=== PATIENT | female | born 1950 | race Caucasian/White ===

== ENCOUNTER → 2020-06-29 13:30 | Outpatient (BNVA) | payer MEDICARE, OTHER, SELFPAY | PROVIDERS: PCP Internal Medicine; Referring Provider Internal Medicine; Visit Provider Internal Medicine Cardiovascular Disease | DX: I10 Essential (primary) hypertension (principal); Z79.899 Other long term (current) drug therapy | CPT/HCPCS: 99213 ==

== ENCOUNTER 2020-07-06 11:24 | Outpatient (REF) | payer MEDICARE, OTHER, SELFPAY ==
--- NOTE | 2020-07-06 11:30 | XR_ITS ---
EXAMINATION: BILATERAL KNEES STANDING. LEFT KNEE 2 VIEWS CLINICAL INFORMATION: Left knee pain. COMPARISON: None TECHNIQUE: AP bilateral knee standing one view. Left knee 2 views FINDINGS: AP bilateral knee: There is a total left knee arthroplasty in satisfactory position. There is moderate to severe loss of medial and mild lateral compartment joint space right knee no bony erosive changes seen. No loose body seen. 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 Left knee: There is a total left knee arthroplasty with prosthetic components in satisfactory alignment. No visible fracture or bony abnormality seen. The soft tissues are normal. XR/XR knee standing BI IMPRESSION: Degenerative arthritic changes medial and lateral compartment right knee. Total left knee arthroplasty with prosthetic components in satisfactory position.
--- NOTE | 2020-07-06 11:30 | XR_ITS ---
EXAMINATION: BILATERAL KNEES STANDING. LEFT KNEE 2 VIEWS CLINICAL INFORMATION: Left knee pain. COMPARISON: None TECHNIQUE: AP bilateral knee standing one view. Left knee 2 views FINDINGS: AP bilateral knee: There is a total left knee arthroplasty in satisfactory position. There is moderate to severe loss of medial and mild lateral compartment joint space right knee no bony erosive changes seen. No loose body seen. 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 Left knee: There is a total left knee arthroplasty with prosthetic components in satisfactory alignment. No visible fracture or bony abnormality seen. The soft tissues are normal. XR/XR knee LT 2V IMPRESSION: Degenerative arthritic changes medial and lateral compartment right knee. Total left knee arthroplasty with prosthetic components in satisfactory position.
== END 2020-07-06 11:25 | disposition home or self-care (01) ==
LOC: HO.XRAY 11:24
PROVIDERS: PCP Internal Medicine; Referring Provider Internal Medicine; Visit Provider Orthopaedic Surgery
DX: Z47.1 Aftercare following joint replacement surgery (principal); Z96.652 Presence of left artificial knee joint
CPT/HCPCS: 73560; 73565; 99214

== ENCOUNTER → 2021-07-01 13:08 | Outpatient (BNVA) | payer MEDICARE, OTHER, SELFPAY | PROVIDERS: PCP Internal Medicine; Visit Provider Internal Medicine Cardiovascular Disease | DX: I10 Essential (primary) hypertension (principal); M17.0 Bilateral primary osteoarthritis of knee; Z96.652 Presence of left artificial knee joint; T78.49XA Other allergy, initial encounter; Z88.2 Allergy status to sulfonamides; Z79.899 Other long term (current) drug therapy | CPT/HCPCS: 93005; 99212 ==

== ENCOUNTER → 2022-07-04 12:57 | Outpatient (BNVA) | payer MEDICARE, OTHER, SELFPAY | PROVIDERS: PCP Internal Medicine; Referring Provider Internal Medicine; Visit Provider Internal Medicine Cardiovascular Disease | DX: I10 Essential (primary) hypertension (principal) | CPT/HCPCS: 93005; 99212 ==

== ENCOUNTER 2022-07-04 21:26 | Emergency (ER) | payer MEDICARE, OTHER, SELFPAY ==
--- NOTE | 2022-07-04 | ECG_ITS ---
Test Reason : DIZZINESS Blood Pressure : / mmHG Vent. Rate : 077 BPM Atrial Rate : 077 BPM P-R Int : 174 ms QRS Dur : 096 ms QT Int : 414 ms P-R-T Axes : 066 015 031 degrees QTc Int : 468 ms Sinus rhythm with marked sinus arrhythmia with occasional Premature atrial complexes Nonspecific ST abnormality Abnormal ECG No previous ECGs available Referred By: Generic ED Physician Electronically Signed By:TRISTEN CASEY MD
--- NOTE | ~2022-07-04 | XR_ITS ---
EXAMINATION: RIGHT SHOULDER, LEFT WRIST CLINICAL INFORMATION: Fall with right shoulder and left wrist pain COMPARISON: None TECHNIQUE: 3 views right shoulder, 4 views left wrist FINDINGS: Shoulder: Some minimal degenerative changes are present sclerotic changes in the region of the greater tubercle. On the AP view, there is a 5 mm rounded calcific density seen at the superior aspect of the glenohumeral joint which most likely represents a free intra-articular body. Degenerative changes noted at the AC joint. No acute fractures or dislocations. Left wrist: Generalized osteopenia is present. Degenerative changes are present at the radiocarpal joint. No fractures or dislocations are seen. Degenerative changes seen at the triscaphe joint as well as the first SNF joint. XR/XR wrist LT min 3V IMPRESSION: Degenerative changes in the right shoulder and left wrist as described above. Probable right intra-articular glenohumeral ossific density. No evidence of an acute osseous injury
--- NOTE | ~2022-07-04 | XR_ITS ---
EXAMINATION: RIGHT SHOULDER, LEFT WRIST CLINICAL INFORMATION: Fall with right shoulder and left wrist pain COMPARISON: None TECHNIQUE: 3 views right shoulder, 4 views left wrist FINDINGS: Shoulder: Some minimal degenerative changes are present sclerotic changes in the region of the greater tubercle. On the AP view, there is a 5 mm rounded calcific density seen at the superior aspect of the glenohumeral joint which most likely represents a free intra-articular body. Degenerative changes noted at the AC joint. No acute fractures or dislocations. Left wrist: Generalized osteopenia is present. Degenerative changes are present at the radiocarpal joint. No fractures or dislocations are seen. Degenerative changes seen at the triscaphe joint as well as the first USP joint. XR/XR shoulder RT min 2V IMPRESSION: Degenerative changes in the right shoulder and left wrist as described above. Probable right intra-articular glenohumeral ossific density. No evidence of an acute osseous injury
[2022-07-04 21:43] VITALS: BP 148/84; PULSE 73; O2SAT 99
[2022-07-04 22:27] VITALS: BP 133/71; PULSE 75; RESP 18; TEMP 36.5; O2SAT 99; BMI 29.9
[2022-07-04 22:57] LABS: Hematocrit 43.7 % (37.0-47.0); Hemoglobin 15.2 g/dl (12.0-16.0); Mean Corpuscular HGB Conc 34.8 g/dl (31.0-35.0); Mean Corpuscular Hemoglobin 30.8 pg (27.0-33.0); Mean Corpuscular Volume 88.5 fL (80.0-98.0); Mean Platelet Volume 9.5 fL (9.4-12.3); Platelet Count 324 X10*3/uL (160-400); Red Blood Count 4.94 X10*6/uL (4.20-5.50); White Blood Count 9.4 X10*3/uL (4.8-10.8)
[2022-07-04 23:16] LABS: Alanine Aminotransferase 24 U/L (0-31); Albumin Level 4.5 g/dL (3.5-5.0); Alkaline Phosphatase 78 U/L (39-117); Anion Gap 20 (12-20); Aspartate Amino Transferase 24 U/L (5-31); Bilirubin Total 0.3 mg/dL (0.0-1.0); Blood Urea Nitrogen 11 mg/dL (9-16); Calcium 9.5 mg/dL (8.4-10.2); Carbon Dioxide 25 mmol/L (22-29); Chloride 100 mmol/L (96-108); Creatinine Clr Calc Pharmacy 95.9; Estimated Glomerular Filt Rate > 60; Glucose Random 118 mg/dL (60-115); Potassium 3.6 mmol/L (3.3-5.1); Sodium 141 mmol/L (135-145); Total Protein 7.6 g/dL (6.5-8.0)
--- NOTE | 2022-07-05 00:53 | ED.FALL ---
HPI - Fall General Chief Complaint: Fall Stated Complaint: fall Time Seen by Provider: 07/05/22 00:52 Source: patient Mode of arrival: ambulatory Limitations: no limitations History of Present Illness HPI Narrative: Pain came on after mechanical fall after having 2 glasses of wine with dinner patient was walking foot got caught in footing door patient ended on left side hitting her shoulder to the sethi and then the ground complaining of pain in the right shoulder and the left wrist no head injury no loss of consciousness no neck pain patient had small amount of blood from the nose patient is not on any anticoagulants patient had small amount of bleeding from the nose Related Data Home Medications Medication Instructions Recorded Confirmed amlodipine 5 mg tablet 5 mg PO DAILY 06/29/20 07/04/22 hydrochlorothiazide 25 mg tablet 25 mg PO DAILY 06/29/20 07/04/22 simvastatin 20 mg tablet 20 mg PO BEDTIME 06/29/20 07/04/22 Previous Rx's Medication Instructions Recorded amoxicillin 500 mg tablet 500 mg PO ONCE 1 day #4 tabs 03/15/22 ibuprofen 600 mg tablet 600 mg PO Q6H PRN Pain (Scale 07/05/22 Score 4-6) #30 tabs Allergies Allergy/AdvReac Type Severity Reaction Status Date / Time Sulfa (Sulfonamide Allergy Severe HIVES Verified 07/04/22 13:17 Antibiotics) [SULFA (SULFONAMIDE ANTIBIOTICS)] red dye [RED DYE] Allergy Unknown HIVES Verified 07/04/22 13:17 Review of Systems Review of Systems: Yes all other systems are reviewed and are negative PMFSH Past Medical History Medical History Hypertension Primary osteoarthritis of knees, bilateral Surgical History History of elbow surgery History of total left knee replacement (TKR) (~03/19/19) Hx of knee surgery Hx of tonsillectomy Family History Family History Father No problems noted. Mother No problems noted. Social History Social History Alcohol intake: current Alcohol intake frequency: 0-2 drinks per day Patient Tobacco Use Status: Never used Tobacco Advance Directives: No Physical Exam Vital Signs: Vital Signs: Last Vital Signs Temp 97.9 F 07/05/22 01:24 Pulse 88 07/05/22 01:24 Resp 18 07/05/22 01:24 BP 143/66 H 07/05/22 01:24 Pulse Ox 98 07/05/22 01:24 O2 Del Method 07/05/22 01:24 BMI result Body Mass Index 29.9 Appearance: Alert. Oriented X3. No acute distress. Eyes: PERRLA, No Nystagmus ENT: Pharynx normal. Oral Mucosa moist no active bleeding from the nose slight swelling of the nose Neck: Normal inspection. Neck supple. CVS: Normal heart rate and rhythm. Pulses normal. Respiratory: No respiratory distress. Equal air entry bilateral, no wheezing/rales/rhonchi Abdomen: Soft and nontender. Bowel sounds are present, no mass palpable, no CVA tenderness Skin: Skin warm and dry. Normal skin color. Normal skin turgor. Extremities: No lower extremity edema. No calf tenderness Neuro: Oriented X 3. No motor deficit. No sensory deficit.No cerebellar signs , cranial nerves II-XII intact Extrem: Shoulder/upper arm images: 1. Diffuse soft tissue tenderness good range of left shoulder movement no deformity neurovascular intact Hand/finger images: 1. Soft tissue swelling good range of movement no deformity neurovascular intact MDM - Fall MDM Narrative Medical decision making narrative: Patient status post mechanical fall x-ray shoulder and negative sling was given to the patient for support labs are stable Lab Data Result diagrams: 07/04/22 22:49 07/04/22 22:49 Labs: Lab Results 07/04/22 07/04/22 Range/Units 22:49 22:49 WBC 9.4 (4.8-10.8) X10*3/uL RBC 4.94 (4.20-5.50) X10*6/uL Hgb 15.2 (12.0-16.0) g/dl Hct 43.7 (37.0-47.0) % MCV 88.5 (80.0-98.0) fL MCH 30.8 (27.0-33.0) pg MCHC 34.8 (31.0-35.0) g/dl RDW 13.0 (11.0-16.0) % Plt Count 324 (160-400) X10*3/uL MPV 9.5 (9.4-12.3) fL Absolute Nucleated RBC 0.000 (0.0-0.012) X10*3/uL Nucleated RBC % (auto) 0.0 (0.0-0.2) /100WBC Sodium 141 (135-145) mmol/L Potassium 3.6 (3.3-5.1) mmol/L Chloride 100 (96-108) mmol/L Carbon Dioxide 25 (22-29) mmol/L Anion Gap 20 (12-20) BUN 11 (9-16) mg/dL Creatinine 0.62 (0.5-1.4) mg/dL Estim Creat Clear Calc 95.9 Estimated GFR > 60 Random Glucose 118 H (60-115) mg/dL Calcium 9.5 (8.4-10.2) mg/dL Total Bilirubin 0.3 (0.0-1.0) mg/dL AST 24 (5-31) U/L ALT 24 (0-31) U/L Alkaline Phosphatase 78 (39-117) U/L Total Protein 7.6 (6.5-8.0) g/dL Albumin 4.5 (3.5-5.0) g/dL Discharge Plan Discharge Clinical Impression: Contusion of right shoulder Patient Disposition: Home, Self-Care Instructions: Shoulder Pain (ED) Additional Instructions: Care and cautions as advised Apply ice pack and wear sling Ibuprofen for pain Follow-up with PCP if not better Prescriptions: New ibuprofen 600 mg tablet 600 mg PO Q6H PRN (Reason: Pain (Scale Score 4-6)) Qty: 30 0RF No Action amoxicillin 500 mg tablet 500 mg PO ONCE 1 Days Qty: 4 4RF Rx Instructions: take 4 tabs 1 hour prior to dental procedure hydrochlorothiazide 25 mg tablet 25 mg PO DAILY amlodipine 5 mg tablet 5 mg PO DAILY simvastatin 20 mg tablet 20 mg PO BEDTIME Interventions: ED Discharge Assessment Last Done: 07/05/22 01:49 Discharge Date/Time: 07/05/22 01:49
[2022-07-05] MEDS: Ibuprofen 600 MG TABLET PO (01:22)
[2022-07-05 01:24] VITALS: BP 143/66; PULSE 88; RESP 18; TEMP 36.6; O2SAT 98
== END 2022-07-05 01:49 | disposition home or self-care (01) ==
PROVIDERS: Emergency Provider Internal Medicine; PCP Internal Medicine
DX: S40.011A Contusion of right shoulder, initial encounter (principal); M79.601 Pain in right arm; W01.0XXA Fall on same level from slipping, tripping and stumbling without subsequent striking against object, initial encounter; Y93.9 Activity, unspecified; Y92.9 Unspecified place or not applicable; Y99.9 Unspecified external cause status; Z79.899 Other long term (current) drug therapy
CPT/HCPCS: 36415; 73030; 73110; 80053; 85027; 93005; 99283; 99284

== ENCOUNTER 2023-07-03 10:40 | Outpatient (REF) | payer MEDICARE, OTHER, SELFPAY ==
--- NOTE | ~2023-07-03 | XR_ITS ---
EXAMINATION: XR KNEE, RIGHT XR KNEE AP STANDING CLINICAL INFORMATION: Pain. COMPARISON: Prior radiographs, most recently 07/06/2020. TECHNIQUE: Lateral and axial views of the right knee were obtained. AP bilateral standing view of the knees was obtained. FINDINGS: There is marked narrowing of the medial and patellofemoral joint space compartments of the right knee. This is secondary mild varus configuration. There is tricompartment peripheral osteophyte formation. No right knee fracture or dislocation is seen. There is a small joint effusion. No foreign body is seen. There is an intact left knee total arthroplasty. XR/XR knee standing BI IMPRESSION: 1. There is tricompartment osteoarthritic change of the right knee, most pronounced of the medial and patellofemoral compartments. There is a secondary mild right knee varus configuration. 2. There is an intact left knee total arthroplasty.
--- NOTE | ~2023-07-03 | XR_ITS ---
EXAMINATION: XR KNEE, RIGHT XR KNEE AP STANDING CLINICAL INFORMATION: Pain. COMPARISON: Prior radiographs, most recently 07/06/2020. TECHNIQUE: Lateral and axial views of the right knee were obtained. AP bilateral standing view of the knees was obtained. FINDINGS: There is marked narrowing of the medial and patellofemoral joint space compartments of the right knee. This is secondary mild varus configuration. There is tricompartment peripheral osteophyte formation. No right knee fracture or dislocation is seen. There is a small joint effusion. No foreign body is seen. There is an intact left knee total arthroplasty. XR/XR knee RT 2V IMPRESSION: 1. There is tricompartment osteoarthritic change of the right knee, most pronounced of the medial and patellofemoral compartments. There is a secondary mild right knee varus configuration. 2. There is an intact left knee total arthroplasty.
== END 2023-07-03 10:41 | disposition home or self-care (01) ==
LOC: HO.HOSX 10:40
PROVIDERS: Visit Provider Orthopaedic Surgery
DX: M17.11 Unilateral primary osteoarthritis, right knee (principal); Z96.652 Presence of left artificial knee joint
CPT/HCPCS: 73560; 73565; 99212

== ENCOUNTER 2023-07-03 11:06 | Outpatient (AMB) | payer MEDICARE, OTHER, SELFPAY ==
--- NOTE | 2023-07-03 11:12 | MHC.OFFVIS ---
Intake Vital Signs 07/03/23 11:13 Height 5 ft 8 in Weight 197 lb BMI 30.0 Intake Visit Reasons: Newprob-Right knee pain Intake Note: Danna is a 73 year old female who presents today for a follow up of her right knee pain. She was last seen on 07/03/23, note states that at some point intervention may be warranted. Pateint reports that she is having increased pain, she is looking to talk about surgery. She has surgeries upcoming with her eyes that need to be done prior to the knee but she would like to discuss TKA at this time. Hx of Left TKA 05/30/19 Allergies Sulfa (Sulfonamide Antibiotics) [SULFA (SULFONAMIDE ANTIBIOTICS)] Allergy (Severe, Verified 07/05/23 11:26) HIVES red dye [RED DYE] Allergy (Unknown, Verified 07/05/23 11:) HIVES HPI Newprob-Right knee pain HPI Details Danna is a 73 year old woman who returns with complaints of right knee OA pain. She complain of pain with daily activity, which is worse with inclimate weather. She reports having vision trouble which is affecting her depth perception. She says this has caused her to walk into objects and fall multiple times and hurt her knees. She is concerned if she has worsened her knees with these falls. She is having surgery for this sometime in August. She would like to discuss surgery. She has a hx of left TKA by me, DOS: 03/19/19. She says this went well and she denies any left knee issues. [facility] Medical History Hypertension Primary osteoarthritis of knees, bilateral Surgical History History of total left knee replacement (TKR) (~03/19/19) Hx of tonsillectomy Hx of knee surgery History of elbow surgery Family History Father No problems noted. Mother No problems noted. Social History Alcohol intake: current Alcohol intake frequency: 0-2 drinks per day Patient Tobacco Use Status: Never used Tobacco Review of Systems Const All systems reviewed & are unremarkable except as noted in HPI and below Physical Exam Vital Signs: BMI result Body Mass Index 30.0 Const General: no acute distress, alert and awake Orientation/consciousness: patient oriented x3 HEENT Head: Yes normocephalic and Yes atraumatic Eyes EOM: EOMs intact bilaterally Resp Effort & Inspection: normal respiratory effort and able to speak in complete sentences Cardio Jugular venous distension: no JVD Skin General skin exam: turgor normal Rashes: no rashes Neuro General: patient oriented x3 Extrem Other: Right Knee: TTP medial compartment 5-125 degrees ROM Stable to V/V stress antalgic gait Psych Appearance: grossly normal Affect: normal affect Attitude: cooperative Results Reviewed Results Reviewed: I personally reviewed relevant radiographs. Left total knee arthroplasty in expected post operative position with no hardware complications or evidence of loosening Severe tricompartmental osteoarthritis affecting mostly the medial compartment. Assessment & Plan Assessment & Plan (1) Osteoarthritis of right knee: Code(s): M17.11 - Unilateral primary osteoarthritis, right knee Plan: This is a 73 year old woman with right knee OA. She has pain with daily activity, worse with inclimate weather or when sitting down. She has fallen multiple times due to vision issues and says this worsened her pain. I discussed her diagnosis and treatment options. She would like to have surgery but she is planning to have eye surgery in August. I explained it is recommended to wait ~6 months after surgery to proceed with another. She declined injections today, she will follow up prn. (2) History of total left knee replacement (TKR): Onset Date: ~03/19/19 Code(s): Z96.652 - Presence of left artificial knee joint Plan Scribed for Ivan Ledezma MD by Gus Blanco, medical assistant internal medicine, on 07/03/23 at 11:35 AM, EST. Orders: Orders XR knee RT 2V 07/03/23 M25.569 - Pain in unspecified knee XR knee standing BI 07/03/23 M25.569 - Pain in unspecified knee Coding Level of Care Code Est Pt Level 4 (52150) Diagnoses Osteoarthritis of right knee M17.11 History of total left knee replacement (TKR) Z96.652
== END 2023-07-03 12:03 | disposition home or self-care (01) ==
PROVIDERS: PCP Internal Medicine; Visit Provider Orthopaedic Surgery
DX: M17.11 Unilateral primary osteoarthritis, right knee (principal); Z96.652 Presence of left artificial knee joint
CPT/HCPCS: 99213

== ENCOUNTER 2023-07-05 11:14 | Outpatient (AMB) | payer MEDICARE, OTHER, SELFPAY ==
--- NOTE | 2023-07-05 11:23 | MHC.OFFVIS ---
Intake Vital Signs 07/05/23 11:25 Height 5 ft 8 in Weight 196 lb 3.382 oz BMI 29.8 BP 140/72 H Blood Pressure Location Lt brachial Position Sitting Pulse 63 Intake Visit Reasons: 1 year follow up Intake Note: 1 year follow up w/ EKG Runway Model Required: No Accompanied by: Self / Same As Patient Allergies Sulfa (Sulfonamide Antibiotics) [SULFA (SULFONAMIDE ANTIBIOTICS)] Allergy (Severe, Verified 07/05/23 11:26) HIVES red dye [RED DYE] Allergy (Unknown, Verified 07/05/23 11:26) HIVES Medication List - Last Reconciled 07/05/23 by Tr Izaguirre MD amlodipine 5 mg PO DAILY amoxicillin 500 mg PO ONCE 1 day hydrochlorothiazide 25 mg PO DAILY simvastatin 20 mg PO BEDTIME HPI HPI Comments History of Present Illness Details Pleasant 73-year-old female here for follow-up. She has background history of hypertension. Blood pressure control has been good. She underwent left knee surgery. She is not exercising regularly. I have advised her to become more active. Denying any chest pain or shortness of breath. 07/05/2023: She returns for follow-up. She is undergoing our surgery for cataract as well as corneal disease in [place]. 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 Blood pressure is mildly elevated. She is currently taking amlodipine 5 mg and hydrochlorothiazide 25 mg daily [facility] Medical History Hypertension Primary osteoarthritis of knees, bilateral Surgical History History of total left knee replacement (TKR) (~03/19/19) Hx of tonsillectomy Hx of knee surgery History of elbow surgery Family History Father No problems noted. Mother No problems noted. Social History Alcohol intake: current Alcohol intake frequency: 0-2 drinks per day Patient Tobacco Use Status: Never used Tobacco Review of Systems Const Denies weakness ENT Denies dizziness Card Denies chest pain, Denies chest pain with activity, Denies syncope, Denies rapid heart rate, Denies pedal edema, Denies edema, Denies leg edema, Denies lightheadedness, Denies palpitations, Denies dyspnea, Denies dyspnea on exertion and Denies orthopnea Resp Denies cough, Denies dyspnea and Denies dyspnea on exertion GI Denies hematochezia and Denies change in stool character Musc Denies abnormal gait, Denies muscle cramps, Denies muscle weakness, Denies numbness, Denies radiating pain into limb and Denies tingling Neuro Denies abnormal gait, Denies dizziness, Denies syncope, Denies numbness, Denies tingling and Denies weakness Endo Denies palpitations Physical Exam Vital Signs: Last Vital Signs Pulse 63 07/05/23 11:25 BP 140/72 H 07/05/23 11:25 BMI result Body Mass Index 29.8 GENERAL APPEARANCE: in no acute distress, pleasant. NECK: no carotid bruit, no jugular venous distention. SKIN: no suspicious lesions, warm and dry. HEART: no murmurs, regular rate and rhythm. LUNGS: clear to auscultation bilaterally. ABDOMEN: soft, nontender. EXTREMITIES: no edema. PERIPHERAL PULSES: equal. NEUROLOGIC: No gross deficits, AAO X 3 Office Procedures EKG Details: Normal sinus rhythm 63 beats per minute, normal ECG, QTC 435 milliseconds. [id number], Complete Assessment & Plan Assessment & Plan (1) Hypertension: Code(s): I10 - Essential (primary) hypertension Plan Pleasant 73-year-old female who is here for follow-up. She has history of hypertension. Blood pressure is mildly elevated. I have advised her to increase amlodipine to 10 mg once a day. I have explained to her that sometime higher dose of amlodipine can lead to peripheral edema and if she gets any distressing symptoms then we may have to cut back the dose to 5 mg and had a different agent. She is planning to undergo right knee surgery in springtime. She is intermediate risk for perioperative cardiovascular complications. She will see us back in 1 year. Thank you for allowing me to participate in the care of your patient. Please feel free to contact me if you have any questions. Medications: New amlodipine 10 mg PO DAILY 90 tabs 3RF Coding Level of Care Code Est Pt Level 3 (21549) Diagnoses Hypertension I10 CPT Codes EKG - CPT: 17776-[id number], Complete ([id number])
[2023-07-05 11:25] VITALS: BP 140/72; PULSE 63; BMI 29.8
== END 2023-07-05 11:51 | disposition home or self-care (01) ==
PROVIDERS: PCP Internal Medicine; Visit Provider Internal Medicine Cardiovascular Disease
DX: I10 Essential (primary) hypertension (principal)
CPT/HCPCS: 93010; 99213

== ENCOUNTER → 2023-07-05 11:14 | Outpatient (BNVA) | payer MEDICARE, OTHER, SELFPAY | PROVIDERS: PCP Internal Medicine; Visit Provider Internal Medicine Cardiovascular Disease | DX: I10 Essential (primary) hypertension (principal) | CPT/HCPCS: 93005; 99212 ==

== ENCOUNTER 2024-06-13 13:57 | Outpatient (AMB) | payer MEDICARE, OTHER, SELFPAY ==
--- NOTE | 2024-06-13 14:02 | A.OFFVIS_ITS ---
Intake Visit Reasons: Discuss Surgery- ? R TKA for Sep 2024 Intake Note: Danna is a 74 year old female who presents today for a follow up of her right knee OA, She was last seen in 2022 where Right TKA was discussed but at the time she needed to have eye Surgery in August of 2023, it was recommended that she wait at least 6 months a/p Eye surgery to proceed with surgery for her knee. Today she would like to move forward with surgical planning for Right TKA. Allergies Sulfa (Sulfonamide Antibiotics) [SULFA (SULFONAMIDE ANTIBIOTICS)] Allergy (Severe, Verified 07/05/23 11:26) HIVES red dye [RED DYE] Allergy (Unknown, Verified 07/05/23 11:) HIVES HPI HPI Discuss Surgery- ? R TKA for Sep 2024: Details: Danna is a 74 year old female who presents today for a follow up of her right knee OA, She was last seen in 2022 where Right TKA was discussed but at the time she needed to have eye Surgery in August of 2023, it was recommended that she wait at least 6 months a/p Eye surgery to proceed with surgery for her knee. Today she would like to move forward with surgical planning for Right TKA. She had a left knee replacement in 2019. This did well and she has no complaints. She feels like her only paid now is in her right knee. She has pain with ambulation and daily activities. She has had injections in the past and would like a curative treatment so that she can be active and out of pain. [facility] Medical History Hypertension Primary osteoarthritis of knees, bilateral Surgical History History of total left knee replacement (TKR) (~03/19/19) Hx of tonsillectomy Hx of knee surgery History of elbow surgery Family History Father No problems noted. Mother No problems noted. Social History Alcohol intake: current Alcohol intake frequency: 0-2 drinks per day Patient Tobacco Use Status: Never used Tobacco Physical Exam Const General: no acute distress, alert and awake Orientation/consciousness: patient oriented x3 HEENT Head: Yes normocephalic and Yes atraumatic Eyes EOM: EOMs intact bilaterally Resp Effort & Inspection: normal respiratory effort and able to speak in complete sentences Cardio Jugular venous distension: no JVD Skin General skin exam: turgor normal Rashes: no rashes Neuro General: patient oriented x3 Extrem Other: Right Knee: TTP medial compartment 5-125 degrees ROM Stable to V/V stress antalgic gait Psych Appearance: grossly normal Affect: normal affect Attitude: cooperative Results Reviewed Results Reviewed: I personally reviewed relevant radiographs. Left total knee arthroplasty in expected post operative position with no hardwar e complications or evidence of loosening Right knee with severe varus pattern osteoarthritis with loss of medial joint space Assessment & Plan Assessment & Plan (1) Osteoarthritis of right knee: Code(s): M17.11 - Unilateral primary osteoarthritis, right knee Category: Medical Plan: This is a 74-year-old woman with right knee OA. She had a successful left knee arthroplasty. I recommend knee arthroplasty. She has fa in she had to get a I surgery prior. That has been done and she feels ready to proceed forward with surgery. We have tried injections, activity modification, strengthening and NSAIDs. Her quality of life is diminished. Her ambulatory capacity is severely limited. I discussed this with her and reviewed her radiographs. I explained her diagnosis and the treatment options. I reviewed the procedure and explained the expected post op course and my expectations of her post op recovery. I discussed the risks, benefits and alternatives including but not limited to the risk of pain, infection, stiffness, need for further surgery as well as potential medical complications such as blood clots, pulmonary embolism and cardiac complications. Coding Level of Care Code Est Pt Level 4 (54045) Diagnoses Osteoarthritis of right knee M17.11
== END 2024-06-13 14:26 | disposition home or self-care (01) ==
PROVIDERS: PCP Internal Medicine; Visit Provider Orthopaedic Surgery
DX: M17.11 Unilateral primary osteoarthritis, right knee (principal); Z96.652 Presence of left artificial knee joint
CPT/HCPCS: 99214

== ENCOUNTER → 2024-06-13 13:57 | Outpatient (BNVA) | payer MEDICARE, OTHER, SELFPAY | PROVIDERS: PCP Internal Medicine; Visit Provider Orthopaedic Surgery | DX: M17.11 Unilateral primary osteoarthritis, right knee (principal); Z98.890 Other specified postprocedural states | CPT/HCPCS: 99212 ==

== ENCOUNTER 2024-07-19 09:45 | Outpatient (AMB) | payer MEDICARE, OTHER, SELFPAY ==
[2024-07-19 10:01] VITALS: BP 134/62; PULSE 82; BMI 29.0
--- NOTE | 2024-07-19 10:01 | MHC.OFFVIS ---
Vital Signs 07/19/24 10:01 Height 5 ft 8 in Weight 190 lb 7.67 oz BMI 29.0 BP 134/62 Blood Pressure Location Rt brachial Position Sitting Pulse 82 Pulse Source Monitor Intake Visit Reasons: 1 yr/R TKA w/ 10/29/24 Intake Note: 1 yr f/up/ clearance Embryology Teacher Required: No Accompanied by: Self / Same As Patient Allergies Sulfa (Sulfonamide Antibiotics) [SULFA (SULFONAMIDE ANTIBIOTICS)] Allergy (Severe, Verified 07/05/23 11:26) HIVES red dye [RED DYE] Allergy (Unknown, Verified 07/05/23 11:26) HIVES Medication List - Last Reconciled 07/19/24 by Tr Izaguirre MD amlodipine 10 mg PO DAILY amoxicillin 500 mg PO ONCE 1 day hydrochlorothiazide 25 mg PO DAILY prednisolone acetate 1% 1 drp ophthalmic-Right QID simvastatin 20 mg PO BEDTIME HPI Comments Details: Pleasant 74-year-old female here for follow-up. She has background history of hypertension. Blood pressure control has been good. She underwent left knee surgery. She is not exercising regularly. I have advised her to become more active. Denying any chest pain or shortness of breath. 07/05/2023: She returns for follow-up. She is undergoing our surgery for cataract as well as corneal disease in [place]. 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 Blood pressure is mildly elevated. She is currently taking amlodipine 5 mg and hydrochlorothiazide 25 mg daily 07/19/2024: She is here for follow-up. She is doing well and has no new symptoms to report. Her EKGs showing atrial fibrillation. He is a new diagnosis for her. No chest pain or shortness of breath. No fatigue or any new complaints otherwise. [facility] Medical History Hypertension Primary osteoarthritis of knees, bilateral Surgical History History of total left knee replacement (TKR) (~03/19/19) Hx of tonsillectomy Hx of knee surgery History of elbow surgery Family History Father No problems noted. Mother No problems noted. Social History Alcohol intake: current Alcohol intake frequency: 0-2 drinks per day Patient Tobacco Use Status: Never used Tobacco Review of Systems Const Denies chills, Denies fatigue, Denies fever(s), Denies frequent falls, Denies weakness, Denies weight gain and Denies weight loss ENT Denies dizziness Card Denies chest pain, Denies leg edema, Denies lightheadedness, Denies palpitations, Denies dyspnea and Denies dyspnea on exertion Resp Denies cough, Denies dyspnea and Denies dyspnea on exertion GI Denies hematochezia Musc Denies abnormal gait, Denies muscle weakness, Denies numbness, Denies radiating pain into limb and Denies tingling Neuro Denies abnormal gait, Denies dizziness, Denies frequent falls, Denies numbness, Denies tingling and Denies weakness Endo Denies fatigue and Denies palpitations Physical Exam Vital Signs: Last Vital Signs Pulse 82 07/19/24 10:01 BP 134/62 07/19/24 10:01 BMI result Body Mass Index 29.0 GENERAL APPEARANCE: in no acute distress, pleasant. NECK: no carotid bruit, no jugular venous distention. SKIN: no suspicious lesions, warm and dry. HEART: no murmurs, irregular rate and rhythm. LUNGS: clear to auscultation bilaterally. ABDOMEN: soft, nontender. EXTREMITIES: no edema. PERIPHERAL PULSES: equal. NEUROLOGIC: No gross deficits, AAO X 3 Office Procedures EKG Details: Atrial fibrillation 82 beats per minute, normal axis, nonspecific ST segments, QTC 434 milliseconds. [id number], Complete Assessment & Plan Assessment & Plan (1) Hypertension: Code(s): I10 - Essential (primary) hypertension Category: Medical (2) PAF (paroxysmal atrial fibrillation): Code(s): I48.0 - Paroxysmal atrial fibrillation Category: Medical Plan Pleasant 74 year female who is here for follow-up. She has background history of hypertension which is well controlled with amlodipine and hydrochlorothiazide. Her EKGs showing atrial fibrillation. She said she had surgery in [place] few months ago where they were concerned that she may have had episode of atrial fibrillation. Although it was a short episode by her report. In any case she is currently in atrial fibrillation and denying any symptoms. We will check echocardiogram to rule out any LV dysfunction. If there is LV dysfunction then she will need cardioversion soon. Otherwise we will continue apixaban 5 mg twice a day for 4 weeks and then arrange cardioversion for her. I will decide this once the echocardiogram is performed. Heart rate is well controlled and she does not need any beta-traci or Cardizem currently. Thank you for allowing me to participate in the care of your patient. Please feel free to contact me if you have any questions. Orders: Orders CA echo transthoracic complete Today I48.0 - Paroxysmal atrial fibrillation Medications: New apixaban 5 mg PO BID 120 tabs 3RF I48.0 - Paroxysmal atrial fibrillation Coding Level of Care Code Est Pt Level 4 (30721) Diagnoses Hypertension I10 PAF (paroxysmal atrial fibrillation) I48.0 CPT Codes EKG - CPT: 32104-[id number], Complete ([id number])
== END 2024-07-19 10:39 | disposition home or self-care (01) ==
PROVIDERS: PCP Internal Medicine; Visit Provider Internal Medicine Cardiovascular Disease
DX: I10 Essential (primary) hypertension (principal); I48.0 Paroxysmal atrial fibrillation
CPT/HCPCS: 93010; 99214

== ENCOUNTER → 2024-07-19 09:45 | Outpatient (BNVA) | payer MEDICARE, OTHER, SELFPAY | PROVIDERS: PCP Internal Medicine; Visit Provider Internal Medicine Cardiovascular Disease | DX: I10 Essential (primary) hypertension (principal); I48.0 Paroxysmal atrial fibrillation | CPT/HCPCS: 93005; 99212 ==

== ENCOUNTER → 2024-08-13 12:47 | Outpatient (REF) | payer MEDICARE, OTHER, SELFPAY ==
--- NOTE | 2024-08-13 12:51 | CA_ITS ---
Transthoracic Echocardiogram Patient (Last, First, Middle): Danna Sood, Gender: Female Date of : 1950 Age: 74 Procedure Date: 08/13/2024 Procedure Type: Transthoracic Echocardiogram Location: OP Height: 172.72 cm Weight: 86.18 kg BSA: 2.00 m2 Heart Rate: bpm BP: 132 / 84 mmHg Steel Layer: ELLIOTT Referring MD: Tr Izaguirre MD Symptoms: I48.0 - Paroxysmal atrial fibrillation Study Quality: Fair Conclusions: - Normal left ventricular size, thickness, systolic function, and wall motion. The visually estimated ejection fraction is between 55-60%. - Normal right ventricular cavity size. There is low normal right ventricular systolic function. - The left atrium is moderately dilated. The right atrium is moderately dilated. Findings Left Ventricle Normal left ventricular size, thickness, systolic function, and wall motion. The visually estimated ejection fraction is between 55-60%. Diastolic function is indeterminate on the basis of available data. Right Ventricle Normal right ventricular cavity size. There is low normal right ventricular systolic function. Atria The left atrium is moderately dilated. The right atrium is moderately dilated. Aortic Valve Normal aortic valve structure and function. There is no aortic valve stenosis. There is no aortic valve regurgitation. Mitral Valve The mitral valve appears normal. There is trace mitral valve regurgitation. There is no mitral valve stenosis. Pulmonic Valve The pulmonic valve is likely normal. Tricuspid Valve Normal tricuspid valve structure. There is trace tricuspid valve regurgitation. Tricuspid regurgitation envelope is inadequate for calculation of right ventricular systolic pressure. Normal right atrial pressure. Great Vessels The visualized portions of the pulmonary artery and branches are normal. Ascending aorta is upper limit of normal for age 3.5 cm. Venous The inferior vena cava is normal in size and collapses greater than 50% with inspiration. Pericardium/Pleural There is no evidence of pericardial effusion. Measurements 2D Linear Measurements IVSd: 0.80 0.6-0.9/0.6-1.0 cm LVIDd: 5.39 3.9-5.3/4.2-5.9 cm LVIDd Index: 2.70 2.4-3.2/2.2-3.1 cm/m2 LVIDs: 4.08 2.0-3.6 cm LVPWd: 0.82 0.7-1.1 cm LA Diam: 4.50 2.7-3.8/3.0-4.0 cm LAIDs Index: 2.25 1.5-2.3 cm/m2 LV Mass: 195.70 67-162/88-224 g LV Mass Index: 97.85 43-95/49-115 g/m2 LVOT Diam: 2.00 3.0+(-)1.3 cm 2D Systolic Function EF 4C: 54.50 >55% EF 2C: 64.60 >55% EF BiP: 60.00 >55% Mitral Valve MV Pk E: 0.89 MV Decel Time: 215.00 E'Lateral: 9.52 E'Medial: 7.18 E/E' Med: 12.40 E/E' Lat: 9.30 PHT: 63.00 MVA PHT: 3.49 Decel Taliaferro: 4.15 Aortic Valve AoV Pk Terrell: 1.35 AoV Mn Terrell: 0.96 AoV VTI: 0.28 AoV Pk Grad: 7.00 Aov Mn Grad: 4.00 KIRBY Cont.VTI: 2.09 LVOT LVOT Pk Terrell: 0.87 LVOT Mn Terrell: 0.51 LVOT VTI: 0.19 LVOT Pk Grad: 3.00 LVOT Mn Grad: 1.00 LVOT Diam: 2.00 LVOT Area: 3.14 Diastolic Function MV Pk E: 0.89 E'Medial: 7.18 E/E' Med: 12.40 E' Laterial: 9.52 E/E' Lat: 9.30 Right Ventricle TAPSE (mm): 17.00 TVS' Terrell: 10.50 Tricuspid Valve TR Pk Terrell: 2.26 TR Pk Grad: 20.00 Great Vessels Aorta Sinus of Valsalva: 3.14 2.0-3.[address] Ridge: 2.41 1.7-3.4 cm Ao Asc: 3.50 2.1-3.4 cm Updated in Other Vendor System with Status of Final Tr Izaguirre MD electronically signed on 08/14/2024 7:20:49 PM with status of Final
== END ==
LOC: HO.CARD 12:47
PROVIDERS: PCP Internal Medicine; Visit Provider Internal Medicine Cardiovascular Disease
DX: I48.0 Paroxysmal atrial fibrillation (principal)
CPT/HCPCS: 93306

== ENCOUNTER → 2024-08-13 12:51 | Outpatient (BNV) | payer MEDICARE, OTHER, SELFPAY | PROVIDERS: PCP Internal Medicine; Visit Provider Internal Medicine Cardiovascular Disease | DX: I51.7 Cardiomegaly (principal) | CPT/HCPCS: 93306 ==

== ENCOUNTER 2024-09-02 09:52 | Day surgery (SDC) | payer MEDICARE, OTHER, SELFPAY ==
--- NOTE | 2024-08-29 09:44 | HO.ANESPROP2 ---
HPI - Anesthesia Eval Consult details Narrative: 74yo F for Cardioversion Eliquis for afib PMFSH Active Problems Active Problems: All Active Problems PAF (paroxysmal atrial fibrillation) (Acute) Osteoarthritis of right knee (Acute) History of total left knee replacement (TKR) (Acute ~03/19/19) Hypertension (Acute) Past Medical History Medical History Hypertension Primary osteoarthritis of knees, bilateral Family History Family History Father No problems noted. Mother No problems noted. Surgical History Surgical History History of total left knee replacement (TKR) (~03/19/19) Hx of tonsillectomy Hx of knee surgery History of elbow surgery Social History Social History Alcohol intake: current Alcohol intake frequency: 0-2 drinks per day Patient Tobacco Use Status: Never used Tobacco Meds Allergies Allergy/AdvReac Type Severity Reaction Status Date / Time Sulfa (Sulfonamide Allergy Severe HIVES Verified 07/05/23 11:26 Antibiotics) [SULFA (SULFONAMIDE ANTIBIOTICS)] red dye [RED DYE] Allergy Unknown HIVES Verified 07/05/23 11:26 Home Medications ?Medication ?Instructions ?Recorded ?Confirmed ?Last Taken ?Type hydrochlorothiazide 25 mg tablet 25 mg PO DAILY 06/29/20 07/19/24 Unknown History simvastatin 20 mg tablet 20 mg PO BEDTIME 06/29/20 07/05/23 Unknown History prednisolone acetate 1 % eye 1 drp ophthalmic-Right QID 07/19/24 07/19/24 Unknown History drops,suspension Exam Narrative Narrative: ECHO 08/2024 Conclusions: - Normal left ventricular size, thickness, systolic function, and wall motion. The visually estimated ejection fraction is between 55-60%. - Normal right ventricular cavity size. There is low normal right ventricular systolic function. - The left atrium is moderately dilated. The right atrium is moderately dilated. Assessment and Plan Assessment Anesthesia Assessment: Chart Reviewed
[2024-08-29 13:52] VITALS: BMI 28.9
--- NOTE | 2024-09-02 | ECG_ITS ---
Test Reason : cardioversion Blood Pressure : / mmHG Vent. Rate : 077 BPM Atrial Rate : 077 BPM P-R Int : 226 ms QRS Dur : 092 ms QT Int : 432 ms P-R-T Axes : 081 013 044 degrees QTc Int : 488 ms Sinus rhythm with marked sinus arrhythmia with 1st degree A-V block Otherwise normal ECG When compared with ECG of 04-JUL-2022 22:41, Premature atrial complexes are no longer Present [place] interval has increased Referred By: Tr Izaguirre Electronically Signed By:Tr Izaguirre
[2024-09-02 10:18] VITALS: BMI 28.9
[2024-09-02 10:44] VITALS: BP 146/81; PULSE 95; RESP 16; TEMP 36.6; O2SAT 99
[2024-09-02] MEDS: Lactated Ringers 1,000 ML 100 ML IVCONT (10:45)
--- NOTE | 2024-09-02 11:17 | MHC.SHP ---
Pre-Procedural Eval Section A - 24 Hr Update-Section A only Date of Service: 09/02/24 The patient is an INPATIENT: No Changes since office visit: No Cold of Flu in the past 2 weeks, No New Medical Problems, No Changes in Medication and No Patient answered all questions The patient has been examined within 24 hours of the surgical procedure. The History & Physical has been completed within 30 days and I have reviewed it.: Yes Section B - Complete if H&P > 30 days Chief Complaint: Paroxysmal atrial fibrillation Allergies: Allergies Allergy/AdvReac Type Severity Reaction Status Date / Time Sulfa (Sulfonamide Allergy Severe HIVES Verified 07/05/23 11:26 Antibiotics) [SULFA (SULFONAMIDE ANTIBIOTICS)] red dye [RED DYE] Allergy Unknown HIVES Verified 07/05/23 11:26 Plan Diagnosis/Plan: Unchanged I have reviewed the history and physical and performed a pertinent physical examination on my patient. No changes have occurred unless specified. For cardioversion for PAF. Time Spent With Patient Time: Total time managing care of this patient today ____ minutes.
--- NOTE | 2024-09-02 11:47 | HO.CARDIVERS ---
Cardioversion Procedure Note Cardioversion Date of Procedure: 09/02/24 Ordering Provider: Tr Izaguirre Performing Provider: Tr Izaguirre Indication for Procedure: PAF Performed with Transesophageal Echo: No History: 74 female with PAF (new onset) and low normal LVEF. Consent: Verbal and Written consent was obtained from the patient before starting. The patient was made aware of the risk of stroke, skin irritation, arrhythmia and failure. Procedure: After consent obtained, defib pads were attached and the patient was sedated by the anesthesia team. Once adequate sedation achieved, single synchronized shock of 200 J was given to the patient. The rhythm converted to sinus rhythm. Complications: No acute complications Recommendations: Adding Multaq 400 mg BID. c/w Apixaban uninterrupted.
[2024-09-02 11:51] VITALS: BP 122/70; PULSE 66; RESP 16; TEMP 36.3; O2SAT 96
[2024-09-02 12:06] VITALS: BP 128/73; PULSE 90; RESP 16; TEMP 36.3; O2SAT 100
[2024-09-02 12:21] VITALS: BP 129/75; PULSE 66; RESP 16; TEMP 36.3; O2SAT 98
== END 2024-09-02 12:44 | disposition home or self-care (01) ==
PROVIDERS: PCP Internal Medicine; Visit Provider Internal Medicine Cardiovascular Disease
PROC: 5A2204Z Restoration of Cardiac Rhythm, Single (ICD-10-PCS; principal; 2024-09-02 11:30)
DX: I48.0 Paroxysmal atrial fibrillation (principal); I10 Essential (primary) hypertension; M17.0 Bilateral primary osteoarthritis of knee; Z79.899 Other long term (current) drug therapy; Z88.2 Allergy status to sulfonamides; Z96.652 Presence of left artificial knee joint; Z98.890 Other specified postprocedural states
CPT/HCPCS: 92960; 93005; J2704

== ENCOUNTER → 2024-09-02 09:52 | Outpatient (BNV) | payer MEDICARE, OTHER, SELFPAY | PROVIDERS: PCP Internal Medicine; Visit Provider Internal Medicine Cardiovascular Disease | DX: I48.0 Paroxysmal atrial fibrillation (principal); R94.31 Abnormal electrocardiogram [ECG] [EKG] | CPT/HCPCS: 92960; 93010 ==

== ENCOUNTER 2024-09-20 09:36 | Outpatient (AMB) | payer MEDICARE, OTHER, SELFPAY ==
[2024-09-20 09:38] VITALS: BP 120/72; PULSE 78; BMI 29.2
--- NOTE | 2024-09-20 09:38 | A.OFFVIS_ITS ---
Vital Signs 09/20/24 09:38 Height 5 ft 8 in Weight 191 lb 12.835 oz BMI 29.2 BP 120/72 Blood Pressure Location Rt brachial Position Sitting Pulse 78 Pulse Source Monitor Intake Visit Reasons: f/up-afib post cardioversion Silk Screen Processor Required: No Allergies Sulfa (Sulfonamide Antibiotics) [SULFA (SULFONAMIDE ANTIBIOTICS)] Allergy (Severe, Verified 09/20/24 09:41) HIVES red dye [RED DYE] Allergy (Unknown, Verified 09/20/24 09:41) HIVES Medication List - Last Reconciled 09/20/24 by Charline Jarquin, ERLIN-C amlodipine 10 mg PO BEDTIME apixaban 5 mg PO BID atorvastatin 20 mg PO BEDTIME dronedarone 400 mg PO BID hydrochlorothiazide 25 mg PO DAILY prednisolone acetate 1% 1 drp ophthalmic-Right QID walker Folding Front wheeled walker duration 99 days HPI HPI f/up-afib post cardioversion: Details: Danna is a 74-year-old female with past medical history of hypertension who was noted to have finding of atrial fibrillation on last visit. She was started on anticoagulation, had echocardiogram and underwent a cardioversion and now presents for follow-up. Today she reports that she has been feeling very well in the last few weeks. She has no heart palpitations. She did not feel heart palpitations prior to the cardioversion. She has no chest discomfort at rest or with activity. No shortness of breath, PND, orthopnea or edema. No lightheadedness, presyncope, syncope, falls. She reports good activity tolerance. Takes meds as directed. No bleeding issues reported. [facility] Medical History Cataract, right eye PAF (paroxysmal atrial fibrillation) Primary osteoarthritis of knees, bilateral Hypertension Surgical History History of total left knee replacement (TKR) (~03/19/19) Hx of tonsillectomy Hx of knee surgery History of elbow surgery Family History Father No problems noted. Mother No problems noted. Social History Alcohol intake: current Alcohol intake frequency: 0-2 drinks per day Patient Tobacco Use Status: Never used Tobacco Review of Systems Const All systems reviewed & are unremarkable except as noted in HPI and below ENT Denies dizziness Card Denies chest pain, Denies chest pain at rest, Denies chest pain with activity, Denies rapid heart rate, Denies pedal edema, Denies edema, Denies leg edema, Denies lightheadedness, Denies palpitations, Denies dyspnea, Denies dyspnea on exertion and Denies orthopnea Resp Denies cough, Denies dyspnea and Denies dyspnea on exertion GI Denies hematochezia and Denies change in stool character Musc Denies abnormal gait, Denies limited range of motion, Denies muscle cramps, Denies muscle weakness, Denies numbness, Denies radiating pain into limb, Denies stiffness and Denies tingling Neuro Denies abnormal gait, Denies dizziness, Denies numbness and Denies tingling Endo Denies palpitations Physical Exam Vital Signs: Last Vital Signs Pulse 78 09/20/24 09:38 BP 120/72 09/20/24 09:38 BMI result Body Mass Index 29.2 Const General: cooperative, healthy appearing, comfortable and no acute distress Orientation/consciousness: patient oriented x3 Neck Neck: Yes normal visual inspection Resp Effort & Inspection: normal respiratory effort Auscultation: clear to auscultation bilaterally, no rales, no rhonchi and no wheezes Cardio Jugular venous distension: no JVD Rate: regular rate Rhythm: abnormal rhythm Heart sounds: S1 normal heart sound present, S2 normal heart sound present, no gallops, no murmurs and no rubs Neuro General: patient oriented x3 Extrem General: Yes normal to inspection, No no pedal edema and No calf tenderness Psych Appearance: grossly normal Mental Status: mental status grossly normal Speech and movement: Normal speech and movement present Office Procedures EKG Details: Today, read by me, Atrial fibrillation, nonspecific ST/ T wave abn, rate 78 [id number], Complete Assessment & Plan Assessment & Plan (1) Atrial fibrillation: Code(s): I48.91 - Unspecified atrial fibrillation Category: Medical Plan: Newer finding of atrial fibrillation, asymptomatic. She was put on Eliquis for anticoagulation. An echocardiogram was done 08/13/2024 showing EF 55-60%, moderate dilation in the left and right atriums, low normal RV systolic function. She underwent a cardioversion with on 09/02/2024 with successful conversion to sinus rhythm. She was started on Multaq 400 mg b.i.d. to help maintain rhythm control. Today she reports she has been feeling very well since that time with no concerning symptoms. She has good activity tolera nce. EKG done today shows atrial fibrillation, rate 78. Reviewed with Dr. Izaguirre. At this time will treat with rate control. She is planning to have total knee replacement next month. Will have her stop Multaq. Will start on metoprolol XL 25 mg daily. Continue Eliquis. Will check a Holter monitor to assess rate control. Cardiology follow-up 3-4 months, sooner if needed. Following knee surgery options for rhythm control can be further discussed. (2) Hypertension: Code(s): I10 - Essential (primary) hypertension Category: Medical Plan: Well controlled at this time. She is on amlodipine, hydrochlorothiazide. I will be adding low-dose metoprolol. If blood pressures do become low then amlodipine dose can be reduced. (3) Preop cardiovascular exam: Code(s): Z01.810 - Encounter for preprocedural cardiovascular examination Category: Medical Plan: Preop for a right total knee replacement on 11/06/[address] Ledezma. Recent echo shows normal EF. She has no reports of anginal sounding symptoms. Recent finding of atrial fibrillation, asymptomatic. She can proceed with surgery with low to intermediate cardiac risk. Continue metoprolol. Eliquis can be held 2-3 days prior to the procedure and restart as soon as cleared by surgeon to do so. Call/consult Cardiology if needed. Plan Time spent on chart review, documentation, interview and assessment Orders: Orders ECG 3 day holter monitor Today I48.91 - Unspecified atrial fibrillation Medications: New metoprolol succinate ER Stop Multaq Start Metoprolol 25 mg PO DAILY 30 tabs 5RF Discontinued dronedarone must administer with a meal/food Discontinued Reason: Doctor's Order 400 mg PO BID 60 tabs 4RF I48.0 - Paroxysmal atrial fibrillation Coding Level of Care Code Est Pt Level 4 (67810) Complex EM visit Add On G2211 Diagnoses Atrial fibrillation I48.91 Hypertension I10 Preop cardiovascular exam Z01.810 CPT Codes EKG - CPT: 88898-Iviegbhtxvilaviay, Complete ([id number]) Time Spent (min) 28
== END 2024-09-20 10:16 | disposition home or self-care (01) ==
PROVIDERS: PCP Internal Medicine; Visit Provider Nurse Practitioner Family
DX: I48.91 Unspecified atrial fibrillation (principal); I10 Essential (primary) hypertension; Z01.810 Encounter for preprocedural cardiovascular examination
CPT/HCPCS: 93010; 99214; G2211

== ENCOUNTER → 2024-09-20 09:36 | Outpatient (BNVA) | payer MEDICARE, OTHER, SELFPAY | PROVIDERS: PCP Internal Medicine; Visit Provider Nurse Practitioner Family | DX: Z01.810 Encounter for preprocedural cardiovascular examination (principal); I48.91 Unspecified atrial fibrillation; I10 Essential (primary) hypertension | CPT/HCPCS: 93005; 99212 ==

== ENCOUNTER → 2024-09-24 11:25 | Outpatient (REF) | payer MEDICARE, OTHER, SELFPAY | LOC: HO.CARD 11:25 | PROVIDERS: PCP Internal Medicine; Visit Provider Nurse Practitioner Family | DX: I48.91 Unspecified atrial fibrillation (principal) | CPT/HCPCS: 93242 ==

== ENCOUNTER → 2024-09-24 11:28 | Outpatient (BNV) | payer MEDICARE, OTHER, SELFPAY | PROVIDERS: PCP Internal Medicine; Visit Provider Internal Medicine Cardiovascular Disease | DX: I48.91 Unspecified atrial fibrillation (principal) | CPT/HCPCS: 93244 ==

== ENCOUNTER → 2024-09-27 10:45 | Outpatient (BNVA) | payer MEDICARE, OTHER, SELFPAY | PROVIDERS: PCP Internal Medicine | DX: Z01.818 Encounter for other preprocedural examination (principal) ==

== ENCOUNTER 2024-10-07 08:45 | Outpatient (AMB) | payer MEDICARE, OTHER, SELFPAY ==
--- NOTE | 2024-10-07 08:48 | A.OFFVIS_ITS ---
Vital Signs 10/07/24 08:49 Height 5 ft 8 in Weight 191 lb BMI 29.0 Intake Visit Reasons: OV - Left Knee Swelling - Lt TKA 2019 Intake Note: Danna is a 74 year old female who presents today for a follow up of her Left knee. Hx of Left TKA in 2019 & is booked for Right TKA 11/06/24. Patient reports that she is having increased swelling & pain of the left knee. Patient reports that she has been having increased pain for about 1 month now, the pain is felt all the time and is described as an ache R TKA w/NE 11/06/24 Allergies Sulfa (Sulfonamide Antibiotics) [SULFA (SULFONAMIDE ANTIBIOTICS)] Allergy (Severe, Verified 09/27/24 11:07) HIVES red dye [RED DYE] Allergy (Intermediate, Verified 10/03/24 09:20) HIVES HPI HPI OV - Left Knee Swelling - Lt TKA 2019: Details: Danna is a 74 year old female who presents today for a follow up of her Left knee. Hx of Left TKA in 2019 & is booked for Right TKA 11/06/24. Patient reports that she is having increased swelling & pain of the left knee. Patient reports that she has been having increased pain for about 1 month now, the pain is felt all the time and is described as an ache . She also has some lateral hip pain. She feels like she is walking abnormally. R TKA w/NE 11/06/24 PENDING SALE TO [facility] Medical History (Updated 10/07/24 @ 09:34 by Ivan Ledezma MD) Basal cell carcinoma Arthritis Elevated cholesterol Osteopenia Hepatic cyst Fuchs' corneal dystrophy of right eye Diverticulosis Schatzki's ring History of cardioversion PAF (paroxysmal atrial fibrillation) Primary osteoarthritis of knees, bilateral Hypertension Surgical History (Updated 10/04/24 @ 10:14 by Nguyen Pierre RN) H/O colonoscopy History of basal cell carcinoma (BCC) excision History of esophagogastroduodenoscopy (EGD) Hx of right cataract extraction History of total left knee replacement (TKR) (~03/19/19) Hx of tonsillectomy History of elbow surgery Family History Father No problems noted. Mother No problems noted. Social History Are you a primary companion caregiver to a significant other at home: No Do you presently have visiting nurse or other home services: No Alcohol intake: current Alcohol intake frequency: 0-2 drinks per day Comment: advised to remove due to trip hazard Patient Tobacco Use Status: Never used Tobacco Physical Exam Vital Signs: BMI result Body Mass Index 29.0 Extrem Other: On exam her left knee has full range of motion. Well-healed incision. No effusion. She has minimal internal rotation of her left hip while flexed with tenderness over the greater trochanter. No groin pain with impingement but discomfort laterally. Results Reviewed Results Reviewed: I personally reviewed relevant radiographs. [id number] left hip osteoarthritis Assessment & Plan Assessment & Plan (1) Osteoarthritis of right knee: Code(s): M17.11 - Unilateral primary osteoarthritis, right knee Category: Medical Plan: Arthritis of the right knee. She has upcoming knee replacement surgery scheduled. This continues to be the plan. There is no indication for postpone Joanie cancellation at this point. I did write her a prescription for some physical therapy for her gait mechanics and her left knee and hip pain. (2) History of total left knee replacement (TKR): Onset Date: ~03/19/19 Code(s): Z96.652 - Presence of left artificial knee joint Category: Surgical Plan: No evidence of complication related to her left knee replacement. Her left knee exam is benign. (3) Arthritis of left hip: Code(s): M16.12 - Unilateral primary osteoarthritis, left hip Category: Medical Plan: She does have limited motion of her left hip but minimal groin pain. Radiographically she has [id number] OA and clinically she has some mild symptoms. I recommend physical therapy. Orders: Orders XR pelvis 1-2V Today M25.559 - Pain in unspecified hip PT Evaluation and Treatment Today M17.11 - Unilateral primary osteoarthritis, right knee, Z96.652 - Presence of left artificial knee joint Coding Level of Care Code Est Pt Level 3 (47433) Complex EM visit Add On G2211 Diagnoses Osteoarthritis of right knee M17.11 History of total left knee replacement (TKR) Z96.652 Arthritis of left hip M16.12
[2024-10-07 08:49] VITALS: BMI 29.0
--- OUTSIDE RECORDS SUMMARY | 2024-10-07 12:55 | XMS_ITS | Clinical Summary ---
Author Organization [facility] [address] [place] [address] [place] [phone] Phone Care Team Providers [employer] Worker Name Role Phone Nicole Caro MD Primary Care Provider [phone] Allergies Active Allergy Reactions Criticality Noted Date Comments Iodinated Contrast Media 09/02/2005 Sulfa (Sulfonamide Antibiotics) 08/12 Medications Medication Sig Dispensed Refills Start Date End Date Status amoxicillin (AMOXIL) 500 mg capsule Take 4 Capsules by mouth once as needed. 1 hr prior to Dental exams Active prednisoLONE acetate (PRED FORTE) 1 % ophthalmic suspension Place 1 Drop into the right eye daily. 05/29/2024 Active hydroCHLOROthiazide (HYDRODIURIL) 25 mg tablet TAKE 1 TABLET BY MOUTH DAILY 90 tablet 1 08/16/2024 Active amLODIPine (NORVASC) 10 mg tablet TAKE 1 TABLET BY MOUTH DAILY 90 tablet 1 08/16/2024 Active apixaban (ELIQUIS) 5 mg tablet Take 1 tablet (5 mg total) by mouth 2 (two) times a day. Active atorvastatin (LIPITOR) 20 mg tablet Take 1 tablet (20 mg total) by mouth at bedtime. Active dronedarone (MULTAQ) 400 mg tablet Take 1 tablet (400 mg total) by mouth 2 (two) times a day with meals. Active Active Problems Problem Noted Date Diagnosed Date Atrial fibrillation 09/03/2024 Overview (09/03/2024): Cardioversion 09/03 At high risk for breast cancer 09/03/2024 Obesity (BMI 30.0-34.9) 10/08/2021 Esophageal stenosis 09/14/2020 Overview (09/03/2024): S/p dilation, schatzki ring Osteopenia 09/13/2006 Overview (07/28/2024): Oct 2022: T-score lumbar (-1.3); hip (-0.7); FRAX 29% Arthritis, degenerative Elbow fracture Overview (08/31/2024): DX:Elbow fracture Diverticulosis of colon Overview (08/31/2024): DX:Diverticulosis of colon; COMMENT: noted on colonoscopy 2005 Essential hypertension, benign Fuchs' corneal dystrophy Hepatic cyst Overview (08/31/2024): : On outside [facility] 09/2020 Primary osteoarthritis of both knees Overview (08/31/2024): S/p left TKR 2018 Dr. Ledezma Pure hypercholesterolemia Encounters Date Type Department Care Team Description 09/03/2024 10:00 AM EST Consult Adult Medicine [address] [phone] Nicole Caro MD Preop cardiovascular exam (Primary Dx); Essential hypertension, benign; Pure hypercholesterolemia; Esophageal stenosis; Osteopenia, unspecified location; Chronic atrial fibrillation (CMS/HCC); Primary osteoarthritis of both knees from Last 3 Months Immunizations Name Administration Dates Next Due Moderna (age 6mo & older) Bi valent, COVID-19, 0.5 mL or 0.25 mL dosage 06/29/2022 Moderna SARS-CoV-2 COVID-19, mRNA, LNP-S, preservative free 08/27/2021 Pfizer (ages 12 & older) Bivalent, COVID-19 06/11 Td Tetanus diptheria (Tdvax) 7yo and older 03/28 Td, Unspecified 05/24/2002 Tdap Tetanus diptheria acell ular pertussis (Boostrix; Adacel) 7yo and older 09/17/2012 Surgical History Surgery Date Site/Laterality Comments OTHER SURGICAL HISTORY broken elbow OTHER SURGICAL HISTORY 11/2013 Left breast biopsy of cyst - benign COLONOSCOPY W/ BIOPSIES 07/31/2006 [facility], Dr. Desilets - 1 hyperplastic polyp. rpt 10 yrs OTHER SURGICAL HISTORY 07/17/2017 tics; repeat in ten years, if healthy (optional) TONSILLECTOMY SCREENING MAMMOGRAM 05/03/2024 Bilateral Medical History Medical History Date Comments Diverticulosis of colon DX:Diver ticulosis of colon; COMMENT: noted on colonoscopy 2005 Arthritis, degenerative 04/07/2015 Hepatic cyst 09/14/2020 : On outside [facility] 09/2020 Elbow fracture 04/18/2016 DX:Elbow fractur e Essential hypertension, benign 03/21/2006 Primary osteoarthritis of both knees 10/08/2015 S/p left TKR 2018 Dr. Ledezma Pure hypercholesterolemia 03/21/2006 Fuchs' corneal dystrophy 03/28/2023 Osteopenia 09/13/2006: T-scor e lumbar (-1.3); hip (-0.7); FRAX 29% Esophageal stenosis 09/14/2020 Atrial fibrillation (CMS/HCC) 09/03/2024 Ca rdioversion 09/03 At high risk for breast cancer 09/03/2024 Family History Medical History Relation Name Comments bladder cancer Brother Hypertension Father leukemia, glauc iqra, prostate cancer Heart attack Maternal Grandfather in thei r 80s Hypertension Mother stroke, arthrit is Heart attack Paternal Grandfather in 80s Heart attack Paternal Grandmother in 80s Breast cancer Sister 1 50 second sister age 49 Elaine tamoxifen Breast cancer Sister 2 50 Shira age 49 B RCA neg on tamoxifen Breast cancer Sister 3 50 Nay age 49 BRC A neg 2006 On tamoxifen (double mastect) Hypertension Sister 4 50 breast cancer Hypertension Sister 5 Relation Name Status Comments Brother Alive Father Maternal Grandfather Mother Paternal Grandfather Paternal Grandmother Sister 1 50 Alive Sister 2 50 Sister 3 50 Alive Sister 4 50 Alive Sister 5 Alive Social History Tobacco Use Types Packs/Day Years Used Date Smoking Tobacco: Never Smokeless Tobacco: Never Tobacco Cessation:Counseling Given: Not Answered Alcohol Use Standard Drinks/Week Comments Yes 0 (1 standard drink = 0.6 oz pur e alcohol) Housing Instability Answer Date Recorde d Are you worried that in the next 2 months you may not have stable housing? No 09/02/2024 Food Access & Nutrition Answer Date Rec orded Do you have access to a vari ety of food including fruits and vegetables? Yes 09/02/2024 Access to Healthcare Answer Date Record ed Within the last 3 months, ho w many times did you visit the emergency department for your medical care? 0 09/02/2024 Health Literacy Answer Date Recorded How often do you need to hav e someone help you when you read instructions, pamphlets, or other written material from your doctor or pharmacy? Never 09/02/2024 Caregiver: How often do you need to have someone help you when you read instructions, pamphlets, or other written material from your doctor or pharmacy? Not on file 09/02/2024 Financial Risk Answer Date Recorded How hard is it for you to pa y for the very basics like food, housing, medical care, and air conditioning / heating? Not very hard 09/02/2024 Transportation Answer Date Recorded Has the lack of transportati on kept you from meetings, work, or from getting things needed for daily living? No Has the lack of transportati on kept you from medical appointments or from getting medications? No 09/02/2024 Social Isolation Answer Date Recorded How often do you feel lonely or isolated from th ose around you? Rarely 09/02/2024 Food Risk Answer Date Recorded Within the past 12 months we worried whether our food would run out before we got money to buy more. Never true 09/02/2024 Within the past 12 months th e food we bought just didn't last and we didn't have money to get more. Never true 09/02/2024 Dependent Care Answer Date Recorded Do you need help finding or paying for care for your loved ones. For example, children's service supervisor or elderly care for an older adult? No 09/02/2024 Education Answer Date Recorded Do you think completing more education or training, like finishing a GED, going to college, or learning a trade, would be helpful for you? No 09/02/2024 Employment and Income Answer Date Recor ded During the last four weeks, have you been actively looking for work? No 09/02/2024 Living Situation Answer Date Recorded What is your living situation? 1 11/03/2023 Sex and Gender Information Value Date Recorded Sex Assigned at Female 08/16/2024 2:33 PM EST Gender Identity Female 08/16/2024 2:33 PM EST Sexual Orientation Straight 08/16/2024 2: 33 PM EST Job Start Date Occupation Industry Not on file Not on file Not on file Obstetrics History Last Filed Vital Signs Vital Sign Reading Time Taken Comments Blood Pressure 110/64 09/03/2024 10:05 AM EST Pulse 87 09/03/2024 10:05 AM EST Temperature 36.3 ??C (97.3 ??F) 09/03/2024 10:[address] Respiratory Rate 16 09/03/2024 10:05 AM EST Oxygen Saturation 99% 09/03/2024 10:05 AM EST Inhaled Oxygen Concentration - - Weight 86 kg (189 lb 8 oz) 09/03/2024 10:[address] Height 172.7 cm (5' 8 ) 09/03/2024 10:05 AM EST Body Mass Index 28.81 09/03/2024 10:05 AM EST Plan of Treatment Upcoming Encounters Date Type Department Care Team (Late st Contact Info) Description 11/26/2024 9:45 AM EDT Office Visit Adult Medicine [facility] - [address] [phone] Kayleen Srinivasan PA [address] [place], [place] 05/09/2025 9:50 AM EDT Appointment Radiology Department - [address] [phone] Health Maintenance Due Date Last Done Comments Pneumococcal Vaccine: 65+ Years (1 of 2 - PCV) 1956 Zoster Vaccines (1 of 2) 2000 RSV Immunization Patients 60+ Years Old (1 - Risk 60-74 years 1-dose series) 2010 Falls Risk Assessment 08/20/2022 COVID-19 Vaccine ( season) 2024 06/29/2022, 06/29/2022, 08/27/2021, Additional history exists Hypertension/CHF/CAD Annual BMP Blood Test 09/15/2024 09/15/2023 Influenza Vaccine (#1) 2025 Postp oned from 05/12/2024 (Patient Refused) Breast Cancer Screening 05/03/2025 05/03/20 24, 05/03/2024, 04/26/2023, Additional history exists Medicare Annual Wellness Visit 05/29/2025 05/29/2024 Depression Screening 09/02/2025 09/02/2024, 05/29/20 24 Social Influencers of Health Screening 09/02/2025 09/02/2024 Colorectal Cancer Screening: Colonoscopy 07/17/2027 07/17/2017 Cholesterol Screening (Lipid Panel) 09/15/2028 09/15/2023 Osteoporosis Screening (Bone Density Screening) 11/21/2032 11/21/2022, 04/27/2020, 12/14/2017 DTaP,Tdap,and Td Vaccines (4 - Td or Tdap) 03/28/2033 03/28/2023, 09/17/2012, 05/24/2002 Hepatitis C Screening Completed 10/01/2013 HIB Vaccines Aged Out No longer eligi ble based on patient's age to complete this topic HPV Vaccines Aged Out No longer eligi ble based on patient's age to complete this topic Hepatitis A Vaccines Aged Out No long er eligible based on patient's age to complete this topic Hepatitis B Vaccines Aged Out No long er eligible based on patient's age to complete this topic IPV Vaccines Aged Out No longer eligi ble based on patient's age to complete this topic MMR Vaccines Aged Out No longer eligi ble based on patient's age to complete this topic Meningococcal ACWY Vaccine Aged Out N o longer eligible based on patient's age to complete this topic RSV Immunization Patients Under 20 months Aged Out No longer eligible based on patient's age to complete this topic Varicella Vaccines Aged Out No longer eligible based on patient's age to complete this topic Procedures Procedure Name Priority Date/Time Associated Diagnosis Comments CBC WITH AUTO DIFFERENTIAL Routine 10/07/2024 10:09 AM EST Preoperative examination CBC AND DIFFERENTIAL Routine 10/07/2024 10:09 AM EST Preoperative examination DEPRESSION SCREENING Routine 05/29/2024 SCREENING MAMMOGRAPHY BI 2-VIEW BREAST INC CAD Routine 05/03/2024 9:44 AM EDT Encounter for screening mammogram for malignant neoplasm of breast ANNUAL BMP BLOOD TEST Routine 09/15/2023 LIPID PANEL Routine 09/15/2023 DXA BONE DENSITY STUDY 1+ SITS AXIAL SKEL Routine 11/21/2022 9:29 AM EDT Disorder of bone, unspecified Disorder of cartilage, unspecified COLONOSCOPY Routine 07/17/2017 HEPATITIS C SCREENING Routine 10/01/2013 from Last 3 Months or Most Recently Relevant to Health Maintenance Results * (ABNORMAL) CBC auto differential (10/07/2024 10:09 AM EST) WBC 8.2 4.8 - 10.8 K/mcL LAB HEMETOLOGY METHOD 10/07/2024 12:23 PM [facility] RBC 5.10(H) 3.80 - 4.80 M/mcL LAB HEMETOLOGY METHOD 10/07/2024 12:23 PM [facility] Hemoglobin 15.1 11.5 - 16.0 g/dL LAB HEMETOLOGY METHOD 10/07/2024 12:23 PM [facility] Hematocrit 45.3 35.0 - 47.0 % LAB HEMETOLOGY METHOD 10/07/2024 12:23 PM [facility] MCV 88.1 79.0 - 98.0 FL LAB HEMETOLOGY METHOD 10/07/2024 12:23 PM [facility] MCH 29.4 27.0 - 32.0 pcg LAB HEMETOLOGY METHOD 10/07/2024 12:23 PM [facility] MCHC 33.3 32.0 - 37.0 g/dL LAB HEMETOLOGY METHOD 10/07/2024 12:23 PM [facility] RDW 12.5 11.0 - 15.0 % LAB HEMETOLOGY METHOD 10/07/2024 12:23 PM [facility] Platelets 392 130 - 400 K/mcL LAB HEMETOLOGY METHOD 10/07/2024 12:23 PM [facility] MPV 10.1 7.0 - 11.0 FL LAB HEMETOLOGY METHOD 10/07/2024 12:23 PM [facility] NRBC 0.0 <1.0 % LAB HEMETOLOGY METHOD 10/07/2024 12:23 PM [facility] NRBC Absolute 0.00 <0.10 K/mcL LAB HEMETOLOGY METHOD 10/07/2024 12:23 PM [facility] Neutrophils Relative 64.8 % LAB HEMETOLOGY METHOD 10/07/2024 12:23 PM [facility] Lymphocytes Relative 22.3 % LAB HEMETOLOGY METHOD 10/07/2024 12:23 PM [facility] Monocytes Relative 9.9 % LAB HEMETOLOGY METHOD 10/07/2024 12:23 PM [facility] Eosinophils Relative 2.2 % LAB HEMETOLOGY METHOD 10/07/2024 12:23 PM [facility] Basophils Relative 0.6 % LAB HEMETOLOGY METHOD 10/07/2024 12:23 PM [facility] Immature Granulocytes Relative 0.2 % LAB HEMETOLOGY METHOD 10/07/2024 12:23 PM [facility] Neutrophils Absolute 5.33 1.50 - 7.00 K/mcL LAB HEMETOLOGY METHOD 10/07/2024 12:23 PM [facility] Lymphocytes Absolute 1.83 1.00 - 5.00 K/mcL LAB HEMETOLOGY METHOD 10/07/2024 12:23 PM [facility] Monocytes Absolute 0.81 0.20 - 1.00 K/mcL LAB HEMETOLOGY METHOD 10/07/2024 12:23 PM [facility] Eosinophils Absolute 0.18 0.00 - 0.50 K/mcL LAB HEMETOLOGY METHOD 10/07/2024 12:23 PM EST [facility] Basophils Absolute 0.05 0.00 - 0.20 K/[facility] LAB HEMETOLOGY METHOD 10/07/2024 12:23 PM EST [facility] Immature Granulocytes Absolute 0.02 0.00 - 0.03 K/[facility] LAB HEMETOLOGY METHOD 10/07/2024 12:23 PM EST [facility] Blood Venous blood specimen / Unknown Venipuncture / Unknown 10/07/2024 10:09 AM EST 10/07/2024 10:09 AM EST Nicole Caro MD LAB BLOOD ORDERABLES [facility] [address] [place] [address], * Depression Screening (05/29/2024) Depression Screening abstracted Historical Provider [facility] E * SCREENING MAMMOGRAPHY BI 2-VIEW BREAST INC CAD (05/03/2024 9:44 AM EDT) Anatomical Region Laterality Modality Radiographic Rody ging 04/26/2023 10:2 2 AM EDT Narrative 05/03/2024 4:13 PM EDT This is a summary report. The complete report is available in the patient's medical record. If you cannot access the medical record, please contact the sending organization for a detailed fax or copy. Full field digital screening 2D C views and 3D tomosynthesis tomosynthesis mammography, reviewed with CAD and compared to previous. The breasts are composed of fatty and fibroglandular tissue. ??No suspicious mass, architectural distortion or suspicious calcifications are identified. IMPRESSION: : No mammographic evidence of malignancy. BIRADS 1-Negative; N. 5 year breast cancer risk assessment 7.0 % Lifetime breast cancer risk assessment 16.4 % Breast cancer risk category Moderate (15% - 20%) Procedure Note Nilda Trammell MD - 06/26/2024 This is a summary report. The complete report is available in thepatient's medical record. If you cannot access the medical record, pleasecontact the sending organization for a detailed fax or copy. Full field digital screening 2D C views and 3D tomosynthesis tomosynthesismammography, reviewed with CAD and compared to previous. The breasts arecomposed of fatty and fibroglandular tissue. No suspicious mass,architectural distortion or suspicious calcifications are identified. IMPRESSION: : No mammographic evidence of malignancy. BIRADS 1-Negative; N. 5 year breast cancer risk assessment 7.0 % Lifetime breast cancer risk assessment 16.4 % Breast cancer risk category Moderate (15% - 20%) Nicole Caro MD IMG XR PROCEDURES * Annual BMP Blood Test (09/15/2023) Pathologist [facility] Annual BMP Blood Test abstracted Historical Provider [facility] MAINTENANC E * (ABNORMAL) Lipid panel (09/15/2023) LDL/HDL Ratio 2 0 - 4 Triglycerides 90 0 - 150 mg/dL Cholesterol 208(A) 0 - 200 mg/dL HDL 98 40 mg/dL LDL Cholesterol 92 0 - 100 mg/dL Blood Venous blood specimen / Unknown Historical Provider LAB BLOOD ORDERAB LES * DXA BONE DENSITY STUDY 1+ SITS AXIAL SKEL (11/21/2022 9:29 AM EDT) Anatomical Region Laterality Modality Bone Densitometr y 10/06/2022 12:1 0 PM EST Narrative 11/22/2022 2:01 PM EDT Clinical history: menopausal/postmenopausal disorder Scans of the lumbar spine and hips were performed on a [employer] fan beam bone densitometer. ? Bone mineral density measurements and associated T and Z scores respectively are as follows: Lumbar Spine: L1-L4 BMD: 0.899 g/cm2 ? T-Score: -1.3 ? Z-Score: -0.9 Compared with the prior study dated 04/27/2020, the BMD reading has increased which is not statistically significant Left Proximal Femur: Neck BMD: 0.771 g/cm2 ? T-Score: -0.7 ?? Z-Score: 1.2 Total BMD: 0.907 g/cm2 ? T-Score: -0.3 ?Z-Score: 1.4 Compared with standards for the young adult, lowest measured bone density places the patient in the W.H.O. osteopenic range. FRAX 10 year probability of major osteoporotic fracture: 29% FRAX 10 year probability of hip fracture: 6.9% Population: [place] () IMPRESSION: IMPRESSION: Osteopenia. The NOF guidelines recommend that FDA approved medical therapies be considered in postmenopausal women and men age >50 years with a: i. Hip or vertebral (clinical or morphometric) fracture ii. T score of < -2.5 at the spine or hip iii. 10 year fracture probability by FRAX of >3% for hip fracture, or >20% for major osteoporotic fracture PLEASE NOTE: ?? W.H.O. classification is based on lowest measured density at the spine, femoral neck, or total hip.This classification has prognostic significance when applied to post menopausal women and older men. 1) ??The World Health Organization defines low BMD as follows: ?T-score ? Normal ? at or > -1 Osteopenia ? < -1 and ??> - 2.5 Osteoporosis ? at or < -2.5 without fractures Established osteoporosis ? < -2.5 with fractures Procedure Note Omer Britt MD - 10/17/2023 Clinical history: menopausal/postmenopausal disorder Scans of the lumbar spine and hips were performed on a [employer] beam bone densitometer. Bone mineral density measurements and associated T and Z scoresrespectively are as follows: Lumbar Spine: L1-L4 BMD: 0.899 g/cm2 T-Score: -1.3 Z-Score: -0.9 Compared with the prior study dated 04/27/2020, the BMD reading hasincreased which is not statistically significant Left Proximal Femur: Neck BMD: 0.771 g/cm2 T-Score: -0.7 Z-Score: 1.2 Total BMD: 0.907 g/cm2 T-Score: -0.3 Z-Score: 1.4 Compared with standards for the young adult, lowest measured bone densityplaces the patient in the W.H.O. osteopenic range. FRAX 10 year probability of major osteoporotic fracture: 29% FRAX 10 year probability of hip fracture: 6.9% Population: [place] () IMPRESSION: IMPRESSION: Osteopenia. The NOF guidelines recommend that FDA approved medical therapies beconsidered in postmenopausal women and men age >50 years with a: i. Hip or vertebral (clinical or morphometric) fracture ii. T score of < -2.5 at the spine or hip iii. 10 year fracture probability by FRAX of >3% for hip fracture, or >20%for major osteoporotic fracture PLEASE NOTE: W.H.O. classification is based on lowest measured density at the spine,femoral neck, or total hip.This classification has prognostic significance when applied to postmenopausal women and older men. 1) The World Health Organization defines low BMD as follows: T-score Normal at or > -1 Osteopenia < -1 and > -2.5 Osteoporosis at or < -2.5 withoutfractures Established osteoporosis < -2.5 with fractures Kayleen APPLE DXA PROCEDURES * Colonoscopy (07/17/2017) Colonoscopy abstracted, no interpretation Anatomical Region Laterality Modality Other Historical Provider MD MONSTER Osei * Hepatitis C Screening (10/01/2013) Hepatitis C Screening abstracted Historical Provider MD MONSTER Osei from Last 3 Months or Most Recently Relevant to Health Maintenance Care Teams [employer] Worker Relationship Specialty Start Date End Date Nicole Caro MD [address] [place] [id number] PCP - General Internal Medicine 02/09/21
== END 2024-10-07 09:30 | disposition home or self-care (01) ==
PROVIDERS: PCP Internal Medicine; Visit Provider Orthopaedic Surgery
DX: M17.11 Unilateral primary osteoarthritis, right knee (principal); Z96.652 Presence of left artificial knee joint; M16.12 Unilateral primary osteoarthritis, left hip
CPT/HCPCS: 99213; G2211

== ENCOUNTER 2024-10-07 08:45 | Outpatient (REF) | payer MEDICARE, OTHER, SELFPAY ==
--- NOTE | ~2024-10-07 | XR_ITS ---
CLINICAL HISTORY: M25.559 - Pain in unspecified hip 1 view pelvis Comparison: None Findings: No acute fracture or dislocation. Degenerative changes of the lower lumbar spine. Mild degenerative changes of the bilateral hip joints. Soft tissues are unremarkable. IMPRESSION: 1. No acute findings. This document has been electronically signed by: Neo Burciaga MD on 10/07/2024 17:33:32
== END 2024-10-07 08:46 | disposition home or self-care (01) ==
LOC: HO.HOSX 08:45
PROVIDERS: PCP Internal Medicine; Visit Provider Orthopaedic Surgery
DX: M25.559 Pain in unspecified hip (principal); M17.11 Unilateral primary osteoarthritis, right knee; M16.12 Unilateral primary osteoarthritis, left hip; Z96.652 Presence of left artificial knee joint
CPT/HCPCS: 72170; 99212

== ENCOUNTER → 2024-10-07 08:57 | Outpatient (BNV) | payer MEDICARE, OTHER, SELFPAY | PROVIDERS: PCP Internal Medicine; Visit Provider Nuclear Medicine | DX: M25.559 Pain in unspecified hip (principal) | CPT/HCPCS: 72170 ==

== ENCOUNTER 2024-10-31 09:27 | Outpatient (AMB) | payer MEDICARE, OTHER, SELFPAY ==
[2024-10-31 09:35] VITALS: BMI 29.0
--- NOTE | 2024-10-31 09:35 | A.OFFVIS_ITS ---
Vital Signs 10/31/24 09:35 Height 5 ft 8 in Weight 191 lb BMI 29.0 Intake Visit Reasons: Pre Op - right TKA 11/06/24 NE Intake Note: Danna is a 74 year old female who presents today for a pre op appointment for her right total hip arthroplasty 11/06/24 NE. Patient was given a pain management consent form. Allergies Sulfa (Sulfonamide Antibiotics) [SULFA (SULFONAMIDE ANTIBIOTICS)] Allergy (Severe, Verified 10/31/24 09:35) HIVES red dye [RED DYE] Allergy (Intermediate, Verified 10/31/24 09:35) HIVES HPI HPI Pre Op - right TKA 11/06/24 NE: Details: Ms. Sood is a 74-year-old female who presents to the office today for her preoperative history and phyiscal. She has a past medical history significant for A. Fib on Eliquis, she has been seen and cleared by Charline Jarquin NP with instruction to stop Eliquis 2-3 days prior to surgery. REPLACED BY [facility] Medical History (Updated 10/31/24 @ 10:34 by Melinda Sanchez PA-C) Basal cell carcinoma Arthritis Elevated cholesterol Osteopenia Hepatic cyst Fuchs' corneal dystrophy of right eye Diverticulosis Schatzki's ring History of cardioversion PAF (paroxysmal atrial fibrillation) Primary osteoarthritis of knees, bilateral Hypertension Surgical History H/O colonoscopy History of basal cell carcinoma (BCC) excision History of esophagogastroduodenoscopy (EGD) Hx of right cataract extraction History of total left knee replacement (TKR) (~03/19/19) Hx of tonsillectomy History of elbow surgery Family History Father No problems noted. Mother No problems noted. Social History Are you a primary pet care attendant to a significant other at home: No Do you presently have visiting nurse or other home services: No Alcohol intake: current Alcohol intake frequency: 0-2 drinks per day Comment: advised to remove due to trip hazard Patient Tobacco Use Status: Never used Tobacco Review of Systems Const All systems reviewed & are unremarkable except as noted in HPI and below Physical Exam Vital Signs: BMI result Body Mass Index 29.0 Const General: cooperative, healthy appearing and no acute distress Orientation/consciousness: patient oriented x3 HEENT Head: Yes normocephalic and Yes atraumatic Eyes General: appearance normal, both eyes and all related structures EOM: EOMs intact bilaterally Neck Neck: Yes normal visual inspection and Yes no lymphadenopathy Resp Effort & Inspection: normal respiratory effort and able to speak in complete sentences Cardio Jugular venous distension: no JVD Rate: regular rate Peripheral pulses: Peripheral pulses 2+ throughout Skin General skin exam: turgor normal Lesions: no lesions Rashes: no rashes Neuro General: patient oriented x3 Extrem Other: Right Knee: TTP medial compartment 5-125 degrees ROM Stable to V/V stress antalgic gait Psych Appearance: grossly normal Mental Status: mental status grossly normal Affect: normal affect Attitude: cooperative Assessment & Plan Assessment & Plan (1) Osteoarthritis of right knee: Code(s): M17.11 - Unilateral primary osteoarthritis, right knee Category: Medical Plan I discussed in detail the procedure and what to expect pre and post operatively. We discussed the risks, benefits and alternatives to the surgery as well as the rehabilitation course. The risks; which include, but are not limited to infection, bleeding, nerve injury, ongoing pain, swelling, and stiffness, perioperative risk of injury to bones and soft tissues, and blood clots. I?ve answered all questions and with their understanding they have consented to move forward with right total hip arthroplasty with Dr. Ledezma. From Cartiology, Charline Jarquin FINISHER OPERATOR: Preop for a right total knee replacement on 11/06/[address] Ledezma. Recent echo shows normal EF. She has no reports of anginal sounding symptoms. Recent finding of atrial fibrillation, asymptomatic. She can proceed with surgery with low to intermediate cardiac risk. Continue metoprolol. Eliquis can be held 2 days prior to the procedure and restart as soon as cleared by surgeon to do so. Patient is planning to go rehab after surgery - Patient lives alone. Her home is two stories with bathroom and bedroom on the second floor. She has a walker at home. Orders: Orders Type and Screen Today Z01.818 - Encounter for other preprocedural examination XR knee LT 1V Today M25.569 - Pain in unspecified knee XR knee RT 3V Today M25.569 - Pain in unspecified knee Coding Level of Care Code Global (59682) Diagnoses Osteoarthritis of right knee M17.11
--- OUTSIDE RECORDS SUMMARY | 2024-10-31 10:13 | XMS_ITS | Encounter Summary ---
Author Organization [facility] Address [address] [place] [address] Care Team Providers Care Credit Card Control Clerk Name Role Phone Mansi Wayne MD Primary Care Provider Nicole Galo MD Primary Care Provider [phone] Reason for Visit * Reason Onset Date Comments Mychart Rx Refill 01/30/2020 Encounter Details Date Type Department Care Team Description 01/30/2020 Pt. Non Urgent Medical Question Adult Medicine [address] [address] Mansi Wayne MD Essential hypertension, benign (Primary Dx); Pure hypercholesterolemia Social History Tobacco Use Types Packs/Day Years Used Date Smoking Tobacco: Never Smokeless Tobacco: Never Alcohol Use Standard Drinks/Week Comments Yes 0 (1 standard drink = 0.6 oz pur e alcohol) 1-2 glass wine per day Sex Assigned at Date Recorded Female 03/02/2021 9:42 AM E DT Job Start Date Occupation Industry Not on file Not on file Not on file documented as of this encounter Miscellaneous Notes * Telephone Encounter - Raegan Brown M.A. - 01/30/2020 2:20 PM EDTFrom: Danna Sood To: Mansi Wayne MD Sent: 01/30/2020 2:14 PM EDT Subject: Meds and Blood test I have an appt. on February 26. Do I need blood tests before that appt? My script for Simvastatin will next week. Can I get a one month refill ? All my meds will need to be renewed at the end of February so we can discuss during the appointment. Thanks, Tanya Sood documented in this encounter Plan of Treatment Not on file documented as of this encounter Results * BASIC METABOLIC PANEL (02/24/2020 9:58 AM EDT) GLUCOSE 98 70 - 100 mg/dL 02/24/2020 12:28 PM EDT [facility] Comment:Reference range appl icable to fasting specimens only Blood Urea Nitrogen 15 5 - 25 mg/dL 02/24/2020 12:28 PM EDT [facility] CREAT 0.67 0.5 - 1.1 mg/dL 02/24/2020 12:28 PM EDT [facility] GLOMERULAR FILTRATION RATE > 60 02/24/2020 12:28 PM EDT [facility] Comment: If patient is -Citizen Of [place], multiply result by 1.21 Chronic Kidney Disease: < 60 ml/min/1.73 square meters Kidney Failure: < 15 ml/min/1.73 square meters NA 140 135 - 145 mEq/L 02/24/2020 12:28 PM EDT [facility] K 3.9 3.5 - 5.5 mmol/L 02/24/2020 12:28 PM EDT [facility] CL 104 96 - 110 mmol/L 02/24/2020 12:28 PM EDT [facility] CARBON DIOXIDE (CO2) 28 21 - 32 mmol/L 02/24/2020 12:28 PM EDT [facility] ANION GAP 8 3 - 11 02/24/2020 12:28 PM EDT [facility] CALCIUM 9.3 8.5 - 10.5 mg/dL 02/24/2020 12:28 PM EDT [facility] 02/24/2020 9:58 AM EDT 02/24/2020 10:00 AM EDT Mansi Wayne MD LAB [facility] * (ABNORMAL) LIPID PROFILE (02/24/2020 9:58 AM EDT) Cholesterol 202(H) 0 - 200 mg/dL 02/24/2020 12:28 PM EDT [facility] TRIGLYCERIDES 115 0 - 150 mg/dL 02/24/2020 12:28 PM EDT [facility] HDL CHOLESTEROL 73 >40 mg/dL 0 12:29 PM EDT [facility] LDL CALCULATED 106(H) 0 - 100 mg/dL 02/24/2020 12:29 PM EDT [facility] TC-HDLC RATIO 2.8 0 - 4.4 mg/dL 02/24/2020 12:29 PM EDT [facility] 02/24/2020 9:58 AM EDT 02/24/2020 10:00 AM EDT Mansi Wayne MD LAB [facility] documented in this encounter Visit Diagnoses Diagnosis Essential hypertension, benign- Primary Pure hypercholesterolemia documented in this encounter Care Teams Credit Card Control Clerk Relationship Specialty Start Date End Date Mansi Wayne MD PCP - General 09/11/10 02/08/21 Nicole Caro MD [address] [place] [address] PCP - General Internal Medicine 02/09/21 documented as of this encounter
--- OUTSIDE RECORDS SUMMARY | 2024-10-31 10:13 | XMS_ITS | Encounter Summary ---
Author Organization [facility] Address [address] [place] [address] Care Team Providers Care Gluer And Wedger Name Role Phone Mansi Wayne MD Primary Care Provider Nicole Galo MD Primary Care Provider [phone] Reason for Visit * Reason Onset Date Comments Faxed Order 09/24/2018 Encounter Details Date Type Department Care Team Description 09/24/2018 Telephone Adult Medicine [address] [address] Mansi Wayne MD Faxed Order Social History Tobacco Use Types Packs/Day Years [...] encounter Miscellaneous Notes * Telephone Encounter - Iveth Daniels - 09/24/2018 2:19 PM EST Modified order from Antonia MIGUEL placed in pcp bin for signature, please have pcp sign and refax [phone] documented in this encounter Plan of Treatment Not on file documented as of this encounter Visit Diagnoses Not on filedocumented in this encounter Care Teams Gluer And Wedger Relationship Specialty Start Date End Date Mansi Wayne MD PCP - General 09/11/10 02/08/21 Nicole Caro MD [address] [place] [phone] PCP - General Internal Medicine 02/09/21 documented as of this encounter
--- OUTSIDE RECORDS SUMMARY | 2024-10-31 10:13 | XMS_ITS | Encounter Summary ---
Author Organization [facility] Address [address] [place] [address] Care Team Providers Care Rn Liaison Name Role Phone Mansi Wayne MD Primary Care Provider Nicole Galo MD Primary Care Provider [phone] Reason for Visit * Reason Onset Date Comments Pre Op Visit 11/06/2018 Encounter Details Date Type Department Care Team Description 11/06/2018 Pt. Non Urgent Medical Question Adult Medicine [address] [address] Mansi Wayne MD Essential hypertension, benign (Primary [...] on file documented as of this encounter Progress Notes * Raegan Borwn M.A. - 11/07/2018 6:47 AM ESTFrom: Danna Sood To: Mansi Wayne MD Sent: 11/06/2018 12:36 PM EST Subject: upcoming knee replacement I am scheduled to have my left knee replaced on March 19, 2019. [facility] . Surgery is planned at [facility]. The Nurse Navigator Dara Alvarez will be contacting you for my medical information. I have appointment with you on December 11, 2018. Should this appt. be moved closer to surgery date? Thanks, Tanya Sood documented in this encounter Plan of Treatment Not on file documented as of this encounter Results * (ABNORMAL) LIPID PROFILE (11/14/2018 9:22 AM EST) Cholesterol 200 0 - 200 mg/dL 11/14/2018 2:33 PM EST [facility] TRIGLYCERIDES 96 0 - 150 mg/dL 11/14/2018 2:33 PM EST [facility] HDL CHOLESTEROL 78 >40 mg/dL 9 2:33 PM EST [facility] LDL CALCULATED 103(H) 0 - 100 mg/dL 11/14/2018 2:33 PM EST [facility] TC-HDLC RATIO 2.6 0 - 4.4 mg/dL 11/14/2018 2:33 PM EST [facility] 11/14/2018 9:22 AM EST 11/14/2018 9:24 AM EST Mansi Wayne MD LAB [facility] * BASIC METABOLIC PANEL (11/14/2018 9:22 AM EST) Blood Urea Nitrogen 10 5 - 25 mg/dL 11/14/2018 2:19 PM EST [facility] NA 138 133 - 145 mmol/L 11/14/2018 2:19 PM EST [facility] K 3.8 3.5 - 5.5 mmol/L 11/14/2018 2:19 PM EST [facility] CL 102 96 - 110 mmol/L 11/14/2018 2:19 PM EST [facility] CARBON DIOXIDE (CO2) 29 21 - 32 mmol/L 11/14/2018 2:19 PM EST [facility] ANION GAP 7 3 - 11 11/14/2018 2:19 PM EST [facility] CALCIUM 9.3 8.5 - 10.5 mg/dL 11/14/2018 2:19 PM EST [facility] GLUCOSE 99 70 - 100 mg/dL 11/14/2018 2:33 PM EST [facility] Comment:Reference range appl icable to fasting specimens only CREAT 0.66 0.5 - 1.1 mg/dL 11/14/2018 2:33 PM EST [facility] GLOMERULAR FILTRATION RATE > 60 11/14/2018 2:33 PM EST [facility] Comment: If patient is -[place], multiply result by 1.21 Chronic Kidney Disease: < 60 ml/min/1.73 square meters Kidney Failure: < 15 ml/min/1.73 square meters 11/14/2018 9:22 AM EST 11/14/2018 9:24 AM EST Mansi Wayne MD LAB [facility] documented in this encounter Visit Diagnoses Diagnosis Essential hypertension, benign- Primary Pure hypercholesterolemia documented in this encounter Care Teams Rn Liaison Relationship Specialty Start Date End Date Mansi Wayne MD PCP - General 09/11/10 02/08/21 Nicole Caro MD [address] [place] [address] PCP - General Internal Medicine 02/09/21 documented as of this encounter
--- OUTSIDE RECORDS SUMMARY | 2024-10-31 10:13 | XMS_ITS | Encounter Summary ---
Author Organization [facility] Address [address] [place] [address] Care Team Providers Care Wrapper Stemmer Hand Name Role Phone Nicole Caro MD Primary Care Provider [phone] Encounter Details Date Type Department Care Team Description 12/30/2023 Pt. Non Urgent Medical Question Adult Medicine [address] [address] Nicole Caro MD [address] [place] [address] Social History Tobacco Use Types Packs/Day Years [...] encounter Miscellaneous Notes * Telephone Encounter - Farrah Muñiz L.P.N. - 01/01/2024 8:16 AM EDTFrom: Danna Sood To: Alok Caro Sent: 12/30/2023 10:58 AM EDT Subject: Next medical appointment I saw you in September for my routine visit and again in November for my pre-op exam. The eye surgery went well without serious problems. I do not have an appointment for my next regular visit. When should I see you again?? Thanks, Tanya Sood documented in this encounter Plan of Treatment Not on file documented as of this encounter Visit Diagnoses Not on filedocumented in this encounter Care Teams Wrapper Stemmer Hand Relationship Specialty Start Date End Date Nicole Caro MD [address] [place] [address] PCP - General Internal Medicine 02/09/21 documented as of this encounter
--- OUTSIDE RECORDS SUMMARY | 2024-10-31 10:13 | XMS_ITS | Encounter Summary ---
Author Organization [facility] Address [address] [place] [address] Care Team Providers Care Chief Operations Officer Name Role Phone Nicole Caro MD Primary Care Provider [phone] Encounter Details Date Type Department Care Team Description 04/27/2023 Business Doc Medical Records [address] [place] [address] Abstract, Provider Social History Tobacco Use Types Packs/Day Years Used Date Smoking Tobacco: Never Smokeless Tobacco: Never Alcohol Use Standard Drinks/Week Comments Yes 0 (1 standard drink = 0.6 oz pur e alcohol) 1-2 glass wine per day Sex Assigned at Date Recorded Female 03/02/2021 9:42 AM E DT Job Start Date Occupation Industry Not on file Not on file Not on file COVID-19 Exposure Response Date Recorded In the last 10 days, have yo u been in contact with someone who was confirmed or suspected to have Coronavirus/COVID-19? No / Unsure 04/26/2023 10:02 AM EDT documented as of this encounter Plan of Treatment Not on file documented as of this encounter Visit Diagnoses Not on filedocumented in this encounter Care Teams Chief Operations Officer Relationship Specialty Start Date End Date Nicole Caro MD [address] [place] [address] PCP - General Internal Medicine 02/09/21 documented as of this encounter
--- OUTSIDE RECORDS SUMMARY | 2024-10-31 10:13 | XMS_ITS | Encounter Summary ---
Author Organization [facility] [employer] [facility] Address [address] [place] [address] Care Team Providers Care Genetics Nurse Name Role Phone Mansi Wayne MD Primary Care Provider Nicole Galo MD Primary Care Provider [phone] Encounter Details Date Type Department Care Team Description 03/15/2019 Custom Frame Assembler Report Medical Records [address] [place] [address] Isauro Ritchie Social History Tobacco Use Types Packs/Day Years [...] on file documented as of this encounter Plan of Treatment Not on file documented as of this encounter Visit Diagnoses Not on filedocumented in this encounter Care Teams Genetics Nurse Relationship Specialty Start Date End Date Mansi Wayne MD PCP - General 09/11/10 02/08/21 Nicole Caro MD [address] [place] [address] PCP - General Internal Medicine 02/09/21 documented as of this encounter
--- OUTSIDE RECORDS SUMMARY | 2024-10-31 10:13 | XMS_ITS | Encounter Summary ---
Author Organization [facility] Address [address] [place] [address] Care Team Providers Care Manager Sales Support Name Role Phone Mansi Wayne MD Primary Care Provider Nicole Galo MD Primary Care Provider [phone] Encounter Details Date Type Department Care Team Description 12/19/2018 Bench Assembler Report Medical Records [address] [place], [place] [id number] Tr Izaguirre Social History Tobacco Use Types Packs/Day Years [...] on filedocumented in this encounter Care Teams Manager Sales Support Relationship Specialty Start Date End Date Mansi Wayne MD PCP - General 09/11/10 02/08/21 Nicole Caro MD [address] [place] [phone] PCP - General Internal Medicine 02/09/21 documented as of this encounter
--- OUTSIDE RECORDS SUMMARY | 2024-10-31 10:13 | XMS_ITS | Encounter Summary ---
Author Organization [facility] Address [address] [place] [address] Care Team Providers Care Truckload Checker Name Role Phone Mansi Wayne MD Primary Care Provider Nicole Galo MD Primary Care Provider [phone] Encounter Details Date Type Department Care Team Description 04/04/2019 Bi Data Modeler Report Medical Records [address] [place] [address] Isauro Ritchie Social History Tobacco Use Types [...] on filedocumented in this encounter Care Teams Truckload Checker Relationship Specialty Start Date End Date Mansi Wayne MD PCP - General 09/11/10 02/08/21 Nicole Caro MD [address] [place] [address] PCP - General Internal Medicine 02/09/21 documented as of this encounter
--- OUTSIDE RECORDS SUMMARY | 2024-10-31 10:13 | XMS_ITS | Encounter Summary ---
Author Organization [facility] Address [address] [place] [address] Care Team Providers Care Rubber Stamp Assembler Name Role Phone Mansi Wayne MD Primary Care Provider Nicole Galo MD Primary Care Provider [phone] Encounter Details Date Type Department Care Team Description 12/15/2017 Business Doc Medical Records [address] [place] [address] Abstract, Provider Social History Tobacco Use Types [...] on filedocumented in this encounter Care Teams Rubber Stamp Assembler Relationship Specialty Start Date End Date Mansi Wayne MD PCP - General 09/11/10 02/08/21 Nicole Caro MD [address] [place] [phone] PCP - General Internal Medicine 02/09/21 documented as of this encounter
--- OUTSIDE RECORDS SUMMARY | 2024-10-31 10:13 | XMS_ITS | Encounter Summary ---
Author Organization [facility] Address [address] [place] [address] Care Team Providers Care Cleaner Operator Name Role Phone Mansi Wayne MD Primary Care Provider Nicole Galo MD Primary Care Provider [phone] Encounter Details Date Type Department Care Team Description 08/28/2020 Orders Only Adult Medicine [address] [address] Mansi Wayne MD Esophageal dysphagia Social History Tobacco Use Types Packs/Day Years [...] Exposure Response Date Recorded In the last month, have you been in contact with someone who was confirmed or suspected to have Coronavirus / COVID-19? Unable to assess 08/20/2020 8:51 AM EST documented as of this encounter Plan of Treatment Not on file documented as of this encounter Procedures Procedure Name Priority Date/Time Associated Diagnosis Comments CHG RADIOLOGIC EXAM ESOPHAGUS SINGLE CONTRAST STUDY Routine 08/28/2020 Esophageal dysphagia documented in this encounter Results * RADIOLOGIC EXAM ESOPHAGUS SINGLE CONTRAST STUDY (08/28/2020) Mansi Wayne MD RADIOLOGY documented in this encounter Visit Diagnoses Diagnosis Esophageal dysphagia Dysphagia, pharyngoesophageal phase documented in this encounter Care Teams Cleaner Operator Relationship Specialty Start Date End Date Mansi Wayne MD PCP - General 09/11/10 02/08/21 Nicole Caro MD [address] [place] [address] PCP - General Internal Medicine 02/09/21 documented as of this encounter
--- OUTSIDE RECORDS SUMMARY | 2024-10-31 10:13 | XMS_ITS | Encounter Summary ---
Author Organization [facility] [employer] [facility] Address [address] [place] [address] Care Team Providers Care Lump Receiver Name Role Phone Mansi Wayne MD Primary Care Provider Nicole Galo MD Primary Care Provider [phone] Encounter Details Date Type Department Care Team Description 10/10/2018 Home Health Certification Medical Records [address] [place], [place] [id number] [place] [address] [facility] [employer], [address] [address] Social History Tobacco Use Types Packs/Day Years [...] on filedocumented in this encounter Care Teams Lump Receiver Relationship Specialty Start Date End Date Mansi Wayne MD PCP - General 09/11/10 02/08/21 Nicole Caro MD [address] [place] [address] PCP - General Internal Medicine 02/09/21 documented as of this encounter
--- OUTSIDE RECORDS SUMMARY | 2024-10-31 10:13 | XMS_ITS | Encounter Summary ---
Author Organization [facility] Address [address] [place] [address] Support Name Relationship Address Phone Laura Oglesby Emergency Contact [address] [facility] [place] [address] Care Team Providers Care Scuba Diving Instructor Name Role Phone Mansi Wayne MD Primary Care Provider Nicole Galo MD Primary Care Provider [phone] Encounter Details Date Type Department Care Team Description 06/20/2019 Loader Operator Supervisor Report Medical Records [address] [place], [place] [id number] Tr Izaguirre Social History Tobacco Use Types [...] on filedocumented in this encounter Care Teams Scuba Diving Instructor Relationship Specialty Start Date End Date Mansi Wayne MD PCP - General 09/11/10 02/08/21 Nicole Caro MD [address] [place] [address] [phone] PCP - General Internal Medicine 02/09/21 documented as of this encounter
--- OUTSIDE RECORDS SUMMARY | 2024-10-31 10:13 | XMS_ITS | Encounter Summary ---
Author Organization [facility] [employer] [facility] Address [address] [place] [address] Care Team Providers Care Recreation Center Director Name Role Phone Mansi Wayne MD Primary Care Provider Nicole Galo MD Primary Care Provider [phone] Encounter Details Date Type Department Care Team Description 10/22/2018 Home Health Certification Medical Records [address] [place], [place] [id number] [place] [address] [employer], [address] [address] Social History Tobacco Use Types Packs/Day Years [...] on filedocumented in this encounter Care Teams Recreation Center Director Relationship Specialty Start Date End Date Mansi Wayne MD PCP - General 09/11/10 02/08/21 Nicole Caro MD [address] [place] [address] PCP - General Internal Medicine 02/09/21 documented as of this encounter
--- OUTSIDE RECORDS SUMMARY | 2024-10-31 10:13 | XMS_ITS | Encounter Summary ---
Author Organization [facility] Address [address] [place] [address] Care Team Providers Care Windows Vmware Administrator Name Role Phone Nicole Caro MD Primary Care Provider [phone] Encounter Details Date Type Department Care Team Description 03/02/2021 Telephone Gastroenterology - [address] [place] [address] Augustine Francis, PAShawn Social History Tobacco Use Types Packs/Day Years [...] or suspected to have Coronavirus / COVID-19? No / Unsure 03/05/2021 8:15 AM EDT documented as of this encounter Miscellaneous Notes * Telephone Encounter - Ivette Cole M.A. - 03/02/2021 12:42 PM EDT Tanya was reached and notified that US of the abdomen was ordered by Augustine and she was given the direct phone number to [facility] to schedule the procedure. Patient was asked to call us back if any problem scheduling the sono abdomen complete. documented in this encounter Plan of Treatment Not on file documented as of this encounter Visit Diagnoses Not on filedocumented in this encounter Care Teams Windows Vmware Administrator Relationship Specialty Start Date End Date Nicole Caro MD [address] [place] [phone] PCP - General Internal Medicine 02/09/21 documented as of this encounter
--- OUTSIDE RECORDS SUMMARY | 2024-10-31 10:13 | XMS_ITS | Encounter Summary ---
Author Organization Teresa [facility] Address [address] [place] [address] Care Team Providers Care Mannequin Wig Maker Name Role Phone Mansi Wayne MD Primary Care Provider Nicole Galo MD Primary Care Provider [phone] Encounter Details Date Type Department Care Team Description 04/29/2019 Hardener Helper Report Medical Records [address] [place] [address] Ivan Ledezma MD Social History Tobacco Use Types Packs/Day Years [...] on filedocumented in this encounter Care Teams Mannequin Wig Maker Relationship Specialty Start Date End Date Mansi Wayne MD PCP - General 09/11/10 02/08/21 Nicole Caro MD [address] [place] [address] [phone] PCP - General Internal Medicine 02/09/21 documented as of this encounter
--- OUTSIDE RECORDS SUMMARY | 2024-10-31 10:13 | XMS_ITS | Clinical Summary ---
Author Organization Teresa [facility] Address [address] [place] [address] Care Team Providers Care Road Builder Name Role Phone Nicole Caro MD Primary Care Provider [phone] Allergies Active Allergy Reactions Severity Noted Date Comments Iv Contrast Dye 09/02/2005 Sulfa Drugs 09/02/2005 Medications Medication Sig Dispensed Refills Start Date End Date Status amoxicillin (AMOXIL) 500 MG capsule Take 4 Capsules by mouth once as needed. 1 hr prior to Dental exams 0 Active hydrochlorothiazide (HYDRODIURIL) 25 MG tablet Take 1 Tablet by mouth daily. 90 Tablet 0 05/20/2024 Active simvastatin (ZOCOR) 20 MG tablet Take 1 Tablet by mouth at bedtime. 90 Tablet 0 05/20/2024 Active amlodipine (NORVASC) 10 MG tablet Take 1 Tablet by mouth daily. 90 Tablet 0 05/20/2024 Active prednisoLONE acetate (PRED FORTE) 1 % ophthalmic suspension Place 1 Drop into the right eye daily. 0 05/29/2024 Active Active Problems Problem Noted Date History of basal cell carcinoma (BCC) Overview: 10/04 nose Fuchs' corneal dystrophy 03/28/2023 Obesity (BMI 30.0-34.9) 10/08/2021 Hepatic cyst 09/14/2020 Overview: On outside [facility] 09/2020 Esophageal stenosis 09/14/2020 Elbow fracture 04/18/2016 Primary osteoarthritis of both knees Overview: S/p left TKR 2019 Dr. Ledezma Breast cancer screening, high risk patie nt 06/30/2015 Overview: 3 sisters with breast cancer, all tested neg for BrCA. lifetime risk over 20%. Pt saw Kavita Brian MANUEL on 02/02/2016 - MyRisk panel negative, rec yrly breast MRI and update colonoscopy. Pt declined breast MRIs. Arthritis, degenerative 04/07/2015 osteopenia 09/13/2006 Overview: Oct 2022: T-score lumbar (-1.3); hip (-0.7); FRAX 29% Essential hypertension, benign 6 Pure hypercholesterolemia 03/21/2006 Diverticulosis of colon Overview: noted on colonoscopy 2005 Immunizations Name Administration Dates Next Due COVID-19 (Moderna) 08/27/2021,12/10/2020, 021 Covid-19 Bivalent (Moderna) 06/29/2022 Covid-19 Bivalent (Pfizer) 06/29/2022 TD (STATE SUPPLIED FOR ADULTS AND CHILDREN) 03/11 TETANUS/DIPTHERIA (ADULT) 05/24/2002 Tdap 09/17/2012 Family History Medical History Relation Name Comments ca bladder Brother 1 Arthritis Brother 2 Hypertension Father leukemia, glauc iqra, prostate cancer [place] Maternal Grandfather in thei r 80s Hypertension Mother stroke, arthrit is [place] Paternal Grandfather in 80s [place] Paternal Grandmother in 80s Cancer of the Breast Sister 1 50 second sister age 49 Elaine tamoxifen [place] Breast Sister 2 50 Shira age 49 BR CA neg on tamoxifen CA Breast Sister 3 50 Nay age 49 BRCA neg 2006 On tamoxifen (double mastect) CA Breast Sister 4 50 Sarah; mastecto my scheduled Hypertension Sister 4 50 Hypertension Sister 5 Relation Name Status Comments Brother 1 Alive Brother 2 Alive Father Maternal Grandfather Mother Paternal Grandfather [...] file Not on file Not on file Last Filed Vital Signs Vital Sign Reading Time Taken Comments Blood Pressure 112/66 05/29/2024 8:24 AM EDT Pulse 89 05/29/2024 8:24 AM EDT Temperature 36.3 ??C (97.3 ??F) 05/29/2024 8:24 AM ED T Respiratory Rate 16 05/29/2024 8:24 AM EDT Oxygen Saturation 99% 10/08/2021 9:39 AM EST Inhaled Oxygen Concentration - - Weight 85.2 kg (187 lb 14.4 oz) 05/29/2024 8:24 AM EDT Height 172.7 cm (5' 8 ) 05/29/2024 8:24 AM EDT Body Mass Index 28.57 05/29/2024 8:24 AM EDT Plan of Treatment Health Maintenance Due Date Last Done Comments SHINGLES VACCINE (2 of 2) 06/02/2021 04/07/2021 (Ref used) FALL RISK ASSESSMENT 10/06/2023 10/06/2022, 04/07/2021, 12/11/2018, Additional history exists Covid-19 Vaccine ( season) 2024 06/29/2022, 06/29/2022, 08/27/2021, Additional history exists BMI CHECK/ADVISE 09/11/2024 05/29/2024, , 03/28/2023, Additional history exists Breast Cancer High Risk??Screening??(Annual Breast MRI) 09/28/2024 09/28/2023 (Refused), 04/07/2021 (Refused), 08/22/2019 (Refused), Additional history exists BONE DENSITY SCREENING 11/21/2024 , 04/27/2020, 12/14/2017, Additional history exists INFLUENZA (#1) 2025 08/17/2020 (Refu sed), 08/22/2019 (Refused), 06/05/2018 (Refused), Additional history exists Postponed from 05/12/2024 (Patient Refused) MAMMOGRAM 05/03/2025 05/03/2024, 04/11, 04/21/2022, Additional history exists DEPRESSION SCREEN 05/29/2025 05/29/2024, , 04/04/2022, Additional history exists COLON CANCER SCREENING 07/17/2027 7, 07/31/2006, 12/01/2005, Additional history exists CHOLESTEROL SCREENING 09/15/2028 09/15/2023 , 10/11/2022, 10/12/2021, Additional history exists DTAP/TDAP/TD (3 - Td or Tdap) 03/28/2033 03/28/2023, 09/17/2012 HEPATITIS C SCREENING Completed 10/01/2013 PNEUMOCOCCAL VACCINE Addressed 05/25/2017 (Refused), 10/08/2015 (Refused) Overridden with the intention of not completing the topic Care Teams Road Builder Relationship Specialty Start Date End Date Nicole Caro MD [address] [place] [phone] PCP - General Internal Medicine 02/09/21
--- OUTSIDE RECORDS SUMMARY | 2024-10-31 10:13 | XMS_ITS | Encounter Summary ---
Author Organization [facility] Address [address] [place] [address] Care Team Providers Care Machine Deicer Element Winder Name Role Phone Nicole Caro MD Primary Care Provider [phone] Encounter Details Date Type Department Care Team Description 06/26/2023 Orders Only Medical Records [address] [place] [address] Suni Khanna Social History Tobacco Use Types Packs/Day Years [...] Procedure Name Priority Date/Time Associated Diagnosis Comments OUTSIDE EYE EXAM Routine 06/01/2023 documented in this encounter Results * OUTSIDE EYE EXAM (06/01/2023) Suni Khanna PROCEDURES documented in this encounter Visit Diagnoses Not on filedocumented in this encounter Care Teams Machine Deicer Element Winder Relationship Specialty Start Date End Date Nicole Caro MD [address] [place] [phone] PCP - General Internal Medicine 02/09/21 documented as of this encounter
--- OUTSIDE RECORDS SUMMARY | 2024-10-31 10:13 | XMS_ITS | Encounter Summary ---
Author Organization Teresa [employer] [facility] Address [address] [place] [address] Care Team Providers Care Derrickman Helper Name Role Phone Nicole Caro MD Primary Care Provider [phone] Encounter Details Date Type Department Care Team Description 03/02/2021 Telephone Gastroenterology - [address] [place] [address] Augustine Francis, PAJuniC Social History Tobacco Use Types Packs/Day Years [...] Encounter - Ivette Cole M.A. - 03/02/2021 1:33 PM EDT Please contact the patient to schedule the sono abdomen complete ordered by Augustine Francis today. Thank you so much documented in this encounter Plan of Treatment Not on file documented as of this encounter Visit Diagnoses Not on filedocumented in this encounter Care Teams Derrickman Helper Relationship Specialty Start Date End Date Nicole Caro MD [address] [place] [phone] PCP - General Internal Medicine 02/09/21 documented as of this encounter
--- OUTSIDE RECORDS SUMMARY | 2024-10-31 10:14 | XMS_ITS | Encounter Summary ---
Author Organization [facility] Address [address] [place] [address] Care Team Providers Care Supervisor Correspondence Section Name Role Phone Mansi Wayne MD Primary Care Provider Nicole Galo MD Primary Care Provider [phone] Encounter Details Date Type Department Care Team Description 05/05/2017 Pt. Non Urgent Medic al Question Adult Medicine [address] [address] Mansi Wayne MD Social History Tobacco Use Types Packs/Day [...] as of this encounter Progress Notes * Madeleine Mauricio M.A. - 05/05/2017 3:50 PM EDTFrom: Danna Mendozaderrick To: Mansi Wayne MD Sent: 05/05/2017 9:03 AM EDT Subject: renew medications I need to have renewals on my three medications. They are at [facility]. Simvastatin; Amlodipine; Hydrochlorothiazide Haile Tanya Anh (: 50) documented in this encounter Plan of Treatment Not on file documented as of this encounter Visit Diagnoses Not on filedocumented in this encounter Care Teams Supervisor Correspondence Section Relationship Specialty Start Date End Date Mansi Wayne MD PCP - General 09/11/10 02/08/21 Nicole Caro MD [address] [place] [phone] PCP - General Internal Medicine 02/09/21 documented as of this encounter
--- OUTSIDE RECORDS SUMMARY | 2024-10-31 10:14 | XMS_ITS | Encounter Summary ---
Author Organization Teresa [employer] [facility] Address [address] [place] [address] Care Team Providers Care Vice Principal Name Role Phone Mansi Wayne MD Primary Care Provider Nicole Galo MD Primary Care Provider [phone] Encounter Details Date Type Department Care Team Description 04/19/2016 Transfer Records Medical Records [address] [place] [address] Abstract, Provider Social History Tobacco Use Types [...] on filedocumented in this encounter Care Teams Vice Principal Relationship Specialty Start Date End Date Mansi Wayne MD PCP - General 09/11/10 02/08/21 Nicole Caro MD [address] [place] [address] [phone] PCP - General Internal Medicine 02/09/21 documented as of this encounter
--- OUTSIDE RECORDS SUMMARY | 2024-10-31 10:14 | XMS_ITS | Encounter Summary ---
Author Organization [employer] [facility] Address [address] [place] [address] Care Team Providers Care Client Care Consultant Name Role Phone Nicole Caro MD Primary Care Provider [phone] Encounter Details Date Type Department Care Team Description 10/11/2022 Telephone Adult Medicine [facility] [address] [place] [phone] Nicole Caro MD [address] [place] [address] [phone] Social History Tobacco Use Types Packs/Day Years [...] Recorded In the last 10 days, have bishop u been in contact with someone who was confirmed or suspected to have Coronavirus/COVID-19? No / Unsure 10/11/2022 10:17 AM EST documented as of this encounter Plan of Treatment Not on file documented as of this encounter Visit Diagnoses Not on filedocumented in this encounter Care Teams Client Care Consultant Relationship Specialty Start Date End Date Nicole Caro MD [address] [place] [address] PCP - General Internal Medicine 02/09/21 documented as of this encounter
--- OUTSIDE RECORDS SUMMARY | 2024-10-31 10:14 | XMS_ITS | Encounter Summary ---
Author Organization Teresa [facility] [facility] Address [address] [place] [address] Care Team Providers Care Publishing Agent Name Role Phone Mansi Wayne MD Primary Care Provider Nicole Galo MD Primary Care Provider [phone] Encounter Details Date Type Department Care Team Description 12/14/2016 Business Doc Medical Records [address] [place] [address] Abstract, Provider Social History Tobacco Use Types [...] on filedocumented in this encounter Care Teams Publishing Agent Relationship Specialty Start Date End Date Mansi Wayne MD PCP - General 09/11/10 02/08/21 Nicole Caro MD [address] [place] [address] [phone] PCP - General Internal Medicine 02/09/21 documented as of this encounter
--- OUTSIDE RECORDS SUMMARY | 2024-10-31 10:14 | XMS_ITS | Encounter Summary ---
Author Organization [facility] [facility] Address [address] [place] [address] Care Team Providers Care Income Tax Auditor Name Role Phone Nicole Caro MD Primary Care Provider [phone] Encounter Details Date Type Department Care Team Description 11/24/2021 Lead Applier Report Medical Records [address] [place] [address] Denice Pino Social History Tobacco Use Types Packs/Day Years [...] on filedocumented in this encounter Care Teams Income Tax Auditor Relationship Specialty Start Date End Date Nicole Caro MD [address] [place] [address] PCP - General Internal Medicine 02/09/21 documented as of this encounter
--- OUTSIDE RECORDS SUMMARY | 2024-10-31 10:14 | XMS_ITS | Encounter Summary ---
Author Organization [facility] Address [address] [place] [address] Care Team Providers Care Preschool Aide Name Role Phone Nicole Caro MD Primary Care Provider [phone] Encounter Details Date Type Department Care Team Description 11/22/2022 Business Doc Medical Records [address] [place] [address] Abstract, Provider Social History Tobacco Use Types [...] suspected to have Coronavirus/COVID-19? No / Unsure 11/21/2022 9:04 AM EDT documented as of this encounter Plan of Treatment Not on file documented as of this encounter Visit Diagnoses Not on filedocumented in this encounter Care Teams Preschool Aide Relationship Specialty Start Date End Date Nicole Caro MD [address] [place] [phone] PCP - General Internal Medicine 02/09/21 documented as of this encounter
--- OUTSIDE RECORDS SUMMARY | 2024-10-31 10:14 | XMS_ITS | Clinical Summary ---
Author Organization [facility] [address] [place] [address] [place] [phone] Phone Care Team Providers Care Payment Rep Name Role Phone Nicole Caro MD Primary Care Provider [phone] Allergies Active Allergy Reactions Criticality Noted Date Comments Iodinated Contrast Media 09/02/2005 Sulfa (Sulfonamide Antibiotics) 08/12 Medications amoxicillin (AMOXIL) 500 mg capsule Take 4 Capsules by mouth once as needed. 1 hr prior to Dental exams Active prednisoLONE acetate (PRED FORTE) 1 % ophthalmic suspension Place 1 Drop into the right eye daily. 05/29/2024 Active hydroCHLOROthia zide (HYDRODIURIL) 25 mg tablet TAKE 1 TABLET [...] 09/03/2024 10:00 AM EST Consult Adult Medicine [address] [phone] Nicole Caro MD Preop cardiovascular exam (Primary [...] cyst - benign COLONOSCOPY W/ BIOPSIES 07/31/[address] [facility] Dr. Motta - 1 hyperplastic polyp. rpt 10 yrs [...] care for your loved ones. For example, maternal child nurse or elderly care for an older adult? [...] What is your living situation? 1 11/03/2023 Comments Unknown Sex and Gender Information Value Date Recorded Sex Assigned at Female 08/16/2024 2:33 PM EST Legal Sex Female 10:04 PM EST Gender Identity Female 08/16/2024 2:33 PM EST Sexual Orientation Straight 08/16/2024 2: 33 PM EST Obstetrics History Last Filed Vital Signs Vital [...] 9:45 AM EDT Office Visit Adult Medicine [facility] - [address] [phone] Kayleen Srinivasan PA [address] [place] [address] 05/09/2025 9:50 AM EDT Appointment Radiology Department - [address] [phone] Health Maintenance Due Date Last Done Comments Pneumococcal Vaccine: 50+ Years (1 of 2 - PCV) 1969 Zoster Vaccines (1 of 2) 2000 RSV Immunization Patients 60+ Years Old (1 - Risk 60-74 years 1-dose series) 2010 Falls Risk Assessment 08/20/2022 COVID-19 Vaccine ( season) 2024 06/29/2022, 06/29/2022, 08/27/2021, Additional history exists Influenza Vaccine (#1) 2025 Postp oned from 05/12/2024 (Patient Refused) Breast Cancer Screening 05/03/2025 05/03/20, 05/03/2024, 04/26/2023, Additional history exists Medicare Annual Wellness Visit 05/29/2025 05/29/2024 Depression Screening 09/02/2025 09/02/2024, 05/29/20 24 Social Influencers of Health Screening 09/02/2025 09/02/2024 Hypertension/CHF/CAD Annual BMP Blood Test 10/07/2025 10/07/2024, 09/15/2023 Colorectal Cancer Screening: Colonoscopy 07/17/2027 07/17/2017 Cholesterol Screening (Lipid Panel) 10/07/2029 10/07/2024, 09/15/2023 Osteoporosis Screening (Bone Density Screening) 11/21/2032 [...] patient's age to complete this topic Meningococcal B Vacine Aged Out No lo nger eligible based on patient's age to complete [...] Routine 10/07/2024 10:09 AM EST Preoperative examination BASIC METABOLIC PANEL Routine 10/07/2024 10:09 AM EST Preoperative examination LIPID PANEL WITH REFLEX TO DIRECT LDL Routine 10/07/2024 10:09 AM EST Pure hypercholesterolemia DEPRESSION SCREENING Routine 05/29/2024 SCREENING MAMMOGRAPHY BI 2-VIEW BREAST INC CAD Routine 05/03/2024 9:44 AM EDT Encounter for screening mammogram for malignant neoplasm of breast DXA BONE DENSITY STUDY 1+ SITS AXIAL SKEL Routine 11/21/2022 9:29 AM EDT Disorder of bone, unspecified Disorder of cartilage, unspecified COLONOSCOPY Routine 07/17/2017 HEPATITIS C SCREENING Routine 10/01/2013 from Last 3 Months or Most Recently Relevant to Health Maintenance Results * (ABNORMAL) Lipid panel with reflex to direct LDL (10/07/2024 10:09 AM EST) Cholesterol 201(H) 0 - 200 mg/dL LAB CHEMISTRY METHOD 10/07/2024 3:24 PM [facility] Triglycerides 88 0 - 150 mg/dL LAB CHEMISTRY METHOD 10/07/2024 3:24 PM [facility] HDL 90 >=40 mg/dL LAB CHEMISTRY METHOD 10/07/2024 3:24 PM [facility] LDL Calculated 93 0 - 100 mg/dL LAB CHEMISTRY METHOD 10/07/2024 3:24 PM [facility] VLDL Cholesterol Ken 17.6 mg/dL LAB CHEMISTRY METHOD 10/07/2024 3:24 PM [facility] Non HDL Chol. (LDL+VLDL) 111 <145 mg/dL LAB CHEMISTRY METHOD 10/07/2024 3:24 PM [facility] Chol/HDL Ratio 2.2 0.0 - 4.4 LAB CHEMISTRY METHOD 10/07/2024 3:24 PM [facility] Blood Venous blood specimen / Unknown Venipuncture / Unknown 10/07/2024 10:09 AM EST 10/07/2024 10:09 AM EST us Nicole Caro MD LAB BLOOD ORDERABLES Final Resul t [facility] [address] [place] [address], [place] [phone] * (ABNORMAL) CBC auto differential (10/07/2024 10:09 AM EST) WBC 8.2 4.8 - 10.8 K/mcL LAB HEMETOLOGY METHOD 10/07/2024 12:23 PM [facility] RBC 5.10(H) 3.80 - 4.80 M/mcL LAB HEMETOLOGY METHOD 10/07/2024 12:23 PM [facility] Hemoglobin 15.1 11.5 - 16.0 g/dL LAB HEMETOLOGY METHOD 10/07/2024 12:23 PM [facility] Hematocrit 45.3 35.0 - 47.0 % LAB HEMETOLOGY METHOD 10/07/2024 12:23 PM [facility] MCV 88.1 79.0 - 98.0 FL LAB HEMETOLOGY METHOD 10/07/2024 12:23 PM [facility] MCH 29.4 27.0 - 32.0 pcg LAB HEMETOLOGY METHOD 10/07/2024 12:23 PM [facility] MCHC 33.3 32.0 - 37.0 g/dL LAB HEMETOLOGY METHOD 10/07/2024 12:23 PM [facility] RDW 12.5 11.0 - 15.0 % LAB HEMETOLOGY METHOD 10/07/2024 12:23 PM [facility] Platelets 392 130 - 400 K/mcL LAB HEMETOLOGY METHOD 10/07/2024 12:23 PM EST [facility] MPV 10.1 7.0 - 11.0 FL LAB HEMETOLOGY METHOD 10/07/2024 12:23 PM [facility] NRBC 0.0 <1.0 % LAB HEMETOLOGY METHOD 10/07/2024 12:23 PM [facility] NRBC Absolute 0.00 <0.10 K/mcL LAB HEMETOLOGY METHOD 10/07/2024 12:23 PM [facility] Neutrophils Relative 64.8 % LAB HEMETOLOGY METHOD 10/07/2024 12:23 PM [facility] Lymphocytes Relative 22.3 % LAB HEMETOLOGY METHOD 10/07/2024 12:23 PM [facility] Monocytes Relative 9.9 % LAB HEMETOLOGY METHOD 10/07/2024 12:23 PM [facility] Eosinophils Relative 2.2 % LAB HEMETOLOGY METHOD 10/07/2024 12:23 PM [facility] Basophils Relative 0.6 % LAB HEMETOLOGY METHOD 10/07/2024 12:23 PM [facility] Immature Granulocytes Relative 0.2 % LAB HEMETOLOGY METHOD 10/07/2024 12:23 PM [facility] Neutrophils Absolute 5.33 1.50 - 7.00 K/mcL LAB HEMETOLOGY METHOD 10/07/2024 12:23 PM [facility] Lymphocytes Absolute 1.83 1.00 - 5.00 K/mcL LAB HEMETOLOGY METHOD 10/07/2024 12:23 PM [facility] Monocytes Absolute 0.81 0.20 - 1.00 K/mcL LAB HEMETOLOGY METHOD 10/07/2024 12:23 PM [facility] Eosinophils Absolute 0.18 0.00 - 0.50 K/mcL LAB HEMETOLOGY METHOD 10/07/2024 12:23 PM [facility] Basophils Absolute 0.05 0.00 - 0.20 K/mcL LAB HEMETOLOGY METHOD 10/07/2024 12:23 PM [facility] Immature Granulocytes Absolute 0.02 0.00 - 0.03 K/[facility] LAB HEMETOLOGY METHOD 10/07/2024 12:23 PM [facility] Blood Venous blood specimen / Unknown Venipuncture / Unknown 10/07/2024 10:09 AM EST 10/07/2024 10:09 AM EST us Nicole Caro MD LAB BLOOD ORDERABLES Final Resul t [facility] [address] [place] [address], * (ABNORMAL) Basic metabolic panel (10/07/2024 10:09 AM EST) Sodium 138 133 - 145 mmol/L LAB CHEMISTRY METHOD 10/07/2024 3:18 PM [facility] Potassium 3.9 3.5 - 5.5 mmol/L LAB CHEMISTRY METHOD 10/07/2024 3:18 PM [facility] Chloride 100 96 - 110 mmol/L LAB CHEMISTRY METHOD 10/07/2024 3:18 PM [facility] CO2 30 21 - 32 mmol/L LAB CHEMISTRY METHOD 10/07/2024 3:18 PM [facility] Anion Gap 8 3 - 11 LAB CHEMISTRY METHOD 10/07/2024 3:18 PM [facility] Glucose 102(H) 70 - 100 mg/dL LAB CHEMISTRY METHOD 10/07/2024 3:18 PM [facility] BUN 11 5 - 25 mg/dL LAB CHEMISTRY METHOD 10/07/2024 3:18 PM [facility] Creatinine 0.65 0.50 - 1.10 mg/dL LAB CHEMISTRY METHOD 10/07/2024 3:18 PM [facility] eGFR 93 >=60 mL/min/1. 73m2 LAB CHEMISTRY METHOD 10/07/2024 3:18 PM EST [facility] Comment:Calculation based on the??Chronic Kidney Disease Epidemiology Collaboration (CKD-EPI) equation refit??without adjustment for race. BUN/Creatinine Ratio 16.9 LAB CHEMISTRY METHOD 10/07/2024 3:18 PM EST [facility] Calcium 10.2 8.5 - 10.5 mg/dL LAB CHEMISTRY METHOD 10/07/2024 3:18 PM EST [facility] Blood Venous blood specimen / Unknown Venipuncture / Unknown 10/07/2024 10:09 AM EST 10/07/2024 10:09 AM EST us Nicole Caro MD LAB BLOOD ORDERABLES Final Resul t [facility] [address] [place] [address], * Depression Screening (05/29/2024) Depression Screening abstracted [facility] Provider HEALTH MAINTENANCE Final Result * SCREENING MAMMOGRAPHY BI 2-VIEW BREAST INC [...] cancer risk category Moderate (15% - 20%) us Nicole Caro MD IMG XR PROCEDURES Final Result * DXA BONE DENSITY STUDY 1+ [facility] (11/21/2022 9:29 AM EDT) Anatomical Region Laterality Modality Bone Densitometr y 10/06/2022 12:1 0 PM EST Narrative 11/22/2022 2:01 PM EDT Clinical history: menopausal/postmenopausal disorder Scans of the lumbar spine and hips were performed on a [employer] fan beam bone densitometer. ? Bone mineral [...] spine and hips were performed on a [employer] beam bone densitometer. Bone mineral density measurements [...] -2.5 with fractures Kayleen APPLE DXA PROCEDURES Final Resu lt * Colonoscopy (07/17/2017) [facility] Colonoscopy abstracted, no interpretation Anatomical Region Laterality Modality Other Historical Provider HEALTH MAINTENANCE Final Result * Hepatitis C Screening (10/01/2013) [facility] Hepatitis C Screening abstracted Historical Provider HEALTH MAINTENANCE Final Result from Last 3 Months or Most Recently Relevant to Health Maintenance Insurance MEDICARE [facility] Care Teams Payment Rep Relationship Specialty Start Date End Date Nicole Caro MD [address] [place] [address] PCP - General Internal Medicine 02/09/21
--- OUTSIDE RECORDS SUMMARY | 2024-10-31 10:14 | XMS_ITS | Encounter Summary ---
Author Organization [facility] Address [address] [place] [address] Care Team Providers Care Stripper Latex Name Role Phone Nicole Caro MD Primary Care Provider [phone] Encounter Details Date Type Department Care Team Description 07/01/2021 Data Management Engineer Report Medical Records [address] [place] [address] Tr Izaguirre Social History Tobacco Use Types [...] on filedocumented in this encounter Care Teams Stripper Latex Relationship Specialty Start Date End Date Nicole Caro MD [address] [place] [address] PCP - General Internal Medicine 02/09/21 documented as of this encounter
--- OUTSIDE RECORDS SUMMARY | 2024-10-31 10:14 | XMS_ITS | Encounter Summary ---
Author Organization Teresa [employer] [facility] Address [address] [place] [address] Care Team Providers Care Vice President Fixed Income Name Role Phone Mansi Wayne MD Primary Care Provider Nicole Galo MD Primary Care Provider [phone] Encounter Details Date Type Department Care Team Description 07/18/2016 Wellness Visit Medical Records [address] [place] [address] Mansi Wanye MD Social History Tobacco Use Types Packs/Day [...] filedocumented in this encounter Care Teams Vice President Fixed Income Relationship Specialty Start Date End Date Mansi Wayne MD PCP - General 09/11/10 02/08/21 Nicole Caro MD [address] [place] [address] PCP - General Internal Medicine 02/09/21 documented as of this encounter
--- OUTSIDE RECORDS SUMMARY | 2024-10-31 10:14 | XMS_ITS | Encounter Summary ---
Author Organization Teresa [facility] Address [address] [place] [address] Care Team Providers Care Surgical Instrument Maker Name Role Phone Mansi Wayne MD Primary Care Provider Nicole Galo MD Primary Care Provider [phone] Encounter Details Date Type Department Care Team Description 12/12/2016 Release of Information Medical Records [address] [place] [address] Abstract, Provider Social History Tobacco Use Types [...] on filedocumented in this encounter Care Teams Surgical Instrument Maker Relationship Specialty Start Date End Date Mansi Wayne MD PCP - General 09/11/10 02/08/21 Nicole Caro MD [address] [place] [address] PCP - General Internal Medicine 02/09/21 documented as of this encounter
--- OUTSIDE RECORDS SUMMARY | 2024-10-31 10:14 | XMS_ITS | Encounter Summary ---
Author Organization [facility] Address [address] [place] [address] Care Team Providers Care Gastrointestinal Technician Name Role Phone Mansi Wayne MD Primary Care Provider Nicole Galo MD Primary Care Provider [phone] Encounter Details Date Type Department Care Team Description 11/09/2017 Pt. Non Urgent Medic al Question Adult Medicine [address] [address] Mansi Wayne MD Social History Tobacco Use [...] Progress Notes * Madeleine Mauricio M.A. - 11/09/2017 11:02 AM ESTFrom: Danna Mendozamarkoshaji To: Mansi Wayne MD Sent: 11/09/2017 8:46 AM EST Subject: renewal of meds I need to renew my three meds: amlodipine,hydrochlorothiazide, and sinvastatin. [facility] [place]. Thanks ! Tanya mendozaderrick documented in this encounter Plan of Treatment Not on file documented as of this encounter Visit Diagnoses Not on filedocumented in this encounter Care Teams Gastrointestinal Technician Relationship Specialty Start Date End Date Mansi Wayne MD PCP - General 09/11/10 02/08/21 Nicole Caro MD [address] [place] [address] PCP - General Internal Medicine 02/09/21 documented as of this encounter
--- OUTSIDE RECORDS SUMMARY | 2024-10-31 10:14 | XMS_ITS | Encounter Summary ---
Author Organization [facility] Address [address] [place] [address] Care Team Providers Care Clerical Office Worker Name Role Phone Mansi Wayne MD Primary Care Provider Nicole Galo MD Primary Care Provider [phone] Encounter Details Date Type Department Care Team Description 08/14/2017 Business Doc Medical Records [address] [place] [address] Abstract, Provider Social History Tobacco Use Types [...] on filedocumented in this encounter Care Teams Clerical Office Worker Relationship Specialty Start Date End Date Mansi Wayne MD PCP - General 09/11/10 02/08/21 Nicole Caro MD [address] [place] [address] [phone] PCP - General Internal Medicine 02/09/21 documented as of this encounter
--- OUTSIDE RECORDS SUMMARY | 2024-10-31 10:14 | XMS_ITS | Encounter Summary ---
Author Organization [facility] Address [address] [place] [address] Care Team Providers Care Kennel Assistant Name Role Phone Nicole Caro MD Primary Care Provider [phone] Encounter Details Date Type Department Care Team Description 04/19/2021 Business Doc Medical Records [address] [place] [address] Abstract, Provider Social History Tobacco Use Types [...] have Coronavirus / COVID-19? No / Unsure 04/15/2021 10:11 AM EDT documented as of this encounter Plan of Treatment Not on file documented as of this encounter Visit Diagnoses Not on filedocumented in this encounter Care Teams Kennel Assistant Relationship Specialty Start Date End Date Nicole Caro MD [address] [place] [address] PCP - General Internal Medicine 02/09/21 documented as of this encounter
== END 2024-10-31 10:29 | disposition home or self-care (01) ==
PROVIDERS: PCP Internal Medicine; Visit Provider Physician Assistant
DX: M17.11 Unilateral primary osteoarthritis, right knee (principal)
CPT/HCPCS: 99024

== ENCOUNTER → 2024-10-31 09:32 | Outpatient (BNV) | payer MEDICARE, OTHER, SELFPAY | PROVIDERS: Visit Provider Radiology Diagnostic Radiology | DX: M17.11 Unilateral primary osteoarthritis, right knee (principal) | CPT/HCPCS: 73562 ==

== ENCOUNTER 2024-10-31 10:25 | Outpatient (REF) | payer MEDICARE, OTHER, SELFPAY ==
--- NOTE | ~2024-10-31 | XR_ITS ---
EXAMINATION: XR KNEE, RIGHT CLINICAL INFORMATION: M25.569 - Pain in unspecified knee COMPARISON: July 03, 2023. TECHNIQUE: Three views of the right knee. FINDINGS: There is joint space narrowing involving the medial compartment with sclerosis of the articular surface in the medial femoral condyle and medial tibial plateau without seated marginal osteophyte formation. Joint space narrowing in the patellofemoral joint. Small volume of suprapatellar bursa joint effusion. No acute cortical disruption or gross malalignment. There is an intact metallic prosthesis with an femoral and tibial component without malalignment or loosening. 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 Electronically signed by: Luke Vazquez MD 10/31/2024 02:44 PM MICA GUADALUPE
--- OUTSIDE RECORDS SUMMARY | 2024-11-01 11:19 | XMS_ITS | Encounter Summary ---
Author Organization Teresa [facility] Address [address] [place] [address] Care Team Providers Care Hand Heel Seat Fitter Name Role Phone Mansi Wayne MD Primary Care Provider Nicole Galo MD Primary Care Provider [phone] Encounter Details Date Type Department Care Team Description 11/30/2015 Business Doc Medical Records [address] [place] [address] Abstract, Provider Social History Tobacco Use Types [...] on filedocumented in this encounter Care Teams Hand Heel Seat Fitter Relationship Specialty Start Date End Date Mansi Wayne MD PCP - General 09/11/10 02/08/21 Nicole Caro MD [address] [place] [address] [phone] PCP - General Internal Medicine 02/09/21 documented as of this encounter
--- OUTSIDE RECORDS SUMMARY | 2024-11-01 11:19 | XMS_ITS | Encounter Summary ---
Author Organization [facility] Address [address] [place] [address] Care Team Providers Care Probate Paralegal Name Role Phone Mansi Wayne MD Primary Care Provider Nicole Galo MD Primary Care Provider [phone] Reason for Visit * Reason Onset Date Comments Faxed Order 09/24/2018 Encounter Details Date Type Department Care Team Description 09/24/2018 Telephone Adult Medicine [address] [address] Mansi Wayne MD Faxed Order Social History [...] signature, please have pcp sign and refax [phone] documented in this encounter Plan of Treatment Not on file documented as of this encounter Visit Diagnoses Not on filedocumented in this encounter Care Teams Probate Paralegal Relationship Specialty Start Date End Date Mansi Wayne MD PCP - General 09/11/10 02/08/21 Nicole Caro MD [address] [place] [address] PCP - General Internal Medicine 02/09/21 documented as of this encounter
--- OUTSIDE RECORDS SUMMARY | 2024-11-01 11:19 | XMS_ITS | Encounter Summary ---
Author Organization [facility] Address [address] [place] [address] Care Team Providers Care Oracle Ebs Developer Name Role Phone Nicole Caro MD Primary Care Provider [phone] Encounter Details Date Type Department Care Team Description 11/22/2022 Business Doc Medical Records [address] [place] [address] Abstract, Provider Social History Tobacco Use Types [...] on filedocumented in this encounter Care Teams Oracle Ebs Developer Relationship Specialty Start Date End Date Nicole Caro MD [address] [place] [address] PCP - General Internal Medicine 02/09/21 documented as of this encounter
--- OUTSIDE RECORDS SUMMARY | 2024-11-01 11:19 | XMS_ITS | Encounter Summary ---
Author Organization [facility] Address [address] [place] [address] Care Team Providers Care Special Shopper Name Role Phone Mansi Wayne MD Primary Care Provider Nicole Galo MD Primary Care Provider [phone] Encounter Details Date Type Department Care Team Description 04/04/2019 Manager Internet Report Medical Records [address] [place] [address] Isauro Ritchie Social History Tobacco Use Types [...] on filedocumented in this encounter Care Teams Special Shopper Relationship Specialty Start Date End Date Mansi Wayne MD PCP - General 09/11/10 02/08/21 Nicole Caro MD [address] [place] [address] [phone] PCP - General Internal Medicine 02/09/21 documented as of this encounter
--- OUTSIDE RECORDS SUMMARY | 2024-11-01 11:19 | XMS_ITS | Encounter Summary ---
Author Organization Teresa [facility] Address [address] [place] [address] Care Team Providers Care Sugar Refinery Supervisor Name Role Phone Mansi Wayne MD Primary Care Provider Nicole Galo MD Primary Care Provider [phone] Encounter Details Date Type Department Care Team Description 08/14/2017 Business Doc Medical Records [address] [place] [address] Abstract, Provider Social History Tobacco Use Types [...] on filedocumented in this encounter Care Teams Sugar Refinery Supervisor Relationship Specialty Start Date End Date Mansi Wayne MD PCP - General 09/11/10 02/08/21 Nicole Caro MD [address] [place] [address] [phone] PCP - General Internal Medicine 02/09/21 documented as of this encounter
--- OUTSIDE RECORDS SUMMARY | 2024-11-01 11:19 | XMS_ITS | Encounter Summary ---
Author Organization [facility] Address [address] [place] [address] Care Team Providers Care Sanitation Worker Name Role Phone Nicole Caro MD Primary Care Provider [phone] Encounter Details Date Type Department Care Team Description 07/03/2023 Pt. Non Urgent Medical Question Adult Medicine [facility] [address] [place] [address] Nicole Caro MD [address] [place] [address] Social History Tobacco Use Types Packs/Day Years [...] Telephone Encounter - Farrah Muñiz L.P.N. - 07/03/2023 9:48 AM EDTFrom: Danna Sood To: Alok Caro Sent: 07/03/2023 9:46 AM EDT Subject: Pre-op visit My eye surgery has been schedued for November 28, 2023 in [place]. You have received the report from Dr. Khanna. I have a regular appointment with you on September 28, 2023. I also need to have a pre-op appointmentwithin one month of my eye surgery to complete required paperwork. Do I keep the September appointment and make an other one for pre-op in early November -- or -- can we combine both into one appointment in early November ?? Thanks, Danna Sood documented in this encounter Plan of Treatment Not on file documented as of this encounter Visit Diagnoses Not on filedocumented in this encounter Care Teams Sanitation Worker Relationship Specialty Start Date End Date Nicole Caro MD [address] [place] [phone] PCP - General Internal Medicine 02/09/21 documented as of this encounter
--- OUTSIDE RECORDS SUMMARY | 2024-11-01 11:19 | XMS_ITS | Encounter Summary ---
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; intermodal owner operator truck driver current use of anticoagulant therapy Social History Tobacco Use Types Packs/Day Years [...] documented as of this encounter Results * THROMBOPLASTIN TIME, PARTIAL (03/05/2019 10:49 AM EDT) Partial Thromboplastin Time 35.7 24.1 - 39.3 sec 03/05/2019 12:33 PM EDT [facility] 03/05/2019 10:4 9 AM EDT 03/05/2019 10:49 AM EDT Mansi Wayne MD LAB [facility] * PROTHROMBIN TIME (03/05/2019 10:49 AM EDT) Prothrombin Time 11.0 10.6 - 13.9 SEC 03/05/2019 12:33 PM EDT [facility] INR 0.92 03/05/2019 12:33 PM EDT [facility] 03/05/2019 10:4 9 AM EDT 03/05/2019 10:49 AM EDT Mansi Wayne MD LAB Performing Organization Address [facility]/ZIP Co de Phone Number [facility] * COMPREHENSIVE METABOLIC PANEL (03/05/2019 10:49 AM EDT) GLUCOSE 86 70 - 100 mg/dL 03/05/2019 2:42 PM EDT [facility] Comment:Reference range appl icable to fasting specimens only Blood Urea Nitrogen 13 5 - 25 mg/dL 03/05/2019 2:42 PM EDT [facility] CREAT 0.66 0.5 - 1.1 mg/dL 03/05/2019 2:42 PM EDT [facility] GLOMERULAR FILTRATION RATE > 60 03/05/2019 2:42 PM EDT [facility] Comment: If patient is -German, multiply result by 1.21 Chronic Kidney Disease: < 60 ml/min/1.73 square meters Kidney Failure: < 15 ml/min/1.73 square meters NA 139 133 - 145 mmol/L 03/05/2019 2:42 PM EDT [facility] K 3.8 3.5 - 5.5 mmol/L 03/05/2019 2:42 PM EDT [facility] CL 102 96 - 110 mmol/L 03/05/2019 2:42 PM EDT [facility] CARBON DIOXIDE (CO2) 29 21 - 32 mmol/L 03/05/2019 2:42 PM EDT [facility] ANION GAP 8 3 - 11 03/05/2019 2:42 PM EDT [facility] CALCIUM 8.8 8.5 - 10.5 mg/dL 03/05/2019 2:42 PM EDT [facility] TOTAL PROTEIN (TP) 7.3 6.0 - 8.0 G/dL 03/05/2019 2:42 PM EDT [facility] Albumin 4.1 3.2 - 5.0 G/dL 03/05/2019 2:42 PM EDT [facility] BILIRUBIN TOTAL 0.6 0.0 - 1.4 mg/dL 03/05/2019 2:42 PM EDT [facility] SGOT 11 10 - 42 U/L 03/05/2019 2:42 PM EDT [facility] SGPT 23 10 - 60 U/L 03/05/2019 2:42 PM EDT [facility] ALK PHOS 76 42 - 121 U/L 03/05/2019 2:42 PM EDT [facility] 03/05/2019 10:4 9 AM EDT 03/05/2019 10:49 AM EDT Mansi Wayne MD LAB [facility] * (ABNORMAL) CBC (AUTO DIFF PLATELET) (03/05/2019 10:49 AM EDT) WHITE BLOOD COUNT 7.5 4.8 - 10.8 x10-3/uL 03/05/2019 1:52 PM EDT [facility] RED BLOOD COUNT 5.1(H) 3.8 - 4.8 x10-6/uL 03/05/2019 1:52 PM EDT [facility] Hemoglobin 14.9 11.5 - 16.0 g/dL 03/05/2019 1:52 PM EDT [facility] Hematocrit 46.1 35 - 47 % 03/05/2019 1:52 PM EDT [facility] VOLU[facility] 90.6 79 - 98 fL 03/05/2019 1:52 PM EDT [facility] HEMOGLOBIN 29.3 27 - 32 pg 03/05/2019 1:52 PM EDT [facility] MEAN CORPUSCULAR HGB CONC 32.3 32 - 37 g/dL 03/05/2019 1:52 PM EDT [facility] RED CELL DISTRIBUTION WIDTH 12.9 11 - 15 % 03/05/2019 1:52 PM EDT [facility] PLT COUNT 373 130 - 400 x10-3/uL 03/05/2019 1:52 PM EDT [facility] MEAN PLATELET VOLUME 10.5 7 - 11 fL 03/05/2019 1:52 PM EDT [facility] NRBC % AUTO 0.0 <1 % 03/05/2019 1:52 PM EDT [facility] NEUTROPHILS % 54.7 % 03/05/2019 1:52 PM EDT [facility] LYMPH % 31.0 % 03/05/2019 1:52 PM EDT [facility] MONO % 10.6 % 03/05/2019 1:52 PM EDT [facility] EOS % 2.7 % 03/05/2019 1:52 PM EDT [facility] BASO % 0.7 % 03/05/2019 1:52 PM EDT [facility] IMMATURE GRANULOCYTES % 0.3 % 03/05/2019 1:52 PM EDT [facility] NRBC # AUTO 0.00 <0.1 x10-3/uL 03/05/2019 1:52 PM EDT [facility] NEUT # 4.12 1.5 - 7.0 x10-3/uL 03/05/2019 1:52 PM EDT [facility] LYMPH # 2.33 1 - 5.0 x10-3/uL 03/05/2019 1:52 PM EDT [facility] MONO # 0.80 0.2 - 1.0 x10-3/uL 03/05/2019 1:52 PM EDT [facility] EOS # 0.20 0 - 0.5 x10-3/uL 03/05/2019 1:52 PM EDT [facility] BASO # 0.05 0 - 0.2 x10-3/uL 03/05/2019 1:52 PM EDT [facility] IMMATURE GRANULOCYTES # 0.02 0 - 0.03 x10-3/uL 03/05/2019 1:52 PM EDT [facility] 03/05/2019 10:4 9 AM EDT 03/05/2019 10:49 AM EDT Mansi Wayne MD LAB [facility] * URINE, CULTURE (03/05/2019 10:49 AM EDT) Urine (Urine) 03/05/2019 10: 49 AM EDT 03/05/2019 10:49 AM EDT Narrative [facility] - 03/06/2019 12:34 PM EDT 10,000 - 49,000 CFU/mL NORMAL SKIN/UROGENITAL ALEXANDRE PRESENT. Mansi Wayne [facility] * (ABNORMAL) URINALYSIS, ROUTINE (03/05/2019 10:49 AM EDT) GLUCOSE, URINE (UA) NEGATIVE NEGATIVE mg/dL 03/05/2019 2:13 PM EDT [facility] BILIRUBIN URINE NEGATIVE NEGATIVE 03/05/2019 2:13 PM EDT [facility] KETONE, URINE NEGATIVE NEGATIVE mg/dL 03/05/2019 2:13 PM EDT [facility] SPECIFIC GRAVITY, URINE 1.007 1.003 - 1.030 03/05/2019 2:13 PM EDT [facility] BLOOD, URINE NEGATIVE NEGATIVE 03/05/2019 2:13 PM EDT [facility] PH, URINE 6.5 5.0 - 8.0 03/05/2019 2:13 PM EDT [facility] PROTEIN, URINE NEGATIVE <= TRACE mg/dl 03/05/2019 2:13 PM EDT [facility] UROBILINOGEN, URINE 1.0 0.2 - 1.0 E.U./dL 03/05/2019 2:13 PM EDT [facility] NITRITE,URINE NEGATIVE NEGATIVE 03/05/2019 2:13 PM EDT [facility] LEUKOCYTE ESTERASE, URINE MODERATE(A) NEGATIVE 03/05/2019 2:13 PM EDT [facility] RBC-Urine 3 0 - 4 /HPF 03/05/2019 2:13 PM EDT [facility] WBC-Urine 3 0 - 4 /HPF 03/05/2019 2:13 PM EDT [facility] EPITH CELLS, URINE 14 0 - 60 /LPF 03/05/2019 2:13 PM EDT [facility] BACTERIA, URINE NEGATIVE NEGATIVE 03/05/2019 2:13 PM EDT [facility] HYALINE CAST, URINE 1 0 - 3 /LPF 03/05/2019 2:13 PM EDT [facility] 03/05/2019 10:4 9 AM EDT 03/05/2019 10:49 AM EDT Mansi Wayne MD LAB [facility] documented in this encounter Visit Diagnoses Diagnosis Preoperative examination Preoperative examination, unspecified Screening for deficiency anemia Screening for other and unspecified deficiency anemia intermodal owner operator truck driver current use of anticoagulant therapy Preoperative examination Preoperative examination, unspecified documented in this encounter Care Teams Agricultural Equipment Mechanic Relationship Specialty Start Date End Date Mansi Wayne MD PCP - General 09/11/10 02/08/21 Nicole Caro MD [address] [place] [id number] PCP - General Internal Medicine 02/09/21 documented as of this encounter
--- OUTSIDE RECORDS SUMMARY | 2024-11-01 11:19 | XMS_ITS | Encounter Summary ---
Author Organization [facility] [employer] [facility] Address [address] [place] [address] Care Team Providers Care Doorkeeper Name Role Phone Mansi Wayne MD Primary Care Provider Nicole Glao MD Primary Care Provider [phone] Encounter Details Date Type Department Care Team Description 10/22/2018 Home Health Certification Medical Records [address] [place], [place] [id number] [place] [address] [facility], [address] [address] Social History Tobacco Use Types Packs/Day Years [...] on filedocumented in this encounter Care Teams Doorkeeper Relationship Specialty Start Date End Date Mansi Wayne MD PCP - General 09/11/10 02/08/21 Nicole Caro MD [address] [place] [address] PCP - General Internal Medicine 02/09/21 documented as of this encounter
--- OUTSIDE RECORDS SUMMARY | 2024-11-01 11:19 | XMS_ITS | Encounter Summary ---
Author Organization [facility] Address [address] [place] [address] Care Team Providers Care Visual Basic Programmer Name Role Phone Nicole Caro MD Primary Care Provider [phone] Reason for Visit * Reason Onset Date Comments Note, Other 03/28/2024 [facility] no [facility] 03/27/24 Encounter Details Date Type Department Care Team Description 03/28/2024 Telephone Adult Medicine [address] [address] Nicole Caro MD [address] [place] [address] Note, Other ([facility] note 03/27/24) Social History Tobacco Use Types Packs/Day Years [...] encounter Miscellaneous Notes * Telephone Encounter - Felipa Hu - 03/28/2024 12:39 PM EDT Faxed office note from [facility] for visit on 03/27/24 placed in provider bin for review. documented in this encounter Plan of Treatment Not on file documented as of this encounter Visit Diagnoses Not on filedocumented in this encounter Care Teams Visual Basic Programmer Relationship Specialty Start Date End Date Nicole Caro MD [address] [place] [phone] PCP - General Internal Medicine 02/09/21 documented as of this encounter
--- OUTSIDE RECORDS SUMMARY | 2024-11-01 11:19 | XMS_ITS | Encounter Summary ---
Author Organization [facility] [facility] Address [address] [place] [address] Care Team Providers Care Assistant Baseball Coach Name Role Phone Nicole Caro MD Primary Care Provider [phone] Encounter Details Date Type Department Care Team Description 06/26/2023 Orders Only Medical Records [address] [place] [address] Suni Khanna Social History Tobacco Use Types [...] on filedocumented in this encounter Care Teams Assistant Baseball Coach Relationship Specialty Start Date End Date Nicole Caro MD [address] [place] [phone] PCP - General Internal Medicine 02/09/21 documented as of this encounter
--- OUTSIDE RECORDS SUMMARY | 2024-11-01 11:19 | XMS_ITS | Encounter Summary ---
Author Organization [facility] Address [address] [place] [address] Care Team Providers Care Block Tester Name Role Phone Nicole Caro MD Primary Care Provider [phone] Encounter Details Date Type Department Care Team Description 04/25/2022 Business Doc Medical Records [address] [place] [address] Abstract, Provider Social History Tobacco Use Types [...] suspected to have Coronavirus/COVID-19? No / Unsure 04/21/2022 9:56 AM EDT documented as of this encounter Plan of Treatment Not on file documented as of this encounter Visit Diagnoses Not on filedocumented in this encounter Care Teams Block Tester Relationship Specialty Start Date End Date Nicole Caro MD [address] [place] [address] PCP - General Internal Medicine 02/09/21 documented as of this encounter
--- OUTSIDE RECORDS SUMMARY | 2024-11-01 11:19 | XMS_ITS | Encounter Summary ---
Author Organization [facility] Address [address] [place] [address] Care Team Providers Care Painter Name Role Phone Mansi Wayne MD Primary Care Provider Nicole Galo MD Primary Care Provider [phone] Encounter Details Date Type Department Care Team Description 08/28/2020 Orders Only Adult Medicine [address] [address] Mansi Wayne MD Esophageal dysphagia Social History [...] phase documented in this encounter Care Teams Painter Relationship Specialty Start Date End Date Mansi Wayne MD PCP - General 09/11/10 02/08/21 Nicole Caro MD [address] [place] [address] PCP - General Internal Medicine 02/09/21 documented as of this encounter
--- OUTSIDE RECORDS SUMMARY | 2024-11-01 11:19 | XMS_ITS | Clinical Summary ---
Author Organization [facility] [employer] [facility] Address [address] [place] [address] Care Team Providers Care Pediatrician/Medical Doctor Name Role Phone Nicole Caro MD Primary Care Provider [phone] Allergies Active Allergy Reactions Severity Noted Date [...] Hypertension Father leukemia, glauc iqra, prostate cancer [place] Maternal Grandfather in thei r 80s Hypertension Mother stroke, arthrit is [place] Paternal Grandfather in 80s [place] Paternal Grandmother in 80s Cancer of the [...] of not completing the topic Care Teams Pediatrician/Medical Doctor Relationship Specialty Start Date End Date Nicole Caro MD [address] [place] [address] PCP - General Internal Medicine 02/09/21
--- OUTSIDE RECORDS SUMMARY | 2024-11-01 11:19 | XMS_ITS | Encounter Summary ---
Author Organization [employer] [facility] Address [address] [place] [address] Care Team Providers Care Lead Systems Analyst Name Role Phone Nicole Caro MD Primary Care Provider [phone] Encounter Details Date Type Department Care Team Description 11/24/2021 Sprinkler Inspector Report Medical Records [address] [place] [address] Denice Pino Social History Tobacco Use Types [...] on filedocumented in this encounter Care Teams Lead Systems Analyst Relationship Specialty Start Date End Date Nicole Caro MD [address] [place] [address] PCP - General Internal Medicine 02/09/21 documented as of this encounter
--- OUTSIDE RECORDS SUMMARY | 2024-11-01 11:19 | XMS_ITS | Encounter Summary ---
Author Organization [facility] Address [address] [place] [address] Care Team Providers Care Journeyman Carpenter Name Role Phone Nicole Caro MD Primary Care Provider [phone] Reason for Visit * Reason Onset Date Comments Pre Op Visit 09/28/2023 Encounter Details Date Type Department Care Team Description 09/28/2023 Telephone Adult Medicine [facility] [address] [place] [address] Nicole Caro MD [address] [place] [address] Pre Op Visit Social History Tobacco Use Types Packs/Day Years [...] encounter Miscellaneous Notes * Telephone Encounter - Clary Cotton M.A. - 09/29/2023 10:06 AM EST Order faxed per request. * Telephone Encounter - Guerda Smith - 09/29/2023 9:06 AM EST Hi can you please fax me the paperwork the patient dropped off to [phone] Attention Guerda * Telephone Encounter - Clary Cotton M.A. - 09/28/2023 8:58 AM EST Pt came into office for appt today w/PCP. During visit, pt brought in paperwork for a medical eval (pre-op). Pt is aware that we could not dopre-op at appt today as we were unaware she was having surgery and this was for a routine follow-up. Pt is having a cornea transplant (right eye) on 11/28/[address] Suni Khanna. This will be done at [facility] [place]. [facility] Will route this msg to pre- op scheduling team for booking. [place] of [place] from [place]30[place] and therefore will not be able to take phone calls from our office. documented in this encounter Plan of Treatment Not on file documented as of this encounter Visit Diagnoses Not on filedocumented in this encounter Care Teams Journeyman Carpenter Relationship Specialty Start Date End Date Nicole Caro MD [address] [place] [address] PCP - General Internal Medicine 02/09/21 documented as of this encounter
--- OUTSIDE RECORDS SUMMARY | 2024-11-01 11:19 | XMS_ITS | Encounter Summary ---
Author Organization [facility] [employer] [facility] Address [address] [place] [address] Care Team Providers Care Community Engagement Coordinator Name Role Phone Mansi Wayne MD Primary Care Provider Nicole Galo MD Primary Care Provider [phone] Encounter Details Date Type Department Care Team Description 07/18/2016 Wellness Visit Medical Records [address] [place] [address] Mansi Wayne MD Social History Tobacco Use [...] on filedocumented in this encounter Care Teams Community Engagement Coordinator Relationship Specialty Start Date End Date Mansi Wayne MD PCP - General 09/11/10 02/08/21 Nicole Caro MD [address] [place] [phone] PCP - General Internal Medicine 02/09/21 documented as of this encounter
--- OUTSIDE RECORDS SUMMARY | 2024-11-01 11:19 | XMS_ITS | Encounter Summary ---
Author Organization [facility] [facility] Address [address] [place] [address] Care Team Providers Care Bracelet Form Coverer Name Role Phone Nicole Caro MD Primary Care Provider [phone] Encounter Details Date Type Department Care Team Description 10/11/2022 Telephone Adult Medicine [facility] [address] [place] [address] Nicole Caro MD [address] [place] [address] [phone] Social History Tobacco Use Types Packs/Day Years [...] on filedocumented in this encounter Care Teams Bracelet Form Coverer Relationship Specialty Start Date End Date Nicole Caro MD [address] [place] [phone] PCP - General Internal Medicine 02/09/21 documented as of this encounter
--- OUTSIDE RECORDS SUMMARY | 2024-11-01 11:19 | XMS_ITS | Encounter Summary ---
Author Organization Teresa [employer] [facility] Address [address] [place] [address] Care Team Providers Care Sweatband Cutting Machine Operator Name Role Phone Mansi Wayne MD Primary Care Provider Nicole Galo MD Primary Care Provider [phone] Encounter Details Date Type Department Care Team Description 06/20/2019 Sample Cutter Report Medical Records [address] [place], [place] [phone] Tr Izaguirre Social History Tobacco Use Types [...] on filedocumented in this encounter Care Teams Sweatband Cutting Machine Operator Relationship Specialty Start Date End Date Mansi Wayne MD PCP - General 09/11/10 02/08/21 Nicole Caro MD [address] [place] [address] [phone] PCP - General Internal Medicine 02/09/21 documented as of this encounter
--- OUTSIDE RECORDS SUMMARY | 2024-11-01 11:19 | XMS_ITS | Encounter Summary ---
Author Organization [employer] [facility] Address [address] [place] [address] Care Team Providers Care Airfreight Loading Supervisor Name Role Phone Nicole Caro MD Primary Care Provider [phone] Encounter Details Date Type Department Care Team Description 07/01/2021 Bingo Floater Report Medical Records [address] [place] [address] Tr Izaguirre Social History Tobacco Use Types [...] on filedocumented in this encounter Care Teams Airfreight Loading Supervisor Relationship Specialty Start Date End Date Nicole Caro MD [address] [place] [address] PCP - General Internal Medicine 02/09/21 documented as of this encounter
--- OUTSIDE RECORDS SUMMARY | 2024-11-01 11:19 | XMS_ITS | Encounter Summary ---
Author Organization [facility] [employer] [facility] Address [address] [place] [address] Care Team Providers Care Lasting Room Machine Operator Name Role Phone Mansi Wayne MD Primary Care Provider Nicole Galo MD Primary Care Provider [phone] Encounter Details Date Type Department Care Team Description 12/12/2018 Business Doc Medical Records [address] [place] [address] Abstract, Provider Social History Tobacco Use Types [...] on filedocumented in this encounter Care Teams Lasting Room Machine Operator Relationship Specialty Start Date End Date Mansi Wayne MD PCP - General 09/11/10 02/08/21 Nicole Caro MD [address] [place] [address] [phone] PCP - General Internal Medicine 02/09/21 documented as of this encounter
--- OUTSIDE RECORDS SUMMARY | 2024-11-01 11:19 | XMS_ITS | Clinical Summary ---
Author Organization [facility] [address] [place] [address] [place] [phone] Phone Care Team Providers Care Pin Ticket Machine Operator Name Role Phone Nicole Caro MD Primary Care Provider [phone] Allergies Active Allergy Reactions Criticality Noted Date [...] 09/03/2024 10:00 AM EST Consult Adult Medicine [address] [phone] Nicole Caro MD Preop cardiovascular exam (Primary [...] cyst - benign COLONOSCOPY W/ BIOPSIES 07/31/[address] [facility] [address] Motta - 1 hyperplastic polyp. rpt [...] care for your loved ones. For example, child care assistant or elderly care for an older adult? [...] 9:45 AM EDT Office Visit Adult Medicine [facility] - [address] [phone] Kayleen Srinivasan PA [address] [place] [address] 05/09/2025 9:50 AM EDT Appointment Radiology Department - [address] [phone] Health Maintenance Due Date Last Done Comments [...] mg/dL LAB CHEMISTRY METHOD 10/07/2024 3:24 PM [facility] Triglycerides 88 0 - 150 mg/dL LAB CHEMISTRY METHOD 10/07/2024 3:24 PM [facility] HDL 90 >=40 mg/dL LAB CHEMISTRY METHOD 10/07/2024 3:24 PM [facility] LDL Calculated 93 0 - 100 mg/dL LAB CHEMISTRY METHOD 10/07/2024 3:24 PM [facility] VLDL Cholesterol Ken 17.6 mg/dL LAB CHEMISTRY METHOD 10/07/2024 3:24 PM [facility] Non HDL Chol. (LDL+VLDL) 111 <145 mg/dL LAB CHEMISTRY METHOD 10/07/2024 3:24 PM [facility] Chol/HDL Ratio 2.2 0.0 - 4.4 LAB CHEMISTRY METHOD 10/07/2024 3:24 PM [facility] Blood Venous blood specimen / Unknown Venipuncture / Unknown 10/07/2024 10:09 AM EST 10/07/2024 10:09 AM EST us Nicole Caro MD LAB BLOOD ORDERABLES Final Resul t [facility] [address] [place] [address], [place] [phone] * (ABNORMAL) CBC auto differential (10/07/2024 10:09 AM EST) WBC 8.2 4.8 - 10.8 K/mcL LAB HEMETOLOGY METHOD 10/07/2024 12:23 PM [facility] RBC 5.10(H) 3.80 - 4.80 M/mcL LAB HEMETOLOGY METHOD 10/07/2024 12:23 PM [facility] Hemoglobin 15.1 11.5 - 16.0 g/dL LAB HEMETOLOGY METHOD 10/07/2024 12:23 PM [facility] Hematocrit 45.3 35.0 - 47.0 % LAB HEMETOLOGY METHOD 10/07/2024 12:23 PM [facility] MCV 88.1 79.0 - 98.0 FL LAB HEMETOLOGY METHOD 10/07/2024 12:23 PM [facility] MCH 29.4 27.0 - 32.0 pcg LAB HEMETOLOGY METHOD 10/07/2024 12:23 PM [facility] MCHC 33.3 32.0 - 37.0 g/dL LAB HEMETOLOGY METHOD 10/07/2024 12:23 PM [facility] RDW 12.5 11.0 - 15.0 % LAB HEMETOLOGY METHOD 10/07/2024 12:23 PM [facility] Platelets 392 130 - 400 K/mcL LAB HEMETOLOGY METHOD 10/07/2024 12:23 PM EST [facility] MPV 10.1 7.0 - 11.0 FL LAB HEMETOLOGY METHOD 10/07/2024 12:23 PM [facility] NRBC 0.0 <1.0 % LAB HEMETOLOGY METHOD 10/07/2024 12:23 PM [facility] NRBC Absolute 0.00 <0.10 K/mcL LAB HEMETOLOGY METHOD 10/07/2024 12:23 PM [facility] Neutrophils Relative 64.8 % LAB HEMETOLOGY METHOD 10/07/2024 12:23 PM [facility] Lymphocytes Relative 22.3 % LAB HEMETOLOGY METHOD 10/07/2024 12:23 PM [facility] Monocytes Relative 9.9 % LAB HEMETOLOGY METHOD 10/07/2024 12:23 PM [facility] Eosinophils Relative 2.2 % LAB HEMETOLOGY METHOD 10/07/2024 12:23 PM [facility] Basophils Relative 0.6 % LAB HEMETOLOGY METHOD 10/07/2024 12:23 PM [facility] Immature Granulocytes Relative 0.2 % LAB HEMETOLOGY METHOD 10/07/2024 12:23 PM [facility] Neutrophils Absolute 5.33 1.50 - 7.00 K/mcL LAB HEMETOLOGY METHOD 10/07/2024 12:23 PM [facility] Lymphocytes Absolute 1.83 1.00 - 5.00 K/mcL LAB HEMETOLOGY METHOD 10/07/2024 12:23 PM [facility] Monocytes Absolute 0.81 0.20 - 1.00 K/mcL LAB HEMETOLOGY METHOD 10/07/2024 12:23 PM [facility] Eosinophils Absolute 0.18 0.00 - 0.50 K/mcL LAB HEMETOLOGY METHOD 10/07/2024 12:23 PM [facility] Basophils Absolute 0.05 0.00 - 0.20 K/mcL LAB HEMETOLOGY METHOD 10/07/2024 12:23 PM [facility] Immature Granulocytes Absolute 0.02 0.00 - 0.03 K/[facility] LAB HEMETOLOGY METHOD 10/07/2024 12:23 PM [facility] Blood Venous blood specimen / Unknown Venipuncture / Unknown 10/07/2024 10:09 AM EST 10/07/2024 10:09 AM EST us Nicole Caro MD LAB BLOOD ORDERABLES Final Resul t [facility] [address] [place] [address], * (ABNORMAL) Basic metabolic panel (10/07/2024 10:09 AM EST) Sodium 138 133 - 145 mmol/L LAB CHEMISTRY METHOD 10/07/2024 3:18 PM [facility] Potassium 3.9 3.5 - 5.5 mmol/L LAB CHEMISTRY METHOD 10/07/2024 3:18 PM [facility] Chloride 100 96 - 110 mmol/L LAB CHEMISTRY METHOD 10/07/2024 3:18 PM [facility] CO2 30 21 - 32 mmol/L LAB CHEMISTRY METHOD 10/07/2024 3:18 PM [facility] Anion Gap 8 3 - 11 LAB CHEMISTRY METHOD 10/07/2024 3:18 PM [facility] Glucose 102(H) 70 - 100 mg/dL LAB CHEMISTRY METHOD 10/07/2024 3:18 PM [facility] BUN 11 5 - 25 mg/dL LAB CHEMISTRY METHOD 10/07/2024 3:18 PM [facility] Creatinine 0.65 0.50 - 1.10 mg/dL LAB CHEMISTRY METHOD 10/07/2024 3:18 PM [facility] eGFR 93 >=60 mL/min/1. 73m2 LAB CHEMISTRY METHOD 10/07/2024 3:18 PM EST [facility] Comment:Calculation based on the??Chronic Kidney Disease Epidemiology Collaboration (CKD-EPI) equation refit??without adjustment for race. BUN/Creatinine Ratio 16.9 LAB CHEMISTRY METHOD 10/07/2024 3:18 PM EST [facility] Calcium 10.2 8.5 - 10.5 mg/dL LAB CHEMISTRY METHOD 10/07/2024 3:18 PM EST [facility] Blood Venous blood specimen / Unknown Venipuncture / Unknown 10/07/2024 10:09 AM EST 10/07/2024 10:09 AM EST us Nicole Caro MD LAB BLOOD ORDERABLES Final Resul t [facility] [address] [place] [address], * Depression Screening (05/29/2024) Depression Screening abstracted [facility] Provider HEALTH MAINTENANCE Final Result * SCREENING [...] Result * DXA BONE DENSITY STUDY 1+ [facility] (11/21/2022 9:29 AM EDT) Anatomical Region Laterality Modality Bone Densitometr y 10/06/2022 12:1 0 PM EST Narrative 11/22/2022 2:01 PM EDT Clinical history: menopausal/postmenopausal disorder Scans of the lumbar spine and hips were performed on a Ring/[employer] fan beam bone densitometer. ? Bone mineral [...] spine and hips were performed on a Ring/[employer]Boxfan beam bone densitometer. Bone mineral density measurements [...] PROCEDURES Final Resu lt * Colonoscopy (07/17/2017) [facility] Colonoscopy abstracted, no interpretation Anatomical Region Laterality Modality Other Historical Provider HEALTH MAINTENANCE Final Result * Hepatitis C Screening (10/01/2013) [facility] Hepatitis C Screening abstracted Historical Provider HEALTH MAINTENANCE Final Result from Last 3 Months or Most Recently Relevant to Health Maintenance Insurance MEDICARE [facility] Care Teams Pin Ticket Machine Operator Relationship Specialty Start Date End Date Nicole Caro MD [address] [place] [address] PCP - General Internal Medicine 02/09/21
--- OUTSIDE RECORDS SUMMARY | 2024-11-01 11:19 | XMS_ITS | Encounter Summary ---
Author Organization [facility] Address [address] [place] [address] Care Team Providers Care Extra Gang Supervisor Name Role Phone Mansi Wayne MD Primary Care Provider Nicole Galo MD Primary Care Provider Encounter Details Date Type Department Care Team Description 04/25/2017 Pt. Non Urgent Medical Question Adult Medicine [address] [address] Mansi Wayne MD Essential hypertension, benign (Primary [...] Progress Notes * Madeleine Mauricio M.A. - 04/25/2017 3:40 PM EDTFrom: Danna Sood To: Mansi Wayne MD Sent: 04/25/2017 3:30 PM EDT Subject: Blood work Hi, Am I due to have blood work done before I see you on May 25? Thanks, Danna Sood documented in this encounter Plan of Treatment Not on file documented as of this encounter Results * TRANSAMINASE (SGPT)(ALT) UV- (05/17/2017 9:35 AM EDT) ALT( SGPT) 18 10 - 60 U/L 05/17/2017 1:47 PM EDT [facility] 05/17/2017 9:35 AM EDT 05/17/2017 9:35 AM EDT Mansi Wayne MD LAB Performing Organization Address [facility]/ZIP Co de Phone Number [address] * TRANSAMINASE (SGOT)(AST) UV- (05/17/2017 9:35 AM EDT) AST (SGOT) 15 10 - 42 U/L 05/17/2017 1:47 PM EDT [facility] 05/17/2017 9:35 AM EDT 05/17/2017 9:35 AM EDT Mansi Wayne MD LAB Performing Organization Address [facility] Co de Phone Number [address] * BASIC METABOLIC PANEL (05/17/2017 9:35 AM EDT) GLUCOSE 94 70 - 100 mg/dL 05/17/2017 1:47 PM T [facility] Comment: Reference range applicable to fasting specimens only Based on recommendations from the ADA and AACE, the fasting glucose reference range has been changed to 70-100 mg/dL. ??This change is effective January 25, 2010 BUN 13 5 - 25 mg/dL 05/17/2017 1:47 PM EDT [facility] CREAT 0.8 0.7 - 1.5 mg/dL 05/17/2017 1:47 PM T [facility] GFR > 60 >60 05/17/2017 1:47 PM T [facility] Comment: If patient is -[place], multiply result by 1.21 Chronic Kidney Disease: < 60 ml/min/1.73 square meters Kidney Failure: < 15 ml/min/1.73 square meters Sodium 140 133 - 145 mEq/L 05/17/2017 1:47 PM EDT [facility] Potassium 4.0 3.5 - 5.5 mEq/L 05/17/2017 1:47 PM EDT [facility] Chloride 98 96 - 108 mEq/L 05/17/2017 1:47 PM EDT [facility] CO2 28.3 21.0 - 32.0 mEq/L 05/17/2017 1:47 PM EDT [facility] CALCIUM 9.6 8.5 - 10.5 mg/dL 05/17/2017 1:47 PM EDT [facility] 05/17/2017 9:35 AM EDT 05/17/2017 9:35 AM EDT Mansi Wayne MD LAB Performing Organization Address City/State/[facility] Co de Phone Number [address] documented in this encounter Visit Diagnoses Diagnosis Essential hypertension, benign- Primary Pure hypercholesterolemia documented in this encounter Care Teams Extra Gang Supervisor Relationship Specialty Start Date End Date Mansi Wayne MD PCP - General 09/11/10 02/08/21 Nicole Caro MD [address] [place] [phone] PCP - General Internal Medicine 02/09/21 documented as of this encounter
--- OUTSIDE RECORDS SUMMARY | 2024-11-01 11:19 | XMS_ITS | Encounter Summary ---
Author Organization [employer] [facility] Address [address] [place] [address] Care Team Providers Care Bulk System Operator Name Role Phone Mansi Wayne MD Primary Care Provider Nicole Galo MD Primary Care Provider [phone] Encounter Details Date Type Department Care Team Description 04/03/2016 Weight And Test Bar Clerk Report Medical Records [address] [place] [address] Abstract, Provider Social History Tobacco Use Types [...] on filedocumented in this encounter Care Teams Bulk System Operator Relationship Specialty Start Date End Date Mansi Wayne MD PCP - General 09/11/10 02/08/21 Nicole Caro MD [address] [place] [address] [phone] PCP - General Internal Medicine 02/09/21 documented as of this encounter
--- OUTSIDE RECORDS SUMMARY | 2024-11-01 11:19 | XMS_ITS | Encounter Summary ---
Author Organization [facility] Address [address] [place] [address] Care Team Providers Care Tie Presser Name Role Phone Mansi Wayne MD Primary Care Provider Nicole Galo MD Primary Care Provider [phone] Reason for Visit * Reason Onset Date Comments Mychart Rx Refill 01/30/2020 Encounter Details Date Type Department Care Team Description 01/30/2020 Pt. Non Urgent Medical Question Adult Medicine [address] [address] Mansi Wayne MD Essential hypertension, benign (Primary [...] EDT [facility] Comment: If patient is -Dominican, multiply result by 1.21 Chronic Kidney Disease: [...] hypercholesterolemia documented in this encounter Care Teams Tie Presser Relationship Specialty Start Date End Date Mansi Wayne MD PCP - General 09/11/10 02/08/21 Nicole Caro MD [address] [place] [address] PCP - General Internal Medicine 02/09/21 documented as of this encounter
--- OUTSIDE RECORDS SUMMARY | 2024-11-01 11:19 | XMS_ITS | Encounter Summary ---
Author Organization [facility] [employer] [facility] Address [address] [place] [address] Care Team Providers Care Distance Learning Program Coordinator Name Role Phone Nicole Caro MD Primary Care Provider [phone] Encounter Details Date Type Department Care Team Description 03/02/2021 Telephone Gastroenterology - [address] [place] [address] Augustine Francis, PAJuniC Social History [...] on filedocumented in this encounter Care Teams Distance Learning Program Coordinator Relationship Specialty Start Date End Date Nicole Caro MD [address] [place] [phone] PCP - General Internal Medicine 02/09/21 documented as of this encounter
--- OUTSIDE RECORDS SUMMARY | 2024-11-01 11:19 | XMS_ITS | Encounter Summary ---
Author Organization [facility] [employer] [facility] Address [address] [place] [address] Care Team Providers Care Load Mixer Name Role Phone Mansi Wayne MD Primary Care Provider Nicole Galo MD Primary Care Provider [phone] Encounter Details Date Type Department Care Team Description 12/15/2017 Business Doc Medical Records [address] [place] [address] Abstract, Provider Social History Tobacco Use Types [...] on filedocumented in this encounter Care Teams Load Mixer Relationship Specialty Start Date End Date Mansi Wayne MD PCP - General 09/11/10 02/08/21 Nicole Caro MD [address] [place] [address] [phone] PCP - General Internal Medicine 02/09/21 documented as of this encounter
--- OUTSIDE RECORDS SUMMARY | 2024-11-01 11:19 | XMS_ITS | Encounter Summary ---
Author Organization [employer] [facility] Address [address] [place] [address] Care Team Providers Care Historic Preservationist Name Role Phone Nicole Caro MD Primary Care Provider [phone] Encounter Details Date Type Department Care Team Description 04/19/2021 Business Doc Medical Records [address] [place] [address] Abstract, Provider Social History Tobacco Use Types [...] on filedocumented in this encounter Care Teams Historic Preservationist Relationship Specialty Start Date End Date Nicole Caro MD [address] [place] [phone] PCP - General Internal Medicine 02/09/21 documented as of this encounter
--- OUTSIDE RECORDS SUMMARY | 2024-11-01 11:19 | XMS_ITS | Encounter Summary ---
Author Organization [facility] [employer] [facility] Address [address] [place] [address] Care Team Providers Care Outbound Sales Executive Name Role Phone Mansi Wayne MD Primary Care Provider Nicole Galo MD Primary Care Provider Encounter Details Date Type Department Care Team Description 11/20/2015 Business Doc Medical Records [address] [place] [address] Abstract, Provider Social History Tobacco Use Types [...] on filedocumented in this encounter Care Teams Outbound Sales Executive Relationship Specialty Start Date End Date Mansi Wayne MD PCP - General 09/11/10 02/08/21 Nicole Caro MD [address] [place] [address] [phone] PCP - General Internal Medicine 02/09/21 documented as of this encounter
--- OUTSIDE RECORDS SUMMARY | 2024-11-01 11:19 | XMS_ITS | Encounter Summary ---
Author Organization [facility] [employer] [facility] Address [address] [place] [address] Care Team Providers Care Director Security Risk Management Name Role Phone Mansi Wayne MD Primary Care Provider Nicole Galo MD Primary Care Provider [phone] Encounter Details Date Type Department Care Team Description 11/05/2018 Nurse Aide Report Medical Records [address] [place] [address] Ivan Ledezma MD Social History Tobacco Use [...] on filedocumented in this encounter Care Teams Director Security Risk Management Relationship Specialty Start Date End Date Mansi Wayne MD PCP - General 09/11/10 02/08/21 Nicoel Caro MD [address] [place] [address] [phone] PCP - General Internal Medicine 02/09/21 documented as of this encounter
--- OUTSIDE RECORDS SUMMARY | 2024-11-01 11:19 | XMS_ITS | Encounter Summary ---
Author Organization [facility] Address [address] [place] [address] Care Team Providers Care Impregnating Helper Name Role Phone Mansi Wayne MD Primary Care Provider Nicole Galo MD Primary Care Provider [phone] Reason for Visit * Reason Onset Date Comments Medication 2017 Encounter Details Date Type Department Care Team Description 2017 Refill Gastroenterology - [address] [address] Edouard Pearce MD Medication Social History Tobacco Use Types Packs/Day Years [...] encounter Miscellaneous Notes * Telephone Encounter - Edouard Pearce MD - 2017 1:32 PM EDT Prescribed * Telephone Encounter - Senait Pardo - 2017 1:29 PM EDT Colonoscopy is on 07/17/17. Can you sign order? documented in this encounter Plan of Treatment Not on file documented as of this encounter Visit Diagnoses Not on filedocumented in this encounter Care Teams Impregnating Helper Relationship Specialty Start Date End Date Mansi Wayne MD PCP - General 09/11/10 02/08/21 Nicole Caro MD [address] [place] [id number] PCP - General Internal Medicine 02/09/21 documented as of this encounter
== END 2024-10-31 10:26 | disposition home or self-care (01) ==
LOC: HO.HOSX 10:25
PROVIDERS: Visit Provider Physician Assistant
DX: M25.561 Pain in right knee (principal); M17.11 Unilateral primary osteoarthritis, right knee
CPT/HCPCS: 73562; 99212

== ENCOUNTER 2024-11-04 10:41 | Outpatient (RCR) | payer MEDICARE, OTHER, SELFPAY ==
--- NOTE | 2024-11-04 11:56 | MHC.PT.EP ---
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 She lives alone in a 2-level home with bedroom and bathroom on second floor. Therefore she anticipate rehab following surgery and hopes for [facility]. She is currently I with driving, ADL's, brand communications manager and ambulates without an assistive device. She does have a walker and cane at home though from previous L TKA 2019. We reviewed what to expect with R TKA, importance of ice/elevation, reviewed quad sets/ SLR/ HS stretch/ gastroc stretches, and reviewed stair management with 'up with the good, down with the bad. She has no further questions at this time and will return for outpatient PT once appropriate post surgery. Frequency and Duration: The patient will be seen Short Term Goals: Assisted Goals: no goals indicated, d/c as pt will be having R TKA in 2 days Treatment Plan: Modalities to reduce pain, spasms and effusion. Manual therapy to restore motion and function. Therapeutic exercise to improve strength and flexibility. Neuromuscular re-education for posture and balance. Therapeutic activities to return to functional activities of daily living. Electronically signed by: Monica Yan PT Please sign and return to therapist. Thank you for your referral.
--- NOTE | 2024-11-04 12:44 | MHC.PT.DC ---
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 D/c at this time and she will f/u once appropriate Electronically signed by: oMnica Yan PT Please sign and return to therapist. Thank you for your referral.
== END 2024-11-04 12:44 | disposition home or self-care (01) ==
LOC: HO.PT 10:41
PROVIDERS: PCP Internal Medicine; Visit Provider Orthopaedic Surgery
DX: M17.11 Unilateral primary osteoarthritis, right knee (principal); Z96.652 Presence of left artificial knee joint
CPT/HCPCS: 97110; 97161

== ENCOUNTER 2024-11-06 11:48 | Day surgery (SDC) | payer MEDICARE, OTHER, SELFPAY ==
[2024-10-04 10:15] VITALS: BP 132/69; PULSE 84; RESP 20; O2SAT 98; BMI 29.1
--- NOTE | 2024-10-04 10:33 | HO.ANESPROP2 ---
Documented by User: Savita Beavers NP 11/05/24 12:39 HPI - Anesthesia Eval Consult details Narrative: 74yo F for Right Knee Replacement Total, 11/06/24 s/p Left TKA 2019 with spinal and block - no anesthesia issues Cardiac optimized. [place] [facility] [place]eliquis[place] s/p cardioversion 08/2024 Medically optimizer per PCP. Labs pending No recent illness No CP/SOB within limits of knee pain DNR - verbalized understanding of reversal PMFSH Active Problems Active Problems: All Active Problems Preop cardiovascular exam (Acute) Atrial fibrillation (Acute) PAF (paroxysmal atrial fibrillation) (Acute) Osteoarthritis of right knee (Acute) History of total left knee replacement (TKR) (Acute ~03/19/19) Hypertension (Acute) Past Medical History Medical History (Updated 10/31/24 @ 10:34 by Melinda Sanchez PA-C) Basal cell carcinoma Arthritis Elevated cholesterol Osteopenia Hepatic cyst Fuchs' corneal dystrophy of right eye Diverticulosis Schatzki's ring History of cardioversion PAF (paroxysmal atrial fibrillation) Primary osteoarthritis of knees, bilateral Hypertension Family History Family History Father No problems noted. Mother No problems noted. Family history of problems with anesthesia: No Surgical History Surgical History H/O colonoscopy History of basal cell carcinoma (BCC) excision History of esophagogastroduodenoscopy (EGD) Hx of right cataract extraction History of total left knee replacement (TKR) (~03/19/19) Hx of tonsillectomy History of elbow surgery History of Problems with Anesthesia: No Social History Social History Are you a primary healthcare technician to a significant other at home: No Do you presently have visiting nurse or other home services: No Alcohol intake: current Alcohol intake frequency: 0-2 drinks per day Comment: advised to remove due to trip hazard Patient Tobacco Use Status: Never used Tobacco Use of substances other than those prescribed or required for medical reasons: No Have you been hit, kicked, punched, or otherwise hurt by someone within the past year? If so, by whom?: No Spiritual Healthcare Practices: none Adventist Healthcare Practices: Denominational Cultural Healthcare Practices: none Are you DNR?: Yes Advance Directives Information Provided: Yes (advised to bring copies DOS) Advance Directives on File: No Recently lost weight without trying: No Eating poorly because of decreased appetite: No Nutrition Risks: No Nutritional Risk Patient : No FDLMP: n/a Poor oral hygiene: No (two crowns & some extractions) Meds Allergies Allergy/AdvReac Type Severity Reaction Status Date / Time Sulfa (Sulfonamide Allergy Severe HIVES Verified 10/31/24 09:35 Antibiotics) [SULFA (SULFONAMIDE ANTIBIOTICS)] red dye [RED DYE] Allergy Intermediate HIVES Verified 10/31/24 09:35 Home Medications ?Medication ?Instructions ?Recorded ?Confirmed ?Last Taken ?Type hydrochlorothiazide 25 mg tablet 25 mg PO QAM 06/29/20 10/04/24 11/05/24 History amlodipine 10 mg tablet 10 mg PO BEDTIME 09/02/24 11/06/24 11/05/24 History metoprolol succinate 25 mg 25 mg PO BEDTIME 10/04/24 10/04/24 11/05/24 History tablet,extended release 24 hr Exam Height,Weight and Vital Signs: Height 5 ft 8 in Weight 86.9 kg Last Vital Signs Pulse 84 10/04/24 10:15 Resp 20 10/04/24 10:15 BP 132/69 10/04/24 10:15 Pulse Ox 98 10/04/24 10:15 O2 Del Method Room Air 10/04/24 10:15 Pertinent Lab Results Pertinent Lab Results: CBC and BMP 10/07/24 from outside facility [place] Narrative Narrative: EKG 09/2024 Atrial fibrillation, nonspecific ST/ T wave abn, rate 78 ECHO 2023 Conclusions: - Normal left ventricular size, thickness, systolic function, and wall motion. The visually estimated ejection fraction is between 55-60%. - Normal right ventricular cavity size. There is low normal right ventricular systolic function. - The left atrium is moderately dilated. The right atrium is moderately dilated. Airway Mallampati Class: III TM Dist: >3cm Neck ROM: Full Loose/Missing/Broken Teeth: Yes (molars missing, 2 x crowned molar) Heart: irreg Lungs: CTAB Assessment and Plan Assessment Anesthesia Assessment: Anesthesia Plan Discussed and PAT Visit Final Anesthetic Review Family History of Problems with Anesthesia: No History of Problems with Anesthesia: No Documented by User: Rhoda Mohamud MD 11/06/24 12:15 PMF Past Medical History Medical History (Updated 10/31/24 @ 10:34 by Melinda Sanchez PA-C) Basal cell carcinoma Arthritis Elevated cholesterol Osteopenia Hepatic cyst Fuchs' corneal dystrophy of right eye Diverticulosis Schatzki's ring History of cardioversion PAF (paroxysmal atrial fibrillation) Primary osteoarthritis of knees, bilateral Hypertension Family History Family History Father No problems noted. Mother No problems noted. Surgical History Surgical History H/O colonoscopy History of basal cell carcinoma (BCC) excision History of esophagogastroduodenoscopy (EGD) Hx of right cataract extraction History of total left knee replacement (TKR) (~03/19/19) Hx of tonsillectomy History of elbow surgery Social History Social History Are you a primary healthcare technician to a significant other at home: No Do you presently have visiting nurse or other home services: No Alcohol intake: current Alcohol intake frequency: 0-2 drinks per day Comment: advised to remove due to trip hazard Patient Tobacco Use Status: Never used Tobacco Use of substances other than those prescribed or required for medical reasons: No Have you been hit, kicked, punched, or otherwise hurt by someone within the past year? If so, by whom?: No Spiritual Healthcare Practices: none Adventist Healthcare Practices: Denominational Cultural Healthcare Practices: none Are you DNR?: Yes Advance Directives Information Provided: Yes (advised to bring copies DOS) Advance Directives on File: No Recently lost weight without trying: No Eating poorly because of decreased appetite: No Nutrition Risks: No Nutritional Risk Patient : No FDLMP: n/a Poor oral hygiene: No (two crowns & some extractions) Meds Allergies Allergy/AdvReac Type Severity Reaction Status Date / Time Sulfa (Sulfonamide Allergy Severe HIVES Verified 10/31/24 09:35 Antibiotics) [SULFA (SULFONAMIDE ANTIBIOTICS)] red dye [RED DYE] Allergy Intermediate HIVES Verified 10/31/24 09:35 Home Medications ?Medication ?Instructions ?Recorded ?Confirmed ?Last Taken ?Type hydrochlorothiazide 25 mg tablet 25 mg PO QAM 06/29/20 10/04/24 11/05/24 History amlodipine 10 mg tablet 10 mg PO BEDTIME 09/02/24 11/06/24 11/05/24 History metoprolol succinate 25 mg 25 mg PO BEDTIME 10/04/24 10/04/24 11/05/24 History tablet,extended release 24 hr Assessment and Plan Final Anesthetic Review NPO: Yes ASA Class: III Final Preanesthetic Review: No Changes in Pt Med Stat, Meds/Allgs Chart Reviewed and Consent Obtained/Reviewed Patient Risk: Intermediate Procedure Risk: Intermediate Anesthetic Plan Anesthetic Plan: Spinal Disposition: Standard PACU
[2024-10-04 12:31] LABS: MRSA Nasal PCR NEGATIVE (Negative); SA Nasal PCR NEGATIVE (Negative)
[2024-11-06] VITALS (11 sets, daily range): BP systolic 89–131; BP diastolic 54–84; PULSE 68–94; RESP 16–18; TEMP 36.1–36.7; O2SAT 93–98; BMI 28.6
--- NOTE | 2024-11-06 12:21 | MHC.SHP ---
Pre-Procedural Eval Section A - 24 Hr Update-Section A only Date of Service: 11/06/24 The patient is an INPATIENT: No Changes since office visit: No Cold of Flu in the past 2 weeks, No New Medical Problems, No Changes in Medication and No Patient answered all questions The patient has been examined within 24 hours of the surgical procedure. The History & Physical has been completed within 30 days and I have reviewed it.: Yes Section B - Complete if H&P > 30 days Chief Complaint: rt tka Allergies: Allergies Allergy/AdvReac Type Severity Reaction Status Date / Time Sulfa (Sulfonamide Allergy Severe HIVES Verified 10/31/24 09:35 Antibiotics) [SULFA (SULFONAMIDE ANTIBIOTICS)] red dye [RED DYE] Allergy Intermediate HIVES Verified 10/31/24 09:35 Plan I have reviewed the history and physical and performed a pertinent physical examination on my patient. No changes have occurred unless specified. Time Spent With Patient Time: Total time managing care of this patient today ____ minutes.
[2024-11-06] MEDS: Lactated Ringers 1,000 ML 100 ML IVCONT ×2 (12:36→16:27)
--- NOTE | 2024-11-06 14:40 | P.BOP_ITS ---
Brief Operative Note Date of Service: 11/06/24 Pre-op diagnosis: Right knee OA Post-op diagnosis: same Procedure: Right TKA Implants: Jorge Triathlon press fit cruciate retaining 01/12/11 Surgeon: Ivan Ledezma MD Anesthesia: regional and spinal Was an Chemist Instrumentation used for this Procedure?: Yes Chemist Instrumentation: Melinda Sanchez Estimated blood loss (mL): 25 Tourniquet time (min): 60 IV fluids (mL): 800 Pathology: other Condition: stable Disposition: PACU
--- NOTE | 2024-11-06 16:12 | P.CONHOSP_ITS ---
History of Present Illness Data of Consult Service Date: 11/06/24 Primary Care Provider: Nicole Caro MD HPI 74-year-old woman admitted by Orthopedic surgery and is status post right total knee arthroplasty. Surgery was unremarkable. Patient has minimal amount of pain at this time. Vital signs are stable. Patient has no acute complaints at this time. Review of Systems Review of Systems: Denies any recent fever chills or decrease in appetite respiratory denies any shortness of breath or cough cardiovascular denied chest pain gastrointestinal denies any dysphagia abdominal pain nausea vomiting or diarrhea genitourinary denies any dysuria frequency or hematuria musculoskeletal denies any joint pain or swelling neuropsych denies any weakness or seizures all other systems reviewed are negative [facility] Medical History (Updated 10/31/24 @ 10:34 by Melinda Sanchez PA-C) Basal cell carcinoma Arthritis Elevated cholesterol Osteopenia Hepatic cyst Fuchs' corneal dystrophy of right eye Diverticulosis Schatzki's ring History of cardioversion PAF (paroxysmal atrial fibrillation) Primary osteoarthritis of knees, bilateral Hypertension Family History Father No problems noted. Mother No problems noted. Surgical History H/O colonoscopy History of basal cell carcinoma (BCC) excision History of esophagogastroduodenoscopy (EGD) Hx of right cataract extraction History of total left knee replacement (TKR) (~03/19/19) Hx of tonsillectomy History of elbow surgery Social History Are you a primary nurse behavioral health care to a significant other at home: No Do you presently have visiting nurse or other home services: No Alcohol intake: current Alcohol intake frequency: 0-2 drinks per day Comment: advised to remove due to trip hazard Patient Tobacco Use Status: Never used Tobacco Use of substances other than those prescribed or required for medical reasons: No Have you been hit, kicked, punched, or otherwise hurt by someone within the past year? If so, by whom?: No Spiritual Healthcare Practices: none Buddhist Healthcare Practices: Sikhism Cultural Healthcare Practices: none Are you DNR?: Yes Advance Directives Information Provided: Yes (advised to bring copies DOS) Advance Directives on File: No Recently lost weight without trying: No Eating poorly because of decreased appetite: No Nutrition Risks: No Nutritional Risk Patient : No FDLMP: n/a Poor oral hygiene: No (two crowns & some extractions) Meds Allergies Allergy/AdvReac Type Severity Reaction Status Date / Time Sulfa (Sulfonamide Allergy Severe HIVES Verified 10/31/24 09:35 Antibiotics) [SULFA (SULFONAMIDE ANTIBIOTICS)] red dye [RED DYE] Allergy Intermediate HIVES Verified 10/31/24 09:35 Active Medications: Current Medications Acetaminophen (Acetaminophen 325 Mg Tablet) 650 mg PO Q6H PRN PRN Reason: Pain, Mild 1-3,fever,headache Amlodipine Besylate (Amlodipine Besylate 10 Mg Tablet) 10 mg PO BEDTIME JERARDO; Protocol Atorvastatin Calcium (Atorvastatin Calcium 20 Mg Tablet) 20 mg PO BEDTIME JERARDO Docusate Sodium (Docusate Sodium 100 Mg Capsule) 100 mg PO BID JERARDO Enoxaparin Sodium (Enoxaparin Sodium 40 Mg/0.4 Ml Syringe) 40 mg SUBCUT Q24H JERARDO Fentanyl (Fentanyl Citrate/Pf 100 Mcg/2 Ml Vial) 50 mcg IVPUSH Q5M PRN PRN Reason: Pain, Moderate to Severe (Pain Scale 4-10) Stop: 11/06/24 20:17 Hydrochlorothiazide (Hydrochlorothiazide 25 Mg Tablet) 25 mg PO QAM JERARDO; Protocol Hydromorphone HCl (Hydromorphone Hcl 0.5 Mg/0.5 Ml Syringe) 0.25 mg IVPUSH Q4H PRN; Protocol PRN Reason: Pain, Severe (Pain Scale 7-10) Lactated Ringer's (Lr) 1,000 mls @ 100 mls/hr IVCONT .Q10H JERARDO Cefazolin Sodium/Dextrose (Ancef) 2 gm in 50 mls @ 100 mls/hr IV POSTOP ONE Stop: 11/06/24 19:29 Magnesium Hydroxide (Milk Of Magnesia 30 Ml Oral.Susp) 30 ml PO DAILY PRN PRN Reason: Constipation Metoprolol Succinate (Metoprolol Succinate Er 25 Mg Tab.Er.24h) 25 mg PO BEDTIME JERARDO; Protocol Naloxone HCl (Naloxone Hcl 0.4 Mg/Ml Vial) 0.04 mg IVPUSH Q5M PRN PRN Reason: Excessive sedation or RR < 8 Ondansetron HCl (Ondansetron Hcl 4 Mg/2 Ml Vial) 4 mg IVPUSH ONCE PRN PRN Reason: Nausea and Vomiting Stop: 11/06/24 20:17 Ondansetron HCl (Ondansetron Hcl 4 Mg/2 Ml Vial) 4 mg IVPUSH Q8H PRN PRN Reason: Nausea and Vomiting Oxycodone HCl (Oxycodone Hcl Immed Release 5 Mg Tablet) 5 mg PO ONCE PRN PRN Reason: Pain, Moderate(Pain Scale 4-6) if no IV Access Stop: 11/06/24 20:17 Oxycodone HCl (Oxycodone Hcl Immed Release 5 Mg Tablet) 5 mg PO Q4H PRN PRN Reason: Pain, Moderate(Pain Scale 4-6) Oxycodone HCl (Oxycodone Hcl Er 10 Mg Tab.Er.12h) 10 mg PO BID JERARDO Sodium Chloride (0.9 % Sodium Chloride Flush 3 Ml Syringe) 3 ml IVFLUSH QSHIFT JERARDO Last Admin: 11/06/24 16:06 Dose: Not Given Home Medications ?Medication ?Instructions ?Recorded ?Confirmed ?Last Taken ?Type hydrochlorothiazide 25 mg tablet 25 mg PO QAM 06/29/20 10/04/24 11/05/24 History amlodipine 10 mg tablet 10 mg PO BEDTIME 09/02/24 11/06/24 11/05/24 History metoprolol succinate 25 mg 25 mg PO BEDTIME 10/04/24 10/04/24 11/05/24 History tablet,extended release 24 hr Physical Exam Vital Signs and Narrative: Vital Signs: Last Vital Signs Temp 97.4 F 11/06/24 15:46 Pulse 83 11/06/24 15:46 Resp 16 11/06/24 15:46 BP 114/66 11/06/24 15:46 Pulse Ox 97 11/06/24 15:46 O2 Del Method Room Air 11/06/24 15:46 BMI result Body Mass Index 28.6 Appearing in no acute distress head is normocephalic atraumatic eyes pupils are PERRLA sclera is anicteric mouth throat mucous membranes are intact and moist neck is supple no lymphadenopathy, no JVD noted lung sounds are clear to auscultation heart regular rate rhythm, clear S1, S2 positive bowel sounds, abdomen is soft, nontender neuro patient is alert x3, no focal deficits Assessment and Plan (1) Hypertension: Status: Acute Plan 74-year-old woman admitted by Orthopedic surgery and is status post right total knee arthroplasty Right total knee arthroplasty Management as per surgical team Pain management Hypertension Stable blood pressure Continue amlodipine, hydrochlorothiazide Paroxysmal atrial fibrillation. Continue metoprolol Eliquis is on hold DVT prophylaxis with Lovenox
--- NOTE | 2024-11-06 17:58 | PHA.MEDREC ---
Addendum entered by Maco Looney [facility] 11/06/24 18:13: med rec reviewed Original Note: Pharmacy Consult ? Medication Reconciliation Pharmacy has reviewed the medication reconciliation done by nursing. Spoke to patient to confirm med list. Patient states she is no longer on Simvastatin 20 mg (changed to Atorvastatin 20 mg), and prednisolone acet eye drops. Patient states she stopped Eliquis 5 mg 11/02/24 for surgery.
[2024-11-06] MEDS: ceFAZolin Sodium/Dextrose,Iso 2 GM/50 ML PIGGYBACK IV (18:15)
[2024-11-06] MEDS: Atorvastatin Calcium 20 MG TABLET PO (19:51)
[2024-11-06] MEDS: amLODIPine Besylate 10 MG TABLET PO (19:52)
[2024-11-06] MEDS: Metoprolol Succinate ER 25 MG TAB.ER.24H PO (19:52)
[2024-11-06] MEDS: oxyCODONE HCl ER 10 MG TAB.ER.12H PO (19:52)
[2024-11-07] VITALS (7 sets, daily range): BP systolic 105–131; BP diastolic 58–75; PULSE 72–93; RESP 16–20; TEMP 36.4–36.6; O2SAT 93–96
[2024-11-07] MEDS: Acetaminophen 325 MG TABLET 650 MG PO ×4 (00:06→18:34)
[2024-11-07] MEDS: HYDROmorphone HCl 0.5 MG/0.5 ML SYRINGE 0.25 MG IVPUSH ×4 (00:10→17:52)
[2024-11-07] MEDS: Lactated Ringers 1,000 ML 100 ML IVCONT ×2 (03:12→12:22)
[2024-11-07 06:35] LABS: MANUAL DIFF FLAG NO
[2024-11-07 06:41] LABS: Basophils Percent Auto 0.1 % (0-2); Eosinophils Absolute Auto 0.1 X10*3/uL (0.0-0.4); Eosinophils Percent Auto 0.7 % (0-4); Hematocrit 37.2 % (37.0-47.0); Hemoglobin 12.6 g/dl (12.0-16.0); Imm Gran Abs Auto 0.03 X10*3/uL (0.00-0.03); Imm Gran Pct Auto 0.3 % (0.0-0.4); Lymphocytes Absolute Auto 0.8 X10*3/uL (1.2-4.9); Lymphocytes Percent Auto 7.8 % (20-40); Mean Corpuscular HGB Conc 33.9 g/dl (31.0-35.0); Mean Corpuscular Hemoglobin 29.2 pg (27.0-33.0); Mean Corpuscular Volume 86.3 fL (80.0-98.0); Mean Platelet Volume 9.9 fL (9.4-12.3); Monocytes Absolute Auto 1.1 X10*3/uL (0.1-1.2); Monocytes Percent Auto 10.6 % (2-11); Neutrophils Absolute Auto 8.2 x10*3/uL (2.0-8.3); Neutrophils Percent Auto 80.5 % (45-73); Platelet Count 330 X10*3/uL (160-400); Red Blood Count 4.31 X10*6/uL (4.20-5.50); White Blood Count 10.2 X10*3/uL (4.8-10.8)
[2024-11-07 06:57] LABS: Anion Gap 10 (12-20); Blood Urea Nitrogen 8 mg/dL (9-16); Calcium 8.5 mg/dL (8.4-10.2); Carbon Dioxide 24 mmol/L (22-29); Chloride 107 mmol/L (96-108); Creatinine Clr Calc Pharmacy 106.4; Estimated Glomerular Filt Rate > 60; Glucose Fasting 117 mg/dL (60-99); Potassium 3.1 mmol/L (3.3-5.1); Sodium 138 mmol/L (135-145)
--- NOTE | 2024-11-07 09:03 | PM.PNORT ---
Subjective Subjective Date of Service: 11/07/24 Interval history: POD1 s/p RTKA Patient is resting in bed comfortably No overnight events Pain is managed No additional complaints Physical Exam Vital Signs: Vital Signs: Last Vital Signs Temp 97.9 F 11/07/24 08:00 Pulse 83 11/07/24 08:01 Resp 16 11/07/24 08:00 BP 108/70 11/07/24 08:01 Pulse Ox 93 11/07/24 08:01 O2 Del Method Room Air 11/07/24 08:00 BMI result Body Mass Index 28.6 Const: General: cooperative, healthy appearing and no acute distress Resp: Effort & Inspection: normal respiratory effort and able to speak in complete sentences Cardio: Rate: regular rate Peripheral pulses: Peripheral pulses 2+ throughout GI: Palpation (GI): Soft to palpation Skin: Lesions: no lesions Rashes: no rashes Extrem: Other: right knee dressing is c/d/i. Able to dorsi/plantar flex. Calf is supple and nontender. Sensation intact. Pedal pulse intact. Procedures Date of Service Date of Service: 11/07/24 Progress Note: A&P Assessment and plan (1) Status post total knee replacement, right: Status: Acute Plan Continue pain mgmnt Begin dvt ppx Continue PT for RTKA - WBAT - Rehab recommendation made Dispo planning-Pending PT eval, pain mgmnt - Case management to arrange rehab placement Time Spent With Patient Time: Total time managing care of this patient today ____ minutes. Quality Stroke Does the patient have a stroke diagnosis?: No VTE Prior VTE?: No VTE Risk Level:: Medical - moderate - high VTE Device Contraindication: N/A - Device Ordered VTE Drug Contraindication: N/A - Med Ordered
[2024-11-07] MEDS: Enoxaparin Sodium 40 MG/0.4 ML SYRINGE SUBCUT (12:21)
--- NOTE | 2024-11-07 16:09 | PM.DS ---
DS: Providers Provider Date of Service: 11/07/24 Date of discharge: 11/07/24 Primary care physician: Nicole Caro MD Consults: 11/06/24 15:59 Consult to Hospitalist Routine Comment: Consulting Provider: [facility] Hospitalists Reason For Exam: Routine medical management DS: Diagnosis Discharge Diagnosis (1) Status post total knee replacement, right: Status: Acute DS: Summary Hospital Course Hospital Course: The patient underwent a successful R total knee arthroplasty on 11/06/24, was transferred to PACU and then to the floor to recover. During their stay, their vitals were stable, afebrile at 97.6. Labs were unremarkable, H/H 12.6/37.2. POD 1 she was started on Lovenox 40mg for DVT ppx, they also received Physical Therapy services twice a day. Physical therapy should include gait training, ROM to tolerance and quad strength. SHe is WBAT. Prior to discharge, her dressing was changed, incision clean dry and intact, new Aquacel dressing applied. The Aquacel dressing should remain intact and dry at all times. Any concerns with the dressing, please contact orthopedic office. No showering. The plan is to be discharged Time Attestation Discharge Coordination Time (in mins): 30 Quality: Safe Use of Opioids Does Pt have an Active Cancer Diagnosis on the Problem List?: No Quality: Stroke Does the patient have a stroke diagnosis?: No Physical Exam Vital Signs: Vital Signs: Last Vital Signs Temp 97.6 F 11/07/24 15:23 Pulse 73 11/07/24 15:23 Resp 16 11/07/24 15:23 BP 105/60 11/07/24 15:23 Pulse Ox 93 11/07/24 15:23 O2 Del Method Room Air 11/07/24 15:23 BMI result Body Mass Index 28.6 Const: General: cooperative, healthy appearing and no acute distress Resp: Effort & Inspection: normal respiratory effort and able to speak in complete sentences Cardio: Rate: regular rate Peripheral pulses: Peripheral pulses 2+ throughout GI: Palpation (GI): Soft to palpation Skin: Lesions: no lesions Rashes: no rashes Extrem: Other: right knee dressing is c/d/i. Able to dorsi/plantar flex. Calf is supple and nontender. Sensation intact. Pedal pulse intact. DS: Data Data Completed and Pending Pending studies at discharge: Pending at discharge 11/06/24 13:39 Surgical [PTH] Routine Labs on day of discharge: Laboratory Results - last 24 hr 11/07/24 05:34 WBC 10.2 RBC 4.31 Hgb 12.6 Hct 37.2 MCV 86.3 MCH 29.2 MCHC 33.9 RDW 13.0 Plt Count 330 MPV 9.9 Immature Gran % (Auto) 0.3 Neut % (Auto) 80.5 H Lymph % (Auto) 7.8 L [place] % (Auto) 10.6 Eos % (Auto) 0.7 Baso % (Auto) 0.1 Lymph # (Auto) 0.8 L [place] # (Auto) 1.1 Eos # (Auto) 0.1 Baso # (Auto) 0.0 Abs Immat Gran (auto) 0.03 Absolute Neuts (auto) 8.2 Absolute Nucleated RBC 0.000 Nucleated RBC % (auto) 0.0 Sodium 138 Potassium 3.1 L Chloride 107 Carbon Dioxide 24 Anion Gap 10 L BUN 8 L Creatinine 0.53 Estim Creat Clear Calc 106.4 Estimated GFR > 60 Fasting Glucose 117 H Calcium 8.5 D Discharge Plan Discharge Patient Disposition: Xfer Inpatient Rehab Fac Referrals: [facility] [Other] Melinda Sanchez PA-C [Physician Transport Medic] - 2 Weeks (11/21/24 13:00 [facility] Orthopedic Surgeons Melinda Sanchez PA-C) Nicole Caro MD [Primary Care Provider] - 1 Week Discharge Medications: New acetaminophen 325 mg Tablet 650 mg PO Q6H PRN (Reason: Pain, Mild 1-3,Fever,Headache) 30 Days Qty: 240 0RF magnesium hydroxide [Milk of Magnesia] 400 mg/5 mL Suspension 30 ml PO DAILY PRN (Reason: Constipation) 30 Days Qty: 3780 0RF oxycodone 5 mg Tablet 5 mg PO Q4H PRN (Reason: Pain, Moderate(Pain Scale 4-6)) 7 Days Qty: 42 0RF Rx Instructions: Partial Fill upon patient request. enoxaparin 40 mg/0.4 mL Syringe 40 mg subcut Q24H 42 Days Qty: 16.8 0RF Continued (DME) walker Misc See Rx Instructions .MEDSUPPLY Qty: 1 0RF Rx Instructions: Folding Front wheeled walker duration 99 days atorvastatin 20 mg tablet 20 mg PO BEDTIME Qty: 60 3RF metoprolol succinate 25 mg tablet extended release 24 hr 25 mg PO BEDTIME Rx Instructions: Stop Multaq Start Metoprolol amlodipine 10 mg tablet 10 mg PO BEDTIME hydrochlorothiazide 25 mg tablet 25 mg PO QAM Held apixaban 5 mg tablet 5 mg PO BID Qty: 120 3RF Discharge Orders: Discharge Order (Routine); Ordered 11/07/24 Ordered By: Ramos Espinoza Diet: Advance to usual diet Activity on Discharge: Use cane or walker Activity Restrictions/Additional Instructions: Physical Therapy for Total knee arthroplasty: WBAT, gait training, ROM 0-12, quad strength ? Limit stair climbing ? No showering, no tub bath-keep dressing clean, dry and intact ? No driving x6 weeks ? Continue Aspirin twice a day x 6 weeks ? Follow up with [facility] Orthopedics in 2 weeks: 11/21/24 13:00 [facility] Orthopedic Surgeons Melinda Sanchez PA-C Print Language: Macedonian
--- NOTE | 2024-11-07 16:19 | MHC.CM.PN ---
PT REPORTS SHE LIVES ALONE AND IS FULLY INDEPENDENT SHE HAS NO DME AND NO SERVICES HCP ON FILE PCP: HASEEB WAGGONER PT WILL DC TO [facility] TODAY BLS TRANSPORT BOOKED WITH [facility] FOR 1900 HOURS
[2024-11-07] MEDS: Metoprolol Succinate ER 25 MG TAB.ER.24H PO (19:12)
[2024-11-07] MEDS: Atorvastatin Calcium 20 MG TABLET PO (19:12)
[2024-11-07] MEDS: amLODIPine Besylate 10 MG TABLET PO (19:12)
--- NOTE | 2024-11-08 13:27 | P.OP_ITS ---
Operative Note Operative Note Date of Service: 11/06/24 Narrative: Date of Service: 11/06/24 Pre-op diagnosis: Right knee OA Post-op diagnosis: same Procedure: Right TKA Implants: [place] Triathlon press fit cruciate retaining 01/12/r/32a Surgeon: Ivan Ledezma MD Anesthesia: regional and spinal Was an Condominium Property Manager used for this Procedure?: Yes Condominium Property Manager: Melinda Sanchez Estimated blood loss (mL): 25 Tourniquet time (min): 60 IV fluids (mL): 800 Pathology: other Condition: stable Disposition: PACU Procedure in detail: The patient was brought to the operating room and prepped and draped in standard sterile fashion. A time-out was called to identify proper site proper procedure proper surgeon and IV antibiotics were administered. 1 g of IV tranexamic acid was administered. I began by making a midline incision to the retinaculum and performed a medial parapatellar arthrotomy. The patella was translated laterally and the knee was flexed up. There was medial compartment eburnation . I performed a small medial peel and resected the infrapatellar fat pad. Vermillion's line was then used to drill my intramedullary femoral guide and my distal femur cut of 12mm was made in 5 degrees of valgus while protecting the soft tissues. I then measured a # 5 femur and placed my 3 deg external cutting guide and made my anterior posterior and chamfer cuts protecting the soft tissues at all times. Once I was satisfied with my cuts I turned my attention to the tibia. I removed the meniscus medially and laterally and , using an external cutting guide, in line with the tibial crest and the third ray, I made my distal tibial cut in 3 deg slope of while protecting the PCL the posterior soft tissues at all times. An extension block was used to confirm appropriate amount of bony resection. I then sized a #4 tibia and once I was satisfied that there was complete tibial coverage I placed my trial and with the trial femur in place took the knee through range of motion. I was satisfied with the extension and flexion as well as the stability and balance at 0, 30 and 90 degrees. I then turned my attention to the patella where I removed 1 cm from the undersurface of the patella and then trialed a 32a patellar button. Again the knee was taken through range of motion I was satisfied with the tracking. I then returned to the femur and drilled my femoral lug holes and prepared the tibia. A femoral bone plug was placed and the knee was irrigated copiously. I then press fit the patella, tibia and femur in standard fashion. I trialed different inserts until I selected a #11cr insert. The final insert was placed and I irrigated copiously.. A Werewolf cautery wand was used to maintain hemostasis over the capsule and meniscal beds, the gutters and peripatellar soft tissues. The knee was then closed with a running Quill suture, a 3 0 Vicryl and cecilia on the skin. Patient was then placed in sterile dressing and brought to recovery room in stable condition there were no known complications.
== END 2024-11-07 19:26 ==
LOC: HO.SSS 11:49 → HO.S3 15:29
PROVIDERS: Physician Assistant; PCP Internal Medicine; Visit Provider Orthopaedic Surgery
PROC: (CPT 27447; principal; 2024-11-06 13:30)
DX: M17.11 Unilateral primary osteoarthritis, right knee (principal); M85.80 Other specified disorders of bone density and structure, unspecified site; I10 Essential (primary) hypertension; E78.00 Pure hypercholesterolemia, unspecified; I48.0 Paroxysmal atrial fibrillation; I48.91 Unspecified atrial fibrillation; K76.89 Other specified diseases of liver; K57.30 Diverticulosis of large intestine without perforation or abscess without bleeding; H18.511 Endothelial corneal dystrophy, right eye; Z85.828 Personal history of other malignant neoplasm of skin; Z79.01 Long term (current) use of anticoagulants; L23.4 Allergic contact dermatitis due to dyes; Z88.2 Allergy status to sulfonamides; Z98.890 Other specified postprocedural states
CPT/HCPCS: 27447; 36415; 80048; 85025; 86850; 86900; 86901; 87640; 87641; 88304; 88305; 88311; 97110; 97116; 97162; C1776; J0131; J0665; J0690; J1100; J1171; J1650; J2003; J2250; J2371; J2704; J7120

== ENCOUNTER → 2024-11-06 11:48 | Outpatient (BNV) | payer MEDICARE, OTHER, SELFPAY | PROVIDERS: PCP Internal Medicine; Visit Provider Nurse Practitioner Acute Care | DX: I10 Essential (primary) hypertension (principal) | CPT/HCPCS: 99222 ==

== ENCOUNTER → 2024-11-06 11:48 | Outpatient (BNV) | payer MEDICARE, OTHER, SELFPAY | PROVIDERS: PCP Internal Medicine; Visit Provider Orthopaedic Surgery | DX: M17.11 Unilateral primary osteoarthritis, right knee (principal) | CPT/HCPCS: 27447 ==

== ENCOUNTER 2024-11-21 12:47 | Outpatient (AMB) | payer MEDICARE, OTHER, SELFPAY ==
--- NOTE | 2024-11-21 12:53 | MHC.OFFVIS ---
Intake Visit Reasons: 2WK PO: R TKA w/NE 11/06/24 Intake Note: Danna is a 74 year old female who presents today with a walker for a post operative appointment s/p right total knee arthroplasty 11/06/24 NE. Patient states is doing well and she has been working with PT 1x a week. Allergies Sulfa (Sulfonamide Antibiotics) [SULFA (SULFONAMIDE ANTIBIOTICS)] Allergy (Severe, Verified 11/21/24 12:54) HIVES red dye [RED DYE] Allergy (Intermediate, Verified 11/21/24 12:54) HIVES HPI HPI 2WK PO: R TKA w/NE 11/06/24: Details: Ms. Sood This is a 74-year-old female who presents to the office today status post right total knee arthroplasty performed by Dr. Ledezma on 11/06/2024. Overall the patient is doing very well. She is using a walker to assist with ambulation while in the office today. She is working with [facility] through [facility]. She reports she has 2 more weeks of home physical therapy sessions. She will then transition to outpatient physical therapy. [facility] Medical History (Updated 11/08/24 @ 00:01 by Sean Watkins) Basal cell carcinoma Arthritis Elevated cholesterol Osteopenia Hepatic cyst Fuchs' corneal dystrophy of right eye Diverticulosis Schatzki's ring History of cardioversion PAF (paroxysmal atrial fibrillation) Primary osteoarthritis of knees, bilateral Hypertension Surgical History H/O colonoscopy History of basal cell carcinoma (BCC) excision History of esophagogastroduodenoscopy (EGD) Hx of right cataract extraction History of total left knee replacement (TKR) (~03/19/19) Hx of tonsillectomy History of elbow surgery Family History Father No problems noted. Mother No problems noted. Social History Are you a primary home care and home health aides teacher to a significant other at home: No Do you presently have visiting nurse or other home services: No Alcohol intake: current Alcohol intake frequency: 0-2 drinks per day Comment: advised to remove due to trip hazard Patient Tobacco Use Status: Never used Tobacco service: No Review of Systems Const All systems reviewed & are unremarkable except as noted in HPI and below Physical Exam Const General: cooperative, healthy appearing and no acute distress Resp Effort & Inspection: normal respiratory effort and able to speak in complete sentences Cardio Rate: regular rate Peripheral pulses: Peripheral pulses 2+ throughout Skin Lesions: no lesions Rashes: no rashes Extrem Other: Right knee incision site is clean dry and intact. Eb intact. No surrounding erythema or drainage. No signs of infection. Poor quad functioning. She is able to perform straight leg raise and there is no palpable defect over the quad tendon. Range of motion 30-90 degrees. NVI. Assessment & Plan Assessment & Plan (1) Status post total knee replacement, right: Code(s): Z96.651 - Presence of right artificial knee joint Category: Surgical Plan Ms. Sood This is a 74-year-old female who presents to the office today status post right total knee arthroplasty performed by Dr. Ledezma on 11/06/2024. Overall the patient is doing very well. She is using a walker to assist with ambulation while in the office today. She is working with physical [facility]. She reports she has 2 more weeks of home physical therapy sessions. She will then transition to outpatient physical therapy. While in the office today, eb were removed and Steri-Strips were applied. She will continue working with [facility]. I will place a physical therapy outpatient order to begin in 2 weeks once home therapy discontinues. She will follow up in [address] Ledezma with x-rays, sooner if needed. Coding Level of Care Code Global (66984) Diagnoses Status post total knee replacement, right Z96.651
--- OUTSIDE RECORDS SUMMARY | 2024-11-21 16:07 | XMS_ITS | Encounter Summary ---
Author Organization [facility] Address [address] [place] [address] Care Team Providers Care Tip Stitcher Name Role Phone Nicole Caro MD Primary Care Provider [phone] Encounter Details Date Type Department Care Team (Late st Contact Info) Description 11/08/2024 Lab Requisition [facility] - Main Lab [address] [facility] [place] [place] [address] Jailyn Marquez MD [address] [place] [phone] Encounter for other general examination Social History Tobacco Use Types Packs/Day Years [...] care for your loved ones. For example, children teacher or elderly care for an older adult? [...] Orientation Straight 08/16/2024 2: 33 PM EST documented as of this encounter Plan of Treatment Upcoming Encounters Date Type Department Care Team (Late st Contact Info) Description 11/26/2024 10:30 AM EDT Office Visit Adult Medicine [address] [address] Nicole Caro MD [address] [place] [phone] 05/09/2025 9:50 AM EDT Appointment Radiology Department - [address] [place] [address] documented as of this encounter Procedures Procedure Name Priority Date/Time Associated Diagnosis Comments CBC WITH AUTO DIFFERENTIAL Routine 11/08/2024 6:20 AM EST Encounter for other general examination CBC AND DIFFERENTIAL Routine 11/08/2024 6:20 AM EST Encounter for other general examination MAGNESIUM Routine 11/08/2024 6:20 AM EST Encounter for other general examination COMPREHENSIVE METABOLIC PANEL Routine 11/08/2024 6:20 AM EST Encounter for other general examination documented in this encounter Results * (ABNORMAL) CBC auto differential (11/08/2024 6:20 AM EST) WBC 9.3 4.8 - 10.8 K/mcL LAB HEMETOLOGY METHOD 11/08/2024 11:16 AM [facility] RBC 4.10 3.80 - 4.80 M/mcL LAB HEMETOLOGY METHOD 11/08/2024 11:16 AM [facility] Hemoglobin 11.9 11.5 - 16.0 g/dL LAB HEMETOLOGY METHOD 11/08/2024 11:16 AM [facility] Hematocrit 36.2 35.0 - 47.0 % LAB HEMETOLOGY METHOD 11/08/2024 11:16 AM [facility] MCV 89.4 79.0 - 98.0 FL LAB HEMETOLOGY METHOD 11/08/2024 11:16 AM [facility] MCH 29.4 27.0 - 32.0 pcg LAB HEMETOLOGY METHOD 11/08/2024 11:16 AM [facility] MCHC 32.9 32.0 - 37.0 g/dL LAB HEMETOLOGY METHOD 11/08/2024 11:16 AM [facility] RDW 13.3 11.0 - 15.0 % LAB HEMETOLOGY METHOD 11/08/2024 11:16 AM [facility] Platelets 290 130 - 400 K/mcL LAB HEMETOLOGY METHOD 11/08/2024 11:16 AM [facility] MPV 10.3 7.0 - 11.0 FL LAB HEMETOLOGY METHOD 11/08/2024 11:16 AM [facility] NRBC 0.0 <1.0 % LAB HEMETOLOGY METHOD 11/08/2024 11:16 AM [facility] NRBC Absolute 0.00 <0.10 K/mcL LAB HEMETOLOGY METHOD 11/08/2024 11:16 AM [facility] Neutrophils Relative 64.4 % LAB HEMETOLOGY METHOD 11/08/2024 11:16 AM [facility] Lymphocytes Relative 20.7 % LAB HEMETOLOGY METHOD 11/08/2024 11:16 AM [facility] Monocytes Relative 13.6 % LAB HEMETOLOGY METHOD 11/08/2024 11:16 AM [facility] Eosinophils Relative 0.5 % LAB HEMETOLOGY METHOD 11/08/2024 11:16 AM [facility] Basophils Relative 0.4 % LAB HEMETOLOGY METHOD 11/08/2024 11:16 AM [facility] Immature Granulocytes Relative 0.4 % LAB HEMETOLOGY METHOD 11/08/2024 11:16 AM [facility] Neutrophils Absolute 6.01 1.50 - 7.00 K/mcL LAB HEMETOLOGY METHOD 11/08/2024 11:16 AM [facility] Lymphocytes Absolute 1.93 1.00 - 5.00 K/mcL LAB HEMETOLOGY METHOD 11/08/2024 11:16 AM [facility] Monocytes Absolute 1.27(H) 0.20 - 1.00 K/mcL LAB HEMETOLOGY METHOD 11/08/2024 11:16 AM EST [facility] Eosinophils Absolute 0.05 0.00 - 0.50 K/[facility] LAB HEMETOLOGY METHOD 11/08/2024 11:16 AM EST [facility] Basophils Absolute 0.04 0.00 - 0.20 K/[facility] LAB HEMETOLOGY METHOD 11/08/2024 11:16 AM EST [facility] Immature Granulocytes Absolute 0.04(H) 0.00 - 0.03 K/[facility] LAB HEMETOLOGY METHOD 11/08/2024 11:16 AM EST [facility] Blood Venous blood specimen / Unknown Venipuncture / Unknown 11/08/2024 6:20 AM EST 11/08/2024 10:11 AM EST Jailyn Marquez MD LAB BLOOD ORDERABLES Final Resu lt Performing Organization Address City/[facility]/ZIP Co de Phone Number [facility] [address] [place] [address], [place] [phone] * Magnesium (11/08/2024 6:20 AM EST) Magnesium 1.9 1.9 - 2.6 mg/dL LAB CHEMISTRY METHOD 11/08/2024 1:36 PM [facility] Blood Venous blood specimen / Unknown Venipuncture / Unknown 11/08/2024 6:20 AM EST 11/08/2024 10:11 AM EST us Jailyn Marquez MD LAB BLOOD ORDERABLES Final Resu lt Performing Organization Address City/[facility]/ZIP Co de Phone Number [facility] [address] [place] [address], [place] [phone] * (ABNORMAL) Comprehensive metabolic panel (11/08/2024 6:20 AM EST) Sodium 139 133 - 145 mmol/L LAB CHEMISTRY METHOD 11/08/2024 3:07 PM [facility] Potassium 3.3(L) 3.5 - 5.5 mmol/L LAB CHEMISTRY METHOD 11/08/2024 3:07 PM [facility] Chloride 105 96 - 110 mmol/L LAB CHEMISTRY METHOD 11/08/2024 3:07 PM [facility] CO2 26 21 - 32 mmol/L LAB CHEMISTRY METHOD 11/08/2024 3:07 PM [facility] Anion Gap 8 3 - 11 LAB CHEMISTRY METHOD 11/08/2024 3:07 PM [facility] Glucose 91 70 - 100 mg/dL LAB CHEMISTRY METHOD 11/08/2024 3:07 PM [facility] BUN 8 5 - 25 mg/dL LAB CHEMISTRY METHOD 11/08/2024 3:07 PM [facility] Creatinine 0.41(L) 0.50 - 1.10 mg/dL LAB CHEMISTRY METHOD 11/08/2024 3:07 PM [facility] eGFR 103 >=60 mL/min/1. 73m2 LAB CHEMISTRY METHOD 11/08/2024 3:07 PM [facility] Comment:Calculation based on the??Chronic Kidney Disease Epidemiology Collaboration (CKD-EPI) equation refit??without adjustment for race. BUN/Creatinine Ratio 19.5 LAB CHEMISTRY METHOD 11/08/2024 3:07 PM [facility] Calcium 8.4(L) 8.5 - 10.5 mg/dL LAB CHEMISTRY METHOD 11/08/2024 3:07 PM [facility] AST (SGOT) 10 10 - 42 unit/L LAB CHEMISTRY METHOD 11/08/2024 3:07 PM [facility] ALT (SGPT) 18 10 - 60 unit/L LAB CHEMISTRY METHOD 11/08/2024 3:07 PM [facility] Alkaline Phosphatase 62 42 - 121 unit/L LAB CHEMISTRY METHOD 11/08/2024 3:07 PM EST [facility] Total Protein 5.8(L) 6.0 - 8.0 g/dL LAB CHEMISTRY METHOD 11/08/2024 3:07 PM EST [facility] Albumin 2.8(L) 3.2 - 5.0 g/dL LAB CHEMISTRY METHOD 11/08/2024 3:07 PM EST [facility] Total Bilirubin 1.0 0.0 - 1.4 mg/dL LAB CHEMISTRY METHOD 11/08/2024 3:07 PM EST [facility] Blood Venous blood specimen / Unknown Venipuncture / Unknown 11/08/2024 6:20 AM EST 11/08/2024 10:11 AM EST us Jailyn Marquez MD LAB BLOOD ORDERABLES Final Resu lt [facility] [address] [place] [address], documented in this encounter Visit Diagnoses Diagnosis Encounter for other general examination Encounter for screening mammogram for breast cancer documented in this encounter Additional Health Concerns Assessment Noted Time PHQ-9 Depression Total Score: 0 09/02/20 24 1:48 PM EST documented as of this encounter Care Teams Tip Stitcher Relationship Specialty Start Date End Date Nicole Caro MD [address] [place] [address] PCP - General Internal Medicine 02/09/21 documented as of this encounter
--- OUTSIDE RECORDS SUMMARY | 2024-11-21 16:07 | XMS_ITS | Encounter Summary ---
Author Organization [facility] Address [address] [place] [address] Care Team Providers Care Referral Manager Name Role Phone Nicole Caro MD Primary Care Provider Encounter Details Date Type Department Care Team (Late st Contact Info) Description 11/12/2024 Lab Requisition [facility] - Main Lab [address] [facility] [place] [address] Jailyn Marquez MD [address] [place] [phone] Encounter for other general examination Social History [...] for your loved ones. For example, child psychologist or elderly care for an older adult? [...] 10:30 AM EDT Office Visit Adult Medicine [address] [address] Nicole Caro MD [address] [place] [address] 05/09/2025 9:50 AM EDT Appointment Radiology Department - [address] [place] [phone] documented as of this encounter Procedures Procedure Name Priority Date/Time Associated Diagnosis Comments MAGNESIUM Routine 11/12/2024 3:22 PM EST Encounter for other general examination COMPREHENSIVE METABOLIC PANEL Routine 11/12/2024 3:22 PM EST Encounter for other general examination documented in this encounter Results * Magnesium (11/12/2024 3:22 PM EST) Pathologist [facility] [place] Magnesium 2.0 1.9 - 2.6 mg/dL LAB CHEMISTRY METHOD 11/12/2024 5:02 PM EST [facility] Blood Venous blood specimen / Unknown Venipuncture / Unknown 11/12/2024 3:22 PM EST 11/12/2024 4:11 PM EST Jailyn Marquez MD LAB BLOOD ORDERABLES Final Resu lt [facility] [address] [place] [address], * (ABNORMAL) Comprehensive metabolic panel (11/12/2024 3:22 PM EST) Pathologist [facility] Sodium 138 133 - 145 mmol/L LAB CHEMISTRY METHOD 11/12/2024 5:06 PM [facility] Potassium 3.5 3.5 - 5.5 mmol/L LAB CHEMISTRY METHOD 11/12/2024 5:06 PM [facility] Chloride 102 96 - 110 mmol/L LAB CHEMISTRY METHOD 11/12/2024 5:06 PM [facility] CO2 25 21 - 32 mmol/L LAB CHEMISTRY METHOD 11/12/2024 5:06 PM [facility] Anion Gap 11 3 - 11 LAB CHEMISTRY METHOD 11/12/2024 5:06 PM [facility] Glucose 108(H) 70 - 100 mg/dL LAB CHEMISTRY METHOD 11/12/2024 5:06 PM [facility] BUN 12 5 - 25 mg/dL LAB CHEMISTRY METHOD 11/12/2024 5:06 PM [facility] Creatinine 0.53 0.50 - 1.10 mg/dL LAB CHEMISTRY METHOD 11/12/2024 5:06 PM [facility] eGFR 97 >=60 mL/min/1. 73m2 LAB CHEMISTRY METHOD 11/12/2024 5:06 PM [facility] Comment:Calculation based on the??Chronic Kidney Disease Epidemiology Collaboration (CKD-EPI) equation refit??without adjustment for race. BUN/Creatinine Ratio 22.6 LAB CHEMISTRY METHOD 11/12/2024 5:06 PM [facility] Calcium 9.3 8.5 - 10.5 mg/dL LAB CHEMISTRY METHOD 11/12/2024 5:06 PM [facility] AST (SGOT) 46(H) 10 - 42 unit/L LAB CHEMISTRY METHOD 11/12/2024 5:06 PM [facility] ALT (SGPT) 65(H) 10 - 60 unit/L LAB CHEMISTRY METHOD 11/12/2024 5:06 PM [facility] Alkaline Phosphatase 114 42 - 121 unit/L LAB CHEMISTRY METHOD 11/12/2024 5:06 PM [facility] Total Protein 6.5 6.0 - 8.0 g/dL LAB CHEMISTRY METHOD 11/12/2024 5:06 PM [facility] Albumin 2.9(L) 3.2 - 5.0 g/dL LAB CHEMISTRY METHOD 11/12/2024 5:06 PM [facility] Total Bilirubin 1.5(H) 0.0 - 1.4 mg/dL LAB CHEMISTRY METHOD 11/12/2024 5:06 PM [facility] Blood Venous blood specimen / Unknown Venipuncture / Unknown 11/12/2024 3:22 PM EST 11/12/2024 4:11 PM EST us Jailyn Marquez MD LAB BLOOD ORDERABLES Final Resu lt [facility] ([facility] [address] [place] [address], documented in this encounter Visit Diagnoses Diagnosis Encounter for other general examination Encounter for screening mammogram for breast cancer documented in this encounter Additional Health Concerns Assessment Noted Time PHQ-9 Depression Total Score: 0 09/02/20 24 1:48 PM EST documented as of this encounter Care Teams Referral Manager Relationship Specialty Start Date End Date Nicole Caro MD [address] [place] [phone] PCP - General Internal Medicine 02/09/21 documented as of this encounter
--- OUTSIDE RECORDS SUMMARY | 2024-11-21 16:07 | XMS_ITS | Clinical Summary ---
Author Organization [facility] [address] [place] [address] [place] [phone] Phone Care Team Providers Care Wastewater Treatment Plant Attendant Name Role Phone Nicole Caro MD Primary Care Provider [phone] Allergies Active Allergy Reactions Criticality Noted Date [...] (08/31/2024): DX:Elbow fracture Diverticulosis of colon Overview (11/16/2024): noted on colonoscopy 2005 Essential hypertension, benign Fuchs' corneal dystrophy Hepatic cyst Overview (08/31/2024): : On outside CT [facility] 09/2020 Primary osteoarthritis of both knees Overview (08/31/2024): S/p left TKR 2018 Dr. Ledezma Pure hypercholesterolemia Encounters Date Type Department Care Team Description 11/14/2024 Telephone Adult [address] [phone] Nicole Caro MD Hospital Follow-up 11/12/[address] [facility] - Main Lab [address] [place] [phone] Jailyn Marquez MD Encounter for other general examination 11/12/2024 Lab Requisition [facility] Lab [address] [place] [phone] Jailyn Marquez MD Encounter for other general examination 11/09/[address] [facility] - Main Lab [address] [place] [phone] Jailyn Marquez MD Encounter for other general examination 11/08/2024 Lab Requisition [facility] Main Lab [address] [place] [phone] Jailyn Marquez MD Encounter for other general examination 09/03/2024 10:00 AM EST Consult [facility] [place] - [address] [phone] Nicole Caro MD Preop cardiovascular exam (Primary [...] cyst - benign COLONOSCOPY W/ BIOPSIES 07/31/2006 Jordana, Dr. Motta - 1 hyperplastic polyp. rpt 10 yrs OTHER SURGICAL HISTORY 07/17/2017 tics; repeat in ten years, if healthy (optional) TONSILLECTOMY SCREENING MAMMOGRAM 05/03/2024 Bilateral Medical History Medical History Date Comments Diverticulosis of colon noted on colonoscopy 2005 Arthritis, degenerative 04/07/2015 Hepatic cyst 09/14/2020 : On outside [facility] 09/2020 Elbow fracture 04/18/2016 Essential hypertension, benign 03/21/2006 Primary osteoarthritis of both knees 10/08/2015 S/p left TKR 2019 Dr. Ledezma Pure hypercholesterolemia 03/21/2006 Fuchs' corneal dystrophy 03/28/2023 Osteopenia 09/13/2006 Oct 2022: T-scor e lumbar (-1.3); hip (-0.7); FRAX 29% Esophageal stenosis 09/14/2020 Atrial fibrillation (CMS/HCC) 09/03/2024 Ca rdioversion 09/03 At high risk for breast cancer 09/03/2024 Family History Medical History Relation Name Comments bladder cancer Brother Hypertension Father leukemia, glauc iqra, prostate cancer Heart attack Maternal Grandfather in thei r 80s Hypertension Mother stroke, renny is Heart attack Paternal Grandfather in 80s [...] care for your loved ones. For example, home child care provider or elderly care for an older adult? [...] 10:30 AM EDT Office Visit Adult Medicine [facility] [address] [place] [address] Nicole Caro MD [address] [place] [address] 05/09/2025 9:50 AM EDT Appointment Radiology Department - [address] NAYELY Ricketts [phone] Health Maintenance Due Date Last Done Comments Pneumococcal Vaccine: 50+ Years (1 of 2 - PCV) 1969 Zoster Vaccines (1 of 2) 1969 RSV Immunization Patients 60+ Years Old (1 - Risk 60-74 years 1-dose series) 2010 Falls Risk Assessment 08/20/2022 COVID-19 Vaccine ( season) 2024 06/29/2022, 06/29/2022, 08/27/2021, Additional history exists Influenza Vaccine (#1) 2025 Postp oned from 05/12/2024 (Patient Refused) Breast Cancer Screening 05/03/2025 05/03/20 24, 05/03/2024, 04/26/2023, Additional history exists Medicare Annual Wellness Visit 05/29/2025 05/29/2024 Depression Screening 09/02/2025 09/02/2024, 05/29/20 Social Influencers of Health Screening 09/02/2025 09/02/2024 Hypertension/CHF/CAD Annual BMP Blood Test 11/12/2025 11/12/2024, 11/09/2024, 11/08/2024, Additional history exists Colorectal Cancer Screening: Colonoscopy 07/17/2027 07/17/2017 Cholesterol [...] PM EST Encounter for other general examination CBC WITH AUTO DIFFERENTIAL Routine 11/12/2024 6:36 AM EST Encounter for other general examination CBC AND DIFFERENTIAL Routine 11/12/2024 6:36 AM EST Encounter for other general examination BASIC METABOLIC PANEL Routine 11/09/2024 7:15 AM EST Encounter for other general examination CBC WITH AUTO DIFFERENTIAL Routine 11/08/2024 6:20 AM EST Encounter for other general examination MAGNESIUM Routine 11/08/2024 6:20 AM EST Encounter for other general examination CBC AND DIFFERENTIAL Routine 11/08/2024 6:20 AM EST Encounter for other general examination COMPREHENSIVE METABOLIC PANEL Routine 11/08/2024 6:20 AM EST Encounter for other general examination CBC WITH AUTO DIFFERENTIAL Routine 10/07/2024 10:09 [...] Recently Relevant to Health Maintenance Results * Magnesium (11/12/2024 3:22 PM EST) Only the most recent of2 resultswithin the time period is included. Magnesium 2.0 1.9 - 2.6 mg/dL LAB CHEMISTRY METHOD 11/12/2024 5:02 PM EST [facility] Blood Venous blood specimen / Unknown Venipuncture / Unknown 11/12/2024 3:22 PM EST 11/12/2024 4:11 PM EST us Jailyn Marquez MD LAB BLOOD ORDERABLES Final Resu lt [facility] [address] [place] [address], [place] [phone] * (ABNORMAL) Comprehensive metabolic panel (11/12/2024 3:22 PM EST) Only the most recent of2 resultswithin the time period is included. Sodium 138 133 - 145 mmol/L LAB CHEMISTRY METHOD 11/12/2024 5:06 PM [facility] Potassium 3.5 3.5 - 5.5 mmol/L LAB CHEMISTRY METHOD 11/12/2024 5:06 PM [facility] Chloride 102 96 - 110 mmol/L LAB CHEMISTRY METHOD 11/12/2024 5:06 PM [facility] CO2 25 21 - 32 mmol/L LAB CHEMISTRY METHOD 11/12/2024 5:06 PM [facility] Anion Gap 11 3 - 11 LAB CHEMISTRY METHOD 11/12/2024 5:06 PM [facility] Glucose 108(H) 70 - 100 mg/dL LAB CHEMISTRY METHOD 11/12/2024 5:06 PM [facility] BUN 12 5 - 25 mg/dL LAB CHEMISTRY METHOD 11/12/2024 5:06 PM [facility] Creatinine 0.53 0.50 - 1.10 mg/dL LAB CHEMISTRY METHOD 11/12/2024 5:06 PM [facility] eGFR 97 >=60 mL/min/1. 73m2 LAB CHEMISTRY METHOD 11/12/2024 5:06 PM [facility] Comment:Calculation based on the??Chronic Kidney Disease Epidemiology Collaboration (CKD-EPI) equation refit??without adjustment for race. BUN/Creatinine Ratio 22.6 LAB CHEMISTRY METHOD 11/12/2024 5:06 PM [facility] Calcium 9.3 8.5 - 10.5 mg/dL LAB CHEMISTRY METHOD 11/12/2024 5:06 PM [facility] AST (SGOT) 46(H) 10 - 42 unit/L LAB CHEMISTRY METHOD 11/12/2024 5:06 PM [facility] ALT (SGPT) 65(H) 10 - 60 unit/L LAB CHEMISTRY METHOD 11/12/2024 5:06 PM [facility] Alkaline Phosphatase 114 42 - 121 unit/L LAB CHEMISTRY METHOD 11/12/2024 5:06 PM [facility] Total Protein 6.5 6.0 - 8.0 g/dL LAB CHEMISTRY METHOD 11/12/2024 5:06 PM [facility] Albumin 2.9(L) 3.2 - 5.0 g/dL LAB CHEMISTRY METHOD 11/12/2024 5:06 PM [facility] Total Bilirubin 1.5(H) 0.0 - 1.4 mg/dL LAB CHEMISTRY METHOD 11/12/2024 5:06 PM [facility] Blood Venous blood specimen / Unknown Venipuncture / Unknown 11/12/2024 3:22 PM EST 11/12/2024 4:11 PM EST us Jailyn Marquez MD LAB BLOOD ORDERABLES Final Resu lt [facility] [address] [place] [address], [place] [phone] * (ABNORMAL) CBC auto differential (11/12/2024 6:36 AM EST) Only the most recent of3 resultswithin the time period is included. WBC 8.0 4.8 - 10.8 K/mcL LAB HEMETOLOGY METHOD 11/12/2024 11:17 AM [facility] RBC 4.10 3.80 - 4.80 M/mcL LAB HEMETOLOGY METHOD 11/12/2024 11:17 AM [facility] Hemoglobin 12.0 11.5 - 16.0 g/dL LAB HEMETOLOGY METHOD 11/12/2024 11:17 AM [facility] Hematocrit 36.1 35.0 - 47.0 % LAB HEMETOLOGY METHOD 11/12/2024 11:17 AM [facility] MCV 88.5 79.0 - 98.0 FL LAB HEMETOLOGY METHOD 11/12/2024 11:17 AM [facility] MCH 29.4 27.0 - 32.0 pcg LAB HEMETOLOGY METHOD 11/12/2024 11:17 AM [facility] MCHC 33.2 32.0 - 37.0 g/dL LAB HEMETOLOGY METHOD 11/12/2024 11:17 AM [facility] RDW 12.8 11.0 - 15.0 % LAB HEMETOLOGY METHOD 11/12/2024 11:17 AM [facility] Platelets 350 130 - 400 K/mcL LAB HEMETOLOGY METHOD 11/12/2024 11:17 AM [facility] MPV 10.0 7.0 - 11.0 FL LAB HEMETOLOGY METHOD 11/12/2024 11:17 AM [facility] NRBC 0.0 <1.0 % LAB HEMETOLOGY METHOD 11/12/2024 11:17 AM [facility] NRBC Absolute 0.00 <0.10 K/mcL LAB HEMETOLOGY METHOD 11/12/2024 11:17 AM [facility] Neutrophils Relative 62.2 % LAB HEMETOLOGY METHOD 11/12/2024 11:17 AM [facility] Lymphocytes Relative 18.5 % LAB HEMETOLOGY METHOD 11/12/2024 11:17 AM [facility] Monocytes Relative 13.8 % LAB HEMETOLOGY METHOD 11/12/2024 11:17 AM [facility] Eosinophils Relative 4.4 % LAB HEMETOLOGY METHOD 11/12/2024 11:17 AM [facility] Basophils Relative 0.6 % LAB HEMETOLOGY METHOD 11/12/2024 11:17 AM [facility] Immature Granulocytes Relative 0.5 % LAB HEMETOLOGY METHOD 11/12/2024 11:17 AM [facility] Neutrophils Absolute 4.97 1.50 - 7.00 K/mcL LAB HEMETOLOGY METHOD 11/12/2024 11:17 AM EST [facility] Lymphocytes Absolute 1.48 1.00 - 5.00 K/[facility] LAB HEMETOLOGY METHOD 11/12/2024 11:17 AM EST [facility] Monocytes Absolute 1.10(H) 0.20 - 1.00 K/[facility] LAB HEMETOLOGY METHOD 11/12/2024 11:17 AM EST [facility] Eosinophils Absolute 0.35 0.00 - 0.50 K/[facility] HEMETOLOGY METHOD 11/12/2024 11:17 AM EST [facility] Basophils Absolute 0.05 0.00 - 0.20 K/[facility] HEMETOLOGY METHOD 11/12/2024 11:17 AM [facility] Immature Granulocytes Absolute 0.04(H) 0.00 - 0.03 K/[facility] HEMETOLOGY METHOD 11/12/2024 11:17 AM [facility] Blood Venous blood specimen / Unknown Venipuncture / Unknown 11/12/2024 6:36 AM EST 11/12/2024 10:54 AM EST us Jailyn Marquez MD LAB BLOOD ORDERABLES Final Resu lt [facility] [address] [place] [address], * (ABNORMAL) Basic metabolic panel (11/09/2024 7:15 AM EST) Only the most recent of2 resultswithin the time period is included. Sodium 142 133 - 145 mmol/L LAB CHEMISTRY METHOD 11/09/2024 12:20 PM [facility] Potassium 4.0 3.5 - 5.5 mmol/L LAB CHEMISTRY METHOD 11/09/2024 12:20 PM [facility] Chloride 107 96 - 110 mmol/L LAB CHEMISTRY METHOD 11/09/2024 12:20 PM [facility] CO2 27 21 - 32 mmol/L LAB CHEMISTRY METHOD 11/09/2024 12:20 PM [facility] Anion Gap 8 3 - 11 LAB CHEMISTRY METHOD 11/09/2024 12:20 PM [facility] Glucose 93 70 - 100 mg/dL LAB CHEMISTRY METHOD 11/09/2024 12:20 PM [facility] BUN 8 5 - 25 mg/dL LAB CHEMISTRY METHOD 11/09/2024 12:20 PM [facility] Creatinine 0.46(L) 0.50 - 1.10 mg/dL LAB CHEMISTRY METHOD 11/09/2024 12:20 PM [facility] eGFR 101 >=60 mL/min/1. 73m2 LAB CHEMISTRY METHOD 11/09/2024 12:20 PM [facility] Comment:Calculation based on the??Chronic Kidney Disease Epidemiology Collaboration (CKD-EPI) equation refit??without adjustment for race. BUN/Creatinine Ratio 17.4 LAB CHEMISTRY METHOD 11/09/2024 12:20 PM [facility] Calcium 8.8 8.5 - 10.5 mg/dL LAB CHEMISTRY METHOD 11/09/2024 12:20 PM [facility] Blood Venous blood specimen / Unknown Venipuncture / Unknown 11/09/2024 7:15 AM EST 11/09/2024 10:49 AM EST us Jailyn Marquez MD LAB BLOOD ORDERABLES Final Resu lt [facility] [address] [place] [address], * (ABNORMAL) Lipid panel with reflex to direct LDL (10/07/2024 10:09 AM EST) Cholesterol 201(H) 0 - 200 mg/dL LAB CHEMISTRY METHOD 10/07/2024 3:24 PM EST [facility] Triglycerides 88 0 - 150 mg/dL LAB CHEMISTRY METHOD 10/07/2024 3:24 PM [facility] HDL 90 >=40 mg/dL LAB CHEMISTRY METHOD 10/07/2024 3:24 PM [facility] LDL Calculated 93 0 - 100 mg/dL LAB CHEMISTRY METHOD 10/07/2024 3:24 PM [facility] VLDL Cholesterol Ken 17.6 mg/dL LAB CHEMISTRY METHOD 10/07/2024 3:24 PM [facility] Non HDL Chol. (LDL+VLDL) 111 <145 mg/dL LAB CHEMISTRY METHOD 10/07/2024 3:24 PM [facility] Chol/HDL Ratio 2.2 0.0 - 4.4 LAB CHEMISTRY METHOD 10/07/2024 3:24 PM [facility] Blood Venous blood specimen / Unknown Venipuncture / Unknown 10/07/2024 10:09 AM EST 10/07/2024 10:09 AM EST Nicole Caro MD LAB BLOOD ORDERABLES Final Resul t [facility] [address] [place] [address], * Depression Screening (05/29/2024) Depression Screening abstracted Historical Provider HEALTH MAINTENANCE Final Result * SCREENING [...] Result * DXA BONE DENSITY STUDY 1+ SITS AXIAL SKEL (11/21/2022 9:29 AM EDT) Anatomical Region Laterality Modality Bone Densitometr y 10/06/2022 12:1 0 PM EST Narrative 11/22/2022 2:01 PM EDT Clinical history: menopausal/postmenopausal disorder Scans of the lumbar spine and hips were performed on a [employer] fan beam bone densitometer. ? Bone mineral [...] spine and hips were performed on a [employer] beam bone densitometer. Bone mineral density measurements [...] Established osteoporosis < -2.5 with fractures Kayleen FERRARI IMG DXA PROCEDURES Final Resu lt * Colonoscopy (07/17/2017) [facility] Colonoscopy abstracted, no interpretation Anatomical Region Laterality Modality Other Historical Provider HEALTH MAINTENANCE Final Result * Hepatitis C Screening (10/01/2013) [facility] Hepatitis C Screening abstracted us Historical Provider HEALTH MAINTENANCE Final Result from Last 3 Months or Most Recently Relevant to Health Maintenance Insurance MEDICARE [facility] Care Teams Wastewater Treatment Plant Attendant Relationship Specialty Start Date End Date Nicole Caro MD [address] [place] [address] PCP - General Internal Medicine 02/09/21
--- OUTSIDE RECORDS SUMMARY | 2024-11-21 16:07 | XMS_ITS ---
Author Organization [address] Address [address] [place] [phone] Phone Care Team Providers Care Trash Truck Driver Name Role Phone Nicole Caro MD Primary Care Provider [phone] Transitional Care Management Status:Ongoing (Active) Start date:11/17/2024 Enrollment date:11/17/2024 Enrollment reason:Identified using hospital discharge data Case Team Name Relationship Phone Acosta Ames LPN Care Manager(Responsible Staff) Continued Care and Services Coordination
--- OUTSIDE RECORDS SUMMARY | 2024-11-21 16:07 | XMS_ITS | Encounter Summary ---
Author Organization [facility] Address [address] [place] [address] Care Team Providers Care Liberal Arts And Humanities Chair Name Role Phone Nicole Caro MD Primary Care Provider [phone] Reason for Visit * Reason Onset Date Comments Hospital Follow-up 11/14/2024 Encounter Details Date Type Department Care Team ([facility] st Contact Info) Description 11/14/2024 Telephone Adult Medicine [facility] [address] [place] [phone] Nicole Caro MD [address] [place] [address] Hospital Follow-up Social History Tobacco Use Types Packs/Day Years [...] care for your loved ones. For example, special needs child caregiver or elderly care for an older adult? [...] PM EST documented as of this encounter Progress Notes * Patti Blanco RN - 11/14/2024 11:25 AM EST A hospital follow up appointment was made for her to be seen in the office on 11/19/24 at 1:[address] Caro and she is in agreement with this plan. * Remedios Phipps - 11/14/2024 9:53 AM EST Hospital/ER follow up appointment needed Hospital patient was treated at: [facility] Was this only an ER visit or was the patient admitted to the hospital? Admitted to the hospital/kept overnight 10/29/2024 If patient was admitted what was the date of discharge? 11/07/2024 Reason/diagnosis for visit or stay: right knee replacement 10/29/2024 When was the patient told to follow up? Within a week Was visit or stay related to an injury? If yes, what was the date of injury (DOI)? No documented in this encounter Plan of Treatment Upcoming Encounters Date Type Department Care Team (Late st Contact Info) Description 11/26/2024 10:30 AM EDT Office Visit Adult Medicine [address] [phone] Nicole Caro MD [address] [place] [address] 05/09/2025 9:50 AM EDT Appointment Radiology Department - [address] [phone] documented as of this encounter Visit Diagnoses Not on filedocumented in this encounter Additional Health Concerns Assessment Noted Time PHQ-9 Depression Total Score: 0 09/02/20 24 1:48 PM EST documented as of this encounter Care Teams [employer] Arts [employer] Human[employer] Chair Relationship Specialty Start Date End Date Nicole Caro MD [address] [place] [address] PCP - General Internal Medicine 02/09/21 documented as of this encounter
--- OUTSIDE RECORDS SUMMARY | 2024-11-21 16:07 | XMS_ITS | Encounter Summary ---
Author Organization [facility] Address [address] [place] [address] Care Team Providers Care Nutritional Health Coach Name Role Phone Nicole Caro MD Primary Care Provider [phone] Encounter Details Date Type Department Care Team (Late st Contact Info) Description 11/09/2024 Lab Requisition [facility] - Main Lab [address] [facility] [place] [address] Jailyn Marquez MD [address] [place] [phone] Encounter for other general examination Social History [...] for your loved ones. For example, child watch attendant or elderly care for an older adult? [...] 10:30 AM EDT Office Visit Adult Medicine [address] [phone] Nicole Caro MD [address] [place] [address] 05/09/2025 9:50 AM EDT Appointment Radiology Department - [address] [place] [phone] documented as of this encounter Procedures Procedure Name Priority Date/Time Associated Diagnosis Comments BASIC METABOLIC PANEL Routine 11/09/2024 7:15 AM EST Encounter for other general examination documented in this encounter Results * (ABNORMAL) Basic metabolic panel (11/09/2024 7:15 AM EST) Sodium 142 133 - 145 mmol/L LAB CHEMISTRY METHOD 11/09/2024 12:20 PM [facility] Potassium 4.0 3.5 - 5.5 mmol/L LAB CHEMISTRY METHOD 11/09/2024 12:20 PM [facility] Chloride 107 96 - 110 mmol/L LAB CHEMISTRY METHOD 11/09/2024 12:20 PM [facility] CO2 27 21 - 32 mmol/L LAB CHEMISTRY METHOD 11/09/2024 12:20 PM [facility] Anion Gap 8 3 - 11 LAB CHEMISTRY METHOD 11/09/2024 12:20 PM [facility] Glucose 93 70 - 100 mg/dL LAB CHEMISTRY METHOD 11/09/2024 12:20 PM [facility] BUN 8 5 - 25 mg/dL LAB CHEMISTRY METHOD 11/09/2024 12:20 PM [facility] Creatinine 0.46(L) 0.50 - 1.10 mg/dL LAB CHEMISTRY METHOD 11/09/2024 12:20 PM [facility] eGFR 101 >=60 mL/min/1. 73m2 LAB CHEMISTRY METHOD 11/09/2024 12:20 PM [facility] Comment:Calculation based on the??Chronic Kidney Disease Epidemiology Collaboration (CKD-EPI) equation refit??without adjustment for race. BUN/Creatinine Ratio 17.4 LAB CHEMISTRY METHOD 11/09/2024 12:20 PM [facility] Calcium 8.8 8.5 - 10.5 mg/dL LAB CHEMISTRY METHOD 11/09/2024 12:20 PM EST [facility] Blood Venous blood specimen / Unknown Venipuncture / Unknown 11/09/2024 7:15 AM EST 11/09/2024 10:49 AM EST us Jailyn Marquez MD LAB BLOOD ORDERABLES Final Resu lt [facility] [address] [place] [address], documented in this encounter Visit Diagnoses Diagnosis Encounter for other general examination Encounter for screening mammogram for breast cancer documented in this encounter Additional Health Concerns Assessment Noted Time PHQ-9 Depression Total Score: 0 09/02/20 24 1:48 PM EST documented as of this encounter Care Teams Nutritional Health Coach Relationship Specialty Start Date End Date Nicole Caro MD [address] [place] [address] PCP - General Internal Medicine 02/09/21 documented as of this encounter
--- OUTSIDE RECORDS SUMMARY | 2024-11-21 16:07 | XMS_ITS | Encounter Summary ---
Author Organization [facility] Address [address] [place] [address] Care Team Providers Care Analyst Microbiology Lab Name Role Phone Nicole Caro MD Primary Care Provider [phone] Encounter Details Date Type Department Care Team (Late st Contact Info) Description 11/12/[address] [facility] - Main Lab [address] [facility] [address] Jailyn Marquez MD [address] [place] [address] Encounter for other general examination Social History [...] for your loved ones. For example, child support officer or elderly care for an older adult? [...] 10:30 AM EDT Office Visit Adult Medicine [address] [phone] Nicole Caor MD [address] [place] [address] 05/09/2025 9:50 AM EDT Appointment Radiology Department - [address] [place] [address] Scheduled Orders Name Type Priority Associated Diagnoses Orde r Schedule Comprehensive metabolic panel Lab Routine Encounter for other general examination Ordered: 11/12/2024 Magnesium Lab Routine Encounter for other general examination Ordered: 11/12/2024 documented as of this encounter Procedures Procedure Name Priority Date/Time Associated Diagnosis Comments CBC WITH AUTO DIFFERENTIAL Routine 11/12/2024 6:36 AM EST Encounter for other general examination CBC AND DIFFERENTIAL Routine 11/12/2024 6:36 AM EST Encounter for other general examination documented in this encounter Results * (ABNORMAL) CBC auto differential (11/12/2024 6:36 AM EST) [facility] WBC 8.0 4.8 - 10.8 K/mcL LAB HEMETOLOGY METHOD 11/12/2024 11:17 AM [facility] RBC 4.10 3.80 - 4.80 M/mcL LAB HEMETOLOGY METHOD 11/12/2024 11:17 AM [facility] Hemoglobin 12.0 11.5 - 16.0 g/dL LAB HEMETOLOGY METHOD 11/12/2024 11:17 AM [facility] Hematocrit 36.1 35.0 - 47.0 % LAB HEMETOLOGY METHOD 11/12/2024 11:17 AM [facility] MCV 88.5 79.0 - 98.0 FL LAB HEMETOLOGY METHOD 11/12/2024 11:17 AM [facility] MCH 29.4 27.0 - 32.0 pcg LAB HEMETOLOGY METHOD 11/12/2024 11:17 AM [facility] MCHC 33.2 32.0 - 37.0 g/dL LAB HEMETOLOGY METHOD 11/12/2024 11:17 AM [facility] RDW 12.8 11.0 - 15.0 % LAB HEMETOLOGY METHOD 11/12/2024 11:17 AM [facility] Platelets 350 130 - 400 K/mcL LAB HEMETOLOGY METHOD 11/12/2024 11:17 AM [facility] MPV 10.0 7.0 - 11.0 FL LAB HEMETOLOGY METHOD 11/12/2024 11:17 AM [facility] NRBC 0.0 <1.0 % LAB HEMETOLOGY METHOD 11/12/2024 11:17 AM [facility] NRBC Absolute 0.00 <0.10 K/mcL LAB HEMETOLOGY METHOD 11/12/2024 11:17 AM [facility] Neutrophils Relative 62.2 % LAB HEMETOLOGY METHOD 11/12/2024 11:17 AM [facility] Lymphocytes Relative 18.5 % LAB HEMETOLOGY METHOD 11/12/2024 11:17 AM [facility] Monocytes Relative 13.8 % LAB HEMETOLOGY METHOD 11/12/2024 11:17 AM [facility] Eosinophils Relative 4.4 % LAB HEMETOLOGY METHOD 11/12/2024 11:17 AM [facility] Basophils Relative 0.6 % LAB HEMETOLOGY METHOD 11/12/2024 11:17 AM [facility] Immature Granulocytes Relative 0.5 % LAB HEMETOLOGY METHOD 11/12/2024 11:17 AM [facility] Neutrophils Absolute 4.97 1.50 - 7.00 K/mcL LAB HEMETOLOGY METHOD 11/12/2024 11:17 AM [facility] Lymphocytes Absolute 1.48 1.00 - 5.00 K/mcL LAB HEMETOLOGY METHOD 11/12/2024 11:17 AM [facility] Monocytes Absolute 1.10(H) 0.20 - 1.00 K/mcL LAB HEMETOLOGY METHOD 11/12/2024 11:17 AM [facility] Eosinophils Absolute 0.35 0.00 - 0.50 K/[facility] LAB HEMETOLOGY METHOD 11/12/2024 11:17 AM EST [facility] Basophils Absolute 0.05 0.00 - 0.20 K/[facility] LAB HEMETOLOGY METHOD 11/12/2024 11:17 AM EST [facility] Immature Granulocytes Absolute 0.04(H) 0.00 - 0.03 K/[facility] LAB HEMETOLOGY METHOD 11/12/2024 11:17 AM EST [facility] Blood Venous blood specimen / Unknown Venipuncture / Unknown 11/12/2024 6:36 AM EST 11/12/2024 10:54 AM EST us Jailyn Marquez MD LAB BLOOD ORDERABLES Final Resu lt [facility] [address] [place] [address], documented in this encounter Visit Diagnoses Diagnosis Encounter for other general examination Encounter for screening mammogram for breast cancer documented in this encounter Additional Health Concerns Assessment Noted Time PHQ-9 Depression Total Score: 0 09/02/20 24 1:48 PM EST documented as of this encounter Care Teams Analyst Microbiology Lab Relationship Specialty Start Date End Date Nicole Caro MD [address] [place] [address] PCP - General Internal Medicine 02/09/21 documented as of this encounter
== END 2024-11-21 13:36 | disposition home or self-care (01) ==
LOC: HO.HOS 12:47
PROVIDERS: PCP Internal Medicine; Visit Provider Physician Assistant
DX: Z96.651 Presence of right artificial knee joint (principal)
CPT/HCPCS: 99024

== ENCOUNTER → 2024-11-21 12:47 | Outpatient (BNVA) | payer MEDICARE, OTHER, SELFPAY | PROVIDERS: PCP Internal Medicine; Visit Provider Physician Assistant | DX: Z47.1 Aftercare following joint replacement surgery (principal); Z96.651 Presence of right artificial knee joint | CPT/HCPCS: 99212 ==

== ENCOUNTER 2024-12-12 11:44 | Outpatient (REF) | payer MEDICARE, OTHER, SELFPAY ==
--- NOTE | ~2024-12-12 | XR_ITS ---
EXAMINATION: XR KNEE 3 VIEWS RIGHT HISTORY: M25.561 - Pain in right knee COMPARISON: Comparison is made with the prior examination dated 10/31/2024. FINDINGS: Standing AP views of both knees and additional lateral and sunrise patellar views of the right knee are submitted. The patient is status post total knee arthroplasty. The orthopedic elements are in anatomic alignment. There is no radiographic evidence of loosening. There is no fracture or dislocation. The soft tissues are unremarkable. There is no joint effusion. XR/XR knee RT 3V IMPRESSION: Status post right total knee arthroplasty. Electronically signed by: Toney Reyes MD 12/13/2024 03:28 PM EDT
--- OUTSIDE RECORDS SUMMARY | 2024-12-12 13:05 | XMS_ITS ---
Author Organization [facility] [address] [place] [address] [place] [phone] Phone Care Team Providers Care Bruise Trimmer Name Role Phone Nicole Caro MD Primary Care Provider [phone] Transitional Care Management Status:Ongoing (Active) Start date:11/17/2024 Enrollment date:11/17/2024 Enrollment reason:Identified using hospital discharge data Case Team Name Relationship Phone Acosta Ames LPN Care Manager(Responsible Staff) Continued Care and Services Coordination
--- OUTSIDE RECORDS SUMMARY | 2024-12-12 13:05 | XMS_ITS | Clinical Summary ---
Author Organization [facility] [address] [place] [address] [place] [phone] Phone Care Team Providers Care Epic Director Name Role Phone Nicole Caro MD Primary Care Provider [phone] Allergies Active Allergy Reactions Criticality Noted Date Comments Iodinated Contrast Media 09/02/2005 Sulfa (Sulfonamide Antibiotics) 08/12 Medications amoxicillin (AMOXIL) 500 mg capsule Take 4 Capsules by mouth once as needed. 1 hr prior to Dental exams Active prednisoLONE acetate (PRED FORTE) 1 % ophthalmic suspension Place 1 Drop into the right eye daily. 05/29/20 24 Active hydroCHLOROthi azide (HYDRODIURIL) 25 mg tablet TAKE 1 TABLET BY MOUTH DAILY 90 tablet 1 08/16/20 24 Active amLODIPine (NORVASC) 10 mg tablet TAKE 1 TABLET BY MOUTH DAILY 90 tablet 1 08/16/20 24 Active apixaban (ELIQUIS) 5 mg tablet Take 1 tablet (5 mg total) by mouth 2 (two) times a day. Active atorvastatin (LIPITOR) 20 mg tablet Take 1 tablet (20 mg total) by mouth at bedtime. Active metoprolol succinate (TOPROL-XL) 25 mg 24 hr tablet Take 1 tablet (25 mg total) by mouth 1 (one) time each day. Do not crush or chew. Active potassium chloride (KLOR-CON M20) 20 mEq CR tablet Take 1 tablet (20 mEq total) by mouth 1 (one) time each day. Tablet may be swallowed whole (do not crush/chew/suc k on) OR broken in half and each half swallowed separately OR dissolved (whole tablet) in ~4 ounces of water (allow ~2 minutes to dissolve, stir well and administer immediately). 90 each 1 11/27/19 25 Active dronedarone (MULTAQ) 400 mg tablet Take 1 tablet (400 mg total) by mouth 2 (two) times a day with meals. 025 Discontinued Active Problems Problem Noted Date Diagnosed Date Status post total right knee replacement 025 Overview (11/26/2024): 11/05; previous left TKR Atrial fibrillation 09/03/2024 Overview (09/03/2024): Cardioversion 09/03 [...] Encounters Date Type Department Care Team Description 12/09/2024 Billing Patient Not Present Adult Medicine [address] [phone] Nicole Caro MD 11/26/2024 10:30 AM EDT Office Visit Adult Medicine [address] [address] Nicole Caro MD Essential hypertension, benign (Primary Dx); Pure hypercholesterolemia ; Chronic atrial fibrillation (CMS/HCC); Hypokalemia; Status post total right knee replacement 11/14/[address] [address] Nicole Caro MD Hospital Follow-up 11/12/2024 Lab Requisition [facility] Lab [address] [place] [phone] Jailyn Marquez MD Encounter for other general examination 11/12/2024 Lab Requisition [facility] Lab [address] [place] [phone] Jailyn Marquez MD Encounter for other general examination 11/09/2024 Lab Requisition [facility] Lab [address] [place] [phone] Jailyn Marquez MD Encounter for other general examination 11/08/2024 Lab Requisition [facility] Lab [address] [place] [phone] Jailyn Marquez MD Encounter for other general examination from Last 3 Months Immunizations Name Administration [...] cyst - benign COLONOSCOPY W/ BIOPSIES 07/31/[address] [facility] [address] Motta - 1 hyperplastic polyp. rpt 10 yrs OTHER SURGICAL HISTORY 07/17/2017 tics; repeat in ten years, if healthy (optional) TONSILLECTOMY SCREENING MAMMOGRAM 05/03/2024 Bilateral TOTAL KNEE ARTHROPLASTY 11/06/2024 Right Medical History Medical History Date Comments Diverticulosis [...] care for your loved ones. For example, registered nurse maternal child or elderly care for an older adult? [...] Sign Reading Time Taken Comments Blood Pressure 106/60 11/26/2024 10:28 AM EDT Pulse 53 11/26/2024 10:28 AM EDT Temperature 36.3 ??C (97.3 ??F) 11/26/2024 10:28 AM E DT Respiratory Rate 14 11/26/2024 10:28 AM EDT Oxygen Saturation 96% 11/26/2024 10:28 AM EDT Inhaled Oxygen Concentration - - Weight 82 kg (180 lb 11.2 oz) 11/26/2024 10:28 A M EDT Height 172.7 cm (5' 8 ) 11/26/2024 10:28 AM EDT Body Mass Index 27.48 11/26/2024 10:28 AM EDT Plan of Treatment Upcoming Encounters Date Type Department Care Team (Late st Contact Info) Description 05/09/2025 9:50 AM EDT Appointment Radiology Department - [address] [phone] 06/03/2025 11:00 AM EDT Office Visit Adult Medicine [address] [phone] Nciole Caro MD [address] [place] [phone] Health Maintenance Due Date Last Done Comments Pneumococcal Vaccine: 50+ Years (1 of 2 - PCV) 1969 Zoster Vaccines (1 of 2) 1969 RSV Immunization Adult Patients (1 - Risk 60-74 years 1-dose series) 2010 Falls Risk Assessment 08/20/2022 COVID-19 Vaccine ( season) 2024 06/29/2022, 06/29/2022, 08/27/2021, Additional history exists Breast Cancer Screening 05/03/2025 05/03/20 24, 05/03/2024, 04/26/2023, Additional history exists Influenza Vaccine (Season Ended) 2025 Medicare Annual Wellness Visit 05/29/2025 05/29/2024 Depression Screening 09/02/2025 09/02/2024, 05/29/20 Social Influencers of Health Screening 09/02/2025 09/02/2024 Hypertension/CHF/CAD Annual BMP Blood Test 11/26/2025 11/26/2024, 11/12/2024, 11/09/2024, Additional history exists Colorectal Cancer Screening: Colonoscopy [...] Associated Diagnosis Comments BASIC METABOLIC PANEL Routine 11/26/2024 11:22 AM EDT Hypokalemia MAGNESIUM Routine 11/12/2024 3:22 PM EST Encounter [...] Routine 10/07/2024 10:09 AM EST Pure hypercholesterolemia HM DEPRESSION SCREENING Routine 05/29/2024 SCREENING MAMMOGRAPHY BI 2-VIEW BREAST INC CAD Routine 05/03/2024 9:44 AM EDT Encounter for screening mammogram for malignant neoplasm of breast DXA BONE DENSITY STUDY 1+ SITS AXIAL SKEL Routine 11/21/2022 9:29 AM EDT Disorder of bone, unspecified Disorder of cartilage, unspecified HM COLONOSCOPY Routine 07/17/2017 HEPATITIS C SCREENING Routine 10/01/2013 from Last 3 Months or Most Recently Relevant to Health Maintenance Results * (ABNORMAL) Basic metabolic panel (11/26/2024 11:22 AM EDT) Only the most recent of3 resultswithin the time period is included. Sodium 136 133 - 145 mmol/L LAB CHEMISTRY METHOD 11/26/2024 3:22 PM [facility] Potassium 4.2 3.5 - 5.5 mmol/L LAB CHEMISTRY METHOD 11/26/2024 3:22 PM [facility] Chloride 100 96 - 110 mmol/L LAB CHEMISTRY METHOD 11/26/2024 3:22 PM [facility] CO2 27 21 - 32 mmol/L LAB CHEMISTRY METHOD 11/26/2024 3:22 PM [facility] Anion Gap 9 3 - 11 LAB CHEMISTRY METHOD 11/26/2024 3:22 PM [facility] Glucose 130(H) 70 - 100 mg/dL LAB CHEMISTRY METHOD 11/26/2024 3:22 PM [facility] BUN 8 5 - 25 mg/dL LAB CHEMISTRY METHOD 11/26/2024 3:22 PM [facility] Creatinine 0.68 0.50 - 1.10 mg/dL LAB CHEMISTRY METHOD 11/26/2024 3:22 PM [facility] eGFR 92 >=60 mL/min/1. 73m2 LAB CHEMISTRY METHOD 11/26/2024 3:22 PM [facility] Comment:Calculation based on the??Chronic Kidney Disease Epidemiology Collaboration (CKD-EPI) equation refit??without adjustment for race. BUN/Creatinine Ratio 11.8 LAB CHEMISTRY METHOD 11/26/2024 3:22 PM [facility] Calcium 10.1 8.5 - 10.5 mg/dL LAB CHEMISTRY METHOD 11/26/2024 3:22 PM [facility] Blood Venous blood specimen / Unknown Venipuncture / Unknown 11/26/2024 11:22 AM EDT 11/26/2024 11:22 AM EDT Nicole Caro MD LAB BLOOD ORDERABLES Final Resul t Performing Organization Address City/[facility]/ZIP Co de Phone Number [facility] [address] [place] [address], [place] [phone] * Magnesium (11/12/2024 3:22 PM EST) Only the most recent of2 resultswithin the time period is included. Magnesium 2.0 1.9 - 2.6 mg/dL LAB CHEMISTRY METHOD 11/12/2024 5:02 PM [facility] Blood Venous blood specimen / Unknown Venipuncture / Unknown 11/12/2024 3:22 PM EST 11/12/2024 4:11 PM EST Jailyn Marquez MD LAB BLOOD ORDERABLES Final Resu lt Performing Organization Address [facility]/ZIP Co de Phone Number [facility] [address] [place] [address], [place] [phone] * (ABNORMAL) Comprehensive metabolic panel (11/12/2024 3:22 PM EST) Only the most recent of2 resultswithin the time period is included. Sodium 138 133 - 145 mmol/L LAB CHEMISTRY METHOD 11/12/2024 5:06 PM [facility] Potassium 3.5 3.5 - 5.5 mmol/L LAB CHEMISTRY METHOD 11/12/2024 5:06 PM [facility] Chloride 102 96 - 110 mmol/L LAB CHEMISTRY METHOD 11/12/2024 5:06 PM [facility] CO2 25 21 - 32 mmol/L LAB CHEMISTRY METHOD 11/12/2024 5:06 PM [facility] Anion Gap 11 3 - 11 LAB CHEMISTRY METHOD 11/12/2024 5:06 PM [facility] Glucose 108(H) 70 - 100 mg/dL LAB CHEMISTRY METHOD 11/12/2024 5:06 PM [facility] BUN 12 5 - 25 mg/dL LAB CHEMISTRY METHOD 11/12/2024 5:06 PM [facility] Creatinine 0.53 0.50 - 1.10 mg/dL LAB CHEMISTRY METHOD 11/12/2024 5:06 PM [facility] eGFR 97 >=60 mL/min/1. 73m2 LAB CHEMISTRY METHOD 11/12/2024 5:06 PM [facility] Comment:Calculation based on the??Chronic Kidney Disease Epidemiology Collaboration (CKD-EPI) equation refit??without adjustment for race. BUN/Creatinine Ratio 22.6 LAB CHEMISTRY METHOD 11/12/2024 5:06 PM [facility] Calcium 9.3 8.5 - 10.5 mg/dL LAB CHEMISTRY METHOD 11/12/2024 5:06 PM [facility] AST (SGOT) 46(H) 10 - 42 unit/L LAB CHEMISTRY METHOD 11/12/2024 5:06 PM [facility] ALT (SGPT) 65(H) 10 - 60 unit/L LAB CHEMISTRY METHOD 11/12/2024 5:06 PM [facility] Alkaline Phosphatase 114 42 - 121 unit/L LAB CHEMISTRY METHOD 11/12/2024 5:06 PM [facility] Total Protein 6.5 6.0 - 8.0 g/dL LAB CHEMISTRY METHOD 11/12/2024 5:06 PM [facility] Albumin 2.9(L) 3.2 - 5.0 g/dL LAB CHEMISTRY METHOD 11/12/2024 5:06 PM [facility] Total Bilirubin 1.5(H) 0.0 - 1.4 mg/dL LAB CHEMISTRY METHOD 11/12/2024 5:06 PM [facility] Blood Venous blood specimen / Unknown Venipuncture / Unknown 11/12/2024 3:22 PM EST 11/12/2024 4:11 PM EST us Jailyn Marquez MD LAB BLOOD ORDERABLES Final Resu lt [facility] [address] [place] [address], * (ABNORMAL) CBC auto differential (11/12/2024 6:36 AM EST) Only the most recent of3 resultswithin the time period is included. WBC 8.0 4.8 - 10.8 K/mcL LAB HEMETOLOGY METHOD 11/12/2024 11:17 AM [facility] RBC 4.10 3.80 - 4.80 M/mcL LAB HEMETOLOGY METHOD 11/12/2024 11:17 AM [facility] Hemoglobin 12.0 11.5 - 16.0 g/dL LAB HEMETOLOGY METHOD 11/12/2024 11:17 AM [facility] Hematocrit 36.1 35.0 - 47.0 % LAB HEMETOLOGY METHOD 11/12/2024 11:17 AM [facility] MCV 88.5 79.0 - 98.0 FL LAB HEMETOLOGY METHOD 11/12/2024 11:17 AM [facility] MCH 29.4 27.0 - 32.0 pcg LAB HEMETOLOGY METHOD 11/12/2024 11:17 AM [facility] MCHC 33.2 32.0 - 37.0 g/dL LAB HEMETOLOGY METHOD 11/12/2024 11:17 AM [facility] RDW 12.8 11.0 - 15.0 % LAB HEMETOLOGY METHOD 11/12/2024 11:17 AM [facility] Platelets 350 130 - 400 K/mcL LAB HEMETOLOGY METHOD 11/12/2024 11:17 AM [facility] MPV 10.0 7.0 - 11.0 FL LAB HEMETOLOGY METHOD 11/12/2024 11:17 AM [facility] NRBC 0.0 <1.0 % LAB HEMETOLOGY METHOD 11/12/2024 11:17 AM [facility] NRBC Absolute 0.00 <0.10 K/mcL LAB HEMETOLOGY METHOD 11/12/2024 11:17 AM [facility] Neutrophils Relative 62.2 % LAB HEMETOLOGY METHOD 11/12/2024 11:17 AM [facility] Lymphocytes Relative 18.5 % LAB HEMETOLOGY METHOD 11/12/2024 11:17 AM [facility] Monocytes Relative 13.8 % LAB HEMETOLOGY METHOD 11/12/2024 11:17 AM [facility] Eosinophils Relative 4.4 % LAB HEMETOLOGY METHOD 11/12/2024 11:17 AM [facility] Basophils Relative 0.6 % LAB HEMETOLOGY METHOD 11/12/2024 11:17 AM [facility] Immature Granulocytes Relative 0.5 % LAB HEMETOLOGY METHOD 11/12/2024 11:17 AM [facility] Neutrophils Absolute 4.97 1.50 - 7.00 K/mcL LAB HEMETOLOGY METHOD 11/12/2024 11:17 AM [facility] Lymphocytes Absolute 1.48 1.00 - 5.00 K/mcL LAB HEMETOLOGY METHOD 11/12/2024 11:17 AM [facility] Monocytes Absolute 1.10(H) 0.20 - 1.00 K/mcL LAB HEMETOLOGY METHOD 11/12/2024 11:17 AM [facility] Eosinophils Absolute 0.35 0.00 - 0.50 K/mcL LAB HEMETOLOGY METHOD 11/12/2024 11:17 AM EST [facility] Basophils Absolute 0.05 0.00 - 0.20 K/[facility] LAB HEMETOLOGY METHOD 11/12/2024 11:17 AM [facility] Immature Granulocytes Absolute 0.04(H) 0.00 - 0.03 K/[facility] LAB HEMETOLOGY METHOD 11/12/2024 11:17 AM EST [facility] Blood Venous blood specimen / Unknown Venipuncture / Unknown 11/12/2024 6:36 AM EST 11/12/2024 10:54 AM EST us Jailyn Marquez MD LAB BLOOD ORDERABLES Final Resu lt [facility] [address] [place] [address], * (ABNORMAL) Lipid panel with reflex to direct LDL (10/07/2024 10:09 AM EST) Cholesterol 201(H) 0 - 200 mg/dL LAB CHEMISTRY METHOD 10/07/2024 3:24 PM [facility] Triglycerides 88 0 - 150 mg/dL LAB CHEMISTRY METHOD 10/07/2024 3:24 PM [facility] HDL 90 >=40 mg/dL LAB CHEMISTRY METHOD 10/07/2024 3:24 PM [facility] LDL Calculated 93 0 - 100 mg/dL LAB CHEMISTRY METHOD 10/07/2024 3:24 PM [facility] VLDL Cholesterol Ken 17.6 mg/dL LAB CHEMISTRY METHOD 10/07/2024 3:24 PM [facility] Non HDL Chol. (LDL+VLDL) 111 <145 mg/dL LAB CHEMISTRY METHOD 10/07/2024 3:24 PM [facility] Chol/HDL Ratio 2.2 0.0 - 4.4 LAB CHEMISTRY METHOD 10/07/2024 3:24 PM EST [facility] Blood Venous blood specimen / Unknown Venipuncture / Unknown 10/07/2024 10:09 AM EST 10/07/2024 10:09 AM EST us Nicole Caro MD LAB BLOOD ORDERABLES Final Resul t [facility] [address] [place] [address], * Depression Screening (05/29/2024) Depression Screening abstracted us Historical Provider HEALTH MAINTENANCE Final Result * [...] 20%) Nicole Caro MD IMG XR PROCEDURES Final Result * DXA BONE DENSITY STUDY 1+ SITS AXIAL SKEL (11/21/2022 9:29 AM EDT) Anatomical Region Laterality Modality Bone Densitometr y 10/06/2022 12:1 0 PM EST Narrative 11/22/2022 2:01 PM EDT Clinical history: menopausal/postmenopausal disorder Scans of the lumbar spine and hips were performed on a [employer] fan beam bone densitometer. ? Bone mineral [...] spine and hips were performed on a [employer] beam bone densitometer. Bone mineral density measurements [...] PROCEDURES Final Resu lt * Colonoscopy (07/17/2017) [facility] Colonoscopy abstracted, no interpretation Anatomical Region Laterality Modality Other Historical Provider HEALTH MAINTENANCE Final Result * Hepatitis C Screening (10/01/2013) [facility] Hepatitis C Screening abstracted Historical Provider HEALTH MAINTENANCE Final Result from Last 3 Months or Most Recently Relevant to Health Maintenance Insurance MEDICARE [facility] Care Teams Epic Director Relationship Specialty Start Date End Date Nicole Caro MD [address] [place] [address] PCP - General Internal Medicine 02/09/21
--- OUTSIDE RECORDS SUMMARY | 2024-12-12 13:05 | XMS_ITS | Encounter Summary ---
Author Organization [facility] Address [address] [place] [address] Care Team Providers Care E Commerce Solution Architect Name Role Phone Nicole Caro MD Primary Care Provider [phone] Encounter Details Date Type Department Care Team ([facility] st Contact Info) Description 12/09/2024 Billing Patient Not Present Adult Medicine [facility] [address] [place] [address] Nicole Caro MD [address] [place] [address] Social History Tobacco Use Types Packs/Day Years [...] care for your loved ones. For example, childcare teacher or elderly care for an older [...] as of this encounter Progress Notes * Shelby Justin MA - 12/09/2024 11:03 AM EDT SIGNED SCANNED AND E-FAXED documented in this encounter Plan of Treatment Upcoming Encounters Date Type Department Care Team (Late st Contact Info) Description 05/09/2025 9:50 AM EDT Appointment Radiology Department - [place] [address] [place], [place] [phone] 06/03/2025 11:00 AM EDT Office Visit Adult Medicine [address] [phone] Nicole Caro MD [address] [place] [address] documented as of this encounter Visit Diagnoses Not on filedocumented in this encounter Additional Health Concerns Assessment Noted Time PHQ-9 Depression Total Score: 0 09/02/20 24 1:48 PM EST documented as of this encounter Care Teams E Commerce Solution Architect Relationship Specialty Start Date End Date Nicole Caro MD [address] [place] [address] PCP - General Internal Medicine 02/09/21 documented as of this encounter
--- OUTSIDE RECORDS SUMMARY | 2024-12-12 13:05 | XMS_ITS | Encounter Summary ---
Author Organization [facility] Address [address] [place] [address] Care Team Providers Care Car Dropper Name Role Phone Nicole Caro MD Primary Care Provider [phone] Encounter Details Date Type Department Care Team ([facility] st Contact Info) Description 11/09/2024 Lab Requisition [facility] - Main Lab [address] [facility] [place] [address] Jailyn Marquez MD [address] [place] [address] Encounter for other general examination Social History [...] care for your loved ones. For example, healthcare administrator or elderly care for an older adult? [...] 05/09/2025 9:50 AM EDT Appointment Radiology Department [address] [phone] 06/03/2025 11:00 AM EDT Office Visit Adult Medicine [address] [phone] Nicole Caro MD [address] [place] [address] documented as of this encounter Procedures Procedure Name Priority Date/Time Associated Diagnosis Comments BASIC METABOLIC PANEL Routine 11/09/2024 7:15 AM EST Encounter for other general examination documented in this encounter Results * (ABNORMAL) Basic metabolic panel (11/09/2024 7:15 AM EST) Sodium 142 133 - 145 mmol/L LAB CHEMISTRY METHOD 11/09/2024 12:[address] [facility] Potassium 4.0 3.5 - 5.5 mmol/L LAB CHEMISTRY METHOD 11/09/2024 12:[address] [facility] Chloride 107 96 - 110 mmol/L LAB CHEMISTRY METHOD 11/09/2024 12:[address] [facility] CO2 27 21 - 32 mmol/L LAB CHEMISTRY METHOD 11/09/2024 12:[address] [facility] Anion Gap 8 3 - 11 LAB CHEMISTRY METHOD 11/09/2024 12:[address] [facility] Glucose 93 70 - 100 mg/dL LAB CHEMISTRY METHOD 11/09/2024 12:[address] [facility] BUN 8 5 - 25 mg/dL LAB CHEMISTRY METHOD 11/09/2024 12:[address] [facility] Creatinine 0.46(L) 0.50 - 1.10 mg/dL LAB CHEMISTRY METHOD 11/09/2024 12:[address] [facility] eGFR 101 >=60 mL/min/1. 73m2 LAB CHEMISTRY METHOD 11/09/2024 12:[address] [facility] Comment:Calculation based on the??Chronic Kidney Disease Epidemiology Collaboration (CKD-EPI) equation refit??without adjustment for race. BUN/Creatinine Ratio 17.4 LAB CHEMISTRY METHOD 11/09/2024 12:[address] [facility] Calcium 8.8 8.5 - 10.5 mg/dL LAB CHEMISTRY METHOD 11/09/2024 12:20 PM EST [facility] Blood Venous blood specimen / Unknown Venipuncture / Unknown 11/09/2024 7:15 AM EST 11/09/2024 10:49 AM EST us Jailyn Marquez MD LAB BLOOD ORDERABLES Final Resu lt [facility] [address] [place] [address], documented in this encounter Visit Diagnoses Diagnosis Encounter for other general examination Encounter for screening mammogram for breast cancer documented in this encounter Additional Health Concerns Assessment Noted Time PHQ-9 Depression Total Score: 0 09/02/20 24 1:48 PM EST documented as of this encounter Care Teams Car Dropper Relationship Specialty Start Date End Date Nicole Caro MD [address] [place] [address] PCP - General Internal Medicine 02/09/21 documented as of this encounter
--- OUTSIDE RECORDS SUMMARY | 2024-12-12 13:05 | XMS_ITS | Encounter Summary ---
Author Organization [facility] Address [address] [place] [address] Care Team Providers Care Human Service Technician Name Role Phone Nicole Caro MD Primary Care Provider [phone] Encounter Details Date Type Department Care Team ([facility] st Contact Info) Description 11/08/2024 Lab Requisition [facility] - Main Lab 299 [facility] [place] [address] Jailyn Marquez MD [address] [place] [address] Encounter for other general examination Social History [...] care for your loved ones. For example, early childhood educator aide or elderly care for an older adult? [...] 05/09/2025 9:50 AM EDT Appointment Radiology Department [address] [phone] 06/03/2025 11:00 AM EDT Office Visit Adult Medicine [address] [phone] Nicole Caro MD [address] [place] [address] documented as of this encounter Procedures Procedure [...] K/mcL LAB HEMETOLOGY METHOD 11/08/2024 11:16 AM [facility] RBC 4.10 3.80 - 4.80 M/mcL LAB HEMETOLOGY METHOD 11/08/2024 11:16 AM [facility] Hemoglobin 11.9 11.5 - 16.0 g/dL LAB HEMETOLOGY METHOD 11/08/2024 11:16 AM [facility] Hematocrit 36.2 35.0 - 47.0 % LAB HEMETOLOGY METHOD 11/08/2024 11:16 AM [facility] MCV 89.4 79.0 - 98.0 FL LAB HEMETOLOGY METHOD 11/08/2024 11:16 AM [facility] MCH 29.4 27.0 - 32.0 pcg LAB HEMETOLOGY METHOD 11/08/2024 11:16 AM [facility] MCHC 32.9 32.0 - 37.0 g/dL LAB HEMETOLOGY METHOD 11/08/2024 11:16 AM [facility] RDW 13.3 11.0 - 15.0 % LAB HEMETOLOGY METHOD 11/08/2024 11:16 AM [facility] Platelets 290 130 - 400 K/mcL LAB HEMETOLOGY METHOD 11/08/2024 11:16 AM [facility] MPV 10.3 7.0 - 11.0 FL LAB HEMETOLOGY METHOD 11/08/2024 11:16 AM [facility] NRBC 0.0 <1.0 % LAB HEMETOLOGY METHOD 11/08/2024 11:16 AM [facility] NRBC Absolute 0.00 <0.10 K/mcL LAB HEMETOLOGY METHOD 11/08/2024 11:16 AM [facility] Neutrophils Relative 64.4 % LAB HEMETOLOGY METHOD 11/08/2024 11:16 AM [facility] Lymphocytes Relative 20.7 % LAB HEMETOLOGY METHOD 11/08/2024 11:16 AM [facility] Monocytes Relative 13.6 % LAB HEMETOLOGY METHOD 11/08/2024 11:16 AM [facility] Eosinophils Relative 0.5 % LAB HEMETOLOGY METHOD 11/08/2024 11:16 AM [facility] Basophils Relative 0.4 % LAB HEMETOLOGY METHOD 11/08/2024 11:16 AM [facility] Immature Granulocytes Relative 0.4 % LAB HEMETOLOGY METHOD 11/08/2024 11:16 AM [facility] Neutrophils Absolute 6.01 1.50 - 7.00 K/mcL LAB HEMETOLOGY METHOD 11/08/2024 11:16 AM [facility] Lymphocytes Absolute 1.93 1.00 - 5.00 K/mcL LAB HEMETOLOGY METHOD 11/08/2024 11:16 AM [facility] Monocytes Absolute 1.27(H) 0.20 - 1.00 K/mcL LAB HEMETOLOGY METHOD 11/08/2024 11:16 AM EST [facility] Eosinophils Absolute 0.05 0.00 - 0.50 K/[facility] LAB HEMETOLOGY METHOD 11/08/2024 11:16 AM EST [facility] Basophils Absolute 0.04 0.00 - 0.20 K/[facility] LAB HEMETOLOGY METHOD 11/08/2024 11:16 AM EST [facility] Immature Granulocytes Absolute 0.04(H) 0.00 - 0.03 K/[facility] LAB HEMETOLOGY METHOD 11/08/2024 11:16 AM EST [facility] Blood Venous blood specimen / Unknown Venipuncture / Unknown 11/08/2024 6:20 AM EST 11/08/2024 10:11 AM EST Jailyn Marquez MD LAB BLOOD ORDERABLES Final Resu lt Performing Organization Address City/[facility]/ZIP Co de Phone Number [facility] [address] [place] [address], [place] [phone] * Magnesium (11/08/2024 6:20 AM EST) Pathologist [facility] Magnesium 1.9 1.9 - 2.6 mg/dL LAB CHEMISTRY METHOD 11/08/2024 1:36 PM EST [facility] Blood Venous blood specimen / Unknown Venipuncture / Unknown 11/08/2024 6:20 AM EST 11/08/2024 10:11 AM EST us Jailyn Marquez MD LAB BLOOD ORDERABLES Final Resu lt [facility] [address] [place] [address], [place] [phone] * (ABNORMAL) Comprehensive metabolic panel (11/08/2024 6:20 AM EST) Sodium 139 133 - 145 mmol/L LAB CHEMISTRY METHOD 11/08/2024 3:07 PM [facility] Potassium 3.3(L) 3.5 - 5.5 mmol/L LAB CHEMISTRY METHOD 11/08/2024 3:07 PM [facility] Chloride 105 96 - 110 mmol/L LAB CHEMISTRY METHOD 11/08/2024 3:07 PM [facility] CO2 26 21 - 32 mmol/L LAB CHEMISTRY METHOD 11/08/2024 3:07 PM [facility] Anion Gap 8 3 - 11 LAB CHEMISTRY METHOD 11/08/2024 3:07 PM [facility] Glucose 91 70 - 100 mg/dL LAB CHEMISTRY METHOD 11/08/2024 3:07 PM [facility] BUN 8 5 - 25 mg/dL LAB CHEMISTRY METHOD 11/08/2024 3:07 PM [facility] Creatinine 0.41(L) 0.50 - 1.10 mg/dL LAB CHEMISTRY METHOD 11/08/2024 3:07 PM [facility] eGFR 103 >=60 mL/min/1. 73m2 LAB CHEMISTRY METHOD 11/08/2024 3:07 PM [facility] Comment:Calculation based on the??Chronic Kidney Disease Epidemiology Collaboration (CKD-EPI) equation refit??without adjustment for race. BUN/Creatinine Ratio 19.5 LAB CHEMISTRY METHOD 11/08/2024 3:07 PM [facility] Calcium 8.4(L) 8.5 - 10.5 mg/dL LAB CHEMISTRY METHOD 11/08/2024 3:07 PM [facility] AST (SGOT) 10 10 - 42 unit/L LAB CHEMISTRY METHOD 11/08/2024 3:07 PM [facility] ALT (SGPT) 18 10 - 60 unit/L LAB CHEMISTRY METHOD 11/08/2024 3:07 PM [facility] Alkaline Phosphatase 62 42 - 121 unit/L LAB CHEMISTRY METHOD 11/08/2024 3:07 PM EST [facility] Total Protein 5.8(L) 6.0 - 8.0 g/dL LAB CHEMISTRY METHOD 11/08/2024 3:07 PM EST [facility] Albumin 2.8(L) 3.2 - 5.0 g/dL LAB CHEMISTRY METHOD 11/08/2024 3:07 PM EST [facility] Total Bilirubin 1.0 0.0 - 1.4 mg/dL LAB CHEMISTRY METHOD 11/08/2024 3:07 PM EST [facility] Blood Venous blood specimen / Unknown Venipuncture / Unknown 11/08/2024 6:20 AM EST 11/08/2024 10:11 AM EST us Jailyn Marquez MD LAB BLOOD ORDERABLES Final Resu lt [facility] [address] [place] [address], documented in this encounter Visit Diagnoses Diagnosis Encounter for other general examination Encounter for screening mammogram for breast cancer documented in this encounter Additional Health Concerns Assessment Noted Time PHQ-9 Depression Total Score: 0 09/02/20 24 1:48 PM EST documented as of this encounter Care Teams Human Service Technician Relationship Specialty Start Date End Date Nicole Caro MD [address] [place] [address] PCP - General Internal Medicine 02/09/21 documented as of this encounter
--- OUTSIDE RECORDS SUMMARY | 2024-12-12 13:05 | XMS_ITS | Encounter Summary ---
Author Organization [facility] Address [address] [place] [address] Care Team Providers Care Mobile Home Lot Utility Worker Name Role Phone Nicole Caro MD Primary Care Provider [phone] Encounter Details Date Type Department Care Team ([facility] st Contact Info) Description 11/12/2024 Lab Requisition [facility] - Main Lab [address] [facility] [place] [address] Jailyn Marquez MD [address] [place] [phone] Encounter for other general examination Social History [...] for your loved ones. For example, child protective investigator or elderly care for an older adult? [...] 05/09/2025 9:50 AM EDT Appointment Radiology Department [address] [phone] 06/03/2025 11:00 AM EDT Office Visit Adult Medicine [address] [phone] Nicole Caro MD [address] [place] [address] Scheduled Orders Name Type Priority Associated Diagnoses [...] CBC auto differential (11/12/2024 6:36 AM EST) WBC 8.0 4.8 - 10.8 K/mcL LAB HEMETOLOGY METHOD 11/12/2024 11:17 AM [facility] RBC 4.10 3.80 - 4.80 M/mcL LAB HEMETOLOGY METHOD 11/12/2024 11:17 AM [facility] Hemoglobin 12.0 11.5 - 16.0 g/dL LAB HEMETOLOGY METHOD 11/12/2024 11:17 AM [facility] Hematocrit 36.1 35.0 - 47.0 % LAB HEMETOLOGY METHOD 11/12/2024 11:17 AM [facility] MCV 88.5 79.0 - 98.0 FL LAB HEMETOLOGY METHOD 11/12/2024 11:17 AM [facility] MCH 29.4 27.0 - 32.0 pcg LAB HEMETOLOGY METHOD 11/12/2024 11:17 AM [facility] MCHC 33.2 32.0 - 37.0 g/dL LAB HEMETOLOGY METHOD 11/12/2024 11:17 AM [facility] RDW 12.8 11.0 - 15.0 % LAB HEMETOLOGY METHOD 11/12/2024 11:17 AM [facility] Platelets 350 130 - 400 K/mcL LAB HEMETOLOGY METHOD 11/12/2024 11:17 AM [facility] MPV 10.0 7.0 - 11.0 FL LAB HEMETOLOGY METHOD 11/12/2024 11:17 AM [facility] NRBC 0.0 <1.0 % LAB HEMETOLOGY METHOD 11/12/2024 11:17 AM [facility] NRBC Absolute 0.00 <0.10 K/mcL LAB HEMETOLOGY METHOD 11/12/2024 11:17 AM [facility] Neutrophils Relative 62.2 % LAB HEMETOLOGY METHOD 11/12/2024 11:17 AM [facility] Lymphocytes Relative 18.5 % LAB HEMETOLOGY METHOD 11/12/2024 11:17 AM [facility] Monocytes Relative 13.8 % LAB HEMETOLOGY METHOD 11/12/2024 11:17 AM [facility] Eosinophils Relative 4.4 % LAB HEMETOLOGY METHOD 11/12/2024 11:17 AM [facility] Basophils Relative 0.6 % LAB HEMETOLOGY METHOD 11/12/2024 11:17 AM [facility] Immature Granulocytes Relative 0.5 % LAB HEMETOLOGY METHOD 11/12/2024 11:17 AM [facility] Neutrophils Absolute 4.97 1.50 - 7.00 K/mcL LAB HEMETOLOGY METHOD 11/12/2024 11:17 AM [facility] Lymphocytes Absolute 1.48 1.00 - 5.00 K/mcL LAB HEMETOLOGY METHOD 11/12/2024 11:17 AM [facility] Monocytes Absolute 1.10(H) 0.20 - 1.00 K/mcL LAB HEMETOLOGY METHOD 11/12/2024 11:17 AM EST [facility] Eosinophils Absolute 0.35 0.00 - 0.50 K/mcL LAB HEMETOLOGY METHOD 11/12/2024 11:17 AM EST [facility] Basophils Absolute 0.05 0.00 - 0.20 K/mcL LAB HEMETOLOGY METHOD 11/12/2024 11:17 AM EST [facility] Immature Granulocytes Absolute 0.04(H) 0.00 - 0.03 K/mcL LAB HEMETOLOGY METHOD 11/12/2024 11:17 AM EST [facility] Blood Venous blood specimen / Unknown Venipuncture / Unknown 11/12/2024 6:36 AM EST 11/12/2024 10:54 AM EST us Jailyn Marquez MD LAB BLOOD ORDERABLES Final Resu lt [facility] [address] [place] [address], documented in this encounter Visit Diagnoses Diagnosis Encounter for other general examination Encounter for screening mammogram for breast cancer documented in this encounter Additional Health Concerns Assessment Noted Time PHQ-9 Depression Total Score: 0 09/02/20 24 1:48 PM EST documented as of this encounter Care Teams Mobile Home Lot Utility Worker Relationship Specialty Start Date End Date Nicole Caro MD [address] [place] [address] PCP - General Internal Medicine 02/09/21 documented as of this encounter
--- OUTSIDE RECORDS SUMMARY | 2024-12-12 13:05 | XMS_ITS | Encounter Summary ---
Author Organization [facility] Address [address] [place] [address] Care Team Providers Care Senior Data Mining Analyst Name Role Phone Nicole Caro MD Primary Care Provider [phone] Encounter Details Date Type Department Care Team ([facility] st Contact Info) Description 11/12/2024 Lab Requisition [facility] - Main Lab [address] [facility] [place] [address] Jailyn Marquez MD [address] [place] [address] Encounter for other general examination Social History [...] your loved ones. For example, early childhood education specialist or elderly care for an older adult? [...] 05/09/2025 9:50 AM EDT Appointment Radiology Department [address] [phone] 06/03/2025 11:00 AM EDT Office Visit Adult Medicine [address] [phone] Nicole Caro MD [address] [place] [address] documented as of this encounter Procedures Procedure Name Priority Date/Time Associated Diagnosis Comments MAGNESIUM Routine 11/12/2024 3:22 PM EST Encounter for other general examination COMPREHENSIVE METABOLIC PANEL Routine 11/12/2024 3:22 PM EST Encounter for other general examination documented in this encounter Results * Magnesium (11/12/2024 3:22 PM EST) Magnesium 2.0 1.9 - 2.6 mg/dL LAB CHEMISTRY METHOD 11/12/2024 5:02 PM [facility] Blood Venous blood specimen / Unknown Venipuncture / Unknown 11/12/2024 3:22 PM EST 11/12/2024 4:11 PM EST us Jailyn Marquez MD LAB BLOOD ORDERABLES Final Resu lt [facility] [address] [place] [address], * (ABNORMAL) Comprehensive metabolic panel (11/12/2024 3:22 PM EST) Sodium 138 133 - 145 mmol/L LAB CHEMISTRY METHOD 11/12/2024 5:06 PM [facility] Potassium 3.5 3.5 - 5.5 mmol/L LAB CHEMISTRY METHOD 11/12/2024 5:06 PM [facility] Chloride 102 96 - 110 mmol/L LAB CHEMISTRY METHOD 11/12/2024 5:06 PM [facility] CO2 25 21 - 32 mmol/L LAB CHEMISTRY METHOD 11/12/2024 5:06 PM [facility] Anion Gap 11 3 - 11 LAB CHEMISTRY METHOD 11/12/2024 5:06 PM [facility] Glucose 108(H) 70 - 100 mg/dL LAB CHEMISTRY METHOD 11/12/2024 5:06 PM [facility] BUN 12 5 - 25 mg/dL LAB CHEMISTRY METHOD 11/12/2024 5:06 PM [facility] Creatinine 0.53 0.50 - 1.10 mg/dL LAB CHEMISTRY METHOD 11/12/2024 5:06 PM [facility] eGFR 97 >=60 mL/min/1. 73m2 LAB CHEMISTRY METHOD 11/12/2024 5:06 PM [facility] Comment:Calculation based on the??Chronic Kidney Disease Epidemiology Collaboration (CKD-EPI) equation refit??without adjustment for race. BUN/Creatinine Ratio 22.6 LAB CHEMISTRY METHOD 11/12/2024 5:06 PM [facility] Calcium 9.3 8.5 - 10.5 mg/dL LAB CHEMISTRY METHOD 11/12/2024 5:06 PM [facility] AST (SGOT) 46(H) 10 - 42 unit/L LAB CHEMISTRY METHOD 11/12/2024 5:06 PM [facility] ALT (SGPT) 65(H) 10 - 60 unit/L LAB CHEMISTRY METHOD 11/12/2024 5:06 PM [facility] Alkaline Phosphatase 114 42 - 121 unit/L LAB CHEMISTRY METHOD 11/12/2024 5:06 PM [facility] Total Protein 6.5 6.0 - 8.0 g/dL LAB CHEMISTRY METHOD 11/12/2024 5:06 PM [facility] Albumin 2.9(L) 3.2 - 5.0 g/dL LAB CHEMISTRY METHOD 11/12/2024 5:06 PM [facility] Total Bilirubin 1.5(H) 0.0 - 1.4 mg/dL LAB CHEMISTRY METHOD 11/12/2024 5:06 PM [facility] Blood Venous blood specimen / Unknown Venipuncture / Unknown 11/12/2024 3:22 PM EST 11/12/2024 4:11 PM EST us Jailyn Marquez MD LAB BLOOD ORDERABLES Final Resu lt [facility] [address] [place] [address], documented in this encounter Visit Diagnoses Diagnosis Encounter for other general examination Encounter for screening mammogram for breast cancer documented in this encounter Additional Health Concerns Assessment Noted Time PHQ-9 Depression Total Score: 0 09/02/20 24 1:48 PM EST documented as of this encounter Care Teams Senior Data Mining Analyst Relationship Specialty Start Date End Date Nicole Caro MD [address] [place] [phone] PCP - General Internal Medicine 02/09/21 documented as of this encounter
== END 2024-12-12 11:45 | disposition home or self-care (01) ==
LOC: HO.HOSX 11:44
PROVIDERS: Visit Provider Orthopaedic Surgery
DX: M25.561 Pain in right knee (principal); Z96.651 Presence of right artificial knee joint
CPT/HCPCS: 73562; 99212

== ENCOUNTER 2024-12-12 13:25 | Outpatient (AMB) | payer MEDICARE, OTHER, SELFPAY ==
--- NOTE | 2024-12-12 13:33 | MHC.OFFVIS ---
Vital Signs 12/12/24 13:34 Height 5 ft 8 in Weight 185 lb BMI 28.1 Intake Visit Reasons: 6WK PO: R TKA w/NE 11/06/24 Intake Note: Danna is a 74 year old female who presents today with a walker for a post operative appointment about 6 weeks s/p right total knee arthroplasty 11/06/24 NE Patient reports that she is having some continued pain and swelling. Her swelling is mostly on the medial aspect of the knee. She has some numbness and tingling in the bottom of the foot. She has started out patient therapy which is going well. Allergies Sulfa (Sulfonamide Antibiotics) [SULFA (SULFONAMIDE ANTIBIOTICS)] Allergy (Severe, Verified 11/21/24 12:54) HIVES red dye [RED DYE] Allergy (Intermediate, Verified 11/21/24 12:54) HIVES HPI HPI 6WK PO: R TKA w/NE 11/06/24: Details: This is a 5th is doing well 6 weeks status post right knee replacement. She has occasional swelling and pain but overall feels well. She has some mild numbness in the sole of her right foot that is improving. Her range of motion is approximately 5-110 degrees according to the therapist. [facility] Medical History (Updated 11/08/24 @ 00:01 by Sean Watkins) Basal cell carcinoma Arthritis Elevated cholesterol Osteopenia Hepatic cyst Fuchs' corneal dystrophy of right eye Diverticulosis Schatzki's ring History of cardioversion PAF (paroxysmal atrial fibrillation) Primary osteoarthritis of knees, bilateral Hypertension Surgical History H/O colonoscopy History of basal cell carcinoma (BCC) excision History of esophagogastroduodenoscopy (EGD) Hx of right cataract extraction History of total left knee replacement (TKR) (~03/19/19) Hx of tonsillectomy History of elbow surgery Family History Father No problems noted. Mother No problems noted. Social History Are you a primary manager intensive care unit to a significant other at home: No Do you presently have visiting nurse or other home services: No Alcohol intake: current Alcohol intake frequency: 0-2 drinks per day Comment: advised to remove due to trip hazard Patient Tobacco Use Status: Never used Tobacco service: No Physical Exam Vital Signs: BMI result Body Mass Index 28.1 Extrem Other: Incision clean dry and intact. Range of motion 5-110 degrees. Results Reviewed Results Reviewed: I personally reviewed relevant radiographs. Right total knee arthroplasty in expected post operative position with no hardware complications or evidence of loosening Assessment & Plan Assessment & Plan (1) Status post total knee replacement, right: Code(s): Z96.651 - Presence of right artificial knee joint Category: Surgical Plan: Doing well 6 weeks postop. Follow up 6 weeks. Continue physical therapy with range of motion. Orders: Orders XR knee RT 3V Today M25.561 - Pain in right knee Coding Level of Care Code Global (64971) Diagnoses Status post total knee replacement, right Z96.651
[2024-12-12 13:34] VITALS: BMI 28.1
--- OUTSIDE RECORDS SUMMARY | 2024-12-12 14:39 | XMS_ITS | Encounter Summary ---
Author Organization [facility] Address [address] [place] [address] Care Team Providers Care Academic Intern Name Role Phone Nicole Caro MD Primary Care Provider [phone] Encounter Details Date Type Department Care Team ([facility] st Contact Info) Description 11/08/2024 Lab Requisition [facility] - Main Lab [address] [facility] [place] [address] Jailyn Marquez MD [address] [place] [address] Encounter for other general examination Social History [...] care for your loved ones. For example, director child or elderly care for an older [...] 05/09/2025 9:50 AM EDT Appointment Radiology Department [address] [phone] 06/03/2025 11:00 AM EDT Office Visit Adult Medicine [address] [phone] Nicole Caro MD [address] [place] [address] documented as of this encounter Procedures Procedure [...] K/mcL LAB HEMETOLOGY METHOD 11/08/2024 11:16 AM [facility] RBC 4.10 3.80 - 4.80 M/mcL LAB HEMETOLOGY METHOD 11/08/2024 11:16 AM [facility] Hemoglobin 11.9 11.5 - 16.0 g/dL LAB HEMETOLOGY METHOD 11/08/2024 11:16 AM [facility] Hematocrit 36.2 35.0 - 47.0 % LAB HEMETOLOGY METHOD 11/08/2024 11:16 AM [facility] MCV 89.4 79.0 - 98.0 FL LAB HEMETOLOGY METHOD 11/08/2024 11:16 AM [facility] MCH 29.4 27.0 - 32.0 pcg LAB HEMETOLOGY METHOD 11/08/2024 11:16 AM [facility] MCHC 32.9 32.0 - 37.0 g/dL LAB HEMETOLOGY METHOD 11/08/2024 11:16 AM [facility] RDW 13.3 11.0 - 15.0 % LAB HEMETOLOGY METHOD 11/08/2024 11:16 AM [facility] Platelets 290 130 - 400 K/mcL LAB HEMETOLOGY METHOD 11/08/2024 11:16 AM [facility] MPV 10.3 7.0 - 11.0 FL LAB HEMETOLOGY METHOD 11/08/2024 11:16 AM [facility] NRBC 0.0 <1.0 % LAB HEMETOLOGY METHOD 11/08/2024 11:16 AM [facility] NRBC Absolute 0.00 <0.10 K/mcL LAB HEMETOLOGY METHOD 11/08/2024 11:16 AM [facility] Neutrophils Relative 64.4 % LAB HEMETOLOGY METHOD 11/08/2024 11:16 AM [facility] Lymphocytes Relative 20.7 % LAB HEMETOLOGY METHOD 11/08/2024 11:16 AM [facility] Monocytes Relative 13.6 % LAB HEMETOLOGY METHOD 11/08/2024 11:16 AM [facility] Eosinophils Relative 0.5 % LAB HEMETOLOGY METHOD 11/08/2024 11:16 AM [facility] Basophils Relative 0.4 % LAB HEMETOLOGY METHOD 11/08/2024 11:16 AM [facility] Immature Granulocytes Relative 0.4 % LAB HEMETOLOGY METHOD 11/08/2024 11:16 AM [facility] Neutrophils Absolute 6.01 1.50 - 7.00 K/mcL LAB HEMETOLOGY METHOD 11/08/2024 11:16 AM [facility] Lymphocytes Absolute 1.93 1.00 - 5.00 K/mcL LAB HEMETOLOGY METHOD 11/08/2024 11:16 AM [facility] Monocytes Absolute 1.27(H) 0.20 - 1.00 K/mcL LAB HEMETOLOGY METHOD 11/08/2024 11:[address] [facility] Eosinophils Absolute 0.05 0.00 - 0.50 K/[facility] LAB HEMETOLOGY METHOD 11/08/2024 11:[address] [facility] Basophils Absolute 0.04 0.00 - 0.20 K/[facility] LAB HEMETOLOGY METHOD 11/08/2024 11:16 AM EST [facility] Immature Granulocytes Absolute 0.04(H) 0.00 - 0.03 K/[facility] LAB HEMETOLOGY METHOD 11/08/2024 11:[address] [facility] Blood Venous blood specimen / Unknown Venipuncture / Unknown 11/08/2024 6:20 AM EST 11/08/2024 10:11 AM EST Jailyn Marquez MD LAB BLOOD ORDERABLES Final Resu lt Performing Organization Address City/[facility]/ZIP Co de Phone Number [facility] [address] [place] [address], [place] [phone] * Magnesium (11/08/2024 6:20 AM EST) Pathologist [facility] Magnesium 1.9 1.9 - 2.6 mg/dL LAB CHEMISTRY METHOD 11/08/2024 1:[address] [facility] Blood Venous blood specimen / Unknown Venipuncture / Unknown 11/08/2024 6:20 AM EST 11/08/2024 10:11 AM EST us Jailyn Marquez MD LAB BLOOD ORDERABLES Final Resu lt [facility] [address] [place] [address], [place] [phone] * (ABNORMAL) Comprehensive metabolic panel (11/08/2024 6:20 AM EST) Sodium 139 133 - 145 mmol/L LAB CHEMISTRY METHOD 11/08/2024 3:07 PM [facility] Potassium 3.3(L) 3.5 - 5.5 mmol/L LAB CHEMISTRY METHOD 11/08/2024 3:07 PM [facility] Chloride 105 96 - 110 mmol/L LAB CHEMISTRY METHOD 11/08/2024 3:07 PM [facility] CO2 26 21 - 32 mmol/L LAB CHEMISTRY METHOD 11/08/2024 3:07 PM [facility] Anion Gap 8 3 - 11 LAB CHEMISTRY METHOD 11/08/2024 3:07 PM [facility] Glucose 91 70 - 100 mg/dL LAB CHEMISTRY METHOD 11/08/2024 3:07 PM [facility] BUN 8 5 - 25 mg/dL LAB CHEMISTRY METHOD 11/08/2024 3:07 PM [facility] Creatinine 0.41(L) 0.50 - 1.10 mg/dL LAB CHEMISTRY METHOD 11/08/2024 3:07 PM [facility] eGFR 103 >=60 mL/min/1. 73m2 LAB CHEMISTRY METHOD 11/08/2024 3:07 PM [facility] Comment:Calculation based on the??Chronic Kidney Disease Epidemiology Collaboration (CKD-EPI) equation refit??without adjustment for race. BUN/Creatinine Ratio 19.5 LAB CHEMISTRY METHOD 11/08/2024 3:07 PM [facility] Calcium 8.4(L) 8.5 - 10.5 mg/dL LAB CHEMISTRY METHOD 11/08/2024 3:07 PM [facility] AST (SGOT) 10 10 - 42 unit/L LAB CHEMISTRY METHOD 11/08/2024 3:07 PM [facility] ALT (SGPT) 18 10 - 60 unit/L LAB CHEMISTRY METHOD 11/08/2024 3:07 PM [facility] Alkaline Phosphatase 62 42 - 121 unit/L LAB CHEMISTRY METHOD 11/08/2024 3:[address] [facility] Total Protein 5.8(L) 6.0 - 8.0 g/dL LAB CHEMISTRY METHOD 11/08/2024 3:[address] [facility] Albumin 2.8(L) 3.2 - 5.0 g/dL LAB CHEMISTRY METHOD 11/08/2024 3:[address] [facility] Total Bilirubin 1.0 0.0 - 1.4 mg/dL LAB CHEMISTRY METHOD 11/08/2024 3:[address] [facility] Blood Venous blood specimen / Unknown Venipuncture / Unknown 11/08/2024 6:20 AM EST 11/08/2024 10:11 AM EST us Jailyn Marquez MD LAB BLOOD ORDERABLES Final Resu lt [facility] [address] [place] [address], documented in this encounter Visit Diagnoses Diagnosis Encounter for other general examination Encounter for screening mammogram for breast cancer documented in this encounter Additional Health Concerns Assessment Noted Time PHQ-9 Depression Total Score: 0 09/02/20 24 1:48 PM EST documented as of this encounter Care Teams Academic Intern Relationship Specialty Start Date End Date Nicole Caro MD [address] [place] [address] PCP - General Internal Medicine 02/09/21 documented as of this encounter
--- OUTSIDE RECORDS SUMMARY | 2024-12-12 14:39 | XMS_ITS ---
Author Organization [facility] [address] [place] [address] [place] [phone] Phone Care Team Providers Care [employer] Name Role Phone Nicole Caro MD Primary Care Provider [phone] Transitional Care Management Status:Ongoing (Active) Start date:11/17/2024 Enrollment date:11/17/2024 Enrollment reason:Identified using hospital discharge data Case Team Name Relationship Phone Acosta Ames LPN Care Manager(Responsible Staff) Continued Care and Services Coordination
--- OUTSIDE RECORDS SUMMARY | 2024-12-12 14:39 | XMS_ITS | Clinical Summary ---
Author Organization [facility] [address] [place] [address] [place] [phone] Phone Care Team Providers Care Med Surg Nurse Name Role Phone Nicole Caro MD Primary Care Provider [phone] Allergies Active Allergy Reactions Criticality Noted Date [...] 12/09/2024 Billing Patient Not Present Adult Medicine [address] [phone] Nicole Caro MD 11/26/2024 10:30 AM EDT Office Visit Adult Medicine [address] [phone] Nicole Caro MD Essential hypertension, benign (Primary Dx); Pure hypercholesterolemia ; Chronic atrial fibrillation (CMS/HCC); Hypokalemia; Status post total right knee replacement 11/14/[address] [phone] Nicole Caro MD Hospital Follow-up 11/12/2024 Lab Requisition [facility] [address] [place] [phone] Jailyn Marquez MD Encounter for other general examination 11/12/2024 Lab Requisition [facility] [address] [place] [phone] Jailyn Marquez MD Encounter for other general examination 11/09/2024 Lab Requisition [facility] [address] [place] [phone] Jailyn Marquez MD Encounter for other general examination 11/08/2024 Lab Requisition [facility] [address] [place] [phone] Jailyn Marquez MD Encounter for other general [...] cyst - benign COLONOSCOPY W/ BIOPSIES 07/31/[address] [facility] [address] Motta - 1 hyperplastic polyp. [...] for your loved ones. For example, child psychology teacher or elderly care for an older [...] 9:50 AM EDT Appointment Radiology Department - [address] [phone] 06/03/2025 11:00 AM EDT Office Visit Adult Medicine [address] [phone] Nicole Caro MD [address] [place] [phone] Health Maintenance Due Date Last Done Comments [...] mmol/L LAB CHEMISTRY METHOD 11/26/2024 3:22 PM [facility] Potassium 4.2 3.5 - 5.5 mmol/L LAB CHEMISTRY METHOD 11/26/2024 3:22 PM [facility] Chloride 100 96 - 110 mmol/L LAB CHEMISTRY METHOD 11/26/2024 3:22 PM [facility] CO2 27 21 - 32 mmol/L LAB CHEMISTRY METHOD 11/26/2024 3:22 PM [facility] Anion Gap 9 3 - 11 LAB CHEMISTRY METHOD 11/26/2024 3:22 PM [facility] Glucose 130(H) 70 - 100 mg/dL LAB CHEMISTRY METHOD 11/26/2024 3:22 PM [facility] BUN 8 5 - 25 mg/dL LAB CHEMISTRY METHOD 11/26/2024 3:22 PM [facility] Creatinine 0.68 0.50 - 1.10 mg/dL LAB CHEMISTRY METHOD 11/26/2024 3:22 PM [facility] eGFR 92 >=60 mL/min/1. 73m2 LAB CHEMISTRY METHOD 11/26/2024 3:22 PM [facility] Comment:Calculation based on the??Chronic Kidney Disease Epidemiology Collaboration (CKD-EPI) equation refit??without adjustment for race. BUN/Creatinine Ratio 11.8 LAB CHEMISTRY METHOD 11/26/2024 3:22 PM [facility] Calcium 10.1 8.5 - 10.5 mg/dL LAB CHEMISTRY METHOD 11/26/2024 3:22 PM [facility] Blood Venous blood specimen / Unknown Venipuncture / Unknown 11/26/2024 11:22 AM EDT 11/26/2024 11:22 AM EDT Nicole Caro MD LAB BLOOD ORDERABLES Final Resul t Performing Organization Address City/[facility]/ZIP Co de Phone Number [facility] [address] [place] [address], [place] [phone] * Magnesium (11/12/2024 3:22 PM EST) Only the most recent of2 resultswithin the time period is included. Magnesium 2.0 1.9 - 2.6 mg/dL LAB CHEMISTRY METHOD 11/12/2024 5:[address] [facility] Blood Venous blood specimen / Unknown Venipuncture / Unknown 11/12/2024 3:22 PM EST 11/12/2024 4:11 PM EST Jailyn Marquez MD LAB BLOOD ORDERABLES Final Resu lt Performing Organization Address [facility]/ZIP Co de Phone Number [facility] [address] [place] [address], [place] [phone] * (ABNORMAL) Comprehensive metabolic panel (11/12/2024 3:22 PM EST) Only the most recent of2 resultswithin the time period is included. Sodium 138 133 - 145 mmol/L LAB CHEMISTRY METHOD 11/12/2024 5:[address] [facility] Potassium 3.5 3.5 - 5.5 mmol/L LAB CHEMISTRY METHOD 11/12/2024 5:[address] [facility] Chloride 102 96 - 110 mmol/L LAB CHEMISTRY METHOD 11/12/2024 5:[address] [facility] CO2 25 21 - 32 mmol/L LAB CHEMISTRY METHOD 11/12/2024 5:[address] [facility] Anion Gap 11 3 - 11 LAB CHEMISTRY METHOD 11/12/2024 5:[address] [facility] Glucose 108(H) 70 - 100 mg/dL LAB CHEMISTRY METHOD 11/12/2024 5:[address] [facility] BUN 12 5 - 25 mg/dL LAB CHEMISTRY METHOD 11/12/2024 5:[address] [facility] Creatinine 0.53 0.50 - 1.10 mg/dL LAB CHEMISTRY METHOD 11/12/2024 5:[address] [facility] eGFR 97 >=60 mL/min/1. 73m2 LAB CHEMISTRY METHOD 11/12/2024 5:[address] [facility] Comment:Calculation based on the??Chronic Kidney Disease Epidemiology Collaboration (CKD-EPI) equation refit??without adjustment for race. BUN/Creatinine Ratio 22.6 LAB CHEMISTRY METHOD 11/12/2024 5:[address] [facility] Calcium 9.3 8.5 - 10.5 mg/dL LAB CHEMISTRY METHOD 11/12/2024 5:[address] [facility] AST (SGOT) 46(H) 10 - 42 unit/L LAB CHEMISTRY METHOD 11/12/2024 5:[address] [facility] ALT (SGPT) 65(H) 10 - 60 unit/L LAB CHEMISTRY METHOD 11/12/2024 5:[address] [facility] Alkaline Phosphatase 114 42 - 121 unit/L LAB CHEMISTRY METHOD 11/12/2024 5:[address] [facility] Total Protein 6.5 6.0 - 8.0 g/dL LAB CHEMISTRY METHOD 11/12/2024 5:[address] [facility] Albumin 2.9(L) 3.2 - 5.0 g/dL LAB CHEMISTRY METHOD 11/12/2024 5:[address] [facility] Total Bilirubin 1.5(H) 0.0 - 1.4 mg/dL LAB CHEMISTRY METHOD 11/12/2024 5:[address] [facility] Blood Venous blood specimen / Unknown Venipuncture / Unknown 11/12/2024 3:22 PM EST 11/12/2024 4:11 PM EST us Jailyn Marquez MD LAB BLOOD ORDERABLES Final Resu lt [facility] [address] [place] [address], * (ABNORMAL) CBC auto differential (11/12/2024 6:36 AM EST) Only the most recent of3 resultswithin the time period is included. WBC 8.0 4.8 - 10.8 K/mcL LAB HEMETOLOGY METHOD 11/12/2024 11:[address] [facility] RBC 4.10 3.80 - 4.80 M/mcL LAB HEMETOLOGY METHOD 11/12/2024 11:[address] [facility] Hemoglobin 12.0 11.5 - 16.0 g/dL LAB HEMETOLOGY METHOD 11/12/2024 11:[address] [facility] Hematocrit 36.1 35.0 - 47.0 % LAB HEMETOLOGY METHOD 11/12/2024 11:[address] [facility] MCV 88.5 79.0 - 98.0 FL LAB HEMETOLOGY METHOD 11/12/2024 11:[address] [facility] MCH 29.4 27.0 - 32.0 pcg LAB HEMETOLOGY METHOD 11/12/2024 11:[address] [facility] MCHC 33.2 32.0 - 37.0 g/dL LAB HEMETOLOGY METHOD 11/12/2024 11:[address] [facility] RDW 12.8 11.0 - 15.0 % LAB HEMETOLOGY METHOD 11/12/2024 11:[address] [facility] Platelets 350 130 - 400 K/mcL LAB HEMETOLOGY METHOD 11/12/2024 11:[address] [facility] MPV 10.0 7.0 - 11.0 FL LAB HEMETOLOGY METHOD 11/12/2024 11:[address] [facility] NRBC 0.0 <1.0 % LAB HEMETOLOGY METHOD 11/12/2024 11:[address] [facility] NRBC Absolute 0.00 <0.10 K/mcL LAB HEMETOLOGY METHOD 11/12/2024 11:[address] [facility] Neutrophils Relative 62.2 % LAB HEMETOLOGY METHOD 11/12/2024 11:[address] [facility] Lymphocytes Relative 18.5 % LAB HEMETOLOGY METHOD 11/12/2024 11:[address] [facility] Monocytes Relative 13.8 % LAB HEMETOLOGY METHOD 11/12/2024 11:[address] [facility] Eosinophils Relative 4.4 % LAB HEMETOLOGY METHOD 11/12/2024 11:[address] [facility] Basophils Relative 0.6 % LAB HEMETOLOGY METHOD 11/12/2024 11:[address] [facility] Immature Granulocytes Relative 0.5 % LAB HEMETOLOGY METHOD 11/12/2024 11:[address] [facility] Neutrophils Absolute 4.97 1.50 - 7.00 K/mcL LAB HEMETOLOGY METHOD 11/12/2024 11:[address] [facility] Lymphocytes Absolute 1.48 1.00 - 5.00 K/mcL LAB HEMETOLOGY METHOD 11/12/2024 11:[address] [facility] Monocytes Absolute 1.10(H) 0.20 - 1.00 K/mcL LAB HEMETOLOGY METHOD 11/12/2024 11:[address] [facility] Eosinophils Absolute 0.35 0.00 - 0.50 K/mcL LAB HEMETOLOGY METHOD 11/12/2024 11:17 AM EST [facility] Basophils Absolute 0.05 0.00 - 0.20 K/[facility] LAB HEMETOLOGY METHOD 11/12/2024 11:[address] [facility] Immature Granulocytes Absolute 0.04(H) 0.00 - 0.03 K/[facility] LAB HEMETOLOGY METHOD 11/12/2024 11:17 AM EST [facility] Blood Venous blood specimen / Unknown Venipuncture / Unknown 11/12/2024 6:36 AM EST 11/12/2024 10:54 AM EST us Jailyn Marquez MD LAB BLOOD ORDERABLES Final Resu lt [facility] [address] [place] [address], * (ABNORMAL) Lipid panel with reflex to direct LDL (10/07/2024 10:09 AM EST) Cholesterol 201(H) 0 - 200 mg/dL LAB CHEMISTRY METHOD 10/07/2024 3:[address] [facility] Triglycerides 88 0 - 150 mg/dL LAB CHEMISTRY METHOD 10/07/2024 3:[address] [facility] HDL 90 >=40 mg/dL LAB CHEMISTRY METHOD 10/07/2024 3:[address] [facility] LDL Calculated 93 0 - 100 mg/dL LAB CHEMISTRY METHOD 10/07/2024 3:[address] [facility] VLDL Cholesterol Ken 17.6 mg/dL LAB CHEMISTRY METHOD 10/07/2024 3:[address] [facility] Non HDL Chol. (LDL+VLDL) 111 <145 mg/dL LAB CHEMISTRY METHOD 10/07/2024 3:[address] [facility] Chol/HDL Ratio 2.2 0.0 - 4.4 LAB CHEMISTRY METHOD 10/07/2024 3:24 PM EST [facility] Blood Venous blood specimen / Unknown Venipuncture / Unknown 10/07/2024 10:09 AM EST 10/07/2024 10:09 AM EST us Nicole Caro MD LAB BLOOD ORDERABLES Final Resul t [facility] [address] [place] [address], * Depression Screening (05/29/2024) Depression Screening abstracted [...] spine and hips were performed on a ascentify/Purfresh fan beam bone densitometer. ? Bone mineral [...] spine and hips were performed on a ascentify/Purfreshfan beam bone densitometer. Bone mineral density measurements [...] PROCEDURES Final Resu lt * Colonoscopy (07/17/2017) [facility] Colonoscopy abstracted, no interpretation Anatomical Region Laterality Modality Other Historical Provider HEALTH MAINTENANCE Final Result * Hepatitis C Screening (10/01/2013) [facility] Hepatitis C Screening abstracted Historical Provider HEALTH MAINTENANCE Final Result from Last 3 Months or Most Recently Relevant to Health Maintenance Insurance MEDICARE [facility] Care Teams Med Surg Nurse Relationship Specialty Start Date End Date Nicole Caro MD [address] [place] [address] PCP - General Internal Medicine 02/09/21
--- OUTSIDE RECORDS SUMMARY | 2024-12-12 14:39 | XMS_ITS | Encounter Summary ---
Author Organization [facility] Address [address] [place] [address] Care Team Providers Care Skip Pitman Name Role Phone Nicole Caro MD Primary Care Provider Encounter Details Date Type Department Care Team ([facility] st Contact Info) Description 11/09/2024 Lab Requisition [facility] - Main Lab [address] [facility] [place] [address] Jailyn Marquez MD [address] [place] [phone] Encounter for other general examination Social History [...] your loved ones. For example, child care giver or elderly care for an older adult? [...] 05/09/2025 9:50 AM EDT Appointment Radiology Department [address] [phone] 06/03/2025 11:00 AM EDT Office Visit Adult Medicine [address] [phone] Nicole Caro MD [address] [place] [address] documented as of this encounter Procedures Procedure Name Priority Date/Time Associated Diagnosis Comments BASIC METABOLIC PANEL Routine 11/09/2024 7:15 AM EST Encounter for other general examination documented in this encounter Results * (ABNORMAL) Basic metabolic panel (11/09/2024 7:15 AM EST) Sodium 142 133 - 145 mmol/L LAB CHEMISTRY METHOD 11/09/2024 12:20 PM [facility] Potassium 4.0 3.5 - 5.5 mmol/L LAB CHEMISTRY METHOD 11/09/2024 12:20 PM [facility] Chloride 107 96 - 110 mmol/L LAB CHEMISTRY METHOD 11/09/2024 12:20 PM [facility] CO2 27 21 - 32 mmol/L LAB CHEMISTRY METHOD 11/09/2024 12:20 PM [facility] Anion Gap 8 3 - 11 LAB CHEMISTRY METHOD 11/09/2024 12:20 PM [facility] Glucose 93 70 - 100 mg/dL LAB CHEMISTRY METHOD 11/09/2024 12:20 PM [facility] BUN 8 5 - 25 mg/dL LAB CHEMISTRY METHOD 11/09/2024 12:20 PM [facility] Creatinine 0.46(L) 0.50 - 1.10 mg/dL LAB CHEMISTRY METHOD 11/09/2024 12:20 PM [facility] eGFR 101 >=60 mL/min/1. 73m2 LAB CHEMISTRY METHOD 11/09/2024 12:20 PM [facility] Comment:Calculation based on the??Chronic Kidney Disease Epidemiology Collaboration (CKD-EPI) equation refit??without adjustment for race. BUN/Creatinine Ratio 17.4 LAB CHEMISTRY METHOD 11/09/2024 12:20 PM [facility] Calcium 8.8 8.5 - 10.5 mg/dL LAB CHEMISTRY METHOD 11/09/2024 12:20 PM EST [facility] Blood Venous blood specimen / Unknown Venipuncture / Unknown 11/09/2024 7:15 AM EST 11/09/2024 10:49 AM EST us Jailyn Marquez MD LAB BLOOD ORDERABLES Final Resu lt [facility] [address] [place] [address], documented in this encounter Visit Diagnoses Diagnosis Encounter for other general examination Encounter for screening mammogram for breast cancer documented in this encounter Additional Health Concerns Assessment Noted Time PHQ-9 Depression Total Score: 0 09/02/20 24 1:48 PM EST documented as of this encounter Care Teams Skip Pitman Relationship Specialty Start Date End Date Nicole Caro MD [address] [place] [address] PCP - General Internal Medicine 02/09/21 documented as of this encounter
--- OUTSIDE RECORDS SUMMARY | 2024-12-12 14:39 | XMS_ITS | Encounter Summary ---
Author Organization [facility] Address [address] [place] [address] Care Team Providers Care Child Care Provider Name Role Phone Nicole Caro MD Primary Care Provider [phone] Encounter Details Date Type Department Care Team ([facility] st Contact Info) Description 11/12/2024 Lab Requisition [facility] - Main Lab [address] [facility] [place] [address] Jailyn Marquez MD [address] [place] [address] Encounter for other general examination Social History [...] for your loved ones. For example, child psychiatrist or elderly care for an older adult? [...] 05/09/2025 9:50 AM EDT Appointment Radiology Department [address] [phone] 06/03/2025 11:00 AM EDT Office Visit Adult Medicine [address] [phone] Nicole Caro MD [address] [place] [address] Scheduled Orders Name Type Priority Associated Diagnoses [...] K/mcL LAB HEMETOLOGY METHOD 11/12/2024 11:17 AM [facility] LAB RBC 4.10 3.80 - 4.80 M/mcL LAB HEMETOLOGY METHOD 11/12/2024 11:17 AM [facility] LAB Hemoglobin 12.0 11.5 - 16.0 g/dL LAB HEMETOLOGY METHOD 11/12/2024 11:17 AM [facility] LAB Hematocrit 36.1 35.0 - 47.0 % LAB HEMETOLOGY METHOD 11/12/2024 11:17 AM [facility] LAB MCV 88.5 79.0 - 98.0 FL LAB HEMETOLOGY METHOD 11/12/2024 11:17 AM [facility] LAB MCH 29.4 27.0 - 32.0 pcg LAB HEMETOLOGY METHOD 11/12/2024 11:17 AM [facility] LAB MCHC 33.2 32.0 - 37.0 g/dL LAB HEMETOLOGY METHOD 11/12/2024 11:17 AM [facility] LAB RDW 12.8 11.0 - 15.0 % LAB HEMETOLOGY METHOD 11/12/2024 11:17 AM [facility] LAB Platelets 350 130 - 400 K/mcL LAB HEMETOLOGY METHOD 11/12/2024 11:17 AM [facility] LAB MPV 10.0 7.0 - 11.0 FL LAB HEMETOLOGY METHOD 11/12/2024 11:17 AM [facility] LAB NRBC 0.0 <1.0 % LAB HEMETOLOGY METHOD 11/12/2024 11:17 AM [facility] LAB NRBC Absolute 0.00 <0.10 K/mcL LAB HEMETOLOGY METHOD 11/12/2024 11:17 AM [facility] LAB Neutrophils Relative 62.2 % LAB HEMETOLOGY METHOD 11/12/2024 11:17 AM [facility] LAB Lymphocytes Relative 18.5 % LAB HEMETOLOGY METHOD 11/12/2024 11:17 AM [facility] LAB Monocytes Relative 13.8 % LAB HEMETOLOGY METHOD 11/12/2024 11:17 AM [facility] LAB Eosinophils Relative 4.4 % LAB HEMETOLOGY METHOD 11/12/2024 11:17 AM [facility] LAB Basophils Relative 0.6 % LAB HEMETOLOGY METHOD 11/12/2024 11:17 AM [facility] LAB Immature Granulocytes Relative 0.5 % LAB HEMETOLOGY METHOD 11/12/2024 11:17 AM [facility] LAB Neutrophils Absolute 4.97 1.50 - 7.00 K/mcL LAB HEMETOLOGY METHOD 11/12/2024 11:17 AM [facility] LAB Lymphocytes Absolute 1.48 1.00 - 5.00 K/mcL LAB HEMETOLOGY METHOD 11/12/2024 11:17 AM [facility] LAB Monocytes Absolute 1.10(H) 0.20 - 1.00 K/mcL LAB HEMETOLOGY METHOD 11/12/2024 11:17 AM EST [facility] LAB Eosinophils Absolute 0.35 0.00 - 0.50 K/mcL LAB HEMETOLOGY METHOD 11/12/2024 11:17 AM EST [facility] LAB Basophils Absolute 0.05 0.00 - 0.20 K/mcL LAB HEMETOLOGY METHOD 11/12/2024 11:17 AM EST [facility] LAB Immature Granulocytes Absolute 0.04(H) 0.00 - 0.03 K/mcL LAB HEMETOLOGY METHOD 11/12/2024 11:17 AM EST [facility] LAB Blood Venous blood specimen / Unknown Venipuncture / Unknown 11/12/2024 6:36 AM EST 11/12/2024 10:54 AM EST us Jailyn Marquez MD LAB BLOOD ORDERABLES Final Resu lt [facility] LAB [address] [place] [address], documented in this encounter Visit Diagnoses Diagnosis Encounter for other general examination Encounter for screening mammogram for breast cancer documented in this encounter Additional Health Concerns Assessment Noted Time PHQ-9 Depression Total Score: 0 09/02/20 24 1:48 PM EST documented as of this encounter Care Teams Child Care Provider Relationship Specialty Start Date End Date Nicole Caro MD [address] [place] [address] PCP - General Internal Medicine 02/09/21 documented as of this encounter
--- OUTSIDE RECORDS SUMMARY | 2024-12-12 14:39 | XMS_ITS | Encounter Summary ---
Author Organization [facility] Address [address] [place] [address] Care Team Providers Care Bookbinder Chief Name Role Phone Nicole Caro MD Primary Care Provider [phone] Encounter Details Date Type Department Care Team ([facility] st Contact Info) Description 12/09/2024 Billing Patient Not Present Adult Medicine [facility] [address] [place] [address] Nicole Caro MD [address] [place] [address] Social History Tobacco Use Types Packs/Day Years [...] your loved ones. For example, child care center assistant director or elderly care for an older adult? [...] 9:50 AM EDT Appointment Radiology Department - [place] [address] [place], [place] [phone] 06/03/2025 11:00 AM EDT Office Visit Adult Medicine [address] [phone] Nicole Caro MD [address] [place] [address] documented as of this encounter Visit Diagnoses Not on filedocumented in this encounter Additional Health Concerns Assessment Noted Time PHQ-9 Depression Total Score: 0 09/02/20 24 1:48 PM EST documented as of this encounter Care Teams Bookbinder Chief Relationship Specialty Start Date End Date Nicole Caro MD [address] [place] [address] PCP - General Internal Medicine 02/09/21 documented as of this encounter
--- OUTSIDE RECORDS SUMMARY | 2024-12-12 14:39 | XMS_ITS | Encounter Summary ---
Author Organization [facility] Address [address] [place] [address] Care Team Providers Care Payroll Auditor Name Role Phone Nicole Caro MD Primary Care Provider [phone] Encounter Details Date Type Department Care Team ([facility] st Contact Info) Description 11/12/2024 Lab Requisition [facility] - Main Lab [address] [facility] [place] [address] Jailyn Marquez MD [address] [place] [address] Encounter for other general examination Social History [...] your loved ones. For example, child care director or elderly care for an older [...] 05/09/2025 9:50 AM EDT Appointment Radiology Department [address] [phone] 06/03/2025 11:00 AM EDT Office Visit Adult Medicine [address] [phone] Nicole Caro MD [address] [place] [address] documented as of this encounter Procedures Procedure Name Priority Date/Time Associated Diagnosis Comments MAGNESIUM Routine 11/12/2024 3:22 PM EST Encounter for other general examination COMPREHENSIVE METABOLIC PANEL Routine 11/12/2024 3:22 PM EST Encounter for other general examination documented in this encounter Results * Magnesium (11/12/2024 3:22 PM EST) Magnesium 2.0 1.9 - 2.6 mg/dL LAB CHEMISTRY METHOD 11/12/2024 5:02 PM [facility] Blood Venous blood specimen / Unknown Venipuncture / Unknown 11/12/2024 3:22 PM EST 11/12/2024 4:11 PM EST us Jailyn Marquez MD LAB BLOOD ORDERABLES Final Resu lt [facility] [address] [place] [address], * (ABNORMAL) Comprehensive metabolic panel (11/12/2024 3:22 PM EST) Sodium 138 133 - 145 mmol/L LAB CHEMISTRY METHOD 11/12/2024 5:06 PM [facility] Potassium 3.5 3.5 - 5.5 mmol/L LAB CHEMISTRY METHOD 11/12/2024 5:06 PM [facility] Chloride 102 96 - 110 mmol/L LAB CHEMISTRY METHOD 11/12/2024 5:06 PM [facility] CO2 25 21 - 32 mmol/L LAB CHEMISTRY METHOD 11/12/2024 5:06 PM [facility] Anion Gap 11 3 - 11 LAB CHEMISTRY METHOD 11/12/2024 5:06 PM [facility] Glucose 108(H) 70 - 100 mg/dL LAB CHEMISTRY METHOD 11/12/2024 5:06 PM [facility] BUN 12 5 - 25 mg/dL LAB CHEMISTRY METHOD 11/12/2024 5:06 PM [facility] Creatinine 0.53 0.50 - 1.10 mg/dL LAB CHEMISTRY METHOD 11/12/2024 5:06 PM [facility] eGFR 97 >=60 mL/min/1. 73m2 LAB CHEMISTRY METHOD 11/12/2024 5:06 PM [facility] Comment:Calculation based on the??Chronic Kidney Disease Epidemiology Collaboration (CKD-EPI) equation refit??without adjustment for race. BUN/Creatinine Ratio 22.6 LAB CHEMISTRY METHOD 11/12/2024 5:06 PM [facility] Calcium 9.3 8.5 - 10.5 mg/dL LAB CHEMISTRY METHOD 11/12/2024 5:06 PM [facility] AST (SGOT) 46(H) 10 - 42 unit/L LAB CHEMISTRY METHOD 11/12/2024 5:06 PM [facility] ALT (SGPT) 65(H) 10 - 60 unit/L LAB CHEMISTRY METHOD 11/12/2024 5:06 PM [facility] Alkaline Phosphatase 114 42 - 121 unit/L LAB CHEMISTRY METHOD 11/12/2024 5:06 PM [facility] Total Protein 6.5 6.0 - 8.0 g/dL LAB CHEMISTRY METHOD 11/12/2024 5:06 PM [facility] Albumin 2.9(L) 3.2 - 5.0 g/dL LAB CHEMISTRY METHOD 11/12/2024 5:06 PM [facility] Total Bilirubin 1.5(H) 0.0 - 1.4 mg/dL LAB CHEMISTRY METHOD 11/12/2024 5:06 PM [facility] Blood Venous blood specimen / Unknown Venipuncture / Unknown 11/12/2024 3:22 PM EST 11/12/2024 4:11 PM EST us Jailyn Marquez MD LAB BLOOD ORDERABLES Final Resu lt [facility] [address] [place] [address], documented in this encounter Visit Diagnoses Diagnosis Encounter for other general examination Encounter for screening mammogram for breast cancer documented in this encounter Additional Health Concerns Assessment Noted Time PHQ-9 Depression Total Score: 0 09/02/20 24 1:48 PM EST documented as of this encounter Care Teams Payroll Auditor Relationship Specialty Start Date End Date Nicole Caro MD [address] [place] [address] PCP - General Internal Medicine 02/09/21 documented as of this encounter
== END 2024-12-12 13:47 | disposition home or self-care (01) ==
LOC: HO.HOS 13:25
PROVIDERS: PCP Internal Medicine; Visit Provider Orthopaedic Surgery
DX: Z96.651 Presence of right artificial knee joint (principal)
CPT/HCPCS: 99024

== ENCOUNTER → 2024-12-12 13:26 | Outpatient (BNV) | payer MEDICARE, OTHER, SELFPAY | PROVIDERS: Visit Provider Radiology Diagnostic Radiology | DX: Z96.651 Presence of right artificial knee joint (principal) | CPT/HCPCS: 73562 ==

== ENCOUNTER 2025-01-09 13:00 | Outpatient (RCR) | payer MEDICARE, OTHER, SELFPAY ==
--- NOTE | 2024-12-10 12:33 | MHC.PT.EP ---
[facility] [place] Office [place] Office [place] Office [address] Christie Sheets [address] [phone] F: [phone] F: [phone] F: [phone] F: [phone] Physical Therapy Plan of Care Date of Evaluation: 12/10/24 Date of Surgery: 11/06/24 Diagnosis: R TKA Assessment: 74 y/o female s/p R TKA 11/06/24. She went to [facility] for 10 days and then she had home PT 2x/week for 3 weeks. She had a walker for first 2 weeks and then transitioned to cane. She prefers to use cane in R UE. Currently pain and difficulty with walking 5-10 minutes and ascends/ descend stairs in step to pattern. Examination shows decreased knee strength, decreased knee ROM 0-6-106, swelling, pain, and impaired gait pattern. Recommend PT 2x/week for 5 weeks to address impairments, implement HEP, and optimize functional mobility. Frequency and Duration: The patient will be seen 2x/week for 5 weeks Short Term Goals: 3 weeks I with HEP Demonstrate knee extension to 0* Demonstrate knee flexion to >115* Long-Term Goals: 5 weeks I with HEP and self management of sx Pt will ambulate without assistive device and pain < 3/10 Pt will ascend/ descent stairs in step through pattern with one rail and pain < 3/10 Treatment Plan: Modalities to reduce pain, spasms and effusion. Manual therapy to restore motion and function. Therapeutic exercise to improve strength and flexibility. Neuromuscular re-education for posture and balance. Therapeutic activities to return to functional activities of daily living. Electronically signed by: Monica Yan PT Please sign and return to therapist. Thank you for your referral.
--- NOTE | 2025-01-10 08:32 | MHC.PT.DC ---
[facility] [place] Office [place] Office [place] Office [address] Christie Sheets [address] [phone] F: [phone] F: [phone] F: [phone] F: [phone] Physical Therapy Discharge Report Diagnosis: R TKA Date of Surgery: 11/06/24 Date of Evaluation: 12/10/24 Date of Discharge: 01/10/25 Treatments to Date: 10 Cancellations to Date: 0 No Shows to Date: 0 Discharge Status: Achieved Goals Improved Function Independent with HEP Discharge Summary: Overall pt has made good progress meeting goals, ambulating without cane in gym (although she arrives with it and states she likes to use it in the community), and I with HEP. We reviewed HEP and no further questions at this time. Appropriate for d/c at this time Electronically signed by: Monica Yan PT Please sign and return to therapist. Thank you for your referral.
== END 2025-01-10 08:32 | disposition home or self-care (01) ==
LOC: HO.PT 13:00
PROVIDERS: PCP Internal Medicine; Visit Provider Physician Assistant
DX: Z47.1 Aftercare following joint replacement surgery (principal); Z96.651 Presence of right artificial knee joint
CPT/HCPCS: 97110; 97161; 97530

== ENCOUNTER 2025-01-13 11:26 | Outpatient (AMB) | payer MEDICARE, OTHER, SELFPAY ==
[2025-01-13 11:29] VITALS: BMI 28.1
--- NOTE | 2025-01-13 11:29 | A.OFFVIS_ITS ---
Vital Signs 01/13/25 11:29 Height 5 ft 8 in Weight 185 lb BMI 28.1 Intake Visit Reasons: PO: R TKA w/NE 11/06/24 Intake Note: Danna is a 74 year old female who presents today for a post operative right TKA, DOS 11/06/24. At last visit patient with Dr. Ledezma she was instructed to continue working with PT and follow up in 6 weeks. Patient reports she has completed P.T with good improvement in ROM. STates she continues to have numbness on her foot. Allergies Sulfa (Sulfonamide Antibiotics) [SULFA (SULFONAMIDE ANTIBIOTICS)] Allergy (Severe, Verified 01/13/25 11:29) HIVES red dye [RED DYE] Allergy (Intermediate, Verified 01/13/25 11:29) HIVES HPI HPI PO: R TKA w/NE 11/06/24: Details: 74-year-old female returns to the office today 3 months status post right total knee arthroplasty on 11/06/[address] Ledezma. She continues to work with physical therapy and is doing well. [facility] Medical History (Updated 11/08/24 @ 00:01 by Sean Watkins) Basal cell carcinoma Arthritis Elevated cholesterol Osteopenia Hepatic cyst Fuchs' corneal dystrophy of right eye Diverticulosis Schatzki's ring History of cardioversion PAF (paroxysmal atrial fibrillation) Primary osteoarthritis of knees, bilateral Hypertension Surgical History H/O colonoscopy History of basal cell carcinoma (BCC) excision History of esophagogastroduodenoscopy (EGD) Hx of right cataract extraction History of total left knee replacement (TKR) (~03/19/19) Hx of tonsillectomy History of elbow surgery Family History Father No problems noted. Mother No problems noted. Social History Are you a primary hourly caregiver to a significant other at home: No Do you presently have visiting nurse or other home services: No Alcohol intake: current Alcohol intake frequency: 0-2 drinks per day Comment: advised to remove due to trip hazard Patient Tobacco Use Status: Never used Tobacco service: No Review of Systems Const All systems reviewed & are unremarkable except as noted in HPI and below Physical Exam Vital Signs: BMI result Body Mass Index 28.1 Extrem Other: Incision well healed. Range of motion 5-110 degrees. She is able to initiate full quad strength. Calf supple nontender neurovascularly intact. Assessment & Plan Assessment & Plan (1) Status post total knee replacement, right: Code(s): Z96.651 - Presence of right artificial knee joint Category: Surgical Plan: She will continue working with physical therapy and maintaining her home exercise program. She will increase activities as tolerated if symptoms arise she will contact our office otherwise follow up in 3 months with x-rays with Dr. Ledezma sooner if needed. Coding Level of Care Code Est Pt Level 3 (07042) Complex EM visit Add On G2211 Diagnoses Status post total knee replacement, right Z96.651
--- OUTSIDE RECORDS SUMMARY | 2025-01-13 13:13 | XMS_ITS | Encounter Summary ---
Author Organization [facility] Address [address] [place] [address] Care Team Providers Care Building Construction Professor Name Role Phone Mansi Wayne MD Primary Care Provider Nicole Galo MD Primary Care Provider [phone] Reason for Visit * Reason Onset Date Comments medication problems 05/01/2018 Encounter Details Date Type Department Care Team Description 05/01/2018 Telephone Adult Medicine [address] [address] Mansi Wayne MD medication problems Social History Tobacco Use Types Packs/Day Years [...] encounter Miscellaneous Notes * Telephone Encounter - Shannan Jorge M.A. - 05/01/2018 11:25 AM EDT Last office visit 11/21/17 Next office visit 06/05/18 Please sign, needed to be for 90 day supply Lab Results Component Value Date CHOL 187 12/14/2017 LDL 83 12/14/2017 HDL 79 12/14/2017 TRIG 126 12/14/2017 SGOT 15 05/17/2017 SGPT 18 05/17/2017 * Telephone Encounter - Arabella Stewart - 05/01/2018 11:20 AM EDT Who is calling? A pharmacist: Pharmacy: [facility] Pharmacist Name: n/a Pharmacy Phone # n/a Name of the medication Simvastatin tab 20 mg What is the specific problem or interaction? Requesting 90 day supply If the patient is having a problem with taking the med - how long has the problem been going on? N/A documented in this encounter Plan of Treatment Not on file documented as of this encounter Visit Diagnoses Not on filedocumented in this encounter Care Teams Building Construction Professor Relationship Specialty Start Date End Date Mansi Wayne MD PCP - General 09/11/10 02/08/21 Nicole Caro MD [address] [place] [address] PCP - General Internal Medicine 02/09/21 documented as of this encounter
--- OUTSIDE RECORDS SUMMARY | 2025-01-13 13:13 | XMS_ITS | Encounter Summary ---
Author Organization [facility] Address [address] [place] [address] Care Team Providers Care Mobile Designer Name Role Phone Nicole Caro MD Primary Care Provider [phone] Encounter Details Date Type Department Care Team ([facility] st Contact Info) Description 11/12/[address] [facility] - Main Lab [address] [facility] [place] [address] Jailyn Marquez MD [address] [place] [address] Encounter for other general examination Social History [...] for your loved ones. For example, director of child welfare services or elderly care for an older adult? [...] 05/09/2025 9:50 AM EDT Appointment Radiology Department [address] [phone] 06/03/2025 11:00 AM EDT Office Visit Adult Medicine [address] [phone] Nicole Caro MD [address] [place] [address] Scheduled Orders Name Type Priority Associated Diagnoses [...] K/mcL LAB HEMETOLOGY METHOD 11/12/2024 11:17 AM [facility] RBC 4.10 3.80 - 4.80 M/mcL LAB HEMETOLOGY METHOD 11/12/2024 11:17 AM [facility] Hemoglobin 12.0 11.5 - 16.0 g/dL LAB HEMETOLOGY METHOD 11/12/2024 11:17 AM [facility] Hematocrit 36.1 35.0 - 47.0 % LAB HEMETOLOGY METHOD 11/12/2024 11:17 AM [facility] MCV 88.5 79.0 - 98.0 FL LAB HEMETOLOGY METHOD 11/12/2024 11:17 AM [facility] MCH 29.4 27.0 - 32.0 pcg LAB HEMETOLOGY METHOD 11/12/2024 11:17 AM [facility] LAB MCHC 33.2 32.0 - 37.0 g/dL LAB HEMETOLOGY METHOD 11/12/2024 11:17 AM [facility] RDW 12.8 11.0 - 15.0 % LAB HEMETOLOGY METHOD 11/12/2024 11:17 AM [facility] Platelets 350 130 - 400 K/mcL LAB HEMETOLOGY METHOD 11/12/2024 11:17 AM [facility] MPV 10.0 7.0 - 11.0 FL LAB HEMETOLOGY METHOD 11/12/2024 11:17 AM [facility] NRBC 0.0 <1.0 % LAB HEMETOLOGY METHOD 11/12/2024 11:17 AM [facility] LAB NRBC Absolute 0.00 <0.10 K/mcL LAB HEMETOLOGY METHOD 11/12/2024 11:17 AM [facility] Neutrophils Relative 62.2 % LAB HEMETOLOGY METHOD 11/12/2024 11:17 AM [facility] Lymphocytes Relative 18.5 % LAB HEMETOLOGY METHOD 11/12/2024 11:17 AM [facility] Monocytes Relative 13.8 % LAB HEMETOLOGY METHOD 11/12/2024 11:17 AM [facility] Eosinophils Relative 4.4 % LAB HEMETOLOGY METHOD 11/12/2024 11:17 AM [facility] Basophils Relative 0.6 % LAB HEMETOLOGY METHOD 11/12/2024 11:17 AM [facility] Immature Granulocytes Relative 0.5 % LAB HEMETOLOGY METHOD 11/12/2024 11:17 AM [facility] Neutrophils Absolute 4.97 1.50 - 7.00 K/mcL LAB HEMETOLOGY METHOD 11/12/2024 11:17 AM [facility] Lymphocytes Absolute 1.48 1.00 - 5.00 K/mcL LAB HEMETOLOGY METHOD 11/12/2024 11:17 AM [facility] Monocytes Absolute 1.10(H) 0.20 - 1.00 K/mcL LAB HEMETOLOGY METHOD 11/12/2024 11:17 AM EST [facility] Eosinophils Absolute 0.35 0.00 - 0.50 K/mcL LAB HEMETOLOGY METHOD 11/12/2024 11:17 AM EST [facility] Basophils Absolute 0.05 0.00 - 0.20 K/mcL LAB HEMETOLOGY METHOD 11/12/2024 11:17 AM EST [facility] Immature Granulocytes Absolute 0.04(H) 0.00 - 0.03 K/mcL LAB HEMETOLOGY METHOD 11/12/2024 11:17 AM EST [facility] Blood Venous blood specimen / Unknown Venipuncture / Unknown 11/12/2024 6:36 AM EST 11/12/2024 10:54 AM EST us Jailyn Marquez MD LAB BLOOD ORDERABLES Final Resu lt [facility] [address] [place] [address], documented in this encounter Visit Diagnoses Diagnosis Encounter for other general examination Encounter for screening mammogram for breast cancer documented in this encounter Additional Health Concerns Assessment Noted Time PHQ-9 Depression Total Score: 0 09/02/20 24 1:48 PM EST documented as of this encounter Care Teams Mobile Designer Relationship Specialty Start Date End Date Nicole Caro MD [address] [place] [address] PCP - General Internal Medicine 02/09/21 documented as of this encounter
--- OUTSIDE RECORDS SUMMARY | 2025-01-13 13:13 | XMS_ITS | Encounter Summary ---
Author Organization [facility] Address [address] [place] [address] Care Team Providers Care Bander Hand Name Role Phone Mansi Wayne MD Primary Care Provider Nicole Galo MD Primary Care Provider Reason for Visit * Reason Onset Date Comments Pre Op Visit 11/06/2018 Encounter Details Date Type Department Care Team Description 11/06/2018 Pt. Non Urgent Medical Question Adult Medicine [address] [address] Mansi Wayne MD Essential hypertension, benign (Primary [...] of this encounter Progress Notes * Raegan Brown M.A. - 11/07/2018 6:47 AM ESTFrom: Danna Sood To: Mansi Wayne MD Sent: 11/06/2018 12:36 PM EST Subject: upcoming knee replacement I am scheduled to have my left knee replaced on March 19, 2019. [facility] . Surgery is [facility] at [facility]. The Nurse Navigator Dara Alvarez will [...] EST [facility] Comment: If patient is -Haitian, multiply result by 1.21 Chronic Kidney Disease: < 60 ml/min/1.73 square meters Kidney Failure: < 15 ml/min/1.73 square meters 11/14/2018 9:22 AM EST 11/14/2018 9:24 AM EST Mansi Wayne MD LAB [facility] documented in this encounter Visit Diagnoses Diagnosis Essential hypertension, benign- Primary Pure hypercholesterolemia documented in this encounter Care Teams Bander Hand Relationship Specialty Start Date End Date Mansi Wayne MD PCP - General 09/11/10 02/08/21 Nicole Caro MD [address] [place] [address] PCP - General Internal Medicine 02/09/21 documented as of this encounter
--- OUTSIDE RECORDS SUMMARY | 2025-01-13 13:13 | XMS_ITS | Encounter Summary ---
Author Organization [facility] Address [address] [place] [address] Care Team Providers Care Final Inspector Motorcyles Name Role Phone Mansi Wayne MD Primary Care Provider Nicole Galo MD Primary Care Provider [phone] Encounter Details Date Type Department Care Team Description 12/15/2017 Business Doc Medical Records [address] [place] [address] Abstract, Provider Social History Tobacco Use Types [...] on filedocumented in this encounter Care Teams Final Inspector Motorcyles Relationship Specialty Start Date End Date Mansi Wayne MD PCP - General 09/11/10 02/08/21 Nicole Caro MD [address] [place] [id number] PCP - General Internal Medicine 02/09/21 documented as of this encounter
--- OUTSIDE RECORDS SUMMARY | 2025-01-13 13:13 | XMS_ITS | Encounter Summary ---
Author Organization [facility] Address [address] [place] [address] Care Team Providers Care Grading Machine Operator Name Role Phone Mansi Wayne MD Primary Care Provider Nicole Galo MD Primary Care Provider [phone] Encounter Details Date Type Department Care Team Description 10/22/2018 Home Health Certification Medical Records [address] [place], [place] [id number] [place] [address] [facility], [address] [address] Social History Tobacco Use Types Packs/Day Years [...] on filedocumented in this encounter Care Teams Grading Machine Operator Relationship Specialty Start Date End Date Mansi Wayne MD PCP - General 09/11/10 02/08/21 Nicole Caro MD [address] [place] [address] PCP - General Internal Medicine 02/09/21 documented as of this encounter
--- OUTSIDE RECORDS SUMMARY | 2025-01-13 13:13 | XMS_ITS | Encounter Summary ---
Author Organization [facility] Address [address] [place] [address] Care Team Providers Care Field Court Researcher Name Role Phone Mansi Wayne MD Primary Care Provider Nicole Galo MD Primary Care Provider [phone] Encounter Details Date Type Department Care Team Description 08/10/2019 Refill Adult Medicine [address] [address] Mansi Wayne MD Social History Tobacco Use [...] encounter Miscellaneous Notes * Telephone Encounter - Raman Pandya M.A. - 08/12/2019 11:47 AM EST Faxed to pharmacy * Telephone Encounter - Merry Chan M.A. - 08/12/2019 10:57 AM EST Lab Results Component Value Date CHOL 200 11/14/2018 LDL 103 11/14/2018 HDL 78 11/14/2018 TRIG 96 11/14/2018 SGOT 11 03/05/2019 SGPT 23 03/05/2019 LOY 03/05/19 NOV 08/22/19 documented in this encounter Plan of Treatment Not on file documented as of this encounter Visit Diagnoses Not on filedocumented in this encounter Care Teams Field Court Researcher Relationship Specialty Start Date End Date Mansi Wayne MD PCP - General 09/11/10 02/08/21 Nicole Caro MD [address] [place] [address] PCP - General Internal Medicine 02/09/21 documented as of this encounter
--- OUTSIDE RECORDS SUMMARY | 2025-01-13 13:13 | XMS_ITS | Encounter Summary ---
Author Organization [facility] [employer] [facility] Address [address] [place] [address] Care Team Providers Care Orchid Transplanter Name Role Phone Mansi Wayne MD Primary Care Provider Nicole Galo MD Primary Care Provider [phone] Encounter Details Date Type Department Care Team Description 10/10/2018 Home Health Certification Medical Records [address] [place], [place] [phone] [place] [address] [facility], [address] [address] Social History Tobacco Use Types Packs/Day Years [...] on filedocumented in this encounter Care Teams Orchid Transplanter Relationship Specialty Start Date End Date Mansi Wayne MD PCP - General 09/11/10 02/08/21 Nicole Caro MD [address] [place] [address] PCP - General Internal Medicine 02/09/21 documented as of this encounter
--- OUTSIDE RECORDS SUMMARY | 2025-01-13 13:13 | XMS_ITS | Encounter Summary ---
Author Organization [facility] [employer] [facility] Address [address] [place] [address] Care Team Providers Care Embedded Processor Name Role Phone Mansi Wayne MD Primary Care Provider Nicole Galo MD Primary Care Provider [phone] Encounter Details Date Type Department Care Team Description 04/04/2019 Enrober Tender Report Medical Records [address] [place] [address] Isauro Ritchie Social History Tobacco Use Types [...] on filedocumented in this encounter Care Teams Embedded Processor Relationship Specialty Start Date End Date Mansi Wayne MD PCP - General 09/11/10 02/08/21 Nicole Caro MD [address] [place] [address] PCP - General Internal Medicine 02/09/21 documented as of this encounter
--- OUTSIDE RECORDS SUMMARY | 2025-01-13 13:13 | XMS_ITS | Encounter Summary ---
Author Organization [facility] Address [address] [place] [address] Care Team Providers Care Maitre D Name Role Phone Nicole Caro MD Primary Care Provider [phone] Encounter Details Date Type Department Care Team Description 12/30/2023 Pt. Non Urgent Medical Question Adult Medicine [address] [address] Nicole Caro MD [address] [place] [address] Social History Tobacco Use Types Packs/Day Years [...] on filedocumented in this encounter Care Teams Maitre D Relationship Specialty Start Date End Date Nicole Caro MD [address] [place] [address] PCP - General Internal Medicine 02/09/21 documented as of this encounter
--- OUTSIDE RECORDS SUMMARY | 2025-01-13 13:13 | XMS_ITS | Encounter Summary ---
Author Organization [facility] Address [address] [place] [address] Care Team Providers Care Director Client Services Name Role Phone Nicole Caro MD Primary Care Provider [phone] Encounter Details Date Type Department Care Team ([facility] st Contact Info) Description 11/12/[address] [facility] - Main Lab [address] [facility] [place] [address] Jailyn Marquez MD [address] [place] [address] Encounter for other general examination Social History [...] your loved ones. For example, child care cook or elderly care for an older adult? [...] 05/09/2025 9:50 AM EDT Appointment Radiology Department [address] [phone] 06/03/2025 11:00 AM EDT Office Visit Adult Medicine [address] [phone] Nicole Caro MD [address] [place] [address] documented as of this encounter Procedures Procedure Name Priority Date/Time Associated Diagnosis Comments MAGNESIUM Routine 11/12/2024 3:22 PM EST Encounter for other general examination COMPREHENSIVE METABOLIC PANEL Routine 11/12/2024 3:22 PM EST Encounter for other general examination documented in this encounter Results * Magnesium (11/12/2024 3:22 PM EST) Magnesium 2.0 1.9 - 2.6 mg/dL LAB CHEMISTRY METHOD 11/12/2024 5:02 PM [facility] Blood Venous blood specimen / Unknown Venipuncture / Unknown 11/12/2024 3:22 PM EST 11/12/2024 4:11 PM EST us Jailyn Marquez MD LAB BLOOD ORDERABLES Final Resu lt [facility] [address] [place] [address], * (ABNORMAL) Comprehensive metabolic panel (11/12/2024 3:22 [...] MD LAB BLOOD ORDERABLES Final Resu lt [facility] [address] [place] [address], documented in this encounter Visit Diagnoses Diagnosis Encounter for other general examination Encounter for screening mammogram for breast cancer documented in this encounter Additional Health Concerns Assessment Noted Time PHQ-9 Depression Total Score: 0 09/02/20 24 1:48 PM EST documented as of this encounter Care Teams Director Client Services Relationship Specialty Start Date End Date Nicole Caro MD [address] [place] [address] PCP - General Internal Medicine 02/09/21 documented as of this encounter
--- OUTSIDE RECORDS SUMMARY | 2025-01-13 13:13 | XMS_ITS | Encounter Summary ---
Author Organization [facility] Address [address] [place] [address] Care Team Providers Care Intern Product Marketing Manager Name Role Phone Nicole Caro MD Primary Care Provider [phone] Encounter Details Date Type Department Care Team Description 07/03/2023 Pt. Non Urgent Medical Question Adult Medicine [facility] [address] [place] [address] Nicole Caro MD [address] [place] [address] Social History Tobacco Use Types Packs/Day Years [...] been schedued for November 28, 2023 in [place]. You have received the report from Dr. [...] on filedocumented in this encounter Care Teams Intern Product Marketing Manager Relationship Specialty Start Date End Date Nicole Caro MD [address] [place] [address] PCP - General Internal Medicine 02/09/21 documented as of this encounter
--- OUTSIDE RECORDS SUMMARY | 2025-01-13 13:13 | XMS_ITS | Encounter Summary ---
Author Organization [facility] Address [address] [place] [address] Care Team Providers Care Fudge Candy Maker Name Role Phone Nicole Caro MD Primary Care Provider [phone] Encounter Details Date Type Department Care Team ([facility] st Contact Info) Description 11/09/2024 Lab Requisition [facility] - Main Lab [address] [facility] [place] [address] Jailyn Marquez MD [address] [place] [address] Encounter for other general examination Social History [...] care for your loved ones. For example, teacher early childhood development or elderly care for an older adult? [...] 9:50 AM EDT Appointment Radiology Department [address] [phone] 06/03/2025 11:00 AM EDT Office Visit Adult Medicine [address] [phone] Nicole Caro MD [address] [place] [address] documented as of this encounter Procedures Procedure Name Priority Date/Time Associated Diagnosis Comments BASIC METABOLIC PANEL Routine 11/09/2024 7:15 AM EST Encounter for other general examination documented in this encounter Results * (ABNORMAL) Basic metabolic panel (11/09/2024 7:15 AM EST) Sodium 142 133 - 145 mmol/L LAB CHEMISTRY METHOD 11/09/2024 12:20 PM [facility] Potassium 4.0 3.5 - 5.5 mmol/L LAB CHEMISTRY METHOD 11/09/2024 12:20 PM [facility] Chloride 107 96 - 110 mmol/L LAB CHEMISTRY METHOD 11/09/2024 12:20 PM [facility] CO2 27 21 - 32 mmol/L LAB CHEMISTRY METHOD 11/09/2024 12:20 PM [facility] Anion Gap 8 3 - 11 LAB CHEMISTRY METHOD 11/09/2024 12:20 PM [facility] Glucose 93 70 - 100 mg/dL LAB CHEMISTRY METHOD 11/09/2024 12:20 PM [facility] BUN 8 5 - 25 mg/dL LAB CHEMISTRY METHOD 11/09/2024 12:20 PM [facility] Creatinine 0.46(L) 0.50 - 1.10 mg/dL LAB CHEMISTRY METHOD 11/09/2024 12:20 PM [facility] eGFR 101 >=60 mL/min/1. 73m2 LAB CHEMISTRY METHOD 11/09/2024 12:20 PM [facility] Comment:Calculation based on the??Chronic Kidney Disease Epidemiology Collaboration (CKD-EPI) equation refit??without adjustment for race. BUN/Creatinine Ratio 17.4 LAB CHEMISTRY METHOD 11/09/2024 12:20 PM [facility] Calcium 8.8 8.5 - 10.5 mg/dL LAB CHEMISTRY METHOD 11/09/2024 12:20 PM EST [facility] Blood Venous blood specimen / Unknown Venipuncture / Unknown 11/09/2024 7:15 AM EST 11/09/2024 10:49 AM EST us Jailyn Marquez MD LAB BLOOD ORDERABLES Final Resu lt [facility] [address] [place] [address], documented in this encounter Visit Diagnoses Diagnosis Encounter for other general examination Encounter for screening mammogram for breast cancer documented in this encounter Additional Health Concerns Assessment Noted Time PHQ-9 Depression Total Score: 0 09/02/20 24 1:48 PM EST documented as of this encounter Care Teams Fudge Candy Maker Relationship Specialty Start Date End Date Nicole Caro MD [address] [place] [address] PCP - General Internal Medicine 02/09/21 documented as of this encounter
--- OUTSIDE RECORDS SUMMARY | 2025-01-13 13:13 | XMS_ITS | Encounter Summary ---
Author Organization [facility] [employer] [facility] Address [address] [place] [address] Care Team Providers Care Computer Network Specialist Name Role Phone Mansi Wayne MD Primary Care Provider Nicole Galo MD Primary Care Provider [phone] Encounter Details Date Type Department Care Team Description 03/15/2019 Biofuels Product Development Manager Report Medical Records [address] [place] [address] Isauro Ritchie Social History Tobacco Use Types [...] on filedocumented in this encounter Care Teams Computer Network Specialist Relationship Specialty Start Date End Date Mansi Wayne MD PCP - General 09/11/10 02/08/21 Nicole Caro MD [address] [place] [address] PCP - General Internal Medicine 02/09/21 documented as of this encounter
--- OUTSIDE RECORDS SUMMARY | 2025-01-13 13:13 | XMS_ITS | Encounter Summary ---
Author Organization [facility] Address [address] [place] [address] Care Team Providers Care Vb Developer Name Role Phone Nicole Caro MD Primary Care Provider [phone] Reason for Visit * Reason Onset Date Comments Pre Op Visit 09/28/2023 Encounter Details Date Type Department Care Team Description 09/28/2023 Telephone Adult Medicine [facility] [address] [place] [address] Nicole Caro MD [address] [place] [address] Pre Op Visit Social History Tobacco Use [...] the paperwork the patient dropped off to [phone] Attention Guerda * Telephone Encounter - Clary [...] Suni Khanna. This will be done at [facility]. Pre-[facility] f[facility]u bin. Will route this msg to pre- op scheduling team for booking. [place] of [place] from [place] and therefore will not be able to take phone calls from our office. documented in this encounter Plan of Treatment Not on file documented as of this encounter Visit Diagnoses Not on filedocumented in this encounter Care Teams Vb Developer Relationship Specialty Start Date End Date Nicole Caro MD [address] [place] [address] PCP - General Internal Medicine 02/09/21 documented as of this encounter
--- OUTSIDE RECORDS SUMMARY | 2025-01-13 13:14 | XMS_ITS | Encounter Summary ---
Author Organization [employer] [facility] Address [address] [place] [address] Care Team Providers Care Home Insurance Agent Name Role Phone Nicole Caro MD Primary Care Provider Encounter Details Date Type Department Care Team Description 11/24/2021 Adult Specialist Report Medical Records [address] [place] [address] Denice Pino Social History Tobacco Use Types [...] on filedocumented in this encounter Care Teams Home Insurance Agent Relationship Specialty Start Date End Date Nicole Caro MD [address] [place] [address] PCP - General Internal Medicine 02/09/21 documented as of this encounter
--- OUTSIDE RECORDS SUMMARY | 2025-01-13 13:14 | XMS_ITS | Encounter Summary ---
Author Organization [facility] Address [address] [place] [address] Care Team Providers Care Marketing Operations Consultant Name Role Phone Mansi Wayne MD Primary Care Provider Nicole Galo MD Primary Care Provider [phone] Encounter Details Date Type Department Care Team Description 04/25/2017 Pt. Non Urgent Medical Question Adult Medicine [address] [address] Mansi Wayne MD Essential hypertension, benign (Primary [...] - 60 U/L 05/17/2017 1:47 PM EDT [facility] 05/17/2017 9:35 AM EDT 05/17/2017 9:35 AM EDT Mansi Wayne MD LAB Performing Organization Address [facility]/ZIP Co de Phone Number [address] * TRANSAMINASE (SGOT)(AST) UV- (05/17/2017 9:35 AM EDT) AST (SGOT) 15 10 - 42 U/L 05/17/2017 1:47 PM EDT [facility] 05/17/2017 9:35 AM EDT 05/17/2017 9:35 AM EDT Mansi Wayne MD LAB Performing Organization Address [facility] Co de Phone Number [address] * BASIC METABOLIC PANEL (05/17/2017 9:35 AM EDT) GLUCOSE 94 70 - 100 mg/dL 05/17/2017 1:47 PM T [facility] Comment: Reference range applicable to fasting specimens only Based on recommendations from the ADA and AACE, the fasting glucose reference range has been changed to 70-100 mg/dL. ??This change is effective January 25, 2010 BUN 13 5 - 25 mg/dL 05/17/2017 1:47 PM EDT [facility] CREAT 0.8 0.7 - 1.5 mg/dL 05/17/2017 1:47 PM T [facility] GFR > 60 >60 05/17/2017 1:47 PM T [facility] Comment: If patient is -Iraqi, multiply result by 1.21 Chronic Kidney Disease: < 60 ml/min/1.73 square meters Kidney Failure: < 15 ml/min/1.73 square meters Sodium 140 133 - 145 mEq/L 05/17/2017 1:47 PM EDT [facility] Potassium 4.0 3.5 - 5.5 mEq/L 05/17/2017 1:47 PM EDT [facility] Chloride 98 96 - 108 mEq/L 05/17/2017 1:47 PM EDT [facility] CO2 28.3 21.0 - 32.0 mEq/L 05/17/2017 1:47 PM EDT [facility] CALCIUM 9.6 8.5 - 10.5 mg/dL 05/17/2017 1:47 PM EDT [facility] 05/17/2017 9:35 AM EDT 05/17/2017 9:35 AM EDT Mansi Wayne MD LAB Performing Organization Address City/State/[facility] Co de Phone Number [address] documented in this encounter Visit Diagnoses Diagnosis Essential hypertension, benign- Primary Pure hypercholesterolemia documented in this encounter Care Teams Marketing Operations Consultant Relationship Specialty Start Date End Date Mansi Wayne MD PCP - General 09/11/10 02/08/21 Nicole Caro MD [address] [place] [address] PCP - General Internal Medicine 02/09/21 documented as of this encounter
--- OUTSIDE RECORDS SUMMARY | 2025-01-13 13:14 | XMS_ITS | Encounter Summary ---
Author Organization [facility] [employer] [facility] Address [address] [place] [address] Care Team Providers Care Lap Layer Name Role Phone Mansi Wayne MD Primary Care Provider Nicole Galo MD Primary Care Provider [phone] Encounter Details Date Type Department Care Team Description 08/14/2017 Business Doc Medical Records [address] [place] [address] Abstract, Provider Social History Tobacco Use Types [...] on filedocumented in this encounter Care Teams Lap Layer Relationship Specialty Start Date End Date Mansi Wayne MD PCP - General 09/11/10 02/08/21 Nicole Caro MD [address] [place] [phone] PCP - General Internal Medicine 02/09/21 documented as of this encounter
--- OUTSIDE RECORDS SUMMARY | 2025-01-13 13:14 | XMS_ITS | Encounter Summary ---
Author Organization [facility] Address [address] [place] [address] Care Team Providers Care Taper/Finisher Name Role Phone Mansi Wayne MD Primary Care Provider Nicole Galo MD Primary Care Provider [phone] Encounter Details Date Type Department Care Team Description 11/09/2017 Pt. Non Urgent Medic al Question Adult Medicine [address] [address] Mansi Wayne MD Social History Tobacco Use [...] amlodipine,hydrochlorothiazide, and sinvastatin. [facility] [place]. Thanks ! Tanya mendozaderrick documented in this encounter Plan of Treatment Not on file documented as of this encounter Visit Diagnoses Not on filedocumented in this encounter Care Teams Taper/Finisher Relationship Specialty Start Date End Date Mansi Wayne MD PCP - General 09/11/10 02/08/21 Nicole Caro MD [address] [place] [address] PCP - General Internal Medicine 02/09/21 documented as of this encounter
--- OUTSIDE RECORDS SUMMARY | 2025-01-13 13:14 | XMS_ITS | Encounter Summary ---
Author Organization [facility] [employer] [facility] Address [address] [place] [address] Care Team Providers Care Osteologist Name Role Phone Mansi Wayne MD Primary Care Provider Nicole Galo MD Primary Care Provider [phone] Encounter Details Date Type Department Care Team Description 06/20/2019 Ui Engineer Report Medical Records [address] [place], [place] [id number] Tr Izaguirre Social History Tobacco Use Types [...] on filedocumented in this encounter Care Teams Osteologist Relationship Specialty Start Date End Date Mansi Wayne MD PCP - General 09/11/10 02/08/21 Nicole Caro MD [address] [place] [address] [phone] PCP - General Internal Medicine 02/09/21 documented as of this encounter
--- OUTSIDE RECORDS SUMMARY | 2025-01-13 13:14 | XMS_ITS | Encounter Summary ---
Author Organization [employer] [facility] Address [address] [place] [address] Care Team Providers Care Shoemaker Custom Name Role Phone Nicole Caro MD Primary Care Provider Encounter Details Date Type Department Care Team Description 04/19/2021 Business Doc Medical Records [address] [place] [address] Abstract, Provider Social History Tobacco Use Types [...] on filedocumented in this encounter Care Teams Shoemaker Custom Relationship Specialty Start Date End Date Nicole Caro MD [address] [place] [address] PCP - General Internal Medicine 02/09/21 documented as of this encounter
--- OUTSIDE RECORDS SUMMARY | 2025-01-13 13:14 | XMS_ITS | Encounter Summary ---
Author Organization [employer] [facility] Address [address] [place] [address] Care Team Providers Care Shipping Agent Name Role Phone Mansi Wayne MD Primary Care Provider Nicole Galo MD Primary Care Provider [phone] Encounter Details Date Type Department Care Team Description 04/29/2019 Central Sterilization Technician Report Medical Records [address] [place] [address] Ivan Ledezma MD Social History Tobacco Use [...] on filedocumented in this encounter Care Teams Shipping Agent Relationship Specialty Start Date End Date Mansi Wayne MD PCP - General 09/11/10 02/08/21 Nicole Caro MD [address] [place] [address] [phone] PCP - General Internal Medicine 02/09/21 documented as of this encounter
--- OUTSIDE RECORDS SUMMARY | 2025-01-13 13:14 | XMS_ITS | Encounter Summary ---
Author Organization [facility] Address [address] [place] [address] Care Team Providers Care Electronics Parts Sales Representative Name Role Phone Mansi Wayne MD Primary Care Provider Nicole Galo MD Primary Care Provider [phone] Encounter Details Date Type Department Care Team Description 05/05/2017 Pt. Non Urgent Medic al Question Adult Medicine [address] [address] Mansi Wayne MD Social History Tobacco Use [...] M.A. - 05/05/2017 3:50 PM EDTFrom: Danna Germanshaji To: Mansi Wayne MD Sent: 05/05/2017 9:03 AM EDT Subject: renew medications I need to have renewals on my three medications. They are at [facility]. Simvastatin; Amlodipine; Hydrochlorothiazide Haile Tanya Anh (: 50) documented in this encounter Plan of Treatment Not on file documented as of this encounter Visit Diagnoses Not on filedocumented in this encounter Care Teams Electronics Parts Sales Representative Relationship Specialty Start Date End Date Mansi Wayne MD PCP - General 09/11/10 02/08/21 Nicole Caro MD [address] [place] [phone] PCP - General Internal Medicine 02/09/21 documented as of this encounter
--- OUTSIDE RECORDS SUMMARY | 2025-01-13 13:14 | XMS_ITS | Encounter Summary ---
Author Organization [facility] Address [address] [place] [address] Care Team Providers Care Pipe Fitter Helper Name Role Phone Nicole Caro MD Primary Care Provider [phone] Encounter Details Date Type Department Care Team Description 03/02/2021 Telephone Gastroenterology - [address] [place] [address] Augustine Francis, PAShawn Social History [...] was given the direct phone number to [facility] to schedule the procedure. Patient was asked to call us back if any problem scheduling the sono abdomen complete. documented in this encounter Plan of Treatment Not on file documented as of this encounter Visit Diagnoses Not on filedocumented in this encounter Care Teams Pipe Fitter Helper Relationship Specialty Start Date End Date Nicole Caro MD [address] [place] [phone] PCP - General Internal Medicine 02/09/21 documented as of this encounter
--- OUTSIDE RECORDS SUMMARY | 2025-01-13 13:14 | XMS_ITS | Clinical Summary ---
Author Organization [facility] [address] [place] [address] [place] [phone] Phone Care Team Providers Care Snapper On Name Role Phone Nicole Caro MD Primary Care Provider [phone] Allergies Active Allergy Reactions Criticality Noted Date Comments Iodinated Contrast Media 09/02/2005 Sulfa (Sulfonamide Antibiotics) 08/12 Medications amoxicillin (AMOXIL) 500 mg capsule Take 4 Capsules by mouth once as needed. 1 hr prior to Dental exams Active prednisoLONE acetate (PRED FORTE) 1 % ophthalmic suspension Place 1 Drop into the right eye daily. 4 Active hydroCHLOROthia zide (HYDRODIURIL) 25 mg tablet TAKE 1 TABLET BY MOUTH DAILY 90 tablet 1 4 Active amLODIPine (NORVASC) 10 mg tablet TAKE 1 TABLET BY MOUTH DAILY 90 tablet 1 4 Active apixaban (ELIQUIS) 5 mg tablet Take [...] Tablet may be swallowed whole (do not crush/chew/suck on) OR broken in half and each half swallowed separately OR dissolved (whole tablet) in ~4 ounces of water (allow ~2 minutes to dissolve, stir well and administer immediately). 90 each 1 Active Active Problems Problem Noted Date Diagnosed Date Status post total right knee replacement 025 Overview (11/26/2024): 11/05; previous left TKR Atrial fibrillation (CMS/HCC V24, CMS/HCC V28) 1 11/04/2023 Overview (09/03/2024): Cardioversion 09/03 At high risk [...] 12/09/2024 Billing Patient Not Present Adult Medicine [address] [phone] Nicole Caro MD 11/26/2024 10:30 AM EDT Office Visit Adult Medicine [address] [phone] Nicole Caro MD Essential hypertension, benign (Primary Dx); Pure hypercholesterolemia ; Chronic atrial fibrillation (CMS/HCC V24, CMS/HCC V28); Hypokalemia; Status post total right knee replacement 11/14/[address] [phone] Nicole Caro MD Hospital Follow-up 11/12/2024 Lab Requisition [facility] [address] [place] [phone] Jailyn Marquez MD Encounter for other general examination 11/12/2024 Lab Requisition [facility] [address] [place] [phone] Jailyn Marquez MD Encounter for other general examination 11/09/2024 Lab Requisition [facility] [address] [place] [phone] Jailyn Marquez MD Encounter for other general examination 11/08/2024 Lab Requisition [facility] [address] [place] [phone] Jailyn Marquez MD Encounter for other general [...] cyst - benign COLONOSCOPY W/ BIOPSIES 07/31/2006 Dr. Kalia Silveira - 1 hyperplastic polyp. rpt 10 yrs [...] FRAX 29% Esophageal stenosis 09/14/2020 Atrial fibrillation (CMS/HCC V24, CMS/HCC V28) 09/03/2024 Cardioversion 09/03 At high risk for breast [...] for your loved ones. For example, childcare aide or elderly care for an older [...] 9:50 AM EDT Appointment Radiology Department - [address] [phone] 06/03/2025 11:00 AM EDT Office Visit Adult Medicine [address] [phone] Nicole Caro MD [address] [place] [phone] Health Maintenance Due Date Last Done Comments [...] age to complete this topic Meningococcal B Vaccine Aged Out No l onger eligible based on patient's age to complete [...] AM EST Encounter for other general examination LIPID PANEL WITH REFLEX TO DIRECT [...] 11:22 AM EDT) Only the most recent of2 resultswithin the time period is included. [facility] Sodium 136 133 - 145 mmol/L LAB CHEMISTRY METHOD 11/26/2024 3:22 PM EDT [facility] Potassium 4.2 3.5 - 5.5 mmol/L LAB CHEMISTRY METHOD 11/26/2024 3:22 PM [facility] Chloride 100 96 - 110 mmol/L LAB CHEMISTRY METHOD 11/26/2024 3:22 PM [facility] CO2 27 21 - 32 mmol/L LAB CHEMISTRY METHOD 11/26/2024 3:22 PM [facility] Anion Gap 9 3 - 11 LAB CHEMISTRY METHOD 11/26/2024 3:22 PM [facility] Glucose 130(H) 70 - 100 mg/dL LAB CHEMISTRY METHOD 11/26/2024 3:22 PM [facility] BUN 8 5 - 25 mg/dL LAB CHEMISTRY METHOD 11/26/2024 3:22 PM [facility] Creatinine 0.68 0.50 - 1.10 mg/dL LAB CHEMISTRY METHOD 11/26/2024 3:22 PM [facility] eGFR 92 >=60 mL/min/1. 73m2 LAB CHEMISTRY METHOD 11/26/2024 3:22 PM [facility] Comment:Calculation based on the??Chronic Kidney Disease Epidemiology Collaboration (CKD-EPI) equation refit??without adjustment for race. BUN/Creatinine Ratio 11.8 LAB CHEMISTRY METHOD 11/26/2024 3:22 PM [facility] Calcium 10.1 8.5 - 10.5 mg/dL LAB CHEMISTRY METHOD 11/26/2024 3:22 PM [facility] Blood Venous blood specimen / Unknown Venipuncture / Unknown 11/26/2024 11:22 AM EDT 11/26/2024 11:22 AM EDT us Nicole Caro MD LAB BLOOD ORDERABLES Final Resul t [facility] [address] [place] [address], [place] [phone] * Magnesium (11/12/2024 3:22 PM EST) Only the most recent of2 resultswithin the time period is included. [facility] Magnesium 2.0 1.9 - 2.6 mg/dL LAB CHEMISTRY METHOD 11/12/2024 5:02 PM [facility] Blood Venous blood specimen / Unknown Venipuncture / Unknown 11/12/2024 3:22 PM EST 11/12/2024 4:11 PM EST us Jailyn Marquez MD LAB BLOOD ORDERABLES Final Resu lt [facility] [address] [place] [address], [place] [phone] * (ABNORMAL) Comprehensive metabolic panel (11/12/2024 3:22 PM EST) Only the most recent of2 resultswithin the time period is included. [facility] Sodium 138 133 - 145 mmol/L LAB CHEMISTRY METHOD 11/12/2024 5:06 PM [facility] Potassium 3.5 3.5 - 5.5 mmol/L LAB CHEMISTRY METHOD 11/12/2024 5:06 PM [facility] Chloride 102 96 - 110 mmol/L LAB CHEMISTRY METHOD 11/12/2024 5:06 PM [facility] CO2 25 21 - 32 mmol/L LAB CHEMISTRY METHOD 11/12/2024 5:06 PM [facility] Anion Gap 11 3 - 11 LAB CHEMISTRY METHOD 11/12/2024 5:06 PM [facility] Glucose 108(H) 70 - 100 mg/dL LAB CHEMISTRY METHOD 11/12/2024 5:06 PM [facility] BUN 12 5 - 25 mg/dL LAB CHEMISTRY METHOD 11/12/2024 5:06 PM [facility] Creatinine 0.53 0.50 - 1.10 mg/dL LAB CHEMISTRY METHOD 11/12/2024 5:06 PM [facility] eGFR 97 >=60 mL/min/1. 73m2 LAB CHEMISTRY METHOD 11/12/2024 5:06 PM [facility] Comment:Calculation based on the??Chronic Kidney Disease Epidemiology Collaboration (CKD-EPI) equation refit??without adjustment for race. BUN/Creatinine Ratio 22.6 LAB CHEMISTRY METHOD 11/12/2024 5:06 PM [facility] Calcium 9.3 8.5 - 10.5 mg/dL LAB CHEMISTRY METHOD 11/12/2024 5:06 PM [facility] AST (SGOT) 46(H) 10 - 42 unit/L LAB CHEMISTRY METHOD 11/12/2024 5:06 PM [facility] ALT (SGPT) 65(H) 10 - 60 unit/L LAB CHEMISTRY METHOD 11/12/2024 5:06 PM [facility] Alkaline Phosphatase 114 42 - 121 unit/L LAB CHEMISTRY METHOD 11/12/2024 5:06 PM [facility] Total Protein 6.5 6.0 - 8.0 g/dL LAB CHEMISTRY METHOD 11/12/2024 5:06 PM [facility] Albumin 2.9(L) 3.2 - 5.0 g/dL LAB CHEMISTRY METHOD 11/12/2024 5:06 PM [facility] Total Bilirubin 1.5(H) 0.0 - 1.4 mg/dL LAB CHEMISTRY METHOD 11/12/2024 5:06 PM [facility] Blood Venous blood specimen / Unknown Venipuncture / Unknown 11/12/2024 3:22 PM EST 11/12/2024 4:11 PM EST us Jailyn Marquez MD LAB BLOOD ORDERABLES Final Resu lt [facility] [address] [place] [address], * (ABNORMAL) CBC auto differential (11/12/2024 6:36 AM EST) Only the most recent of2 resultswithin the time period is included. [facility] Signature WBC 8.0 4.8 - 10.8 K/mcL LAB [...] 11/12/2024 11:17 AM [facility] Eosinophils Absolute 0.35 0.00 - 0.50 K/mcL LAB HEMETOLOGY METHOD 11/12/2024 11:17 AM [facility] Basophils Absolute 0.05 0.00 - 0.20 K/mcL LAB HEMETOLOGY METHOD 11/12/2024 11:17 AM [facility] Immature Granulocytes Absolute 0.04(H) 0.00 - 0.03 K/mcL LAB HEMETOLOGY METHOD 11/12/2024 11:17 AM EST [facility] Blood Venous blood specimen / Unknown Venipuncture / Unknown 11/12/2024 6:36 AM EST 11/12/2024 10:54 AM EST us Jailyn Marquez MD LAB BLOOD ORDERABLES Final Resu lt [facility] [address] [place] [address], [place] [phone] * (ABNORMAL) Lipid panel with reflex to direct LDL (10/07/2024 10:09 AM EST) Cholesterol 201(H) 0 - 200 mg/dL LAB CHEMISTRY METHOD 10/07/2024 3:24 PM [facility] Triglycerides 88 0 - 150 mg/dL LAB CHEMISTRY METHOD 10/07/2024 3:24 PM [facility] HDL 90 >=40 mg/dL LAB CHEMISTRY METHOD 10/07/2024 3:24 PM [facility] LDL Calculated 93 0 - 100 mg/dL LAB CHEMISTRY METHOD 10/07/2024 3:24 PM [facility] VLDL Cholesterol Ken 17.6 mg/dL LAB CHEMISTRY METHOD 10/07/2024 3:24 PM [facility] Non HDL Chol. (LDL+VLDL) 111 <145 mg/dL LAB CHEMISTRY METHOD 10/07/2024 3:24 PM [facility] Chol/HDL Ratio 2.2 0.0 - 4.4 LAB CHEMISTRY METHOD 10/07/2024 3:24 PM [facility] Blood Venous blood specimen / Unknown Venipuncture / Unknown 10/07/2024 10:09 AM EST 10/07/2024 10:09 AM EST us Nicole Caro MD LAB BLOOD ORDERABLES Final Resul t [facility] [address] [place] [address], * Depression Screening (05/29/2024) Depression Screening abstracted [...] spine and hips were performed on a [employer] fan beam bone densitometer. ? Bone mineral [...] spine and hips were performed on a [employer] beam bone densitometer. Bone mineral density measurements [...] PROCEDURES Final Resu lt * Colonoscopy (07/17/2017) [facility] Colonoscopy abstracted, no interpretation Anatomical Region Laterality Modality Other Historical Provider HEALTH MAINTENANCE Final Result * Hepatitis C Screening (10/01/2013) [facility] Hepatitis C Screening abstracted Historical Provider HEALTH MAINTENANCE Final Result from Last 3 Months or Most Recently Relevant to Health [place] [id number] [facility] Care Teams Snapper On Relationship Specialty Start Date End Date Nicole Caro MD [address] [place] [address] PCP - General Internal Medicine 02/09/21
--- OUTSIDE RECORDS SUMMARY | 2025-01-13 13:14 | XMS_ITS | Encounter Summary ---
Author Organization [facility] Address [address] [place] [address] Care Team Providers Care Customer Service Security Officer Name Role Phone Mansi Wayne MD Primary Care Provider Nicole Galo MD Primary Care Provider [phone] Encounter Details Date Type Department Care Team Description 08/28/2020 Orders Only Adult Medicine [address] [address] Mansi Wayne MD Esophageal dysphagia Social History [...] phase documented in this encounter Care Teams Customer Service Security Officer Relationship Specialty Start Date End Date Mansi Wayne MD PCP - General 09/11/10 02/08/21 Nicole Caro MD [address] [place] [address] PCP - General Internal Medicine 02/09/21 documented as of this encounter
--- OUTSIDE RECORDS SUMMARY | 2025-01-13 13:14 | XMS_ITS | Encounter Summary ---
Author Organization [facility] Address [address] [place] [address] Care Team Providers Care Machine Trimmer Name Role Phone Nicole Caro MD Primary Care Provider [phone] Encounter Details Date Type Department Care Team Description 04/25/2022 Business Doc Medical Records [address] [place] [phone] Abstract, Provider Social History Tobacco Use Types [...] filedocumented in this encounter Care Teams Machine Trimmer Relationship Specialty Start Date End Date Nicole Caro MD [address] [place] [phone] PCP - General Internal Medicine 02/09/21 documented as of this encounter
--- OUTSIDE RECORDS SUMMARY | 2025-01-13 13:14 | XMS_ITS | Encounter Summary ---
Author Organization [facility] Address [address] [place] [address] Care Team Providers Care Passenger Coach Driver Name Role Phone Nicole Caro MD Primary Care Provider [phone] Encounter Details Date Type Department Care Team Description 03/02/2021 Telephone Gastroenterology - [address] [place] [address] Augustine Francis, PAJuniC Social History [...] on filedocumented in this encounter Care Teams Passenger Coach Driver Relationship Specialty Start Date End Date Nicole Caro MD [address] [place] [address] PCP - General Internal Medicine 02/09/21 documented as of this encounter
--- OUTSIDE RECORDS SUMMARY | 2025-01-13 13:14 | XMS_ITS | Encounter Summary ---
Author Organization [facility] Address [address] [place] [address] Care Team Providers Care Tube Mill Operator Name Role Phone Nicole Caro MD Primary Care Provider [phone] Encounter Details Date Type Department Care Team ([facility] st Contact Info) Description 11/08/2024 Lab Requisition [facility] Lab [address] [facility] [place] [address] Jailyn Marquez MD [address] [place] [phone] Encounter for other general examination Social History [...] for your loved ones. For example, child and family therapist or elderly care for an older adult? [...] 05/09/2025 9:50 AM EDT Appointment Radiology Department [address] [phone] 06/03/2025 11:00 AM EDT Office Visit Adult Medicine [address] [phone] Nicole Caro MD [address] [place] [address] documented as of this encounter Procedures Procedure [...] K/mcL LAB HEMETOLOGY METHOD 11/08/2024 11:16 AM [facility] RBC 4.10 3.80 - 4.80 M/mcL LAB HEMETOLOGY METHOD 11/08/2024 11:16 AM [facility] Hemoglobin 11.9 11.5 - 16.0 g/dL LAB HEMETOLOGY METHOD 11/08/2024 11:16 AM [facility] Hematocrit 36.2 35.0 - 47.0 % LAB HEMETOLOGY METHOD 11/08/2024 11:16 AM [facility] MCV 89.4 79.0 - 98.0 FL LAB HEMETOLOGY METHOD 11/08/2024 11:16 AM [facility] MCH 29.4 27.0 - 32.0 pcg LAB HEMETOLOGY METHOD 11/08/2024 11:16 AM [facility] MCHC 32.9 32.0 - 37.0 g/dL LAB HEMETOLOGY METHOD 11/08/2024 11:16 AM [facility] RDW 13.3 11.0 - 15.0 % LAB HEMETOLOGY METHOD 11/08/2024 11:16 AM [facility] Platelets 290 130 - 400 K/mcL LAB HEMETOLOGY METHOD 11/08/2024 11:16 AM [facility] MPV 10.3 7.0 - 11.0 FL LAB HEMETOLOGY METHOD 11/08/2024 11:16 AM [facility] NRBC 0.0 <1.0 % LAB HEMETOLOGY METHOD 11/08/2024 11:16 AM [facility] NRBC Absolute 0.00 <0.10 K/mcL LAB HEMETOLOGY METHOD 11/08/2024 11:16 AM [facility] Neutrophils Relative 64.4 % LAB HEMETOLOGY METHOD 11/08/2024 11:16 AM [facility] Lymphocytes Relative 20.7 % LAB HEMETOLOGY METHOD 11/08/2024 11:16 AM [facility] Monocytes Relative 13.6 % LAB HEMETOLOGY METHOD 11/08/2024 11:16 AM [facility] Eosinophils Relative 0.5 % LAB HEMETOLOGY METHOD 11/08/2024 11:16 AM [facility] Basophils Relative 0.4 % LAB HEMETOLOGY METHOD 11/08/2024 11:16 AM [facility] Immature Granulocytes Relative 0.4 % LAB HEMETOLOGY METHOD 11/08/2024 11:16 AM [facility] Neutrophils Absolute 6.01 1.50 - 7.00 K/mcL LAB HEMETOLOGY METHOD 11/08/2024 11:16 AM [facility] Lymphocytes Absolute 1.93 1.00 - 5.00 K/mcL LAB HEMETOLOGY METHOD 11/08/2024 11:16 AM [facility] Monocytes Absolute 1.27(H) 0.20 - 1.00 K/mcL LAB HEMETOLOGY METHOD 11/08/2024 11:16 AM EST [facility] Eosinophils Absolute 0.05 0.00 - 0.50 K/[facility] LAB HEMETOLOGY METHOD 11/08/2024 11:16 AM EST [facility] Basophils Absolute 0.04 0.00 - 0.20 K/[facility] LAB HEMETOLOGY METHOD 11/08/2024 11:16 AM EST [facility] Immature Granulocytes Absolute 0.04(H) 0.00 - 0.03 K/[facility] LAB HEMETOLOGY METHOD 11/08/2024 11:16 AM EST [facility] Blood Venous blood specimen / Unknown Venipuncture / Unknown 11/08/2024 6:20 AM EST 11/08/2024 10:11 AM EST Jailyn Marquez MD LAB BLOOD ORDERABLES Final Resu lt Performing Organization Address City/[facility]/ZIP Co de Phone Number [facility] [address] [place] [address], [place] [phone] * Magnesium (11/08/2024 6:20 AM EST) Pathologist [facility] Magnesium 1.9 1.9 - 2.6 mg/dL LAB CHEMISTRY METHOD 11/08/2024 1:36 PM EST [facility] Blood Venous blood specimen / Unknown Venipuncture / Unknown 11/08/2024 6:20 AM EST 11/08/2024 10:11 AM EST us Jailyn Marquez MD LAB BLOOD ORDERABLES Final Resu lt [facility] [address] [place] [address], [place] [phone] * (ABNORMAL) Comprehensive metabolic panel (11/08/2024 6:20 AM EST) Sodium 139 133 - 145 mmol/L LAB CHEMISTRY METHOD 11/08/2024 3:07 PM [facility] Potassium 3.3(L) 3.5 - 5.5 mmol/L LAB CHEMISTRY METHOD 11/08/2024 3:07 PM [facility] Chloride 105 96 - 110 mmol/L LAB CHEMISTRY METHOD 11/08/2024 3:07 PM [facility] CO2 26 21 - 32 mmol/L LAB CHEMISTRY METHOD 11/08/2024 3:07 PM [facility] Anion Gap 8 3 - 11 LAB CHEMISTRY METHOD 11/08/2024 3:07 PM [facility] Glucose 91 70 - 100 mg/dL LAB CHEMISTRY METHOD 11/08/2024 3:07 PM [facility] BUN 8 5 - 25 mg/dL LAB CHEMISTRY METHOD 11/08/2024 3:07 PM [facility] Creatinine 0.41(L) 0.50 - 1.10 mg/dL LAB CHEMISTRY METHOD 11/08/2024 3:07 PM [facility] eGFR 103 >=60 mL/min/1. 73m2 LAB CHEMISTRY METHOD 11/08/2024 3:07 PM [facility] Comment:Calculation based on the??Chronic Kidney Disease Epidemiology Collaboration (CKD-EPI) equation refit??without adjustment for race. BUN/Creatinine Ratio 19.5 LAB CHEMISTRY METHOD 11/08/2024 3:07 PM [facility] Calcium 8.4(L) 8.5 - 10.5 mg/dL LAB CHEMISTRY METHOD 11/08/2024 3:07 PM [facility] AST (SGOT) 10 10 - 42 unit/L LAB CHEMISTRY METHOD 11/08/2024 3:07 PM [facility] ALT (SGPT) 18 10 - 60 unit/L LAB CHEMISTRY METHOD 11/08/2024 3:07 PM [facility] Alkaline Phosphatase 62 42 - 121 unit/L LAB CHEMISTRY METHOD 11/08/2024 3:07 PM EST [facility] Total Protein 5.8(L) 6.0 - 8.0 g/dL LAB CHEMISTRY METHOD 11/08/2024 3:07 PM EST [facility] Albumin 2.8(L) 3.2 - 5.0 g/dL LAB CHEMISTRY METHOD 11/08/2024 3:07 PM EST [facility] Total Bilirubin 1.0 0.0 - 1.4 mg/dL LAB CHEMISTRY METHOD 11/08/2024 3:07 PM EST [facility] Blood Venous blood specimen / Unknown Venipuncture / Unknown 11/08/2024 6:20 AM EST 11/08/2024 10:11 AM EST us Jailyn Marquez MD LAB BLOOD ORDERABLES Final Resu lt [facility] [address] [place] [address], documented in this encounter Visit Diagnoses Diagnosis Encounter for other general examination Encounter for screening mammogram for breast cancer documented in this encounter Additional Health Concerns Assessment Noted Time PHQ-9 Depression Total Score: 0 09/02/20 24 1:48 PM EST documented as of this encounter Care Teams Tube Mill Operator Relationship Specialty Start Date End Date Nicole Caro MD [address] [place] [address] PCP - General Internal Medicine 02/09/21 documented as of this encounter
--- OUTSIDE RECORDS SUMMARY | 2025-01-13 13:14 | XMS_ITS | Encounter Summary ---
Author Organization [facility] Address [address] [place] [address] Care Team Providers Care Inventory Control Manager Name Role Phone Mansi Wayne MD Primary Care Provider Nicole Galo MD Primary Care Provider [phone] Encounter Details Date Type Department Care Team Description 07/18/2016 Wellness Visit Medical Records [address] [place] [id number] Mansi Wayne MD Social History Tobacco Use [...] on filedocumented in this encounter Care Teams Inventory Control Manager Relationship Specialty Start Date End Date Mansi Wayne MD PCP - General 09/11/10 02/08/21 Nicole Caro MD [address] [place] [address] PCP - General Internal Medicine 02/09/21 documented as of this encounter
--- OUTSIDE RECORDS SUMMARY | 2025-01-13 13:14 | XMS_ITS | Encounter Summary ---
Author Organization [facility] Address [address] [place] [address] Care Team Providers Care Recreational Programs Director Name Role Phone Mansi Wayne MD Primary Care Provider Nicole Galo MD Primary Care Provider [phone] Encounter Details Date Type Department Care Team Description 02/05/2021 Refill Adult Medicine [address] [address] Mansi Wayne MD Social History Tobacco Use [...] encounter Miscellaneous Notes * Telephone Encounter - Janina Rivero M.A. - 02/05/2021 10:39 AM EDT [place] 08/17 Lab Results Component Value Date NA 139 09/17/2020 K 3.2 09/17/2020 CO2 33 09/17/2020 CL 98 09/17/2020 BUN 9 09/17/2020 CREAT 0.68 09/17/2020 GLU 103 09/17/2020 CA 10.5 09/17/2020 GFR > 60 09/17/2020 documented in this encounter Plan of Treatment Not on file documented as of this encounter Visit Diagnoses Not on filedocumented in this encounter Care Teams Recreational Programs Director Relationship Specialty Start Date End Date Mansi Wayne MD PCP - General 09/11/10 02/08/21 Nicole Caro MD [address] [place] [address] PCP - General Internal Medicine 02/09/21 documented as of this encounter
--- OUTSIDE RECORDS SUMMARY | 2025-01-13 13:14 | XMS_ITS | Encounter Summary ---
Author Organization [facility] Address [address] [place] [address] Care Team Providers Care Saw Superintendent Name Role Phone Nicole Caro MD Primary Care Provider [phone] Encounter Details Date Type Department Care Team Description 10/11/2022 Telephone Adult Medicine [facility] [address] [place] [address] Nicole Caro MD [address] [place] [address] [phone] Social History Tobacco Use Types Packs/Day Years [...] on filedocumented in this encounter Care Teams Saw Superintendent Relationship Specialty Start Date End Date Nicole Caro MD [address] [place] [address] PCP - General Internal Medicine 02/09/21 documented as of this encounter
== END 2025-01-13 13:13 | disposition home or self-care (01) ==
LOC: HO.HOS 11:27
PROVIDERS: PCP Internal Medicine; Visit Provider Physician Assistant
DX: Z47.1 Aftercare following joint replacement surgery (principal); Z96.651 Presence of right artificial knee joint
CPT/HCPCS: 99024

== ENCOUNTER → 2025-01-13 11:26 | Outpatient (BNVA) | payer MEDICARE, OTHER, SELFPAY | PROVIDERS: PCP Internal Medicine; Visit Provider Physician Assistant | DX: Z47.1 Aftercare following joint replacement surgery (principal); Z96.651 Presence of right artificial knee joint | CPT/HCPCS: 99212 ==

== ENCOUNTER 2025-02-19 13:05 | Outpatient (AMB) | payer MEDICARE, OTHER, SELFPAY ==
--- NOTE | 2025-02-19 13:16 | MHC.OFFVIS ---
Vital Signs 02/19/25 13:19 Height 5 ft 8 in Weight 177 lb 11.081 oz BMI 27.0 BP 120/64 Blood Pressure Location Lt brachial Position Sitting Pulse 86 Pulse Source Monitor Intake Visit Reasons: 3-4m follow up Intake Note: 3-4 mth f/up Industrial Retrofit Designer Required: No Accompanied by: Self / Same As Patient Allergies Sulfa (Sulfonamide Antibiotics) [SULFA (SULFONAMIDE ANTIBIOTICS)] Allergy (Severe, Verified 01/13/25 11:29) HIVES red dye [RED DYE] Allergy (Intermediate, Verified 01/13/25 11:29) HIVES Medication List - Last Reconciled 02/19/25 by Tr Izaguirre MD acetaminophen 650 mg (2 x 325 mg) PO Q6H PRN 30 days amlodipine 10 mg PO BEDTIME amoxicillin 2,000 mg (4 x 500 mg) PO ONCE 1 day apixaban 5 mg PO BID atorvastatin 20 mg PO BEDTIME enoxaparin 40 mg (0.4 mL) subcut Q24H 1 day hydrochlorothiazide 25 mg PO QAM metoprolol succinate ER 25 mg PO BEDTIME potassium chloride ER 20 mEq PO DAILY walker Folding Front wheeled walker duration 99 days HPI Comments Details: Pleasant 74 year female with background history of hypertension and atrial fibrillation. She was diagnosed with atrial fibrillation last year and underwent cardioversion in August 2024 and was started on Multaq. She was seen in the office by Charline in September 2024 and was clinically doing fine but was in atrial fibrillation. She was also planning to undergo knee surgery at that time and we decided to stop the Multaq and rate control her with metoprolol succinate 25 mg daily. She underwent right knee surgery in October 2024. She has done well with rehabilitation and is walking independently. She has no chest discomfort shortness of breath. Occasionally she gets palpitations but these are short-lived. EKGs in the office is showing atrial fibrillation as before. She is back on Eliquis. FORMERLY [facility], [facility] Medical History Basal cell carcinoma Arthritis Elevated cholesterol Osteopenia Hepatic cyst Fuchs' corneal dystrophy of right eye Diverticulosis Schatzki's ring History of cardioversion PAF (paroxysmal atrial fibrillation) Primary osteoarthritis of knees, bilateral Hypertension Surgical History H/O colonoscopy History of basal cell carcinoma (BCC) excision History of esophagogastroduodenoscopy (EGD) Hx of right cataract extraction History of total left knee replacement (TKR) (~03/19/19) Hx of tonsillectomy History of elbow surgery Family History Father No problems noted. Mother No problems noted. Social History Are you a primary assurance services manager health care to a significant other at home: No Do you presently have visiting nurse or other home services: No Alcohol intake: current Alcohol intake frequency: 0-2 drinks per day Comment: advised to remove due to trip hazard Patient Tobacco Use Status: Never used Tobacco service: No Review of Systems Const Denies chills, Denies fatigue, Denies fever(s), Denies frequent falls, Denies weakness, Denies weight gain and Denies weight loss ENT Denies dizziness Card Denies chest pain, Denies leg edema, Denies lightheadedness, Denies palpitations, Denies dyspnea and Denies dyspnea on exertion Resp Denies cough, Denies dyspnea and Denies dyspnea on exertion GI Denies hematochezia Musc Denies abnormal gait, Denies muscle weakness, Denies numbness, Denies radiating pain into limb and Denies tingling Neuro Denies abnormal gait, Denies dizziness, Denies frequent falls, Denies numbness, Denies tingling and Denies weakness Endo Denies fatigue and Denies palpitations Physical Exam Vital Signs: Last Vital Signs Pulse 86 02/19/25 13:19 BP 120/64 02/19/25 13:19 BMI result Body Mass Index 27.0 GENERAL APPEARANCE: in no acute distress, pleasant. NECK: no carotid bruit, no jugular venous distention. SKIN: no suspicious lesions, warm and dry. HEART: no murmurs, irregular rate and rhythm. LUNGS: clear to auscultation bilaterally. ABDOMEN: soft, nontender. EXTREMITIES: no edema. PERIPHERAL PULSES: equal. NEUROLOGIC: No gross deficits, AAO X 3 Office Procedures EKG Details: Atrial fibrillation 86 beats per minute, rightward axis, nonspecific ST changes, QTC 430 milliseconds. [id number], Complete Assessment & Plan Assessment & Plan (1) PAF (paroxysmal atrial fibrillation): Code(s): I48.0 - Paroxysmal atrial fibrillation Category: Medical (2) Hypertension: Code(s): I10 - Essential (primary) hypertension Category: Medical Plan Pleasant 74 year female who is here for follow-up. She has background history of atrial fibrillation and hypertension. She was cardioverted in August 2024 and was started on Multaq but developed atrial fibrillation again. She was asymptomatic and we decided to rate control her. She has undergone right knee surgery and is currently on Eliquis and metoprolol with good heart rate controlled. Occasional symptoms of palpitations. No heart failure symptoms. ECHO has shown preserved LV function. Continue rate control strategy for now. We discussed that if her palpitations worsened then we can consider cardioversion again. Thank you for allowing me to participate in the care of your patient. Please feel free to contact me if you have any questions. Coding Level of Care Code Est Pt Level 4 (46260) Complex EM visit Add On G2211 Diagnoses PAF (paroxysmal atrial fibrillation) I48.0 Hypertension I10 CPT Codes EKG - CPT: 78058-[id number], Complete ([id number])
[2025-02-19 13:19] VITALS: BP 120/64; PULSE 86; BMI 27.0
--- OUTSIDE RECORDS SUMMARY | 2025-02-19 14:42 | XMS_ITS | Encounter Summary ---
Author Organization [facility] Address [address] [place] [address] Care Team Providers Care Sales Strategy Manager Name Role Phone Nicole Caro MD Primary Care Provider [phone] Encounter Details Date Type Department Care Team Description 07/03/2023 Pt. Non Urgent Medical Question Adult Medicine [facility] [address] [place] [phone] Nicole Caro MD [address] [place] [phone] Social History Tobacco Use Types Packs/Day Years [...] 07/03/2023 9:48 AM EDTFrom: Danna Sood To: lAok Caro Sent: 07/03/2023 9:46 AM EDT Subject: Pre-op visit My eye surgery has been schedued for November 28, 2023 in [place]. You have received the report from Dr. [...] on filedocumented in this encounter Care Teams Sales Strategy Manager Relationship Specialty Start Date End Date Nicole Caro MD [address] [place] [phone] PCP - General Internal Medicine 02/09/21 documented as of this encounter
== END 2025-02-19 14:01 | disposition home or self-care (01) ==
LOC: HO.HCS 13:06
PROVIDERS: PCP Internal Medicine; Visit Provider Internal Medicine Cardiovascular Disease
DX: I48.0 Paroxysmal atrial fibrillation (principal); I10 Essential (primary) hypertension
CPT/HCPCS: 93010; 99214; G2211

== ENCOUNTER → 2025-02-19 13:05 | Outpatient (BNVA) | payer MEDICARE, OTHER, SELFPAY | PROVIDERS: PCP Internal Medicine; Visit Provider Internal Medicine Cardiovascular Disease | DX: I48.0 Paroxysmal atrial fibrillation (principal); I10 Essential (primary) hypertension; R94.31 Abnormal electrocardiogram [ECG] [EKG] | CPT/HCPCS: 93005; 99212 ==

== ENCOUNTER 2025-08-20 11:02 | Outpatient (AMB) | payer MEDICARE, OTHER, SELFPAY ==
[2025-08-20 11:07] VITALS: BP 120/72; PULSE 81; BMI 28.8
--- NOTE | 2025-08-20 11:07 | A.OFFVIS_ITS ---
Vital Signs 08/20/25 11:07 Height 5 ft 8 in Weight 189 lb 2.506 oz BMI 28.8 BP 120/72 Blood Pressure Location Lt brachial Position Sitting Pulse 81 Pulse Source Pulse Oximeter Intake Visit Reasons: 6 mth f/up Intake Note: 6 mth f/up Plastics Technician Required: No Accompanied by: Self / Same As Patient Allergies Sulfa (Sulfonamide Antibiotics) (SULFA (SULFONAMIDE ANTIBIOTICS)) Allergy (Severe, Verified 01/13/25 11:29) HIVES red dye (RED DYE) Allergy (Intermediate, Verified 01/13/25 11:29) HIVES Medication List - Last Reconciled 08/20/25 by Tr Izaguirre MD acetaminophen 650 mg (2 x 325 mg) PO Q6H PRN 30 days amlodipine 10 mg PO BEDTIME amoxicillin 2,000 mg (4 x 500 mg) PO ONCE 1 day apixaban 5 mg PO BID atorvastatin 20 mg PO BEDTIME hydrochlorothiazide 25 mg PO QAM metoprolol succinate ER 25 mg PO DAILY potassium chloride ER 20 mEq PO DAILY walker Folding Front wheeled walker duration 99 days HPI Comments Details: Pleasant 75 year female with background history of hypertension and atrial fibrillation. She was diagnosed with atrial fibrillation last year and underwent cardioversion in August 2024 and was started on Multaq. She was seen in the office by Charline in September 2024 and was clinically doing fine but was in atrial fibrillation. She was also planning to undergo knee surgery at that time and we decided to stop the Multaq and rate control her with metoprolol succinate 25 mg daily. She underwent right knee surgery in October 2024. She has done well with rehabilitation and is walking independently. She has no chest discomfort shortness of breath. Occasionally she gets palpitations but these are short- lived. EKGs in the office is showing atrial fibrillation as before. She is back on Eliquis. 08/20/2025: She is here for follow-up. No chest discomfort shortness of breath. Occasional palpitations but these are quite infrequent. She has been in atrial fibrillation persistently and has been treated with rate control strategy with metoprolol succinate. She is on apixaban 5 mg twice a day. She has been diagnosed with skin cancer and we will need [facility], [facility] Medical History Basal cell carcinoma Arthritis Elevated cholesterol Osteopenia Hepatic cyst Fuchs' corneal dystrophy of right eye Diverticulosis Schatzki's ring History of cardioversion PAF (paroxysmal atrial fibrillation) Primary osteoarthritis of knees, bilateral Hypertension Surgical History H/O colonoscopy History of basal cell carcinoma (BCC) excision History of esophagogastroduodenoscopy (EGD) Hx of right cataract extraction History of total left knee replacement (TKR) (~03/19/19) Hx of tonsillectomy History of elbow surgery Family History Father No problems noted. Mother No problems noted. Social History Are you a primary customer care specialist to a significant other at home: No Do you presently have visiting nurse or other home services: No Alcohol intake: current Alcohol intake frequency: 0-2 drinks per day Comment: advised to remove due to trip hazard Patient Tobacco Use Status: Never used Tobacco service: No Review of Systems Const Denies chills, Denies fatigue, Denies fever(s), Denies frequent falls, Denies weakness, Denies weight gain and Denies weight loss ENT Denies dizziness Card Denies chest pain, Denies leg edema, Denies lightheadedness, Denies palpitations, Denies dyspnea and Denies dyspnea on exertion Resp Denies cough, Denies dyspnea and Denies dyspnea on exertion GI Denies hematochezia Musc Denies abnormal gait, Denies muscle weakness, Denies numbness, Denies radiating pain into limb and Denies tingling Neuro Denies abnormal gait, Denies dizziness, Denies frequent falls, Denies numbness, Denies tingling and Denies weakness Endo Denies fatigue and Denies palpitations Physical Exam Vital Signs: Last Vital Signs Pulse 81 08/20/25 11:07 BP 120/72 08/20/25 11:07 BMI result Body Mass Index 28.8 GENERAL APPEARANCE: in no acute distress, pleasant. NECK: no carotid bruit, no jugular venous distention. HEART: no murmurs, irregular rate and rhythm. LUNGS: clear to auscultation bilaterally. ABDOMEN: soft, nontender. EXTREMITIES: no edema. PERIPHERAL PULSES: equal. NEUROLOGIC: No gross deficits, AAO X 3 Assessment & Plan Assessment & Plan (1) Atrial fibrillation: Code(s): I48.91 - Unspecified atrial fibrillation Category: Medical (2) Hypertension: Code(s): I10 - Essential (primary) hypertension Category: Medical Plan [age] year female with hypertension and persistent atrial fibrillation. She mostly has been asymptomatic. We cardioverted at 1 stage and put on Multaq but she went back into atrial fibrillation in his lack of significant symptoms we decided just rate control her. Clinically not in heart failure. Blood pressure well controlled. She is in need of surgery for skin cancer. She needs to hold her Eliquis before surgery. I think she can hold it as per the laser systems engineer recommendation. She will see us back in 6 months. Thank you for allowing me to participate in the care of your patient. Please feel free to contact me if you have any questions. Coding Level of Care Code Est Pt Level 4 (66378) Diagnoses Atrial fibrillation I48.91 Hypertension I10
--- OUTSIDE RECORDS SUMMARY | 2025-08-20 17:18 | XMS_ITS | Encounter Summary ---
Author Organization Address [address] [place] [address] Care Team Providers Care Rental Sales Agent Name Role Phone Nicole Caro MD Primary Care Provider [phone] Encounter Details Date Type Department Care Team ([facility] st Contact Info) Description 06/19/2025 Results Follow-Up Adult Medicine [facility] [address] [place] [address] Nicole Caro MD [address] [place], [place] Social History Tobacco Use Types Packs/Day Years Used Date Smoking Tobacco: Never Smokeless Tobacco: Never Alcohol Use Standard Drinks/Week Comments Yes 0 (1 standard drink = 0.6 oz pur e alcohol) Housing Instability Answer Date Recorde d Are you worried that in the next 2 months you may not have stable housing? No 06/19/2025 Food Access & Nutrition Answer Date Rec orded Do you have access to a vari ety of food including fruits and vegetables? Yes 06/19/2025 Access to Healthcare Answer Date Record ed Within the last 3 months, ho w many times did you visit the emergency department for your medical care? 0 06/19/2025 Health Literacy Answer Date Recorded How often do you need to hav e someone help you when you read instructions, pamphlets, or other written material from your doctor or pharmacy? Never 06/19/2025 Caregiver: How often do you need to have someone help you when you read instructions, pamphlets, or other written material from your doctor or pharmacy? Not on file 06/19/2025 Financial Risk Answer Date Recorded How hard is it for you to pa y for the very basics like food, housing, medical care, and air conditioning / heating? Not very hard 06/19/2025 Transportation Answer Date Recorded Has the lack of transportati on kept you from meetings, work, or from getting things needed for daily living? No Has the lack of transportati on kept you from medical appointments or from getting medications? No 06/19/2025 Social Isolation Answer Date Recorded How often do you feel lonely or isolated from th ose around you? Never 06/19/2025 Food Risk Answer Date Recorded Within the past 12 months we worried whether our food would run out before we got money to buy more. Never true 06/19/2025 Within the past 12 months th e food we bought just didn't last and we didn't have money to get more. Never true 06/19/2025 Dependent Care Answer Date Recorded Do you need help finding or paying for care for your loved ones. For example, children librarian or elderly care for an older adult? No 06/19/2025 Education Answer Date Recorded Do you think completing more education or training, like finishing a GED, going to college, or learning a trade, would be helpful for you? No 06/19/2025 Employment and Income Answer Date Recor ded During the last four weeks, have you been actively looking for work? No 06/19/2025 Living Situation Answer Date Recorded What is your living situation? Unrecognized valu e 06/19/2025 Comments Unknown Sex and Gender Information Value Date Recorded Sex Assigned at Female 08/16/2024 2:33 PM EST Legal Sex Female 10:04 PM EST Gender Identity Female 08/16/2024 2:33 PM EST Sexual Orientation Straight 08/16/2024 2: 33 PM EST documented as of this encounter Plan of Treatment Upcoming Encounters Date Type Department Care Team (Late st Contact Info) Description 08/26/2025 10:00 AM EST Appointment [facility] [address] [place] [address] 12/18/2025 10:00 AM EDT Office Visit Adult Medicine [address] [address] Kayleen Srinivasan PA [address] [place], [place] 05/11/2026 10:00 AM EDT [facility]ointment [facility] [address] [phone] documented as of this encounter Visit Diagnoses Not on filedocumented in this encounter Additional Health Concerns Assessment Noted Time PHQ-9 Depression Total Score: 0 06/19/20 25 1:48 PM EDT A fall risk assessment has been complete d for the patient 06/19/2025 1:47 PM EDT documented as of this encounter Care Teams Rental Sales Agent Relationship Specialty Start Date End Date Nicole Caro MD [address] [place], [place] PCP - General Internal Medicine 02/09/21 documented as of this encounter
--- OUTSIDE RECORDS SUMMARY | 2025-08-20 17:18 | XMS_ITS | Encounter Summary ---
Author Organization [facility] Address [address] [place] [address] Care Team Providers Care Mechanical Sound Technician Name Role Phone Nicole Caro MD Primary Care Provider Encounter Details Date Type Department Care Team ([facility] st Contact Info) Description 11/12/2024 Lab Requisition [facility] - Main Lab [address] [facility] [place] [address] Jailyn Marquez MD [address] [place] [address] Encounter for other general examination Social History [...] for your loved ones. For example, child nutrition assistant or elderly care for an older [...] is your living situation? Unrecognized valu e 09/02/2024 Comments Unknown Sex and Gender Information Value Date Recorded Sex Assigned at Female 08/16/2024 2:33 PM EST Legal Sex Female 10:04 PM EST Gender Identity Female 08/16/2024 2:33 PM EST Sexual Orientation Straight 08/16/2024 2: 33 PM EST documented as of this encounter Plan of Treatment Upcoming Encounters Date Type Department Care Team (Late st Contact Info) Description 08/26/2025 10:00 AM EST Appointment [facility] [address] [place] [address] 12/18/2025 10:00 AM EDT Office Visit Adult Medicine [address] [phone] Kayleen Srinivasan PA [address] [place] [address] 05/11/2026 10:00 AM EDT Appointment [facility] [address] [place] [address] documented as of this encounter Procedures Procedure Name Priority Date/Time Associated Diagnosis Comments MAGNESIUM Routine 11/12/2024 3:22 PM EST Encounter for other general examination COMPREHENSIVE METABOLIC PANEL Routine 11/12/2024 3:22 PM EST Encounter for other general examination documented in this encounter Results * Magnesium (11/12/2024 3:22 PM EST) Pathologist [facility] Magnesium 2.0 1.9 - 2.6 mg/dL LAB CHEMISTRY METHOD 11/12/2024 5:02 PM EST [facility] Blood Venous blood specimen / Unknown Venipuncture / Unknown 11/12/2024 3:22 PM EST 11/12/2024 4:11 PM EST us Jailyn Marquez MD LAB BLOOD ORDERABLES Final Resu lt [facility] [address] [place] [address], * (ABNORMAL) Comprehensive metabolic panel (11/12/2024 3:22 PM EST) [facility] Sodium 138 133 - 145 mmol/L LAB CHEMISTRY METHOD 11/12/2024 5:06 PM EST [facility] Potassium 3.5 3.5 - 5.5 mmol/L LAB CHEMISTRY METHOD 11/12/2024 5:06 PM EST [facility] Chloride 102 96 - 110 mmol/L LAB CHEMISTRY METHOD 11/12/2024 5:06 PM EST [facility] CO2 25 21 - [...] [facility] Comment:Calculation based on the Chronic Kidney Disease Epidemiology Collaboration (CKD-EPI) equation refit without adjustment for race. BUN/Creatinine Ratio 22.6 LAB [...] mg/dL LAB CHEMISTRY METHOD 11/12/2024 5:06 PM EST [facility] Blood Venous blood specimen / Unknown Venipuncture / Unknown 11/12/2024 3:22 PM EST 11/12/2024 4:11 PM EST us Jailyn Marquez MD LAB BLOOD ORDERABLES Final Resu lt [facility] [address] [place] [address], documented in this encounter Visit Diagnoses Diagnosis Encounter for other general examination Encounter for screening mammogram for breast cancer documented in this encounter Additional Health Concerns Assessment Noted Time PHQ-9 Depression Total Score: 0 09/02/20 24 1:48 PM EST documented as of this encounter Care Teams Mechanical Sound Technician Relationship Specialty Start Date End Date Nicole Caro MD [address] [place] [address] PCP - General Internal Medicine 02/09/21 documented as of this encounter
--- OUTSIDE RECORDS SUMMARY | 2025-08-20 17:18 | XMS_ITS | Encounter Summary ---
Author Organization [facility] Address [address] [place] [address] Care Team Providers Care Briquette Machine Operator Name Role Phone Nicole Caro MD Primary Care Provider [phone] Encounter Details Date Type Department Care Team ([facility] st Contact Info) Description 11/12/2024 Lab Requisition [facility] - Main Lab [address] [facility] [place] [address] Jailyn Marquez MD [address] [place] [address] Encounter for other general examination Social History [...] your loved ones. For example, early childhood special educator or elderly care for an older adult? [...] Info) Description 08/26/2025 10:00 AM EST Appointment [facility] [address] [place] [address] 12/18/2025 10:00 AM EDT Office Visit Adult Medicine [address] [phone] Kayleen Srinivasan PA [address] [place] [address] 05/11/2026 10:00 AM EDT [facility]ointment [facility] [address] [phone] Scheduled Orders Name Type Priority Associated Diagnoses [...] LAB HEMETOLOGY METHOD 11/12/2024 11:17 AM EST [facility] Monocytes Absolute 1.10(H) 0.20 - 1.00 K/mcL LAB HEMETOLOGY METHOD 11/12/2024 11:17 AM EST [facility] Eosinophils Absolute 0.35 0.00 - 0.50 K/mcL LAB HEMETOLOGY METHOD 11/12/2024 11:17 AM EST [facility] Basophils Absolute 0.05 0.00 - 0.20 K/[facility] LAB HEMETOLOGY METHOD 11/12/2024 11:17 AM EST [facility] Immature Granulocytes Absolute 0.04(H) 0.00 - 0.03 K/[facility] LAB HEMETOLOGY METHOD 11/12/2024 11:17 AM [facility] Blood Venous blood specimen / Unknown Venipuncture / Unknown 11/12/2024 6:36 AM EST 11/12/2024 10:54 AM EST us Jailyn Marquez MD LAB BLOOD ORDERABLES Final Resu lt [facility] [address] [place] [address], documented in this encounter Visit Diagnoses Diagnosis Encounter for other general examination Encounter for screening mammogram for breast cancer documented in this encounter Additional Health Concerns Assessment Noted Time PHQ-9 Depression Total Score: 0 09/02/20 24 1:48 PM EST documented as of this encounter Care Teams Briquette Machine Operator Relationship Specialty Start Date End Date Nicole Caro MD [address] [place] [address] PCP - General Internal Medicine 02/09/21 documented as of this encounter
--- OUTSIDE RECORDS SUMMARY | 2025-08-20 17:18 | XMS_ITS | Clinical Summary ---
Author Organization [facility] [address] [place] [address] [place] [phone] Phone Care Team Providers Care Ice Hockey Coach Name Role Phone Nicole Caro MD Primary Care Provider [phone] Allergies Active Allergy Reactions Criticality Noted Date Comments Iodinated Contrast Media 09/02/2005 Sulfa (Sulfonamide Antibiotics) 08/12 Medications amoxicillin (AMOXIL) 500 mg capsule Take 4 Capsules by mouth once as needed. 1 hr prior to Dental exams Active apixaban (ELIQUIS) 5 mg tablet Take [...] well and administer immediately). 90 each 1 06/19/20 25 Active amLODIPine (NORVASC) 10 mg tablet TAKE 1 TABLET(10 MG) BY MOUTH AT BEDTIME 90 tablet 1 08/06/20 25 Active hydroCHLOROthi azide (HYDRODIURIL) 25 mg tablet TAKE 1 TABLET(25 MG) BY MOUTH DAILY 90 tablet 1 08/06/20 25 Active hydroCHLOROthi azide (HYDRODIURIL) 25 mg tablet TAKE 1 TABLET(25 MG) BY MOUTH 1 TIME EACH DAY 90 tablet 05/07/20 25 025 Discontinued amLODIPine (NORVASC) 10 mg tablet TAKE 1 TABLET(10 MG) BY MOUTH AT BEDTIME 90 tablet 05/07/20 25 025 Discontinued Active Problems Problem Noted Date Diagnosed Date Status post total right knee replacement 025 Overview (11/26/2024): 11/05; previous left TKR Atrial fibrillation 09/03/2024 Overview (09/03/2024): Cardioversion 09/03 Assessment & Plan (06/19/2025 2:06 PM EDT): Orders: Comprehensive metabolic panel; Future CBC and differential; Future At high risk for breast cancer 09/03/2024 Obesity (BMI 30.0-34.9) 10/08/2021 Esophageal stenosis 09/14/2020 Overview (09/03/2024): S/p dilation, schatzki ring Osteopenia 09/13/2006 Overview (07/28/2024): Oct 2022: T-score lumbar (-1.3); hip (-0.7); FRAX 29% Assessment & Plan (06/19/2025 2:06 PM EDT): Orders: BD Bone Density DXA Axial Skeleton; Future Arthritis, degenerative Elbow fracture Overview (08/31/2024): DX:Elbow fracture Diverticulosis of colon Overview (11/16/2024): noted on colonoscopy 2005 Essential hypertension, benign Assessment & Plan (06/19/2025 2:06 PM EDT): Fuchs' corneal dystrophy Hepatic cyst Overview (08/31/2024): : On outside [facility] 09/2020 Primary osteoarthritis of both knees Overview (08/31/2024): S/p left TKR 2018 Dr. Ledezma Pure hypercholesterolemia Assessment & Plan (06/19/2025 2:06 PM EDT): Encounters Date Type Department Care Team Description 06/19/2025 2:00 PM EDT Office Visit Adult Medicine [address] [phone] Nicole Caro MD Encounter for annual wellness visit (AWV) in Medicare patient (Primary Dx); Chronic atrial fibrillation (CMS/HCC V24, CMS/HCC V28); Essential hypertension, benign; Pure hypercholesterolemia; Osteopenia, unspecified location; Menopause 06/19/2025 Results Follow-Up Adult Medicine [address] [phone] Nicole Caro MD from Last 3 Months Immunizations Immunization Administration Dates Next Due Moderna (age 6mo [...] years, if healthy (optional) TONSILLECTOMY SCREENING MAMMOGRAM 05/09/2025 Bilateral TOTAL KNEE ARTHROPLASTY 11/06/2024 Right Medical History Medical History Date Comments Diverticulosis of colon noted on colonoscopy 2005 Arthritis, degenerative 04/07/2015 Hepatic cyst 09/14/2020 : On outside [facility] 09/2020 Elbow fracture 04/18/2016 Essential hypertension, benign 03/21/2006 Primary osteoarthritis of both knees 10/08/2015 S/p left TKR 2018 Dr. Ledezma Pure hypercholesterolemia 03/21/2006 Fuchs' corneal dystrophy 03/28/2023 Osteopenia 09/13/2006Oct 2022: T-scor e lumbar (-1.3); hip (-0.7); [...] Record ed Within the last 3 months, terrell w many times did you visit the [...] do you feel lonely or isolated from ose around you? Never 06/19/2025 Food Risk [...] for your loved ones. For example, child welfare caseworker or elderly care for an older adult? [...] 08/16/2024 2: 33 PM EST Obstetrics History Para Term AB IAB SAB Ectopic Multiple Livin g Live Births 0 0 0 Last Filed Vital Signs Vital Sign Reading Time Taken Comments Blood Pressure 120/68 06/19/2025 1:42 PM EDT Pulse 69 06/19/2025 1:42 PM EDT Temperature 35.6 C (96.1 F) 06/19/2025 1:42 PM EDT Respiratory Rate 16 06/19/2025 1:42 PM EDT Oxygen Saturation 98% 06/19/2025 1:42 PM EDT Inhaled Oxygen Concentration - - Weight 85.8 kg (189 lb 3.2 oz) 06/19/2025 1:42 P M EDT Height 172.7 cm (5' 8 ) 06/19/2025 1:42 PM EDT Body Mass Index 28.77 06/19/2025 1:42 PM EDT Plan of Treatment Upcoming Encounters Date Type Department Care Team (Late st Contact Info) Description 08/26/2025 10:00 AM EST Appointment [facility] Bone Density [address] [place] [address] 12/18/2025 10:00 AM EDT Office Visit Adult Medicine [facility] [address], [place] [phone] Kayleen Srinivasan PA [address] [place], [place] 05/11/2026 10:00 AM EDT [facility]ointment [facility] [address] [phone] Health Maintenance Due Date Last Done Comments Hepatitis A Vaccines (1 of 2 - Risk 2-dose series) 1969 Pneumococcal Vaccine: 50+ Years (1 of 2 - PCV) 1969 Zoster Vaccines (1 of 2) 2000 Hepatitis B Vaccines (1 of 3 - Risk 3-dose series) 2010 COVID-19 Vaccine ( season) 2025 06/29/2022, 06/29/2022, 08/27/2021, Additional history exists Influenza Vaccine (#1) 2025 RSV Immunization Adult Patients (1 - 1-dose 75+ series) 2025 Falls Risk Assessment 06/19/2026 06/19/2025, 025 Hypertension/CHF/CAD Annual BMP Blood Test 06/19/2026 06/19/2025, 11/26/2024, 11/12/2024, Additional history exists Medicare Annual Wellness Visit 06/19/2026 06/19/2025 Social Influencers of Health Screening 06/19/2026 06/19/2025 Colorectal Cancer Screening: Colonoscopy 07/17/2027 07/17/2017 Cholesterol Screening (Lipid Panel) 10/07/2029 10/07/2024, 09/15/2023 Osteoporosis Screening (Bone Density Screening) 11/21/2032 11/21/2022, 04/27/2020, 12/14/2017 DTaP,Tdap,and Td Vaccines (4 - Td or Tdap) 03/28/2033 03/28/2023, 09/17/2012, 05/24/2002 Hepatitis C Screening Completed 10/01/2013 Breast Cancer Screening Discontinued 05/09/20 25, 05/03/2024, 05/03/2024, Additional history exists Depression Screening Completed 06/19/2025, 05/29/20 24 HIB Vaccines Aged Out No longer eligi [...] Diagnosis Comments CBC WITH AUTO DIFFERENTIAL Routine 06/19/2025 2:12 PM EDT Chronic atrial fibrillation (CMS/HCC V24, CMS/HCC V28) COMPREHENSIVE METABOLIC PANEL Routine 06/19/2025 2:12 PM EDT Chronic atrial fibrillation (CMS/HCC V24, CMS/HCC V28) CBC AND DIFFERENTIAL Routine 06/19/2025 2:12 PM EDT Chronic atrial fibrillation (CMS/HCC V24, CMS/HCC V28) MG MAMMO DIGITAL SCREENING W FREDERICK BILAT Routine 05/09/2025 9:33 AM EDT Encounter for screening mammogram for breast cancer LIPID PANEL WITH REFLEX TO DIRECT LDL Routine 10/07/2024 10:09 AM EST Pure hypercholesterolemia DEPRESSION SCREENING Routine 05/29/2024 DXA BONE DENSITY STUDY 1+ SITS AXIAL SKEL Routine 11/21/2022 9:29 AM EDT Disorder of bone, unspecified Disorder of cartilage, unspecified COLONOSCOPY Routine 07/17/2017 HEPATITIS C SCREENING Routine 10/01/2013 from Last 3 Months or Most Recently Relevant to Health Maintenance Results * (ABNORMAL) CBC auto differential (06/19/2025 2:12 PM EDT) WBC 6.9 4.8 - 10.8 K/mcL LAB HEMETOLOGY METHOD 06/19/2025 4:43 PM EDT [facility] RBC 5.00(H) 3.80 - 4.80 M/mcL LAB HEMETOLOGY METHOD 06/19/2025 4:43 PM EDT [facility] Hemoglobin 15.2 11.5 - 16.0 g/dL LAB HEMETOLOGY METHOD 06/19/2025 4:43 PM EDT [facility] Hematocrit 45.0 35.0 - 47.0 % LAB HEMETOLOGY METHOD 06/19/2025 4:43 PM EDT [facility] MCV 89.5 79.0 - 98.0 FL [facility] MCH 30.2 27.0 - 32.0 pcg LAB HEMETOLOGY METHOD 06/19/2025 4:43 PM EDT [facility] MCHC 33.8 32.0 - 37.0 g/dL LAB HEMETOLOGY METHOD 06/19[facility]2025 4[facility] RDW 12.5 11.0 - 15.0 % LAB HEMETOLOGY METHOD 06/19/2025 4:43 [facility] Platelets 373 130 - 400 K/mcL LAB HEMETOLOGY METHOD 06/19/2025 4:43 PM EDT [facility] MPV 9.7 7.0 - 11.0 FL LAB HEMETOLOGY METHOD 06/19/2025 4:[facility] NRBC 0.0 <1.0 % LAB HEMETOLOGY METHOD 06/19/2025 4:43 [facility] NRBC Absolute 0.00 <0.10 K/mcL LAB HEMETOLOGY METHOD 06/19/2025 4:43 [facility] Neutrophils Relative 53.5 % LAB HEMETOLOGY METHOD 06/19/2025 4:43 PM [facility] Lymphocytes Relative 31.7 % LAB HEMETOLOGY METHOD 06/19/2025 4:43 PM [facility] Monocytes Relative 9.9 % LAB HEMETOLOGY METHOD 06/19/2025 4:43 PM [facility] Eosinophils Relative 3.9 % LAB HEMETOLOGY METHOD 06/19/2025 4:43 PM [facility] Basophils Relative 0.9 % LAB HEMETOLOGY METHOD 06/19[facility]2025 4:43 [facility] Immature Granulocytes Relative 0.1 % LAB HEMETOLOGY METHOD 06/19/2025 4:43 PM [facility] Neutrophils Absolute 3.67 1.50 - 7.00 K/mcL LAB HEMETOLOGY METHOD 06/19/2025 4:43 PM EDT [facility] Lymphocytes Absolute 2.18 1.00 - 5.00 K/mcL LAB HEMETOLOGY METHOD 06/19/2025 4:43 PM EDT [facility] Monocytes Absolute 0.68 0.20 - 1.00 K/mcL LAB HEMETOLOGY METHOD 06/19/2025 4:43 PM EDT [facility] Eosinophils Absolute 0.27 0.00 - 0.50 K/[facility] LAB HEMETOLOGY METHOD 06/19/2025 4:43 PM EDT [facility] Basophils Absolute 0.06 0.00 - 0.20 K/[facility] LAB HEMETOLOGY METHOD 06/19/2025 4:43 PM EDT [facility] Immature Granulocytes Absolute 0.01 0.00 - 0.03 K/[facility] LAB HEMETOLOGY METHOD 06/19/2025 4:43 PM EDT [facility] Blood Venous blood specimen / Unknown Venipuncture / Unknown 06/19/2025 2:12 PM EDT 06/19/2025 2:12 PM EDT us Nicole Caro MD LAB BLOOD ORDERABLES Final Resul t [facility] [address] [place] [address], * Comprehensive metabolic panel (06/19/2025 2:12 PM EDT) Sodium 136 133 - 145 mmol/L LAB CHEMISTRY METHOD 06/19/2025 4:58 PM EDT [facility] Potassium 4.1 3.5 - 5.5 mmol/L LAB CHEMISTRY METHOD 06/19/2025 4:58 PM EDT [facility] Chloride 100 96 - 110 mmol/L LAB CHEMISTRY METHOD 06/19/2025 4:58 PM EDT [facility] CO2 29 21 - 32 mmol/L LAB CHEMISTRY METHOD 06/19/2025 4:58 PM [facility] Anion Gap 7 3 - 11 LAB CHEMISTRY METHOD 06/19/2025 4:58 PM [facility] Glucose 92 70 - 100 mg/dL LAB CHEMISTRY METHOD 06/19/2025 4:58 PM [facility] BUN 10 5 - 25 mg/dL LAB CHEMISTRY METHOD 06/19/2025 4:58 PM [facility] Creatinine 0.62 0.50 - 1.10 mg/dL LAB CHEMISTRY METHOD 06/19/2025 4:58 PM [facility] eGFR 93 >=60 mL/min/1. 73m2 LAB CHEMISTRY METHOD 06/19/2025 4:58 PM [facility] Comment:Calculation based on the Chronic Kidney Disease Epidemiology Collaboration (CKD-EPI) equation refit without adjustment for race. BUN/Creatinine Ratio 16.1 LAB CHEMISTRY METHOD 06/19/2025 4:58 PM [facility] Calcium 9.9 8.5 - 10.5 mg/dL LAB CHEMISTRY METHOD 06/19/2025 4:58 PM [facility] AST (SGOT) 19 10 - 42 unit/L LAB CHEMISTRY METHOD 06/19/2025 4:58 PM [facility] ALT (SGPT) 32 10 - 60 unit/L LAB CHEMISTRY METHOD 06/19/2025 4:58 PM [facility] Alkaline Phosphatase 83 42 - 121 unit/L LAB CHEMISTRY METHOD 06/19/2025 4:58 PM [facility] Total Protein 7.5 6.0 - 8.0 g/dL LAB CHEMISTRY METHOD 06/19/2025 4:58 PM [facility] Albumin 4.0 3.2 - 5.0 g/dL LAB CHEMISTRY METHOD 06/19/2025 4:58 PM EDT [facility] Total Bilirubin 0.8 0.0 - 1.4 mg/dL LAB CHEMISTRY METHOD 06/19/2025 4:58 PM EDT [facility] Blood Venous blood specimen / Unknown Venipuncture / Unknown 06/19/2025 2:12 PM EDT 06/19/2025 2:12 PM EDT us Nicole Caro MD LAB BLOOD ORDERABLES Final Resul t [facility] ([facility]) [facility] [address] [place] [address], [place] [phone] * MG Mammo Digital Screening w Frederick bilat (05/09/2025 9:33 AM EDT) Anatomical Region Laterality Modality Breast Bilateral Mammography 05/10/2025 3:06 PM EDT Impressions 05/10/2025 3:09 PM EDT No mammographic evidence of malignancy. BI-RADS CATEGORY: 2 - BENIGN RECOMMENDATION: Screening bilateral mammogram is recommended in 1 year. Mammo Location: [facility], [address] [place] [address], [id number], . -------- FINAL REPORT -------- Dictated By: Nilda Trammell Dictated Date: 05/10/2025 15:06 ET Assigned Physician: Nilda Trammell Reviewed and Electronically Signed By: Nilda Trammell Signed Date: 05/10/2025 15:09 ET Workstation ID: [id number] Transcribed By: Self Edit Transcribed Date: 05/10/2025 15:06 ET Narrative 05/10/2025 3:09 PM EDT Bilateral screening mammogram. CLINICAL: 74 years old, Female, routine annual exam. COMPARISON: Prior studies, latest 05/03/2024. TECHNIQUE: Bilateral MLO and CC views were obtained digitally with 2-D C views and 3-D mammogram (digital breast tomosynthesis). Computer-aided detection was utilized in evaluation of this exam (CAD). FINDINGS: There is no evidence of suspicious mass or architectural distortion. No worrisome calcifications are evident. There has been no significant change from prior exam(s). BREAST DENSITY: C - The breasts are heterogeneously dense which may obscure small masses. Procedure Note Nilda Trammell MD - 05/10/2025 Bilateral screening mammogram. CLINICAL: 74 years old, Female, routine annual exam. COMPARISON: Prior studies, latest 05/03/2024. TECHNIQUE: Bilateral MLO and CC views were obtained digitally with 2-D Cviews and 3-D mammogram (digital breast tomosynthesis). Computer-aideddetection was utilized in evaluation of this exam (CAD). FINDINGS: There is no evidence of suspicious mass or architectural distortion. Noworrisome calcifications are evident. There has been no significantchange from prior exam(s). BREAST DENSITY: C - The breasts are heterogeneously dense which mayobscure small masses. IMPRESSION: No mammographic evidence of malignancy. BI-RADS CATEGORY: 2 - BENIGN RECOMMENDATION: Screening bilateral mammogram is recommended in 1 year. Mammo Location: [facility], [address] [place] [address], [id number], . -------- FINAL REPORT -------- Dictated By: Nilda Trammell Dictated Date: 05/10/2025 15:06 ET Assigned Physician: Nilda Trammell Reviewed and Electronically Signed By: Nilda Trammell Signed Date: 05/10/2025 15:09 ET Workstation ID: [id number] Transcribed By: Self Edit Transcribed Date: 05/10/2025 15:06 ET us Nicole Caro MD IM BI PROCEDURES Final Result * (ABNORMAL) Lipid panel with reflex to direct LDL (10/07/2024 10:09 AM EST) Cholesterol 201(H) 0 - 200 mg/dL LAB CHEMISTRY METHOD 10/07/2024 3:24 PM EST [facility] Triglycerides 88 0 - 150 mg/dL LAB CHEMISTRY METHOD 10/07/2024 3:24 PM EST [facility] HDL 90 >=40 mg/dL LAB CHEMISTRY METHOD 10/07/2024 3:24 PM EST [facility] LDL Calculated 93 0 - 100 mg/dL LAB CHEMISTRY METHOD 10/07/2024 3:24 PM [facility] VLDL Cholesterol Ken 17.6 mg/dL LAB CHEMISTRY METHOD 10/07/2024 3:24 PM EST [facility] Non HDL Chol. (LDL+VLDL) 111 <145 mg/dL LAB CHEMISTRY METHOD 10/07/2024 3:24 PM EST [facility] Chol/HDL Ratio 2.2 0.0 - 4.4 LAB CHEMISTRY METHOD 10/07/2024 3:24 PM EST [facility] Blood Venous blood specimen / Unknown Venipuncture / Unknown 10/07/2024 10:09 AM EST 10/07/2024 10:09 AM EST Nicole Caro MD LAB BLOOD ORDERABLES Final Resul t [facility] [address] [place] [address], [place] [phone] * Depression Screening (05/29/2024) [facility] Depression Screening abstracted Historical Provider HEALTH MAINTENANCE Final Result * DXA BONE DENSITY STUDY 1+ SITS AXIAL SKEL (11/21/2022 9:29 AM EDT) Anatomical Region Laterality Modality Bone Densitometr y 10/06/2022 12:1 0 PM EST Narrative 11/22/2022 2:01 PM EDT Clinical history: menopausal/postmenopausal disorder Scans of the lumbar spine and hips were performed on a [employer] fan beam bone densitometer. Bone mineral density measurements [...] >20% for major osteoporotic fracture PLEASE NOTE: W.H.O. classification is based on lowest measured density at the spine, femoral neck, or total hip.This classification has prognostic significance when applied to post menopausal women and older men. 1) The World Health Organization defines low BMD as follows: T-score Normal at or > -1 Osteopenia < -1 and > -2.5 Osteoporosis at or < -2.5 without fractures Established osteoporosis < -2.5 with fractures Procedure Note Omer Britt MD - 10/17/2023 Clinical history: menopausal/postmenopausal disorder Scans of the lumbar spine and hips were performed on a [employer] beam bone densitometer. Bone mineral density measurements [...] PROCEDURES Final Resu lt * Colonoscopy (07/17/2017) [facility] Colonoscopy abstracted, no interpretation Anatomical Region Laterality Modality Other Result [facility] Historical Provider HEALTH MAINTENANCE Final Result * Hepatitis C Screening (10/01/2013) [facility] Hepatitis C Screening abstracted Historical Provider HEALTH MAINTENANCE Final Result from Last 3 Months or Most Recently Relevant to Health Maintenance Insurance MEDICARE [facility] [address] [place] [address] Care Teams Ice Hockey Coach Relationship Specialty Start Date End Date Nicole Caro MD [address] [place] [address] PCP - General Internal Medicine 02/09/21
--- OUTSIDE RECORDS SUMMARY | 2025-08-20 17:18 | XMS_ITS | Encounter Summary ---
Author Organization [facility] Address [address] [place] [address] Care Team Providers Care [employer] Supervisor Name Role Phone Nicole Caro MD Primary Care Provider [phone] Encounter Details Date Type Department Care Team ([facility] st Contact Info) Description 11/09/2024 Lab Requisition [facility] - Main Lab [address] [facility] [place] [address] Jailyn Marquez MD [address] [place] [id number] Encounter for other general examination Social History [...] for your loved ones. For example, child day care provider or elderly care for an [...] Info) Description 08/26/2025 10:[address] [facility] Bone Density [address] [place] [address] 12/18/2025 10:00 AM EDT Office Visit Adult Medicine [address] [phone] Kayleen Srinivasan PA [address] [place] [address] 05/11/2026 10:00 AM EDT [facility]ointment [facility] [address] [phone] documented as of this encounter Procedures Procedure [...] [facility] Comment:Calculation based on the Chronic Kidney Disease Epidemiology Collaboration (CKD-EPI) equation refit without adjustment for race. BUN/Creatinine Ratio 17.4 LAB CHEMISTRY METHOD 11/09/2024 12:20 PM EST [facility] Calcium 8.8 8.5 - 10.5 mg/dL LAB CHEMISTRY METHOD 11/09/2024 12:20 PM EST [facility] Blood Venous blood specimen / Unknown Venipuncture / Unknown 11/09/2024 7:15 AM EST 11/09/2024 10:49 AM EST us Jailyn Marquez MD LAB BLOOD ORDERABLES Final Resu lt [facility] [address] [place] [address], documented in this encounter Visit Diagnoses Diagnosis Encounter for other general examination Encounter for screening mammogram for breast cancer documented in this encounter Additional Health Concerns Assessment Noted Time PHQ-9 Depression Total Score: 0 09/02/20 24 1:48 PM EST documented as of this encounter Care Teams [employer] Supervisor Relationship Specialty Start Date End Date Nicole Caro MD [address] [place] [address] PCP - General Internal Medicine 02/09/21 documented as of this encounter
--- OUTSIDE RECORDS SUMMARY | 2025-08-20 17:18 | XMS_ITS | Clinical Summary ---
Author Organization [facility] Address [address] [place] [phone] Phone Care Team Providers Care Customer Servicer Name Role Phone Nicole Caro MD Primary Care Provider [phone] Allergies Active Allergy Reactions Criticality Noted Date Comments Iodinated Contrast Media 09/02/2005 Sulfur 06/01/2023 Medications amLODIPine (NORVASC) 5 MG tablet Take 1 tablet by mouth nightly at bedtime. 3 Active hydroCHLOROthia zide (HYDRODIURIL) 25 MG tablet Take 1 tablet by mouth every morning. 3 Active simvastatin (ZOCOR) 20 MG tablet Take 20 mg by mouth nightly at bedtime. at bedtime. 3 Active amoxicillin (AMOXIL) 500 MG capsule Take 500 mg by mouth as needed (Before dentist). Active ofloxacin (OCUFLOX) 0.3 % ophthalmic solution Place 1 drop into the right eye 4 (four) times a day. Begin 1 day prior to surgery and continue as directed 10 mL 1 4 Active Additional Information Patient not taking.Reported on 01/01/2024 bromfenac (PROLENSA) 0.07 % Drop ophthalmic solution Place 1 drop into the right eye daily. Start 1 day prior to surgery and continue as directed 3 mL 1 4 Active Additional Information Patient not taking.Reported on 01/01/2024 prednisoLONE acetate (PRED FORTE) 1 % ophthalmic suspension Place 1 drop into the right eye daily. 5 mL 3 4 Active Active Problems Problem Noted Date Diagnosed Date Fuchs' corneal dystrophy of both eyes 06/01/2023 Combined forms of age-related cataract of both e yes 06/01/2023 Immunizations Immunization Administration Dates Next Due COVID-19 (Pre-07/03) Moderna Vaccine, mRNA, PF 0 12/10/2020,11/12/2020 Social History Tobacco Use Types Packs/Day Years Used Date Smoking Tobacco: Never Smokeless Tobacco: Never Tobacco Cessation:Counseling Given: Not Answered Education Answer Date Recorded Are you interested in more education? Not on herman e 02/21/2023 Are you concerned about learning? Not on file 02/21/2023 No 02/21/2023 No 02/21/2023 Digital Access Answer Date Recorded No 02/21/2023 No 02/21/2023 Reliable internet access at home? Not on file 02/21/2023 Device with a working camera? Not on file Comments Unknown Sex and Gender Information Value Date Recorded Sex Assigned at Female 05/25/2023 2:15 PM EDT Legal Sex Female 12:57 PM EDT Gender Identity Female 05/25/2023 2:15 PM EDT Sexual Orientation Straight 05/25/2023 2: 15 PM EDT Last Filed Vital Signs Vital Sign Reading Time Taken Comments Blood Pressure 131/83 11/28/2023 3:59 PM EDT Pulse 90 11/28/2023 3:59 PM EDT Temperature 36.3 C (97.3 F) 11/28/2023 1:29 PM EDT Respiratory Rate 16 11/28/2023 3:59 PM EDT Oxygen Saturation 96% 11/28/2023 3:59 PM EDT Inhaled Oxygen Concentration - - Weight - - Height - - Body Mass Index - - Plan of Treatment Health Maintenance Due Date Last Done Comments POTASSIUM LEVEL 1950 DEPRESSION SCREENING 1962 HEPATITIS C SCREENING 1968 COLOGUARD 1995 COLONOSCOPY 1995 COLORECTAL CANCER SCREENING 1995 FIT TEST 1995 FOBT 1995 SIGMOIDOSCOPY 1995 VIRTUAL COLONOSCOPY 1995 PNEUMOCOCCAL VACCINES (50+ years) (1 of 1 - PCV) 2000 ZOSTER VACCINES (1 of 2) 2000 OSTEOPOROSIS SCREENING INITIAL (ONE-TIME) 2015 INFLUENZA VACCINE (#1) 2025 COVID-19 VACCINE ( season) 2025 06/29/2022, 08/27/2021, 12/10/2020, Additional history exists RSV VACCINE (1 - 1-dose 75+ series) 2025 LIPID PANEL 10/07/2029 10/07/2024, 09/15/2023 Adult Td,Tdap Booster 03/28/2033 03/28/2023 , 09/17/2012, 05/24/2002 SMOKING STATUS SCREENING (Once After 26 Yrs) Completed 10/15/2024 HEPATITIS A VACCINES Aged Out No long er eligible based on patient's age to complete this topic HIB VACCINES Aged Out No longer eligi ble based on patient's age to complete this topic MENINGOCOCCAL VACCINES (ACWY) Aged Out No longer eligible based on patient's age to complete this topic MENINGOCOCCAL VACCINES (B) Aged Out N o longer eligible based on patient's age to complete this topic Medical Devices Implanted Type Area Company [employer] Device Identifier Shelf Expiration Date Model / Serial / Lot Lens Intraocular Sofport [id number] 21.0d-11/28/2023 Implanted:11/28/19 24 (Quantity not on file) [employer] 07/11/2028 [id number] / / Cornea Tissue-11/28/2023 Implanted:11/28/19 24 (Quantity not on file) [employer] 12/04/2023 Insurance MEDICARE PART A & B [facility] MEDICARE SUPPLEMENT MEDICARE PART A & B [facility] MEDICARE SUPPLEMENT Care Teams Customer Servicer Relationship Specialty Start Date End Date Nicole Caor MD [address] [place] [address] PCP - General Internal Medicine 02/21/23 Additional Source Comments The information contained in this document represents components of the legal health record. It is not the complete legal health record.[facility]
--- OUTSIDE RECORDS SUMMARY | 2025-08-20 17:18 | XMS_ITS | Encounter Summary ---
Author Organization [facility] Address [address] [place] [address] Care Team Providers Care Lactation Coordinator Name Role Phone Nicole Caro MD Primary Care Provider [phone] Encounter Details Date Type Department Care Team ([facility] st Contact Info) Description 11/08/[address] [facility] - Main Lab [address] [facility] [place] [address] Jailyn Marquez MD [address] [place] [phone] Encounter for other general examination Social History [...] for your loved ones. For example, child specialist or elderly care for an older [...] Info) Description 08/26/2025 10:00 AM EST Appointment [facility] Bone Density [address] [place] [address] 12/18/2025 10:00 AM EDT Office Visit Adult Medicine [address] [phone] Kayleen Srinivasan PA [address] [place] [address] 05/11/2026 10:00 AM EDT Appointment [facility] [address] [address] documented as of this encounter Procedures Procedure [...] LAB HEMETOLOGY METHOD 11/08/2024 11:16 AM EST [facility] RBC 4.10 3.80 - 4.80 M/mcL LAB HEMETOLOGY METHOD 11/08/2024 11:16 AM EST [facility] Hemoglobin 11.9 11.5 - 16.0 g/dL LAB HEMETOLOGY METHOD 11/08/2024 11:16 AM EST [facility] Hematocrit 36.2 35.0 - 47.0 % LAB HEMETOLOGY METHOD 11/08/2024 11:16 AM EST [facility] MCV 89.4 79.0 - 98.0 FL LAB HEMETOLOGY METHOD 11/08/2024 11:16 AM [facility] MCH 29.4 27.0 - 32.0 pcg LAB HEMETOLOGY METHOD 11/08/2024 11:16 AM EST [facility] MCHC 32.9 32.0 - 37.0 g/dL LAB HEMETOLOGY METHOD 11/08/2024 11:16 AM [facility] RDW 13.3 11.0 - 15.0 % LAB HEMETOLOGY METHOD 11/08/2024 11:16 AM [facility] Platelets 290 130 - 400 K/mcL LAB HEMETOLOGY METHOD 11/08/2024 11:16 AM [facility] MPV 10.3 7.0 - 11.0 FL LAB HEMETOLOGY METHOD 11/08/2024 11:16 AM [facility] NRBC 0.0 <1.0 % LAB HEMETOLOGY METHOD 11/08/2024 11:16 AM [facility] NRBC Absolute 0.00 <0.10 K/mcL LAB HEMETOLOGY METHOD 11/08/2024 11:16 AM [facility] Neutrophils Relative 64.4 % LAB HEMETOLOGY METHOD 11/08/2024 11:16 AM [facility] Lymphocytes Relative 20.7 % LAB HEMETOLOGY METHOD 11/08/2024 11:16 AM [facility] Monocytes Relative 13.6 % LAB HEMETOLOGY METHOD 11/08/2024 11:16 AM [facility] Eosinophils Relative 0.5 % LAB HEMETOLOGY METHOD 11/08/2024 11:16 AM [facility] Basophils Relative 0.4 % LAB HEMETOLOGY METHOD 11/08/2024 11:16 AM [facility] Immature Granulocytes Relative 0.4 % LAB HEMETOLOGY METHOD 11/08/2024 11:16 AM [facility] Neutrophils Absolute 6.01 1.50 - 7.00 K/mcL LAB HEMETOLOGY METHOD 11/08/2024 11:16 AM [facility] Lymphocytes Absolute 1.93 1.00 - 5.00 K/mcL LAB HEMETOLOGY METHOD 11/08/2024 11:16 AM EST [facility] Monocytes Absolute 1.27(H) 0.20 - 1.00 K/[facility] LAB HEMETOLOGY METHOD 11/08/2024 11:16 AM EST [facility] Eosinophils Absolute 0.05 0.00 - 0.50 K/[facility] LAB HEMETOLOGY METHOD 11/08/2024 11:16 AM EST [facility] Basophils Absolute 0.04 0.00 - 0.20 K/[facility] LAB HEMETOLOGY METHOD 11/08/2024 11:16 AM EST [facility] Immature Granulocytes Absolute 0.04(H) 0.00 - 0.03 K/[facility] LAB HEMETOLOGY METHOD 11/08/2024 11:16 AM EST [facility] Blood Venous blood specimen / Unknown Venipuncture / Unknown 11/08/2024 6:20 AM EST 11/08/2024 10:11 AM EST Jailyn Marquez MD LAB BLOOD ORDERABLES Final Resu lt [facility] [address] [place] [address], [place] [phone] * Magnesium (11/08/2024 6:20 AM EST) Magnesium 1.9 1.9 - 2.6 mg/dL LAB CHEMISTRY METHOD 11/08/2024 1:36 PM EST [facility] Blood Venous blood specimen / Unknown Venipuncture / Unknown 11/08/2024 6:20 AM EST 11/08/2024 10:11 AM EST us Jailyn Marquez MD LAB BLOOD ORDERABLES Final Resu lt [facility] [address] [place] [address], [place] [phone] * (ABNORMAL) Comprehensive metabolic panel (11/08/2024 6:20 AM EST) Sodium 139 133 - 145 mmol/L LAB CHEMISTRY METHOD 11/08/2024 3:07 PM [facility] Potassium 3.3(L) 3.5 - 5.5 mmol/L LAB CHEMISTRY METHOD 11/08/2024 3:07 PM [facility] Chloride 105 96 - 110 mmol/L LAB CHEMISTRY METHOD 11/08/2024 3:07 PM [facility] CO2 26 21 - 32 mmol/L LAB CHEMISTRY METHOD 11/08/2024 3:07 PM [facility] Anion Gap 8 3 - 11 LAB CHEMISTRY METHOD 11/08/2024 3:07 PM [facility] Glucose 91 70 - 100 mg/dL LAB CHEMISTRY METHOD 11/08/2024 3:07 PM [facility] BUN 8 5 - 25 mg/dL LAB CHEMISTRY METHOD 11/08/2024 3:07 PM [facility] Creatinine 0.41(L) 0.50 - 1.10 mg/dL LAB CHEMISTRY METHOD 11/08/2024 3:07 PM [facility] eGFR 103 >=60 mL/min/1. 73m2 LAB CHEMISTRY METHOD 11/08/2024 3:07 PM [facility] Comment:Calculation based on the Chronic Kidney Disease Epidemiology Collaboration (CKD-EPI) equation refit without adjustment for race. BUN/Creatinine Ratio 19.5 LAB CHEMISTRY METHOD 11/08/2024 3:07 PM [facility] Calcium 8.4(L) 8.5 - 10.5 mg/dL LAB CHEMISTRY METHOD 11/08/2024 3:07 PM [facility] AST (SGOT) 10 10 - 42 unit/L LAB CHEMISTRY METHOD 11/08/2024 3:07 PM [facility] ALT (SGPT) 18 10 - 60 unit/L LAB CHEMISTRY METHOD 11/08/2024 3:07 PM EST [facility] Alkaline Phosphatase 62 42 - 121 unit/L LAB CHEMISTRY METHOD 11/08/2024 3:07 PM [facility] Total Protein 5.8(L) 6.0 - 8.0 g/dL LAB CHEMISTRY METHOD 11/08/2024 3:07 PM [facility] Albumin 2.8(L) 3.2 - 5.0 g/dL LAB CHEMISTRY METHOD 11/08/2024 3:07 PM [facility] Total Bilirubin 1.0 0.0 - 1.4 mg/dL LAB CHEMISTRY METHOD 11/08/2024 3:07 PM [facility] Blood Venous blood specimen / Unknown Venipuncture / Unknown 11/08/2024 6:20 AM EST 11/08/2024 10:11 AM EST us Jailyn Marquez MD LAB BLOOD ORDERABLES Final Resu lt [facility] [address] [place] [address], documented in this encounter Visit Diagnoses Diagnosis Encounter for other general examination Encounter for screening mammogram for breast cancer documented in this encounter Additional Health Concerns Assessment Noted Time PHQ-9 Depression Total Score: 0 09/02/20 24 1:48 PM EST documented as of this encounter Care Teams Lactation Coordinator Relationship Specialty Start Date End Date Nicole Caro MD [address] [place] [address] PCP - General Internal Medicine 02/09/21 documented as of this encounter
== END 2025-08-20 11:33 | disposition home or self-care (01) ==
LOC: HO.HCS 11:02
PROVIDERS: PCP Internal Medicine; Visit Provider Internal Medicine Cardiovascular Disease
DX: I48.91 Unspecified atrial fibrillation (principal); I10 Essential (primary) hypertension
CPT/HCPCS: 99214

== ENCOUNTER → 2025-08-20 11:02 | Outpatient (BNVA) | payer MEDICARE, OTHER, SELFPAY | PROVIDERS: PCP Internal Medicine; Visit Provider Internal Medicine Cardiovascular Disease | DX: I10 Essential (primary) hypertension (principal); I48.91 Unspecified atrial fibrillation | CPT/HCPCS: 99212 ==